=== PATIENT | female | born 1945 | race Caucasian/White ===

== ENCOUNTER 2016-12-10 12:54 | Inpatient (IN) ==
[2016-12-10] MEDS ORDERED: ONDANSETRON 4 MG/2 ML VIAL IV ONE (13:14)
[2016-12-10] MEDS ORDERED: 0.9 % SODIUM CHLORIDE 1,000 ML IV ONE (13:14)
[2016-12-10] MEDS ORDERED: LEVOFLOXACIN 500 MG/100 ML BAG IV ONE (13:14)
--- NOTE | 2016-12-10 13:17 | Emergency Department Note ---
General Adult HPI - General Chief complaint: Weakness Stated complaint: Weakness, High Blood sugar Time Seen by Provider: 12/10/16 13:03 Source: patient, EMS, other Mode of arrival: ambulatory - History of Present Illness HPI Narrative: This patient was diagnosed with UTI recently and prescribed Cipro but has not started it yet. Since Sunday she has been weak and in bed and unable to get out. Feels nauseated. No new cough. No abdominal pain back pain or fever. - Related Data Home Medications Medication Instructions Recorded Confirmed Sertraline [Zoloft] 150 mg PO DAILY 04/29/15 12/10/16 Simvastatin [Zocor] 20 mg PO HS 04/29/15 12/10/16 Valsartan/Hydrochlorothiazide 0.5 tab PO DAILY 04/29/15 12/10/16 [Valsartan-Hctz 80-12.5 mg Tab] buPROPion HCL [Bupropion Xl] 150 mg PO DAILY 04/29/15 12/10/16 metFORMIN [Glucophage] 1,000 mg PO HS 04/29/15 12/10/16 metFORMIN [Glucophage] 1,500 mg PO DAILY 04/29/15 12/10/16 rOPINIRole HCL [Requip] 3 mg PO HS 04/29/15 12/10/16 Oxybutynin Chloride [Oxybutynin 15 mg PO DAILY 01/09/16 12/10/16 Chloride ER] Insulin Aspart [Novolog] See Protocol SQ ACHS 01/13/16 12/10/16 Ciprofloxacin HCl [Cipro] 500 mg PO BID 12/10/16 12/10/16 Fesoterodine Fumarate [Toviaz] 4 mg PO DAILY 12/10/16 12/10/16 Furosemide [Lasix] 40 mg PO DAILY 12/10/16 12/10/16 Previous Rx's Medication Instructions Recorded Accu-Chek 1 each FS ACHS strip 01/17/16 Acetaminophen [Tylenol] 650 mg PO Q4-6HP PRN #0 tablet 01/17/16 Calcium Carbonate [Tums] 1,000 mg CHEWED Q6HP PRN #0 01/17/16 tab.chew Insulin Glargine, Human [Lantus] 45 unit SQ BID #1 vial 01/17/16 Insulin Lispro [Humalog] See Protocol SQ ACHS PRN #0 unit 01/17/16 Simethicone [Mylicon] 160 mg CHEWED BIDP PRN #0 tab.chew 01/17/16 sitaGLIPtin [Januvia] 50 mg PO DAILY #30 tablet 01/17/16 Magnesium Oxide [Magnesium] 400 mg PO BID #10 tablet 01/20/16 Allergies Allergy/AdvReac Type Severity Reaction Status Date / Time clindamycin Allergy Verified 12/10/16 13:01 Sulfa (Sulfonamide AdvReac Mild Diarrhea Verified 12/10/16 13:01 Antibiotics) [SULFA (SULFONAMIDE ANTIBIOTICS)] Review of Systems Constitutional: Denies: fever Eyes: Denies: eye pain ENT ED: Denies: ear pain Cardiovascular: Denies: chest pain Respiratory: Denies: cough Gastrointestinal: Reports: nausea. Denies: abdominal pain, vomiting, diarrhea Genitourinary: Reports: urgency, dysuria, frequency Musculoskeletal: Denies: back pain Integumentary: Denies: rash Neurological: Denies: headache Past Medical History - Past Medical History [facility] Narrative: Medical History (Last Updated 08/10/16 @ 14:33 by [employer]) Left leg cellulitis (Resolved) SIRS (systemic inflammatory response syndrome) (Resolved) Diabetes (Chronic) Acute delirium (Acute) UTI (urinary tract infection) (Acute) Sepsis associated hypotension (Acute) Sepsis (Resolved) Pulmonary edema (Acute) Pneumonia (Resolved) HTN (hypertension) (Chronic) Acute and chronic respiratory failure with hypoxia (Resolved) Renal insufficiency, mild (Acute) Left leg cellulitis (Acute) MRSA carrier (Acute) Stasis dermatitis of left lower extremity due to peripheral venous hypertension (Acute) Cellulitis of leg, left (Acute) Cellulitis (Acute) Venous stasis dermatitis of both lower extremities (Acute) Cellulitis (Acute) Pneumonia (Acute) Medical history: Reports: arthritis, diabetes, hypertension, renal disease, seizures, other (cellulitis and sepsis, pneumonia) Surgical history ED: Reports: cholecystectomy Psychiatric history: Reports: depression, other - Social History smoking status: Never smoker Alcohol use: Reports: None Physical Exam - General Limitations: no limitations General appearance: alert, in no apparent distress - Head Head exam: atraumatic, normocephalic - Eye Eye exam: Present: normal appearance - ENT ENT exam: normal exam - Neck Neck exam: Present: normal inspection - Chest Chest inspection: Present: normal inspection - Respiratory Respiratory exam: Present: normal lung sounds bilaterally - Cardiovascular Cardiovascular exam: Present: regular rate, normal rhythm, normal heart sounds - Abdominal Exam Abdominal exam: Present: soft. Absent: distention, tenderness - Neurological Exam Neurological exam: Present: alert - Psychiatric Psychiatric exam: Present: normal affect, normal mood - Skin Skin exam: Present: warm, dry, intact Course Vital Signs Pulse Rate 100 H 12/10/16 12:55 Respiratory Rate 16 12/10/16 12:55 Blood Pressure 130/64 12/10/16 12:55 Pulse Oximetry (%) 98 12/10/16 12:55 Pulse Rate 113 H 12/10/16 16:02 Respiratory Rate 22 12/10/16 16:02 Blood Pressure 139/76 12/10/16 16:02 Pulse Oximetry (%) 90 12/10/16 16:02 Medical Decision Making - MDM Narrative Medical decision making narrative: This patient has urosepsis but seems to be reasonably stable and will be admitted to the hospital by the hospitalist. - Lab Data Lab results reviewed: Yes I reviewed the patient's lab results. Result diagrams: 12/10/16 13:37 12/10/16 13:37 Lab Results 12/10/16 12/10/16 12/10/16 Range/Units 13:37 13:37 13:37 WBC 14.9 H (4.5-11.0) K/mcL RBC 3.69 L (4.00-5.20) M/mcL Hgb 11.1 L (12.0-15.0) g/dL Hct 32.2 L (36.0-48.0) % MCV 87.1 (80.0-100.0) fL MCH 30.1 (26.0-34.0) pg MCHC 34.5 (31.0-36.0) g/dL RDW 14.6 H (11.5-14.5) % Plt Count 150 (140-440) K/mcL MPV 7.0 L (7.4-10.4) fL Gran % 89.1 H (38.0-78.0) % Lymph % (Auto) 5.9 L (15.5-49.0) % [place] % (Auto) 4.4 (1.0-12.0) % Eos % (Auto) 0.4 (0.0-7.0) % Baso % (Auto) 0.2 (0.0-2.0) % Gran # 13.2 H (1.8-8.0) K/mcL Lymph # (Auto) 0.9 L (1.5-4.8) K/mcL [place] # (Auto) 0.7 (0.1-0.9) K/mcL Eos # (Auto) 0.1 (0.0-0.7) K/mcL Baso # (Auto) 0 (0.0-0.3) K/mcL VBG Lactic Acid 2.4 H (0.5-2.2) mmol/L Sodium 131 L (133-145) mmol/L Potassium 4.8 (3.3-5.1) mmol/L Chloride 95 L (96-108) mmol/L Carbon Dioxide 18 L (22-30) mmol/L Anion Gap 18.0 H (8-16) BUN 37 H (8-23) mg/dl Creatinine 1.6 H (0.6-1.1) mg/dl GFR Calculation 33 Glucose 421 H (70-105) mg/dL Calcium 9.0 (8.6-10.4) mg/dl Total Bilirubin 0.7 (0.0-1.0) mg/dL AST 24 (0-37) U/l ALT 17 (0-40) U/l Alkaline Phosphatase 87 (39-117) U/L Total Protein 6.9 (5.9-8.4) gm/dL Albumin 3.1 L (3.2-5.2) gm/dL Globulin 3.8 H (2.2-3.7) gm/dL Albumin/Globulin Ratio 0.8 L (1.0-2.3) Urine Color Urine Appearance Urine pH (5.0-9.0) Ur Specific [place] (1.000-1.035) Urine Protein (NEG) mg/dL Urine Glucose (UA) (NEG) mg/dL Urine Ketones (NEG) mg/dL Urine Occult Blood (<0.03) mg/dL Urine Nitrate (NEG) Urine Bilirubin (NEG) mg/dL Urine Urobilinogen (NEG) mg/dL Ur Leukocyte Esterase (NEG) /uL Urine RBC (0-1) /hpf Urine WBC (0-4) /hpf Ur Squamous Epith Cells (0-4) /hpf Ur Transition Epith Cell (0-2) /hpf Urine Bacteria (0) /hpf Urine Mucus (0) /hpf Ur Culture Indicated? 12/10/16 Range/Units 14:14 WBC (4.5-11.0) K/mcL RBC (4.00-5.20) M/mcL Hgb (12.0-15.0) g/dL Hct (36.0-48.0) % MCV (80.0-100.0) fL MCH (26.0-34.0) pg MCHC (31.0-36.0) g/dL RDW (11.5-14.5) % Plt Count (140-440) K/mcL MPV (7.4-10.4) fL Gran % (38.0-78.0) % Lymph % (Auto) (15.5-49.0) % [place] % (Auto) (1.0-12.0) % Eos % (Auto) (0.0-7.0) % Baso % (Auto) (0.0-2.0) % Gran # (1.8-8.0) K/mcL Lymph # (Auto) (1.5-4.8) K/mcL [place] # (Auto) (0.1-0.9) K/mcL Eos # (Auto) (0.0-0.7) K/mcL Baso # (Auto) (0.0-0.3) K/mcL VBG Lactic Acid (0.5-2.2) mmol/L Sodium (133-145) mmol/L Potassium (3.3-5.1) mmol/L Chloride (96-108) mmol/L Carbon Dioxide (22-30) mmol/L Anion Gap (8-16) BUN (8-23) mg/dl Creatinine (0.6-1.1) mg/dl GFR Calculation Glucose (70-105) mg/dL Calcium (8.6-10.4) mg/dl Total Bilirubin (0.0-1.0) mg/dL AST (0-37) U/l ALT (0-40) U/l Alkaline Phosphatase (39-117) U/L Total Protein (5.9-8.4) gm/dL Albumin (3.2-5.2) gm/dL Globulin (2.2-3.7) gm/dL Albumin/Globulin Ratio (1.0-2.3) Urine Color Yellow Urine Appearance Hazy Urine pH 6.0 (5.0-9.0) Ur Specific [place] 1.015 (1.000-1.035) Urine Protein 30 A (NEG) mg/dL Urine Glucose (UA) >=500 A (NEG) mg/dL Urine Ketones Neg (NEG) mg/dL Urine Occult Blood 0.03 A (<0.03) mg/dL Urine Nitrate Neg (NEG) Urine Bilirubin Neg (NEG) mg/dL Urine Urobilinogen Neg (NEG) mg/dL Ur Leukocyte Esterase 250 A (NEG) /uL Urine RBC 6 H (0-1) /hpf Urine WBC 136 H (0-4) /hpf Ur Squamous Epith Cells 1 (0-4) /hpf Ur Transition Epith Cell < 1 (0-2) /hpf Urine Bacteria Few A (0) /hpf Urine Mucus Few (0) /hpf Ur Culture Indicated? Yes Disposition Pt seen by [facility]/PA only: No Clinical Impression: UTI (urinary tract infection) Disposition: Xfer As Inpt ([facility]) Condition: Good Referrals: Katie Haji ARNP [Primary Care Provider] - Time of Disposition: 16:42
[2016-12-10] MEDS ORDERED: INSULIN REGULAR, HUMAN 1 UNIT/0.01 ML UNIT IV ONE ×2 (14:24→18:12)
[2016-12-10 14:34] LABS: Basophils # (Auto) 0 K/mcL (0.0-0.3); Basophils % (Auto) 0.2 % (0.0-2.0); Eosinophils # (Auto) 0.1 K/mcL (0.0-0.7); Eosinophils % (Auto) 0.4 % (0.0-7.0); Granulocytes % (Auto) 89.1 % (38.0-78.0); Lymphocytes # (Auto) 0.9 K/mcL (1.5-4.8); Lymphocytes % (Auto) 5.9 % (15.5-49.0); Mean Cell Volume 87.1 fL (80.0-100.0); Mean Corpuscular HGB Conc 34.5 g/dL (31.0-36.0); Mean Corpuscular Hemoglobin 30.1 pg (26.0-34.0); Monocytes # (Auto) 0.7 K/mcL (0.1-0.9); Monocytes % (Auto) 4.4 % (1.0-12.0); Platelet Count 150 K/mcL (140-440); RBC 3.69 M/mcL (4.00-5.20); Red Cell Distribution Width 14.6 % (11.5-14.5)
[2016-12-10 14:51] LABS: ALT/SGPT 17 U/l (0-40); Albumin 3.1 gm/dL (3.2-5.2); Albumin/Globulin Ratio 0.8 (1.0-2.3); Alkaline Phosphatase 87 U/L (39-117); Blood Urea Nitrogen 37 mg/dl (8-23)
[2016-12-10 15:02] LABS: Appearance,Urine HAZY; Bacteria,Urine FEW /hpf (0); Bilirubin,Urine NEG (NEG); Color,Urine YELLOW; Glucose,Urine (UA) >=500 mg/dL (NEG); Leukocyte Esterase,Urine 250 /uL (NEG); Mucus,Urine FEW /hpf (0); Nitrate,Urine NEG (NEG); Protein,Urine 30 mg/dL (NEG); Specific Gravity,Urine 1.015 (1.000-1.035); Urine Blood 0.03 mg/dL (<0.03); Urine RBC 6 /hpf (0-1); Urine Squamous Epithelial Cell 1 /hpf (0-4); Urine Transitional Epi Cells < 1 /hpf (0-2); Urine WBC 136 /hpf (0-4); Urobilinogen,Urine NEG (NEG)
--- NOTE | 2016-12-10 17:14 | Internal Med History&Physical ---
Medical - H&P: HPI Patient information: Note initiated : 12/10/16 at 5:06 pm Patient: Mary Gibbons 71 y/o F admitted on for Weakness, High Blood sugar. History of present illness: Ms. Gibbons is a 71 year old female with a history of type 2 diabetes. She was last admitted here last December with pneumonia, cellulitis, respiratory failure , sepsis. She says about 1 month ago she developed an ulcer on her left lower leg, and that that is being followed by her regular doctor. She was feeling reasonably well, and living at home alone, until Sunday when she suddenly became extremely weak. She normally has caregivers that come in for a few hours a day just on week, so they last saw her on Sunday. She says she was so weak that she has not been able to get out of bed since then. So all day yesterday, she did not take any medications or get up to eat or drink. She was incontinent in the bed, as she was just too weak to get up. She did not think to call for help until today, when she called her caregiver, who called 911. In the emergency room, she had somewhat depressed mental status, tachypnea, tachycardia, leukocytosis, lactic acidosis, pyuria. She is now admitted to the PCU with diagnosis of sepsis thought probably secondary to urinary tract infection. The patient is somewhat lethargic, so getting a history is a little bit difficult. She says she has been having fevers and chills over the weekend. She has also had mild headache and nausea, blurred vision, sore throat and mild cough which has been nonproductive. She denies sinus symptoms or earache. She has had some trouble swallowing the last couple of days, due to a dry throat. She denies chest pain or palpitations or significant shortness of breath. She denies abdominal pain, vomiting or diarrhea. She says she normally has chronic diarrhea, but that has changed to constipation since she was started on iron supplement. She does have chronic bladder incontinence, and was recently started on bladder medicine, but is not sure if she started the new one yet. She last checked her blood sugar on Sunday, but does not recall the number. She says normally she ranges anywhere from 150 up to as high as 600. She does use a sliding scale at home. Medical history: 1.HTN 2.Diabetes mellitus on OHG 3.Morbid obesity 4.Chronic leg swelling 5.Chronic diarrhea 6. Depression/anxiety 7. Pna with resp failure 8. Cellulitis 9. CKD Surgical history: TxA, cholecystectomy,R shoulder surgery,TXL Medications: Patient is not really able to verify all medications, but current list appears to be: Januvia 50 mg daily Requip 3 mg nightly Metformin 1500 mg every morning, 1000 mg nightly Bupropion XL 150 mg daily ValsartanTZ 8012 0.5 half tablet daily Simvastatin 20 mg nightly Simethicone 160 mg twice daily as needed Sertraline 150 mg daily Oxybutynin ER 15 mg daily Magnesium oxide 400 mg twice daily Lantus 45 units subcu twice daily Humalog sliding scale before meals and at bedtime Lasix 40 mg daily Toviaz 4 mg daily Calcium carbonate 1000 mg every 6 hours as needed Tylenol 650 mg every 4-6 hours as needed Allergies: Clindamycin Sulfa Pertinent family history: HTN Diabetes CAD Social history: lives alone has caregiver, uses cane/walker Never smoker,Drug use: none, Alcohol use: none She has a son who lives in [place], who has her POA. She has a grandson who lives in [place]. She apparently did sign a no code order today, and states that that is her wish. Medical - H&P: Meds Home Medications Medication Instructions Recorded Confirmed Type Sertraline [Zoloft] 150 mg PO DAILY 04/29/15 12/10/16 History Simvastatin [Zocor] 20 mg PO HS 04/29/15 12/10/16 History Valsartan/Hydrochlorothiazide 0.5 tab PO DAILY 04/29/15 12/10/16 History [Valsartan-Hctz 80-12.5 mg Tab] buPROPion HCL [Bupropion Xl] 150 mg PO DAILY 04/29/15 12/10/16 History metFORMIN [Glucophage] 1,000 mg PO HS 04/29/15 12/10/16 History metFORMIN [Glucophage] 1,500 mg PO DAILY 04/29/15 12/10/16 History rOPINIRole HCL [Requip] 3 mg PO HS 04/29/15 12/10/16 History Oxybutynin Chloride [Oxybutynin 15 mg PO DAILY 01/09/16 12/10/16 History Chloride ER] Insulin Aspart [Novolog] See Protocol SQ ACHS 01/13/16 12/10/16 History Accu-Chek 1 each FS ACHS strip 01/17/16 12/10/16 Rx Acetaminophen [Tylenol] 650 mg PO Q4-6HP PRN #0 tablet 01/17/16 12/10/16 Rx Calcium Carbonate [Tums] 1,000 mg CHEWED Q6HP PRN #0 01/17/16 12/10/16 Rx tab.chew Insulin Glargine, Human [Lantus] 45 unit SQ BID #1 vial 01/17/16 12/10/16 Rx Insulin Lispro [Humalog] See Protocol SQ ACHS PRN #0 unit 01/17/16 12/10/16 Rx Simethicone [Mylicon] 160 mg CHEWED BIDP PRN #0 tab.chew 01/17/16 12/10/16 Rx sitaGLIPtin [Januvia] 50 mg PO DAILY #30 tablet 01/17/16 12/10/16 Rx Magnesium Oxide [Magnesium] 400 mg PO BID #10 tablet 01/20/16 12/10/16 Rx Ciprofloxacin HCl [Cipro] 500 mg PO BID 12/10/16 12/10/16 History Fesoterodine Fumarate [Toviaz] 4 mg PO DAILY 12/10/16 12/10/16 History Furosemide [Lasix] 40 mg PO DAILY 12/10/16 12/10/16 History Allergies Allergy/AdvReac Type Severity Reaction Status Date / Time clindamycin Allergy Verified 12/10/16 13:01 Sulfa (Sulfonamide AdvReac Mild Diarrhea Verified 12/10/16 13:01 Antibiotics) [SULFA (SULFONAMIDE ANTIBIOTICS)] Medical - H&P: Exam - Constitutional Vitals: Pulse Resp BP Pulse Ox 114 H 32 H 141/64 87 L 12/10/16 16:56 12/10/16 16:56 12/10/16 16:31 12/10/16 16:56 Oxygen 85% on room air. On exam, she is somewhat lethargic elderly female, who does arouse to voice, and seems to answer questions appropriately, although she falls asleep frequently. She denies pain at this time. Head: Normocephalic, atraumatic. Eyes: Pupils are fairly pinpoint, and sluggishly reactive., EOMI, anicteric. Ears: TMs and canals are clear. Pharynx: Pharynx is markedly crowded. Mucosa is markedly dry. She is edentulous. She apparently does have dentures at home. Neck: Appears supple, without obvious lymphadenopathy, JVD, thyromegaly. She does have bilateral carotid bruits which appear to be radiating from a heart murmur. Cardiac exam: Shows regular rate and rhythm with normal S1 and S2. There is a 2 /6 systolic murmur heard throughout the precordium. Lungs: Are clear to auscultation, without obvious rales, rhonchi, wheezes. Abdomen: Is quite obese, with a very large pannus. [place] smell of yeast. She has some mild right lower quadrant tenderness, but no guarding or rebound. Bowel sounds appear active. Extremities: She has generally swollen lower extremities below the knees. She has patchy erythema over both distal legs, which she says is chronic. The upper part of the left leung area also has a 2 cm necrotic appearing ulcer with about 2 cm of surrounding erythema. This is tender. There is no obvious drainage. No cyanosis or clubbing is noted. Neurologic exam: The patient is lethargic, but otherwise answers questions appropriately. She follows commands, and is moving all extremities equally. Medical - H&P: Reslt - Labs CBC & Chem 7: 12/10/16 13:37 12/10/16 13:37 Labs: Short CBC 12/10/16 Range/Units 13:37 WBC 14.9 H (4.5-11.0) K/mcL Hgb 11.1 L (12.0-15.0) g/dL Hct 32.2 L (36.0-48.0) % Plt Count 150 (140-440) K/mcL BMP 12/10/16 13:37 Sodium 131 L Potassium 4.8 Chloride 95 L Carbon Dioxide 18 L BUN 37 H Creatinine 1.6 H Glucose 421 H Calcium 9.0 Liver Function 12/10/16 Range/Units 13:37 Total Bilirubin 0.7 (0.0-1.0) mg/dL AST 24 (0-37) U/l ALT 17 (0-40) U/l Alkaline Phosphatase 87 (39-117) U/L Albumin 3.1 L (3.2-5.2) gm/dL Urine 12/10/16 Range/Units 14:14 Urine Color Yellow Urine Appearance Hazy Urine pH 6.0 (5.0-9.0) Ur Specific Rule 1.015 (1.000-1.035) Urine Protein 30 A (NEG) mg/dL Urine Glucose (UA) >=500 A (NEG) mg/dL December 10: CBC differential: Shows 13,000 neutrophils, 900 lymphocytes. Lactic acid is elevated at 2.4 Urinalysis shows greater than 500 mg glucose, 250 leukocyte esterase, 136 white blood cells, negative nitrites. Chest x-ray: Pending Medical - H&P: A/P (1) YANN (acute kidney injury) Current visit: Yes Status: Acute (2) Diabetes Problem details: NOW ON LANTUS 45 UNITS SQ BID, JANUVIA 50 MG PO DAILY AND METFORMIN. Current visit: No Status: Chronic (3) UTI (urinary tract infection) Problem details: E coli sens to all- change to Ceftriaxone Current visit: Yes Status: Acute (4) Sepsis Problem details: Blood cultures pending Current visit: No Status: Resolved (5) HTN (hypertension) Problem details: CONTROLLED. Current visit: No Status: Chronic - Narrative A/P Narrative: #1. Infectious disease. Patient presents with sepsis presentation, and evidence of UTI. She is tachycardic and tachypneic, with leukocytosis and elevated lactic acid and hyperglycemia.. -Admit to PCU for close monitoring. -Aggressive fluid resuscitation, repeat lactic acid. -Cover with IV Rocephin empirically, pending urine and blood cultures. -Kiser catheter for fluid balance monitoring. 2. CODE STATUS: DNR forms filled out by family today. 3. DVT prophylaxis: Subcu heparin 4. Renal. Acute kidney injury. -Continue aggressive fluid resuscitation. Monitor. -Hold metformin. Multiple electrolyte abnormalities. -Monitor with hydration. 5. Endocrine. Type 2 diabetes. -Patient presents with marked hyperglycemia and acidosis. Aggressive IV fluids, IV insulin, insulin sliding scale coverage.. 7. Hernia. -Hypertension. Monitor. This visit took approximately 70 minutes, to review the patient's records, review her case with the ER MD, interview and examine the patient, review plan of care with staff, and write orders.
[2016-12-10] MEDS ORDERED: DEXTROSE 31 GM ORAL.SUSP PO PRN (18:03)
[2016-12-10] MEDS ORDERED: ACETAMINOPHEN 325 MG TABLET PO PRN (18:03)
[2016-12-10] MEDS ORDERED: MAGNESIUM HYDROXIDE 30 ML ORAL.SUSP PO PRN (18:03)
[2016-12-10] MEDS ORDERED: DEXTROSE 50% 50 ML VIAL IV PRN (18:03)
[2016-12-10] MEDS ORDERED: ALBUTEROL SULFATE 2.5 MG/3 ML NEBULIZER NEB PRN (18:03)
[2016-12-10] MEDS ORDERED: ONDANSETRON 4 MG/2 ML VIAL IV PRN (18:03)
[2016-12-10] MEDS ORDERED: DOCUSATE SODIUM 100 MG CAPSULE PO PRN (18:03)
[2016-12-10] MEDS ORDERED: LORazepam 2 MG/ML VIAL IV PRN (18:03)
[2016-12-10] MEDS ORDERED: ACETAMINOPHEN 650 MG/65 ML BOTTLE IV PRN (18:19)
[2016-12-10] MEDS: INSULIN LISPRO 1 UNIT/0.01 ML UNIT SQ SCH ×2 (19:15→22:18)
[2016-12-10] MEDS ORDERED: INSULIN REGULAR, HUMAN 1 UNIT/0.01 ML UNIT ONE (19:46)
[2016-12-10] MEDS ORDERED: POTASSIUM CHLORIDE 20 MEQ/10 ML VIAL IV ONE ×2 (19:46→22:29)
[2016-12-10] MEDS ORDERED: CALCIUM CARBONATE 500 MG TAB.CHEW CHEWED PRN (19:49)
[2016-12-10] MEDS ORDERED: SIMETHICONE 80 MG TAB.CHEW CHEWED PRN (19:49)
[2016-12-10] MEDS: POTASSIUM CHLORIDE IV SCH (19:50)
[2016-12-10] MEDS: SODIUM CHLORIDE 0.9% IV SCH (19:50)
[2016-12-10 20:51] LABS: Estimated Average Glucose(eAG) 212 mg/dL
[2016-12-10] MEDS: 0.9 % SODIUM CHLORIDE 10 ML SYRINGE IV SCH (21:37)
[2016-12-10] MEDS: MAGNESIUM OXIDE 400 MG TABLET PO SCH (22:18)
[2016-12-10] MEDS: SIMVASTATIN 20 MG TABLET PO SCH (22:18)
[2016-12-10] MEDS: HEPARIN 5,000 UNIT/ML VIAL SQ SCH (22:18)
[2016-12-10] MEDS: INSULIN GLARGINE, HUMAN 1 UNIT/0.01 ML SQ SCH (22:19)
[2016-12-10] MEDS: cefTRIAXone 1 GM in DEXTROSE 5% IN WATER 50 ML IV SCH (22:28)
[2016-12-10] MEDS: rOPINIRole 1 MG TABLET PO SCH (22:28)
[2016-12-10] MEDS ORDERED: cefTRIAXone 1 GM VIAL ONE (22:30)
[2016-12-11] MEDS ORDERED: POTASSIUM CHLORIDE 20 MEQ/10 ML VIAL IV ONE (03:14)
[2016-12-11] MEDS: POTASSIUM CHLORIDE IV SCH ×4 (03:28→20:09)
[2016-12-11] MEDS: SODIUM CHLORIDE 0.9% IV SCH ×4 (03:28→20:09)
[2016-12-11] MEDS: 0.9 % SODIUM CHLORIDE 10 ML SYRINGE IV SCH ×3 (05:51→21:30)
[2016-12-11 06:12] LABS: Basophils # (Auto) 0 K/mcL (0.0-0.3); Basophils % (Auto) 0 % (0.0-2.0); Eosinophils # (Auto) 0.1 K/mcL (0.0-0.7); Eosinophils % (Auto) 0.7 % (0.0-7.0); Granulocytes % (Auto) 90.5 % (38.0-78.0); Lymphocytes # (Auto) 0.4 K/mcL (1.5-4.8); Lymphocytes % (Auto) 3.3 % (15.5-49.0); Mean Corpuscular Hemoglobin 29.9 pg (26.0-34.0); Monocytes # (Auto) 0.6 K/mcL (0.1-0.9); Monocytes % (Auto) 5.5 % (1.0-12.0); Platelet Count 134 K/mcL (140-440); Red Cell Distribution Width 15.2 % (11.5-14.5)
[2016-12-11 06:38] LABS: ALT/SGPT 25 U/l (0-40); Albumin 3.1 gm/dL (3.2-5.2); Alkaline Phosphatase 92 U/L (39-117); Bilirubin,Direct 0.5 mg/dL (0.0-0.3); Blood Urea Nitrogen 30 mg/dl (8-23); Gamma Glutamyl Transpeptidase 125 U/L (5-36); Magnesium 1.6 mg/dL (1.6-2.5); Uric Acid 7.8 mg/dL (2.5-8.0)
[2016-12-11] MEDS: ACETAMINOPHEN 1,000 MG/100 ML BOTTLE IV PRN ×2 (07:49→18:31)
[2016-12-11] MEDS: PIPERACILLIN SODIUM/TAZOBACTAM 3.375 GM in DEXTROSE 5% IN WATER 50 ML IV SCH ×3 (07:50→21:12)
[2016-12-11] MEDS: INSULIN LISPRO 1 UNIT/0.01 ML UNIT SQ SCH ×4 (07:51→21:09)
--- NOTE | 2016-12-11 08:13 | XRay Report ---
CLINICAL INFORMATION: Fever COMPARISON: 07/03/2016 FINDINGS: Cardiomediastinal silhouette is accentuated by portable technique, right rotation and suboptimal inspiration. The heart is only borderline enlarged. Mitral annular calcification noted. Mediastinum and pulmonary vessels are normal for technique. There is minor bibasilar atelectasis - no mali infiltrate and no definite effusion. Heavy calcification seen in the region of the left rotator, compatible with calcific tendinitis IMPRESSION: Minor bibasilar atelectasis. Interpreted and Authenticated by: Spencer Trinh 12/11/16
[2016-12-11] MEDS: INSULIN GLARGINE, HUMAN 1 UNIT/0.01 ML SQ SCH ×2 (09:11→21:09)
[2016-12-11] MEDS: HEPARIN 5,000 UNIT/ML VIAL SQ SCH ×2 (09:11→21:08)
[2016-12-11] MEDS: sitaGLIPtin 50 MG TABLET PO SCH (09:12)
[2016-12-11] MEDS: SERTRALINE 50 MG TABLET PO SCH (09:12)
[2016-12-11] MEDS: MAGNESIUM OXIDE 400 MG TABLET PO SCH ×2 (09:12→21:09)
[2016-12-11] MEDS: OXYBUTYNIN CHLORIDE 5 MG TAB.XL.24H PO SCH (09:13)
[2016-12-11] MEDS: buPROPion 150 MG TAB.XL.24H PO SCH (09:14)
[2016-12-11] MEDS: cefTRIAXone 1 GM in DEXTROSE 5% IN WATER 50 ML IV SCH (09:14)
--- NOTE | 2016-12-11 10:36 | Internal Med Progress Note ---
Medical - PN: Subj Patient information: Note initiated : 12/11/16 at 10:36 am Patient: Mary Gibbons 71 y/o F admitted on 12/10/16 for Weakness, High Blood sugar. Interval history: December 10, 2016: History of present illness: Ms. Gibbons is a 71 year old female with a history of type 2 diabetes. She was last admitted here last December with pneumonia, cellulitis, respiratory failure , sepsis. She says about 1 month ago she developed an ulcer on her left lower leg, and that that is being followed by her regular doctor. She was feeling reasonably well, and living at home alone, until Sunday when she suddenly became extremely weak. She normally has caregivers that come in for a few hours a day just on , so they last saw her on Sunday. She says she was so weak that she has not been able to get out of bed since then. So all day yesterday, she did not take any medications or get up to eat or drink. She was incontinent in the bed, as she was just too weak to get up. She did not think to call for help until today, when she called her caregiver, who called 911. In the emergency room, she had somewhat depressed mental status, tachypnea, tachycardia, leukocytosis, lactic acidosis, pyuria. She is now admitted to the PCU with diagnosis of sepsis thought probably secondary to urinary tract infection. The patient is somewhat lethargic, so getting a history is a little bit difficult. She says she has been having fevers and chills over the weekend. She has also had mild headache and nausea, blurred vision, sore throat and mild cough which has been nonproductive. She denies sinus symptoms or earache. She has had some trouble swallowing the last couple of days, due to a dry throat. She denies chest pain or palpitations or significant shortness of breath. She denies abdominal pain, vomiting or diarrhea. She says she normally has chronic diarrhea, but that has changed to constipation since she was started on iron supplement. She does have chronic bladder incontinence, and was recently started on bladder medicine, but is not sure if she started the new one yet. She last checked her blood sugar on Sunday, but does not recall the number. She says normally she ranges anywhere from 150 up to as high as 600. She does use a sliding scale at home. December 11: Today, the patient continues to be fairly lethargic, although she is able to answer questions when pressed. She remained febrile most of the night, in spite of frequent Tylenol. Today her blood cultures are growing gram-negative rods, so Zosyn was added to her Rocephin, pending sensitivities. White blood cell count and lactic acid are both improved today. The patient says she feels a little better, but continues to feel uncomfortable and her general abdominal area. Otherwise she denies fever chills, chest pain or palpitations, shortness of breath or cough, nausea or vomiting, diarrhea. Kiser catheter remains in place. - Constitutional Vitals: Vital Signs Temp Pulse Resp BP Pulse Ox 99.8 F H 102 H 27 H 134/49 95 12/11/16 09:00 12/11/16 07:37 12/11/16 09:00 12/11/16 09:00 12/11/16 09:00 Period Temp Pulse Resp BP Sys/Vilchis Pulse Ox Last 24 Hr 99.5 F-102.2 F 58-117 20-33 112-157/44-115 85-100 Intake and Output 12/10/16 12/11/16 12/11/16 21:59 05:59 13:59 Intake Total 1055 / 1055 390 / 390 Output Total 275 / 775 540 / 540 420 / 420 Balance -275 / 325 515 / 515 -30 / -30 Intake & Output: Intake & Output 12/10/16 12/11/16 12/11/16 21:59 05:59 13:59 Intake Total 1055 / 1055 390 / 390 Output Total 275 / 775 540 / 540 420 / 420 Balance -275 / 325 515 / 515 -30 / -30 Intake: IV 1055 / 1055 150 / 150 Zosyn 3.375 gm In 50 / 50 Dextrose 5% in Water 50 ml @ 100 mls/hr IV Q8H PANDA Rx#:[id number] Potassium Chloride 10 Meq 1005 / 1005 In Sodium Chloride 0.9% 1,000 ml @ 150 mls/hr IV .Q6H42M PANDA Rx#:[id number] Rocephin 1 gm In Dextrose 50 / 50 5% in Water 50 ml @ 100 mls/hr IV Q24H PANDA Rx#: [id number] Oral 240 / 240 Output: Urine Catheter Amount 275 / 775 540 / 540 340 / 340 Void Amount 80 / 80 On exam, she continues to be fairly lethargic, but does arouse to voice, and is able to follow commands. Current temperature is 99.8. Heart rate 92. Respiratory rate 22. O2 saturation 99% on 1 L. Neck shows no obvious JVD lymphadenopathy. Cardiac exam shows regular rate and rhythm. Lungs are clear to auscultation. Abdomen: There is some vague tenderness, which is not very reproducible. There is no guarding or rebound. Bowel sounds are active. Extremities show chronic edema and stasis dermatitis. The left leung ulcer is dry, with continued surrounding cellulitis. This was seen today with Dr. Fonseca of wound care. Medical - PN: Obj Da - Labs CBC & Chem 7: 12/11/16 04:00 12/11/16 04:00 Labs: Abnormal Lab Results 12/11/16 12/11/16 12/10/16 04:00 04:00 19:00 WBC 11.4 H RBC 3.10 L Hgb 9.3 L Hct 27.3 L RDW 15.2 H Plt Count 134 L MPV 7.0 L Gran % 90.5 H Lymph % (Auto) 3.3 L Gran # 10.4 H Lymph # (Auto) 0.4 L BUN 30 H Creatinine 1.4 H Glucose 342 H Hemoglobin A1c 9.0 H Calcium 8.1 L Phosphorus 2.3 L Direct Bilirubin 0.5 H GGT 125 H AST 47 H Albumin 3.1 L December 11: Chest x-ray: Shows minor bibasilar atelectasis. Renal ultrasound: Shows normal-appearing kidneys. Urine culture: Is growing a gram-negative bacillus. Blood cultures are growing gram-negative bacilli. December 10: CBC white blood cell count is 14,900, hemoglobin 11, hematocrit 32, platelets 150,000. Differential: Shows 13,000 neutrophils, 900 lymphocytes. Lactic acid is elevated at 2.4 Urinalysis shows greater than 500 mg glucose, 250 leukocyte esterase, 136 white blood cells, negative nitrites. Chest x-ray: Pending Meds: Medications Acetaminophen (Tylenol) 650 mg PO Q4-6HP PRN PRN Reason: PAIN/FEVER > 101 Last Admin: 12/10/16 21:36 Dose: 650 mg Albuterol Sulfate (Ventolin) 2.5 mg NEB Q4HRT PRN PRN Reason: Shortness Of Breath Or Wheezing Bupropion HCl (Wellbutrin Xl) 150 mg PO DAILY [facility] Last Admin: 12/11/16 09:14 Dose: 150 mg Calcium Carbonate/Glycine (Tums) 1,000 mg CHEWED Q6HP PRN PRN Reason: Dyspepsia Dextrose (Dextrose 50%) 0 ml IV UD PRN PRN Reason: Hypoglycemia Diagnostic Test (Pha) (Accu-Chek) 1 each FS ACHS [facility] Last Admin: 12/11/16 07:50 Dose: 1 each Docusate Sodium (Colace) 100 mg PO BID PRN PRN Reason: Constipation Glucose (Insta-Glucose) 15 gm PO PRN PRN PRN Reason: Hypoglycemia Heparin Sodium (Porcine) (Heparin) 5,000 unit SQ Q12 [facility] Last Admin: 12/11/16 09:11 Dose: 5,000 unit Ceftriaxone Sodium 1 gm/ (Dextrose) 50 mls @ 100 mls/hr IV Q24H [facility] Last Admin: 12/11/16 09:14 Dose: 100 mls/hr Potassium Chloride 10 meq/ (Sodium Chloride) 1,005 mls @ 150 mls/hr IV .Q6H42M [facility] Last Admin: 12/11/16 07:51 Dose: Not Given Acetaminophen (Ofirmev) 1,000 mg in 100 mls @ 200 mls/hr IV Q6HP PRN PRN Reason: PAIN/FEVER > 101 Last Infusion: 12/11/16 08:30 Dose: Infused Piperacillin Sod/Tazobactam (Sod 3.375 gm/ Dextrose) 50 mls @ 100 mls/hr IV Q8H [facility] Last Infusion: 12/11/16 08:44 Dose: Infused Insulin Glargine (Lantus) 45 unit SQ BID [facility] Last Admin: 12/11/16 09:11 Dose: 45 unit Insulin Human Lispro (Humalog) 0 unit SQ [facility] PRN Reason: Protocol Last Admin: 12/11/16 07:51 Dose: 8 unit Lorazepam (Ativan) 0.5 mg IV Q4HP PRN PRN Reason: ANXIETY/SEDATION Magnesium Hydroxide (Milk Of Magnesia) 30 ml PO DAILYP PRN PRN Reason: Constipation Magnesium Oxide (Magnesium Oxide) 400 mg PO BID [facility] Last Admin: 12/11/16 09:12 Dose: 400 mg Ondansetron HCl (Zofran) 4 mg IV Q4-6HP PRN PRN Reason: Nausea And Vomiting Oxybutynin Chloride (Ditropan Xl) 15 mg PO DAILY [facility] Last Admin: 12/11/16 09:13 Dose: 15 mg Ropinirole HCl (Requip) 3 mg PO HS [facility] Last Admin: 12/10/16 22:28 Dose: 3 mg Sertraline HCl (Zoloft) 150 mg PO DAILY [facility] Last Admin: 12/11/16 09:12 Dose: 150 mg Simethicone (Mylicon) 160 mg CHEWED BIDP PRN PRN Reason: Bloating Simvastatin (Zocor) 20 mg PO HS [facility] Last Admin: 12/10/16 22:18 Dose: 20 mg Sitagliptin Phosphate (Januvia) 50 mg PO DAILY [facility] Last Admin: 12/11/16 09:12 Dose: 50 mg Sodium Chloride (Saline Flush) 10 ml IV Q8 [facility] Last Admin: 12/11/16 05:51 Dose: Not Given Medical - PN: A/P - Time Spent With Patient Total time spent is greater than 50% in coordination of care (as documented) at patient's floor/unit and/or counseling patient: Greater than 35 minutes (1) YANN (acute kidney injury) Status: Acute Current Visit: Yes (2) Diabetes Problem details: NOW ON LANTUS 45 UNITS SQ BID, JANUVIA 50 MG PO DAILY AND METFORMIN. Status: Chronic Current Visit: No (3) UTI (urinary tract infection) Problem details: E coli sens to all- change to Ceftriaxone Status: Acute Current Visit: Yes (4) Sepsis Problem details: Blood cultures pending Status: Resolved Current Visit: No (5) HTN (hypertension) Problem details: CONTROLLED. Status: Chronic Current Visit: No - Narrative A/P Narrative: #1. Infectious disease. Patient presents with sepsis presentation, and evidence of UTI. She is tachycardic and tachypneic, with leukocytosis and elevated lactic acid and hyperglycemia.. -Patient has remained febrile overnight, and is now growing gram-negative rods in both her urine and her blood. Zosyn was added to the Rocephin for more comprehensive coverage, pending ID and sensitivities. -Continue IV fluids, antibiotics, close monitoring. -Lactic acidosis has resolved. 2. CODE STATUS: DNR . 3. DVT prophylaxis: Subcu heparin 4. Renal. Acute kidney injury. -Improving. Continue aggressive fluid resuscitation. Monitor. -Hold metformin. Multiple electrolyte abnormalities. -Monitor with hydration. 5. Endocrine. Type 2 diabetes. -Patient presents with marked hyperglycemia and acidosis. Blood glucose continues to run quite high, so I will bump up her sliding scale. Aggressive IV fluids, subcu Lantus, insulin sliding scale coverage.. #6. Hematologic. The patient is quite a bit more anemic today. Platelets of also dropped, possibly due to sepsis. Continue to monitor. 7. Hernia. -Hypertension. Monitor. Medical - PN: Qual - VTE Deep Vein Thrombosis/Pulmonary Embolism Present on Admission: No
--- NOTE | 2016-12-11 12:20 | Ultrasound Report ---
CLINICAL INFORMATION: [id number] bacteremia COMPARISON: None. FINDINGS: Both kidneys are normal and symmetric in size, position, configuration and echotexture: The right is 11.3 x 5.8 cm and the left 11.8 x 5.8 cm. There is no evidence of abscess, hydronephrosis or stone. Urinary bladder is decompressed from a Kiser catheter. No gross abnormality seen. IMPRESSION: Both kidneys are unremarkable. Interpreted and Authenticated by: Spencer Trinh 12/11/16
--- NOTE | 2016-12-11 15:28 | General Surgery Consult Note ---
History of Present Illness Patient information: Note initiated : 12/11/16 at 3:22 pm Service Date, if different from initiated Date: [] Patient: Mary Gibbons 71 y/o F admitted on 12/10/16 for Weakness, High Blood Sugar/Sepsis, UTI. Chief Complaint: [] Consult date: 12/11/16 (Wound Care Services) Requesting physician: Ana Laura Bustos History of present illness: 71 / F. I saw this patient in ICU along with MANISH Silveira and ICU nurse. Wound care recommendations reviewed with Hospitalist Physician. Patient admitted via ER with uncontrolled diabetes, Urosepsis due to UTI ( GNB ) and Dermatitis of left leg with dry adherent eschar LEFT upper medial leg. 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 Blood c/s are positive for GNB . Identification and sensitivities pending. Currently on IV antibiotics and hydration and urinary drainage. Medications and Allergies Home Medications Medication Instructions Recorded Confirmed Type Sertraline [Zoloft] 150 mg PO DAILY 04/29/15 12/10/16 History Simvastatin [Zocor] 20 mg PO HS 04/29/15 12/10/16 History Valsartan/Hydrochlorothiazide 0.5 tab PO DAILY 04/29/15 12/10/16 History [Valsartan-Hctz 80-12.5 mg Tab] buPROPion HCL [Bupropion Xl] 150 mg PO DAILY 04/29/15 12/10/16 History metFORMIN [Glucophage] 1,000 mg PO HS 04/29/15 12/10/16 History metFORMIN [Glucophage] 1,500 mg PO DAILY 04/29/15 12/10/16 History rOPINIRole HCL [Requip] 3 mg PO HS 04/29/15 12/10/16 History Oxybutynin Chloride [Oxybutynin 15 mg PO DAILY 01/09/16 12/10/16 History Chloride ER] Insulin Aspart [Novolog] See Protocol SQ ACHS 01/13/16 12/10/16 History Accu-Chek 1 each FS ACHS strip 01/17/16 12/10/16 Rx Acetaminophen [Tylenol] 650 mg PO Q4-6HP PRN #0 tablet 01/17/16 12/10/16 Rx Calcium Carbonate [Tums] 1,000 mg CHEWED Q6HP PRN #0 01/17/16 12/10/16 Rx tab.chew Insulin Glargine, Human [Lantus] 45 unit SQ BID #1 vial 01/17/16 12/10/16 Rx Insulin Lispro [Humalog] See Protocol SQ ACHS PRN #0 unit 01/17/16 12/10/16 Rx Simethicone [Mylicon] 160 mg CHEWED BIDP PRN #0 tab.chew 01/17/16 12/10/16 Rx sitaGLIPtin [Januvia] 50 mg PO DAILY #30 tablet 01/17/16 12/10/16 Rx Magnesium Oxide [Magnesium] 400 mg PO BID #10 tablet 01/20/16 12/10/16 Rx Ciprofloxacin HCl [Cipro] 500 mg PO BID 12/10/16 12/10/16 History Fesoterodine Fumarate [Toviaz] 4 mg PO DAILY 12/10/16 12/10/16 History Furosemide [Lasix] 40 mg PO DAILY 12/10/16 12/10/16 History Allergies Allergy/AdvReac Type Severity Reaction Status Date / Time clindamycin Allergy Verified 12/10/16 13:01 Sulfa (Sulfonamide AdvReac Mild Diarrhea Verified 12/10/16 13:01 Antibiotics) [SULFA (SULFONAMIDE ANTIBIOTICS)] Exam Temp Pulse Resp BP Pulse Ox 100.1 F H 88 30 H 134/62 97 12/11/16 15:00 12/11/16 12:02 12/11/16 15:00 12/11/16 15:00 12/11/16 15:00 - General physical appearance well developed, well nourished, no distress, chronically ill - Eyes PERRL, normal ocular movement - ENT normal pinna, normal nares, normal mucosa, no congestion - Head Head exam IM: Present: atraumatic, normal inspection, normocephalic - Neck no masses, no bruits, trachea midline, no venous distension - Cardiovascular Cardiovascular exam IM: Present: normal rate and rhythm - Respiratory normal expansion, normal respiratory effort, clear to auscultation - Abdomen Abdomen: Present: soft, non tender, bowel sounds - Integumentary Present: other (Dry adherent skin necrosis with periwound fungal dermatitis. NO CELLULITIS. Colonized with MRSA and Suspect claudia) - Neurologic Present: normal coordination, normal sensation - Musculoskeletal Present: other (sitting OOB in Chair) - Psychiatric Present: oriented to time, oriented to person, oriented to place, speech is normal Results - Labs 12/11/16 04:00 12/11/16 04:00 Abnormal lab results 12/10/16 12/11/16 12/11/16 Range/Units 19:00 04:00 04:00 WBC 11.4 H (4.5-11.0) K/mcL RBC 3.10 L (4.00-5.20) M/mcL Hgb 9.3 L (12.0-15.0) g/dL Hct 27.3 L (36.0-48.0) % RDW 15.2 H (11.5-14.5) % Plt Count 134 L (140-440) K/mcL MPV 7.0 L (7.4-10.4) fL Gran % 90.5 H (38.0-78.0) % Lymph % (Auto) 3.3 L (15.5-49.0) % Gran # 10.4 H (1.8-8.0) K/mcL Lymph # (Auto) 0.4 L (1.5-4.8) K/mcL BUN 30 H (8-23) mg/dl Creatinine 1.4 H (0.6-1.1) mg/dl Glucose 342 H (70-105) mg/dL Hemoglobin A1c 9.0 H (4.0-6.0) % HGB Calcium 8.1 L (8.6-10.4) mg/dl Phosphorus 2.3 L (2.7-4.5) mg/dL Direct Bilirubin 0.5 H (0.0-0.3) mg/dL GGT 125 H (5-36) U/L AST 47 H (0-37) U/l Albumin 3.1 L (3.2-5.2) gm/dL Diabetes panel 12/10/16 12/11/16 Range/Units 19:00 04:00 Sodium 135 (133-145) mmol/L Potassium 4.5 (3.3-5.1) mmol/L Chloride 100 (96-108) mmol/L Carbon Dioxide 23 (22-30) mmol/L BUN 30 H (8-23) mg/dl Creatinine 1.4 H (0.6-1.1) mg/dl Glucose 342 H (70-105) mg/dL Hemoglobin A1c 9.0 H (4.0-6.0) % HGB Calcium 8.1 L (8.6-10.4) mg/dl AST 47 H (0-37) U/l ALT 25 (0-40) U/l Alkaline Phosphatase 92 (39-117) U/L Total Protein 6.2 (5.9-8.4) gm/dL Albumin 3.1 L (3.2-5.2) gm/dL Triglycerides 122 (<150) mg/dl Calcium panel 12/11/16 Range/Units 04:00 Calcium 8.1 L (8.6-10.4) mg/dl Phosphorus 2.3 L (2.7-4.5) mg/dL Albumin 3.1 L (3.2-5.2) gm/dL Pituitary panel 12/11/16 Range/Units 04:00 Sodium 135 (133-145) mmol/L Potassium 4.5 (3.3-5.1) mmol/L Chloride 100 (96-108) mmol/L Carbon Dioxide 23 (22-30) mmol/L BUN 30 H (8-23) mg/dl Creatinine 1.4 H (0.6-1.1) mg/dl Glucose 342 H (70-105) mg/dL Calcium 8.1 L (8.6-10.4) mg/dl Adrenal panel 12/11/16 Range/Units 04:00 Sodium 135 (133-145) mmol/L Potassium 4.5 (3.3-5.1) mmol/L Chloride 100 (96-108) mmol/L Carbon Dioxide 23 (22-30) mmol/L BUN 30 H (8-23) mg/dl Creatinine 1.4 H (0.6-1.1) mg/dl Glucose 342 H (70-105) mg/dL Calcium 8.1 L (8.6-10.4) mg/dl Total Bilirubin 0.8 (0.0-1.0) mg/dL AST 47 H (0-37) U/l ALT 25 (0-40) U/l Alkaline Phosphatase 92 (39-117) U/L Total Protein 6.2 (5.9-8.4) gm/dL Albumin 3.1 L (3.2-5.2) gm/dL All other labs normal. Assessment and Plan (1) Sepsis Status: Resolved Comment: Blood cultures pending Qualifiers: Sepsis type: sepsis due to unspecified organism Qualified Code(s): A41.9 - Sepsis, unspecified organism (2) Dermatitis Status: Chronic Priority: Medium Comment: For conservative management of LEFT leg skin lesion, DRY black eschar with periwound dermatitis and colonization with MRSA and Claudia. Await resolution of urinary tract sepsis. Will monitor skin lesion at this time. MAY debride later. Will follow this patient, whilst she is in hospital.
[2016-12-11] MEDS: SIMVASTATIN 20 MG TABLET PO SCH (21:09)
[2016-12-11] MEDS: rOPINIRole 1 MG TABLET PO SCH (21:12)
[2016-12-12] MEDS: ACETAMINOPHEN 1,000 MG/100 ML BOTTLE IV PRN (01:12)
[2016-12-12] MEDS: POTASSIUM CHLORIDE IV SCH ×3 (03:25→15:01)
[2016-12-12] MEDS: SODIUM CHLORIDE 0.9% IV SCH ×3 (03:25→15:01)
[2016-12-12] MEDS: 0.9 % SODIUM CHLORIDE 10 ML SYRINGE IV SCH ×3 (04:24→22:16)
[2016-12-12] MEDS: PIPERACILLIN SODIUM/TAZOBACTAM 3.375 GM in DEXTROSE 5% IN WATER 50 ML IV SCH (05:23)
[2016-12-12 06:06] LABS: Basophils # (Auto) 0 K/mcL (0.0-0.3); Basophils % (Auto) 0.3 % (0.0-2.0); Eosinophils # (Auto) 0.1 K/mcL (0.0-0.7); Eosinophils % (Auto) 0.8 % (0.0-7.0); Granulocytes % (Auto) 86.9 % (38.0-78.0); Lymphocytes # (Auto) 0.4 K/mcL (1.5-4.8); Mean Cell Volume 88.5 fL (80.0-100.0); Mean Corpuscular HGB Conc 34.3 g/dL (31.0-36.0); Mean Corpuscular Hemoglobin 30.4 pg (26.0-34.0); Monocytes # (Auto) 0.6 K/mcL (0.1-0.9); Platelet Count 136 K/mcL (140-440); RBC 3.23 M/mcL (4.00-5.20)
[2016-12-12 07:00] LABS: ALT/SGPT 55 U/l (0-40); Albumin 2.6 gm/dL (3.2-5.2); Albumin/Globulin Ratio 0.7 (1.0-2.3); Alkaline Phosphatase 139 U/L (39-117); Bilirubin,Direct 0.6 mg/dL (0.0-0.3); Blood Urea Nitrogen 26 mg/dl (8-23); Gamma Glutamyl Transpeptidase 160 U/L (5-36); Magnesium 1.7 mg/dL (1.6-2.5); Uric Acid 5.6 mg/dL (2.5-8.0)
[2016-12-12] MEDS ORDERED: HYDROcodone/APAP 5/325MG TABLET PO PRN (08:16)
[2016-12-12] MEDS ORDERED: SODIUM CHLORIDE 0.9% IV SCH (08:30)
[2016-12-12] MEDS ORDERED: POTASSIUM CHLORIDE IV SCH (08:30)
[2016-12-12] MEDS: HEPARIN 5,000 UNIT/ML VIAL SQ SCH ×2 (08:40→21:37)
[2016-12-12] MEDS: INSULIN GLARGINE, HUMAN 1 UNIT/0.01 ML SQ SCH ×2 (08:41→21:16)
[2016-12-12] MEDS: INSULIN LISPRO 1 UNIT/0.01 ML UNIT SQ SCH ×4 (08:41→21:15)
[2016-12-12] MEDS: MAGNESIUM OXIDE 400 MG TABLET PO SCH ×2 (08:42→21:17)
[2016-12-12] MEDS: buPROPion 150 MG TAB.XL.24H PO SCH (08:42)
[2016-12-12] MEDS: SERTRALINE 50 MG TABLET PO SCH (08:42)
[2016-12-12] MEDS: sitaGLIPtin 50 MG TABLET PO SCH (08:42)
[2016-12-12] MEDS: OXYBUTYNIN CHLORIDE 5 MG TAB.XL.24H PO SCH (08:44)
[2016-12-12] MEDS ORDERED: MUPIROCIN CRM 2% 15 GM TUBE TOPICAL SCH (09:00)
[2016-12-12] MEDS: cefTRIAXone 1 GM in DEXTROSE 5% IN WATER 50 ML IV SCH (09:18)
[2016-12-12] MEDS ORDERED: FLU VACC QS2017-18 36MOS UP/PF 60 MCG/0.5 ML SYRINGE IM ONE (10:00)
[2016-12-12] MEDS ORDERED: LORazepam 2 MG/ML VIAL IV PRN (11:35)
[2016-12-12] MEDS ORDERED: SIMETHICONE 80 MG TAB.CHEW CHEWED PRN (11:35)
[2016-12-12] MEDS ORDERED: MAGNESIUM HYDROXIDE 30 ML ORAL.SUSP PO PRN (11:35)
[2016-12-12] MEDS ORDERED: DEXTROSE 31 GM ORAL.SUSP PO PRN (11:35)
[2016-12-12] MEDS ORDERED: ACETAMINOPHEN 325 MG TABLET PO PRN (11:35)
[2016-12-12] MEDS ORDERED: DOCUSATE SODIUM 100 MG CAPSULE PO PRN (11:35)
[2016-12-12] MEDS ORDERED: ONDANSETRON 4 MG/2 ML VIAL IV PRN (11:35)
[2016-12-12] MEDS ORDERED: ALBUTEROL SULFATE 2.5 MG/3 ML NEBULIZER NEB PRN (11:35)
[2016-12-12] MEDS ORDERED: ACETAMINOPHEN 1,000 MG/100 ML BOTTLE IV PRN (11:35)
[2016-12-12] MEDS ORDERED: DEXTROSE 50% 50 ML VIAL IV PRN (11:35)
[2016-12-12] MEDS ORDERED: CALCIUM CARBONATE 500 MG TAB.CHEW CHEWED PRN (11:35)
[2016-12-12] MEDS ORDERED: PIPERACILLIN SODIUM/TAZOBACTAM 3.375 GM in DEXTROSE 5% IN WATER 50 ML IV SCH (14:00)
[2016-12-12] MEDS ORDERED: FUROSEMIDE 40 MG/4 ML VIAL IV ONE (17:19)
--- NOTE | 2016-12-12 17:45 | Internal Med Progress Note ---
Medical - PN: Subj Patient information: Note initiated : 12/12/16 at 10:38 am Patient: Mary Gibbons 71 y/o F admitted on 12/10/16 for Weakness, High Blood Sugar/Sepsis, UTI. Interval history: December 10, 2016: History of present illness: Ms. Gibbons is a 71 year old female with a history of type 2 diabetes. She was last admitted here last December with pneumonia, cellulitis, respiratory failure , sepsis. She says about 1 month ago she developed an ulcer on her left lower leg, and that that is being followed by her regular doctor. She was feeling reasonably well, and living at home alone, until Sunday when she suddenly became extremely weak. She normally has caregivers that come in for a few hours a day just on , so they last saw her on Sunday. She says she was so weak that she has not been able to get out of bed since then. So all day yesterday, she did not take any medications or get up to eat or drink. She was incontinent in the bed, as she was just too weak to get up. She did not think to call for help until today, when she called her caregiver, who called 911. In the emergency room, she had somewhat depressed mental status, tachypnea, tachycardia, leukocytosis, lactic acidosis, pyuria. She is now admitted to the PCU with diagnosis of sepsis thought probably secondary to urinary tract infection. The patient is somewhat lethargic, so getting a history is a little bit difficult. She says she has been having fevers and chills over the weekend. She has also had mild headache and nausea, blurred vision, sore throat and mild cough which has been nonproductive. She denies sinus symptoms or earache. She has had some trouble swallowing the last couple of days, due to a dry throat. She denies chest pain or palpitations or significant shortness of breath. She denies abdominal pain, vomiting or diarrhea. She says she normally has chronic diarrhea, but that has changed to constipation since she was started on iron supplement. She does have chronic bladder incontinence, and was recently started on bladder medicine, but is not sure if she started the new one yet. She last checked her blood sugar on Sunday, but does not recall the number. She says normally she ranges anywhere from 150 up to as high as 600. She does use a sliding scale at home. December 11: Today, the patient continues to be fairly lethargic, although she is able to answer questions when pressed. She remained febrile most of the night, in spite of frequent Tylenol. Today her blood cultures are growing gram-negative rods, so Zosyn was added to her Rocephin, pending sensitivities. White blood cell count and lactic acid are both improved today. The patient says she feels a little better, but continues to feel uncomfortable and her general abdominal area. Otherwise she denies fever chills, chest pain or palpitations, shortness of breath or cough, nausea or vomiting, diarrhea. Kiser catheter remains in place. December 12: The patient has been fairly stable overnight. She continues to run low-grade fevers, but this is trending downward. Renal function looks much improved today. LFTs are a bit elevated today, and the patient does report mild orthopnea, so she may be a bit volume overloaded. Today, she does note low back pain, which is chronic. She believes this is related to being in bed for so many days. Otherwise, she denies fever chills, chest pain or palpitations, significant cough, abdominal pain, nausea or vomiting, diarrhea or constipation. - Constitutional Vitals: Vital Signs Temp Pulse Resp BP Pulse Ox 99.2 F H 98 H 33 H 112/79 95 12/12/16 08:00 12/12/16 07:49 12/12/16 08:00 12/12/16 07:00 12/12/16 08:00 Period Temp Pulse Resp BP Sys/Vilchis Pulse Ox Last 24 Hr 98.2 F-101.7 F 86-102 17-36 96-140/54-98 91-100 Intake and Output 12/11/16 12/12/16 12/12/16 21:59 05:59 13:59 Intake Total 1685 / 1685 1155 / 1155 50 / 50 Output Total 485 / 485 495 / 495 305 / 305 Balance 1200 / 1200 660 / 660 -255 / -255 Weight 288 lb 12.8 oz Intake & Output: Intake & Output 12/11/16 12/12/16 12/12/16 21:59 05:59 13:59 Intake Total 1685 / 1685 1155 / 1155 50 / 50 Output Total 485 / 485 495 / 495 305 / 305 Balance 1200 / 1200 660 / 660 -255 / -255 Weight 288 lb 12.8 oz Intake: IV 1205 / 1205 1155 / 1155 50 / 50 Zosyn 3.375 gm In 50 / 50 50 / 50 50 / 50 Dextrose 5% in Water 50 ml @ 100 mls/hr IV Q8H PANDA Rx#:[id number] Potassium Chloride 10 Meq 1005 / 1005 1005 / 1005 In Sodium Chloride 0.9% 1,000 ml @ 150 mls/hr IV .Q6H42M PANDA Rx#:[id number] Rocephin 1 gm In Dextrose 50 / 50 5% in Water 50 ml @ 100 mls/hr IV Q24H PANDA Rx#: [id number] Oral 480 / 480 Output: Urine Catheter Amount 365 / 365 495 / 495 305 / 305 Void Amount 120 / 120 Other: Meal Dinner Percent of Meal Consumed 10 Feeding Ability Assist with Tray Set Up # Bowel Movements 0 The patient is sitting upright in bed, in the recliner position. She is grimacing a bit about her back pain. She is otherwise not in acute distress. T-max is 101.1, currently 98.9, heart rate 90, respiratory rate 21-33. Blood pressure 128/61. O2 saturations 92% on 2-5 L. Neck shows no obvious JVD lymphadenopathy. Cardiac exam shows regular rate and rhythm. Lungs are clear to auscultation. Abdomen: There is some vague tenderness, which is not very reproducible. There is no guarding or rebound. Bowel sounds are active. Extremities show chronic edema and stasis dermatitis. Neurologic: The patient is still a little bit sleepy, but overall mental status is much improved. Neuro exam is grossly nonfocal. Medical - PN: Obj Da - Labs CBC & Chem 7: 12/12/16 04:04 12/12/16 04:04 Labs: Abnormal Lab Results 12/12/16 12/12/16 12/11/16 04:04 04:04 04:00 WBC 11.4 H RBC 3.23 L 3.10 L Hgb 9.8 L 9.3 L Hct 28.6 L 27.3 L RDW 15.0 H 15.2 H Plt Count 136 L 134 L MPV 7.1 L 7.0 L Gran % 86.9 H 90.5 H Lymph % (Auto) 5.0 L 3.3 L Gran # 10.4 H Lymph # (Auto) 0.4 L 0.4 L Sodium 132 L BUN 26 H Creatinine 1.4 H Glucose 181 H Hemoglobin A1c Calcium 7.9 L Phosphorus 2.5 L Total Bilirubin 1.1 H Direct Bilirubin 0.6 H GGT 160 H AST 95 H ALT 55 H Alkaline Phosphatase 139 H Lactate Dehydrogenase 288 H Albumin 2.6 L Globulin 3.8 H Albumin/Globulin Ratio 0.7 L 12/11/16 12/10/16 04:00 19:00 WBC RBC Hgb Hct RDW Plt Count MPV Gran % Lymph % (Auto) Gran # Lymph # (Auto) Sodium BUN 30 H Creatinine 1.4 H Glucose 342 H Hemoglobin A1c 9.0 H Calcium 8.1 L Phosphorus 2.3 L Total Bilirubin Direct Bilirubin 0.5 H GGT 125 H AST 47 H ALT Alkaline Phosphatase Lactate Dehydrogenase Albumin 3.1 L Globulin Albumin/Globulin Ratio December 11: Chest x-ray: Shows minor bibasilar atelectasis. Renal ultrasound: Shows normal-appearing kidneys. Urine culture: Is growing Klebsiella pneumoniae ,resistant to ampicillin, but sensitive to Zosyn and all other antibiotics tested. Blood cultures are growing Klebsiella pneumonia, resistant to ampicillin, but sensitive to Zosyn and all other antibiotics tested. December 10: CBC white blood cell count is 14,900, hemoglobin 11, hematocrit 32, platelets 150,000. Differential: Shows 13,000 neutrophils, 900 lymphocytes. Lactic acid is elevated at 2.4 Urinalysis shows greater than 500 mg glucose, 250 leukocyte esterase, 136 white blood cells, negative nitrites. Meds: Medications Acetaminophen (Tylenol) 650 mg PO Q4-6HP PRN PRN Reason: PAIN/FEVER > 101 Last Admin: 12/10/16 21:36 Dose: 650 mg Hydrocodone Bitart/Acetaminophen ([place] 5/325mg) 1 tab PO Q4HP PRN PRN Reason: Pain Last Admin: 12/12/16 09:17 Dose: 1 tab Albuterol Sulfate (Ventolin) 2.5 mg NEB Q4HRT PRN PRN Reason: Shortness Of Breath Or Wheezing Bupropion HCl (Wellbutrin Xl) 150 mg PO DAILY PANDA Last Admin: 12/12/16 08:42 Dose: 150 mg Calcium Carbonate/Glycine (Tums) 1,000 mg CHEWED Q6HP PRN PRN Reason: Dyspepsia Dextrose (Dextrose 50%) 0 ml IV UD PRN PRN Reason: Hypoglycemia Diagnostic Test (Pha) (Accu-Chek) 1 each FS ACHS [facility] Last Admin: 12/12/16 08:52 Dose: 1 each Docusate Sodium (Colace) 100 mg PO BID PRN PRN Reason: Constipation Glucose (Insta-Glucose) 15 gm PO PRN PRN PRN Reason: Hypoglycemia Heparin Sodium (Porcine) (Heparin) 5,000 unit SQ Q12 [facility] Last Admin: 12/12/16 08:40 Dose: 5,000 unit Ceftriaxone Sodium 1 gm/ (Dextrose) 50 mls @ 100 mls/hr IV Q24H [facility] Last Admin: 12/12/16 09:18 Dose: 100 mls/hr Acetaminophen (Ofirmev) 1,000 mg in 100 mls @ 200 mls/hr IV Q6HP PRN PRN Reason: PAIN/FEVER > 101 Last Infusion: 12/12/16 03:30 Dose: Infused Piperacillin Sod/Tazobactam (Sod 3.375 gm/ Dextrose) 50 mls @ 100 mls/hr IV Q8H [facility] Last Infusion: 12/12/16 06:05 Dose: Infused Potassium Chloride 10 meq/ (Sodium Chloride) 1,005 mls @ 100 mls/hr IV .Q10H3M [facility] Last Admin: 12/12/16 08:54 Dose: Not Given Insulin Glargine (Lantus) 45 unit SQ BID [facility] Last Admin: 12/12/16 08:41 Dose: 45 unit Insulin Human Lispro (Humalog) 0 unit SQ [facility] PRN Reason: Protocol Last Admin: 12/12/16 08:41 Dose: 6 unit Lorazepam (Ativan) 0.5 mg IV Q4HP PRN PRN Reason: ANXIETY/SEDATION Magnesium Hydroxide (Milk Of Magnesia) 30 ml PO DAILYP PRN PRN Reason: Constipation Magnesium Oxide (Magnesium Oxide) 400 mg PO BID [facility] Last Admin: 12/12/16 08:42 Dose: 400 mg Mupirocin (Bactroban Crm 2%) 1 gm TOPICAL DAILY [facility] Ondansetron HCl (Zofran) 4 mg IV Q4-6HP PRN PRN Reason: Nausea And Vomiting Oxybutynin Chloride (Ditropan Xl) 15 mg PO DAILY [facility] Last Admin: 12/12/16 08:44 Dose: 15 mg Ropinirole HCl (Requip) 3 mg PO HS [facility] Last Admin: 12/11/16 21:12 Dose: 3 mg Sertraline HCl (Zoloft) 150 mg PO DAILY [facility] Last Admin: 12/12/16 08:42 Dose: 150 mg Simethicone (Mylicon) 160 mg CHEWED BIDP PRN PRN Reason: Bloating Simvastatin (Zocor) 20 mg PO HS [facility] Last Admin: 12/11/16 21:09 Dose: 20 mg Sitagliptin Phosphate (Januvia) 50 mg PO DAILY [facility] Last Admin: 12/12/16 08:42 Dose: 50 mg Sodium Chloride (Saline Flush) 10 ml IV Q8 [facility] Last Admin: 12/12/16 04:24 Dose: Not Given Medical - PN: A/P - Time Spent With Patient Total time spent is greater than 50% in coordination of care (as documented) at patient's floor/unit and/or counseling patient: 25 - 35 minutes (1) YANN (acute kidney injury) Status: Acute Current Visit: Yes (2) Diabetes Problem details: NOW ON LANTUS 45 UNITS SQ BID, JANUVIA 50 MG PO DAILY AND METFORMIN. Status: Chronic Current Visit: No (3) UTI (urinary tract infection) Problem details: E coli sens to all- change to Ceftriaxone Status: Acute Current Visit: Yes (4) Sepsis Problem details: Blood cultures pending Status: Resolved Current Visit: No (5) HTN (hypertension) Problem details: CONTROLLED. Status: Chronic Current Visit: No - Narrative A/P Narrative: #1. Infectious disease. Patient presents with sepsis presentation, and evidence of UTI. She is tachycardic and tachypneic, with leukocytosis and elevated lactic acid and hyperglycemia.. -Patient has remained febrile overnight, and is now growing Klebsiella pneumoniae in her blood and urine.. Zosyn was added to the Rocephin for more comprehensive coverage, pending ID and sensitivities. Since it appears this organism is sensitive to ceftriaxone, I will discontinue Zosyn. -Continue IV fluids, antibiotics, close monitoring. -Lactic acidosis has resolved. 2. CODE STATUS: DNR . 3. DVT prophylaxis: Subcu heparin 4. Renal. Acute kidney injury. -Improving. Continue aggressive fluid resuscitation. Monitor. -Hold metformin. Multiple electrolyte abnormalities. -Monitor with hydration. 5. Endocrine. Type 2 diabetes. -Patient presents with marked hyperglycemia and acidosis. Glucose levels are starting to improve, currently ranging from 132-361. Aggressive IV fluids, subcu Lantus, insulin sliding scale coverage.. #6. Hematologic. The patient is quite a bit more anemic, and platelets are borderline low, but these are stable today. Continue to monitor. 7. Hernia. -Hypertension. Monitor. Lasix, valsartan, hydrochlorothiazide are all on hold. #8. GI. LFTs were a bit elevated, possibly due to passive liver congestion. I will decrease her IV fluid rate, and continue to monitor. 9. Back pain. This may be partly positional. Add [place] 325/5, as needed. Patient is improved enough, that she can be transferred to telemetry today. Medical - PN: Qual - VTE Deep Vein Thrombosis/Pulmonary Embolism Present on Admission: No
[2016-12-12] MEDS: rOPINIRole 1 MG TABLET PO SCH (21:17)
[2016-12-12] MEDS: HYDROcodone/APAP 5/325MG TABLET PO PRN (21:17)
[2016-12-12] MEDS: SIMVASTATIN 20 MG TABLET PO SCH (21:17)
[2016-12-13] MEDS: POTASSIUM CHLORIDE IV SCH ×4 (00:09→17:19)
[2016-12-13] MEDS: SODIUM CHLORIDE 0.9% IV SCH ×4 (00:09→17:19)
[2016-12-13 06:19] LABS: ALT/SGPT 43 U/l (0-40); Albumin 2.9 gm/dL (3.2-5.2); Albumin/Globulin Ratio 0.8 (1.0-2.3); Alkaline Phosphatase 164 U/L (39-117); Bilirubin,Direct 0.5 mg/dL (0.0-0.3); Blood Urea Nitrogen 24 mg/dl (8-23); Gamma Glutamyl Transpeptidase 164 U/L (5-36); Magnesium 1.7 mg/dL (1.6-2.5); Uric Acid 5.1 mg/dL (2.5-8.0)
--- NOTE | 2016-12-13 06:35 | XRay Report ---
CLINICAL INFORMATION: Dyspnea COMPARISON: 12/11/2016 FINDINGS: The heart is moderately enlarged but unchanged. Mediastinum is unremarkable. Moderate diffuse infiltrate now seen throughout the right lung possible developing infiltrate in the left lung base. Small right pleural effusion noted IMPRESSION: Moderate sized vague diffuse right lung infiltrate - new Probable developing small left basilar infiltrate Moderate stable cardiomegaly - no pulmonary vascular congestion to suggest CHF Interpreted and Authenticated by: Spencer Trinh 12/13/16
[2016-12-13] MEDS: 0.9 % SODIUM CHLORIDE 10 ML SYRINGE IV SCH ×3 (07:37→21:56)
[2016-12-13] MEDS: INSULIN LISPRO 1 UNIT/0.01 ML UNIT SQ SCH ×4 (07:37→21:55)
[2016-12-13] MEDS: PIPERACILLIN SODIUM/TAZOBACTAM 3.375 GM in DEXTROSE 5% IN WATER 50 ML IV SCH ×3 (07:53→17:17)
[2016-12-13 08:19] LABS: Basophils # (Auto) 0 K/mcL (0.0-0.3); Basophils % (Auto) 0.4 % (0.0-2.0); Eosinophils # (Auto) 0.2 K/mcL (0.0-0.7); Lymphocytes # (Auto) 0.7 K/mcL (1.5-4.8); Lymphocytes % (Auto) 10.5 % (15.5-49.0); Mean Cell Volume 87.7 fL (80.0-100.0); Mean Corpuscular HGB Conc 34.4 g/dL (31.0-36.0); Mean Corpuscular Hemoglobin 30.2 pg (26.0-34.0); Monocytes # (Auto) 0.8 K/mcL (0.1-0.9); Monocytes % (Auto) 11.1 % (1.0-12.0); Platelet Count 130 K/mcL (140-440); RBC 3.04 M/mcL (4.00-5.20)
[2016-12-13] MEDS ORDERED: cefTRIAXone 1 GM in DEXTROSE 5% IN WATER 50 ML IV SCH (09:00)
[2016-12-13] MEDS: HEPARIN 5,000 UNIT/ML VIAL SQ SCH ×2 (09:10→21:55)
[2016-12-13] MEDS: MAGNESIUM OXIDE 400 MG TABLET PO SCH ×2 (09:11→21:56)
[2016-12-13] MEDS: SERTRALINE 50 MG TABLET PO SCH (09:11)
[2016-12-13] MEDS: OXYBUTYNIN CHLORIDE 5 MG TAB.XL.24H PO SCH (09:11)
[2016-12-13] MEDS: buPROPion 150 MG TAB.XL.24H PO SCH (09:13)
[2016-12-13] MEDS: sitaGLIPtin 50 MG TABLET PO SCH (09:13)
[2016-12-13] MEDS: INSULIN GLARGINE, HUMAN 1 UNIT/0.01 ML SQ SCH ×2 (09:13→21:55)
[2016-12-13] MEDS: MUPIROCIN CRM 2% 15 GM TUBE TOPICAL SCH (10:15)
--- NOTE | 2016-12-13 10:19 | Internal Med Progress Note ---
Medical - PN: Subj Patient information: Note initiated : 12/13/16 at 10:19 am Patient: Mary Gibbons 71 y/o F admitted on 12/10/16 for Weakness, High Blood Sugar/Sepsis, UTI. Interval history: December 10, 2016: History of present illness: Ms. Gibbons is a 71 year old female with a history of type 2 diabetes. She was last admitted here last December with pneumonia, cellulitis, respiratory failure , sepsis. She says about 1 month ago she developed an ulcer on her left lower leg, and that that is being followed by her regular doctor. She was feeling reasonably well, and living at home alone, until Sunday when she suddenly became extremely weak. She normally has caregivers that come in for a few hours a day just on , so they last saw her on Sunday. She says she was so weak that she has not been able to get out of bed since then. So all day yesterday, she did not take any medications or get up to eat or drink. She was incontinent in the bed, as she was just too weak to get up. She did not think to call for help until today, when she called her caregiver, who called 911. In the emergency room, she had somewhat depressed mental status, tachypnea, tachycardia, leukocytosis, lactic acidosis, pyuria. She is now admitted to the PCU with diagnosis of sepsis thought probably secondary to urinary tract infection. The patient is somewhat lethargic, so getting a history is a little bit difficult. She says she has been having fevers and chills over the weekend. She has also had mild headache and nausea, blurred vision, sore throat and mild cough which has been nonproductive. She denies sinus symptoms or earache. She has had some trouble swallowing the last couple of days, due to a dry throat. She denies chest pain or palpitations or significant shortness of breath. She denies abdominal pain, vomiting or diarrhea. She says she normally has chronic diarrhea, but that has changed to constipation since she was started on iron supplement. She does have chronic bladder incontinence, and was recently started on bladder medicine, but is not sure if she started the new one yet. She last checked her blood sugar on Sunday, but does not recall the number. She says normally she ranges anywhere from 150 up to as high as 600. She does use a sliding scale at home. December 11: Today, the patient continues to be fairly lethargic, although she is able to answer questions when pressed. She remained febrile most of the night, in spite of frequent Tylenol. Today her blood cultures are growing gram-negative rods, so Zosyn was added to her Rocephin, pending sensitivities. White blood cell count and lactic acid are both improved today. The patient says she feels a little better, but continues to feel uncomfortable and her general abdominal area. Otherwise she denies fever chills, chest pain or palpitations, shortness of breath or cough, nausea or vomiting, diarrhea. Kiser catheter remains in place. December 12: The patient has been fairly stable overnight. She continues to run low-grade fevers, but this is trending downward. Renal function looks much improved today. LFTs are a bit elevated today, and the patient does report mild orthopnea, so she may be a bit volume overloaded. Today, she does note low back pain, which is chronic. She believes this is related to being in bed for so many days. Otherwise, she denies fever chills, chest pain or palpitations, significant cough, abdominal pain, nausea or vomiting, diarrhea or constipation. December 13: The patient had difficulties maintaining oxygenation overnight. We initially thought she was volume overloaded, so she was given Lasix, and that seemed to help somewhat. This morning she continues to feel that she has labored breathing. BiPAP was eventually applied last night, and that helped her breathing a great deal, and she says she is quite a bit more comfortable with that. When it is removed to let her eat, etc., she does drop her O2 saturation quite a bit. Follow-up chest x-ray this morning does show bilateral infiltrates. Otherwise temperature is much improved, and she is much more awake and alert this morning. By this afternoon she was tolerating an oxygen mask of 6 L with a 94% saturation. Renal function also continues to improve. LFTs are still a bit elevated, but appear to be stabilizing. Patient denies fever or chills, but continues to feel short of breath. She says she tends to hurt all over. She denies chest pain or palpitations, abdominal pain, nausea or vomiting, diarrhea or constipation. - Constitutional Vitals: Vital Signs Temp Pulse Resp BP Pulse Ox 98.6 F 92 H 25 H 97/79 97 12/13/16 07:41 12/13/16 07:41 12/13/16 07:00 12/13/16 07:41 12/13/16 08:00 Period Temp Pulse Resp BP Sys/Vilchis Pulse Ox Last 24 Hr 98.5 F-101.1 F 84-108 20-34 97-158/51-79 81-100 Intake and Output 12/12/16 12/13/16 12/13/16 21:59 05:59 13:59 Intake Total 1615 / 1615 300 / 300 Output Total 2029 Balance -415 / -415 -204 / -0 300 / 300 Weight 282 lb 12.8 oz Intake & Output: Intake & Output 12/12/16 12/13/16 12/13/16 21:59 05:59 13:59 Intake Total 1615 / 1615 300 / 300 Output Total 2029 Balance -415 / -415 -2040 / -0 300 / 300 Weight 282 lb 12.8 oz Intake: IV 1055 / 1055 Oral 560 / 560 300 / 300 Output: Urine Catheter Amount 2029 Other: Meal Dinner Percent of Meal Consumed 25% Feeding Ability Assist with Tray Set Up On exam, she is sitting up in bed. She is quite talkative, even with the BiPAP mask on. T-max is 99.2. Heart rate 82. Respiratory rate 23. Blood pressure 111/54. O2 saturation 97% on 4 L nasal cannula Intake and output measurements show that she diuresed about 2 L overnight. Neck is supple without obvious JVD. Cardiac exam shows regular rate and rhythm. Lungs have generally decreased breath sounds, with a few crackles at the bases, but otherwise appear clear. Abdomen is soft, but somewhat tender diffusely. Extremities show about 2+ lower extremity edema. Neurologic exam: She is much more awake and alert this morning. Medical - PN: Obj Da - Labs CBC & Chem 7: 12/13/16 06:15 12/13/16 03:58 Labs: Abnormal Lab Results 12/13/16 12/13/16 12/12/16 06:15 03:58 04:04 WBC RBC 3.04 L 3.23 L Hgb 9.2 L 9.8 L Hct 26.6 L 28.6 L RDW 15.0 H 15.0 H Plt Count 130 L 136 L MPV 7.3 L 7.1 L Gran % 86.9 H Lymph % (Auto) 10.5 L 5.0 L Gran # Lymph # (Auto) 0.7 L 0.4 L Sodium BUN 24 H Creatinine 1.3 H Glucose 118 H Hemoglobin A1c Calcium 8.0 L Phosphorus 2.4 L Total Bilirubin Direct Bilirubin 0.5 H GGT 164 H AST 59 H ALT 43 H Alkaline Phosphatase 164 H Lactate Dehydrogenase 275 H Albumin 2.9 L Globulin Albumin/Globulin Ratio 0.8 L 12/12/16 12/11/16 12/11/16 04:04 04:00 04:00 WBC 11.4 H RBC 3.10 L Hgb 9.3 L Hct 27.3 L RDW 15.2 H Plt Count 134 L MPV 7.0 L Gran % 90.5 H Lymph % (Auto) 3.3 L Gran # 10.4 H Lymph # (Auto) 0.4 L Sodium 132 L BUN 26 H 30 H Creatinine 1.4 H 1.4 H Glucose 181 H 342 H Hemoglobin A1c Calcium 7.9 L 8.1 L Phosphorus 2.5 L 2.3 L Total Bilirubin 1.1 H Direct Bilirubin 0.6 H 0.5 H GGT 160 H 125 H AST 95 H 47 H ALT 55 H Alkaline Phosphatase 139 H Lactate Dehydrogenase 288 H Albumin 2.6 L 3.1 L Globulin 3.8 H Albumin/Globulin Ratio 0.7 L 12/10/16 19:00 WBC RBC Hgb Hct RDW Plt Count MPV Gran % Lymph % (Auto) Gran # Lymph # (Auto) Sodium BUN Creatinine Glucose Hemoglobin A1c 9.0 H Calcium Phosphorus Total Bilirubin Direct Bilirubin GGT AST ALT Alkaline Phosphatase Lactate Dehydrogenase Albumin Globulin Albumin/Globulin Ratio December 13: ABG on 4 L nasal cannula: Shows pH of 7.44, CO2 42, PO2 69, bicarb 28, O2 saturation 94% Chest x-ray: Shows moderate sized vague diffuse right lung infiltrate, and developing small left basilar infiltrate. No obvious CHF. December 11: Chest x-ray: Shows minor bibasilar atelectasis. Renal ultrasound: Shows normal-appearing kidneys. Urine culture: Is growing Klebsiella pneumoniae ,resistant to ampicillin, but sensitive to Zosyn and all other antibiotics tested. Blood cultures are growing Klebsiella pneumonia, resistant to ampicillin, but sensitive to Zosyn and all other antibiotics tested. December 10: CBC white blood cell count is 14,900, hemoglobin 11, hematocrit 32, platelets 150,000. Differential: Shows 13,000 neutrophils, 900 lymphocytes. Lactic acid is elevated at 2.4 Urinalysis shows greater than 500 mg glucose, 250 leukocyte esterase, 136 white blood cells, negative nitrites. Meds: Medications Acetaminophen (Tylenol) 650 mg PO Q4-6HP PRN PRN Reason: PAIN/FEVER > 101 Hydrocodone Bitart/Acetaminophen ([place] 5/325mg) 1 tab PO Q4HP PRN PRN Reason: Pain Last Admin: 12/12/16 21:17 Dose: 1 tab Albuterol Sulfate (Ventolin) 2.5 mg NEB Q4HRT PRN PRN Reason: Shortness Of Breath Or Wheezing Last Admin: 12/12/16 17:06 Dose: 2.5 mg Bupropion HCl (Wellbutrin Xl) 150 mg PO DAILY [facility] Last Admin: 12/13/16 09:13 Dose: 150 mg Calcium Carbonate/Glycine (Tums) 1,000 mg CHEWED Q6HP PRN PRN Reason: Dyspepsia Dextrose (Dextrose 50%) 0 ml IV UD PRN PRN Reason: Hypoglycemia Diagnostic Test (Pha) (Accu-Chek) 1 each FS ACHS [facility] Last Admin: 12/13/16 07:15 Dose: 1 each Docusate Sodium (Colace) 100 mg PO BID PRN PRN Reason: Constipation Glucose (Insta-Glucose) 15 gm PO PRN PRN PRN Reason: Hypoglycemia Heparin Sodium (Porcine) (Heparin) 5,000 unit SQ Q12 [facility] Last Admin: 12/13/16 09:10 Dose: 5,000 unit Acetaminophen (Ofirmev) 1,000 mg in 100 mls @ 200 mls/hr IV Q6HP PRN PRN Reason: PAIN/FEVER > 101 Piperacillin Sod/Tazobactam (Sod 3.375 gm/ Dextrose) 50 mls @ 100 mls/hr IV Q6H [facility] Last Admin: 12/13/16 07:53 Dose: 100 mls/hr Insulin Glargine (Lantus) 45 unit SQ BID [facility] Last Admin: 12/13/16 09:13 Dose: 45 unit Insulin Human Lispro (Humalog) 0 unit SQ ACHS [facility] PRN Reason: Protocol Last Admin: 12/13/16 07:37 Dose: Not Given Lorazepam (Ativan) 0.5 mg IV Q4HP PRN PRN Reason: ANXIETY/SEDATION Magnesium Hydroxide (Milk Of Magnesia) 30 ml PO DAILYP PRN PRN Reason: Constipation Magnesium Oxide (Magnesium Oxide) 400 mg PO BID [facility] Last Admin: 12/13/16 09:11 Dose: 400 mg Mupirocin (Bactroban Crm 2%) 1 gm TOPICAL DAILY [facility] Last Admin: 12/13/16 10:15 Dose: 1 gm Ondansetron HCl (Zofran) 4 mg IV Q4-6HP PRN PRN Reason: Nausea And Vomiting Oxybutynin Chloride (Ditropan Xl) 15 mg PO DAILY [facility] Last Admin: 12/13/16 09:11 Dose: 15 mg Ropinirole HCl (Requip) 3 mg PO HS [facility] Last Admin: 12/12/16 21:17 Dose: 3 mg Sertraline HCl (Zoloft) 150 mg PO DAILY [facility] Last Admin: 12/13/16 09:11 Dose: 150 mg Simethicone (Mylicon) 160 mg CHEWED BIDP PRN PRN Reason: Bloating Simvastatin (Zocor) 20 mg PO HS [facility] Last Admin: 12/12/16 21:17 Dose: 20 mg Sitagliptin Phosphate (Januvia) 50 mg PO DAILY [facility] Last Admin: 12/13/16 09:13 Dose: 50 mg Sodium Chloride (Saline Flush) 10 ml IV Q8 [facility] Last Admin: 12/13/16 07:37 Dose: 10 ml Medical - PN: A/P - Time Spent With Patient Total time spent is greater than 50% in coordination of care (as documented) at patient's floor/unit and/or counseling patient: Greater than 35 minutes (1) YANN (acute kidney injury) Status: Acute Current Visit: Yes (2) Diabetes Problem details: NOW ON LANTUS 45 UNITS SQ BID, JANUVIA 50 MG PO DAILY AND METFORMIN. Status: Chronic Current Visit: No (3) UTI (urinary tract infection) Problem details: E coli sens to all- change to Ceftriaxone Status: Acute Current Visit: Yes (4) Sepsis Problem details: Blood cultures pending Status: Resolved Current Visit: No (5) HTN (hypertension) Problem details: CONTROLLED. Status: Chronic Current Visit: No - Narrative A/P Narrative: #1. Infectious disease. Patient presents with sepsis presentation, and evidence of UTI. She is tachycardic and tachypneic, with leukocytosis and elevated lactic acid and hyperglycemia.. -Patient now growing Klebsiella pneumoniae in her blood and urine.. Klebsiella is sensitive to Zosyn, so she was changed back to Zosyn, to also cover possible aspiration pneumonia from last night. -Continue IV fluids, antibiotics, close monitoring. -Lactic acidosis has resolved. White blood cell count has normalized. 2. CODE STATUS: DNR . 3. DVT prophylaxis: Subcu heparin 4. Renal. Acute kidney injury. -Improving. Continue aggressive fluid resuscitation. Monitor. -Hold metformin. Multiple electrolyte abnormalities. -Monitor with hydration. 5. Endocrine. Type 2 diabetes. -Patient presents with marked hyperglycemia and acidosis. Glucose levels are starting to improve, currently ranging from 110-176. Aggressive IV fluids, subcu Lantus, insulin sliding scale coverage.. #6. Hematologic. The patient is quite a bit more anemic, and platelets are borderline low, but these are stable today. Continue to monitor. 7. Hernia. -Hypertension. Monitor. Lasix, valsartan, hydrochlorothiazide are all on hold. #8. GI. LFTs were a bit elevated, possibly due to passive liver congestion. I decreased her IV fluid rate, and continue to monitor. 9. Back pain. This may be partly positional. Add [place] 325/5, as needed. #10. Cardiopulmonary. The patient did have difficulty maintaining oxygen saturation overnight. It appears she was volume overloaded, so she was diuresed. She continued to desaturate, so eventually BiPAP was placed, as she appeared to have rapid shallow breathing, partly due to body habitus. Chest x-ray this morning is more suggestive of infiltrates then CHF. Patient continues on Zosyn. IV fluids rate has been decreased to 50 mL/h, which I do not want to can discontinue completely given that she is taking p.o. very poorly. More than 45 minutes was spent over the course of last evening and today, dealing with the patient's various changes in condition, interviewing and examining her, and reviewing plan of care with staff. Medical - PN: Qual - VTE Deep Vein Thrombosis/Pulmonary Embolism Present on Admission: No
[2016-12-13] MEDS: rOPINIRole 1 MG TABLET PO SCH (21:56)
[2016-12-13] MEDS: SIMVASTATIN 20 MG TABLET PO SCH (21:56)
[2016-12-13] MEDS: HYDROcodone/APAP 5/325MG TABLET PO PRN (22:57)
[2016-12-14] MEDS: PIPERACILLIN SODIUM/TAZOBACTAM 3.375 GM in DEXTROSE 5% IN WATER 50 ML IV SCH ×3 (00:03→12:27)
[2016-12-14] MEDS: 0.9 % SODIUM CHLORIDE 10 ML SYRINGE IV SCH ×3 (05:45→21:00)
[2016-12-14 06:09] LABS: Basophils # (Auto) 0 K/mcL (0.0-0.3); Basophils % (Auto) 0.4 % (0.0-2.0); Eosinophils # (Auto) 0.3 K/mcL (0.0-0.7); Eosinophils % (Auto) 3.6 % (0.0-7.0); Granulocytes % (Auto) 74.2 % (38.0-78.0); Lymphocytes # (Auto) 0.8 K/mcL (1.5-4.8); Lymphocytes % (Auto) 10.8 % (15.5-49.0); Mean Cell Volume 87.7 fL (80.0-100.0); Mean Corpuscular HGB Conc 34.4 g/dL (31.0-36.0); Mean Corpuscular Hemoglobin 30.1 pg (26.0-34.0); Monocytes # (Auto) 0.8 K/mcL (0.1-0.9); Platelet Count 136 K/mcL (140-440); RBC 2.99 M/mcL (4.00-5.20); Red Cell Distribution Width 15.5 % (11.5-14.5)
[2016-12-14 06:42] LABS: ALT/SGPT 32 U/l (0-40); Albumin 2.6 gm/dL (3.2-5.2); Albumin/Globulin Ratio 0.7 (1.0-2.3); Alkaline Phosphatase 197 U/L (39-117); Bilirubin,Direct 0.4 mg/dL (0.0-0.3); Blood Urea Nitrogen 24 mg/dl (8-23); Gamma Glutamyl Transpeptidase 151 U/L (5-36); Magnesium 1.8 mg/dL (1.6-2.5); Uric Acid 4.6 mg/dL (2.5-8.0)
[2016-12-14] MEDS: SERTRALINE 50 MG TABLET PO SCH (08:50)
[2016-12-14] MEDS: MAGNESIUM OXIDE 400 MG TABLET PO SCH ×2 (08:50→20:38)
[2016-12-14] MEDS: HEPARIN 5,000 UNIT/ML VIAL SQ SCH ×2 (08:50→20:38)
[2016-12-14] MEDS: INSULIN LISPRO 1 UNIT/0.01 ML UNIT SQ SCH ×4 (08:51→20:53)
[2016-12-14] MEDS: buPROPion 150 MG TAB.XL.24H PO SCH (08:51)
[2016-12-14] MEDS: OXYBUTYNIN CHLORIDE 5 MG TAB.XL.24H PO SCH (08:51)
[2016-12-14] MEDS: sitaGLIPtin 50 MG TABLET PO SCH (08:51)
[2016-12-14] MEDS: POTASSIUM CHLORIDE IV SCH ×2 (08:52→15:37)
[2016-12-14] MEDS: SODIUM CHLORIDE 0.9% IV SCH ×2 (08:52→15:37)
[2016-12-14] MEDS: INSULIN GLARGINE, HUMAN 1 UNIT/0.01 ML SQ SCH ×2 (08:52→20:53)
[2016-12-14] MEDS: MUPIROCIN CRM 2% 15 GM TUBE TOPICAL SCH (12:21)
--- NOTE | 2016-12-14 13:22 | Internal Med Progress Note ---
Medical - PN: Subj Patient information: Note initiated : 12/14/16 at 1:20 pm Service Date, if different from initiated Date: [] Patient: Mary Gibbons 71 y/o F admitted on 12/10/16 for Weakness, High Blood Sugar/Sepsis, UTI. Chief Complaint: [] Interval history: December 10, 2016: History of present illness: Ms. Gibbons is a 71 year old female with a history of type 2 diabetes. She was last admitted here last December with pneumonia, cellulitis, respiratory failure , sepsis. She says about 1 month ago she developed an ulcer on her left lower leg, and that that is being followed by her regular doctor. She was feeling reasonably well, and living at home alone, until Sunday when she suddenly became extremely weak. She normally has caregivers that come in for a few hours a day just on , so they last saw her on Sunday. She says she was so weak that she has not been able to get out of bed since then. So all day yesterday, she did not take any medications or get up to eat or drink. She was incontinent in the bed, as she was just too weak to get up. She did not think to call for help until today, when she called her caregiver, who called 911. In the emergency room, she had somewhat depressed mental status, tachypnea, tachycardia, leukocytosis, lactic acidosis, pyuria. She is now admitted to the PCU with diagnosis of sepsis thought probably secondary to urinary tract infection. The patient is somewhat lethargic, so getting a history is a little bit difficult. She says she has been having fevers and chills over the weekend. She has also had mild headache and nausea, blurred vision, sore throat and mild cough which has been nonproductive. She denies sinus symptoms or earache. She has had some trouble swallowing the last couple of days, due to a dry throat. She denies chest pain or palpitations or significant shortness of breath. She denies abdominal pain, vomiting or diarrhea. She says she normally has chronic diarrhea, but that has changed to constipation since she was started on iron supplement. She does have chronic bladder incontinence, and was recently started on bladder medicine, but is not sure if she started the new one yet. She last checked her blood sugar on Sunday, but does not recall the number. She says normally she ranges anywhere from 150 up to as high as 600. She does use a sliding scale at home. December 11: Today, the patient continues to be fairly lethargic, although she is able to answer questions when pressed. She remained febrile most of the night, in spite of frequent Tylenol. Today her blood cultures are growing gram-negative rods, so Zosyn was added to her Rocephin, pending sensitivities. White blood cell count and lactic acid are both improved today. The patient says she feels a little better, but continues to feel uncomfortable and her general abdominal area. Otherwise she denies fever chills, chest pain or palpitations, shortness of breath or cough, nausea or vomiting, diarrhea. Kiser catheter remains in place. December 12: The patient has been fairly stable overnight. She continues to run low-grade fevers, but this is trending downward. Renal function looks much improved today. LFTs are a bit elevated today, and the patient does report mild orthopnea, so she may be a bit volume overloaded. Today, she does note low back pain, which is chronic. She believes this is related to being in bed for so many days. Otherwise, she denies fever chills, chest pain or palpitations, significant cough, abdominal pain, nausea or vomiting, diarrhea or constipation. December 13: The patient had difficulties maintaining oxygenation overnight. We initially thought she was volume overloaded, so she was given Lasix, and that seemed to help somewhat. This morning she continues to feel that she has labored breathing. BiPAP was eventually applied last night, and that helped her breathing a great deal, and she says she is quite a bit more comfortable with that. When it is removed to let her eat, etc., she does drop her O2 saturation quite a bit. Follow-up chest x-ray this morning does show bilateral infiltrates. Otherwise temperature is much improved, and she is much more awake and alert this morning. By this afternoon she was tolerating an oxygen mask of 6 L with a 94% saturation. Renal function also continues to improve. LFTs are still a bit elevated, but appear to be stabilizing. Patient denies fever or chills, but continues to feel short of breath. She says she tends to hurt all over. She denies chest pain or palpitations, abdominal pain, nausea or vomiting, diarrhea or constipation. December 14: The patient seen examined, no acute overnight events, labs reviewed, pt lying comfortably in bed denies any acute issues, off bipap since last night, doing well, urine and blood cx is klebsiella mead sensitive, antibiotics changed from zosyn to Rocephin. The patient is eager to get out of bed today, but in discussion with the nursing staff it seems she has refused ambulation/ or working wiht therapy. it seem she will need SNF placement as per PT Pertinent ROS: Denies headache, dizziness Denies chest pain, palpitations Denies cough or shortness of breath Denies abdominal pain, nausea or vomiting. - Constitutional Vitals: Vital Signs Temp Pulse Resp BP Pulse Ox 98.9 F 80 22 130/58 94 12/14/16 12:26 12/14/16 12:26 12/14/16 12:26 12/14/16 12:26 12/14/16 12:26 Period Temp Pulse Resp BP Sys/Vilchis Pulse Ox Last 24 Hr 97.3 F-98.9 F 74-85 18-27 104-130/48-58 91-100 Intake and Output 12/13/16 12/14/16 12/14/16 21:59 05:59 13:59 Intake Total 100 / 100 550 / 550 170 / 170 Output Total 1400 / 1400 1750 / 1750 Balance -1300 / -1300 -1200 / -1200 170 / 170 Weight 281 lb 3.2 oz Intake & Output: Intake & Output 12/13/16 12/14/16 12/14/16 21:59 05:59 13:59 Intake Total 100 / 100 550 / 550 170 / 170 Output Total 1400 / 1400 1750 / 1750 Balance -1300 / -1300 -1200 / -1200 170 / 170 Weight 281 lb 3.2 oz Intake: IV 100 / 100 50 / 50 50 / 50 Zosyn 3.375 gm In 100 / 100 50 / 50 50 / 50 Dextrose 5% in Water 50 ml @ 100 mls/hr IV Q6H [facility] Rx#:[id number] Oral 500 / 500 120 / 120 Output: Urine Catheter Amount 1400 / 1400 1750 / 1750 Other: Meal Breakfast Percent of Meal Consumed 50% Exam: Constitutional; Afebrile, cooperative, alert, not in distress. Eyes- No icterus, , No periorbital swelling Ears- Ext ear normal, hearing normal to conversation. Neck- Midline trachea, supple Respiratory system: Air Entry equal on both sides, No crackles or wheezing, no rhonchi. CVS- Rate rhythm regular, S1,S2 heard, no gallop, no rub. Abdomen- Soft nontender abdomen, no organomegaly, no tenderness, no guarding or rigidity, [employer]IST- AOOx3, moving all extremities, no gross focal deficit noted. Medical - PN: Obj Da - Labs CBC & Chem 7: 12/14/16 04:00 12/14/16 04:00 Labs: Abnormal Lab Results 12/14/16 12/14/16 12/13/16 04:00 04:00 06:15 RBC 2.99 L 3.04 L Hgb 9.0 L 9.2 L Hct 26.2 L 26.6 L RDW 15.5 H 15.0 H Plt Count 136 L 130 L MPV 7.2 L 7.3 L Gran % Lymph % (Auto) 10.8 L 10.5 L Lymph # (Auto) 0.8 L 0.7 L Sodium BUN 24 H Creatinine 1.4 H Glucose 67 L Calcium 8.2 L Phosphorus 2.6 L Total Bilirubin Direct Bilirubin 0.4 H GGT 151 H AST ALT Alkaline Phosphatase 197 H Lactate Dehydrogenase Albumin 2.6 L Globulin Albumin/Globulin Ratio 0.7 L Triglycerides 155 H 12/13/16 12/12/16 12/12/16 03:58 04:04 04:04 RBC 3.23 L Hgb 9.8 L Hct 28.6 L RDW 15.0 H Plt Count 136 L MPV 7.1 L Gran % 86.9 H Lymph % (Auto) 5.0 L Lymph # (Auto) 0.4 L Sodium 132 L BUN 24 H 26 H Creatinine 1.3 H 1.4 H Glucose 118 H 181 H Calcium 8.0 L 7.9 L Phosphorus 2.4 L 2.5 L Total Bilirubin 1.1 H Direct Bilirubin 0.5 H 0.6 H GGT 164 H 160 H AST 59 H 95 H ALT 43 H 55 H Alkaline Phosphatase 164 H 139 H Lactate Dehydrogenase 275 H 288 H Albumin 2.9 L 2.6 L Globulin 3.8 H Albumin/Globulin Ratio 0.8 L 0.7 L Triglycerides Meds: Medications Acetaminophen (Tylenol) 650 mg PO Q4-6HP PRN PRN Reason: PAIN/FEVER > 101 Hydrocodone Bitart/Acetaminophen ([place] 5/325mg) 1 tab PO Q4HP PRN PRN Reason: Pain Last Admin: 12/13/16 22:57 Dose: 1 tab Albuterol Sulfate (Ventolin) 2.5 mg NEB Q4HRT PRN PRN Reason: Shortness Of Breath Or Wheezing Last Admin: 12/12/16 17:06 Dose: 2.5 mg Bupropion HCl (Wellbutrin Xl) 150 mg PO DAILY [facility] Last Admin: 12/14/16 08:51 Dose: 150 mg Calcium Carbonate/Glycine (Tums) 1,000 mg CHEWED Q6HP PRN PRN Reason: Dyspepsia Dextrose (Dextrose 50%) 0 ml IV UD PRN PRN Reason: Hypoglycemia Diagnostic Test (Pha) (Accu-Chek) 1 each FS ACHS [facility] Last Admin: 12/14/16 12:26 Dose: 1 each Docusate Sodium (Colace) 100 mg PO BID PRN PRN Reason: Constipation Glucose (Insta-Glucose) 15 gm PO PRN PRN PRN Reason: Hypoglycemia Heparin Sodium (Porcine) (Heparin) 5,000 unit SQ Q12 [facility] Last Admin: 12/14/16 08:50 Dose: 5,000 unit Acetaminophen (Ofirmev) 1,000 mg in 100 mls @ 200 mls/hr IV Q6HP PRN PRN Reason: PAIN/FEVER > 101 Piperacillin Sod/Tazobactam (Sod 3.375 gm/ Dextrose) 50 mls @ 100 mls/hr IV Q6H [facility] Last Admin: 12/14/16 12:27 Dose: 100 mls/hr Potassium Chloride 10 meq/ (Sodium Chloride) 1,005 mls @ 50 mls/hr IV .Q20H6M [facility] Last Admin: 12/14/16 08:52 Dose: Not Given Insulin Glargine (Lantus) 40 unit SQ BID [facility] Last Admin: 12/14/16 08:52 Dose: 40 unit Insulin Human Lispro (Humalog) 0 unit SQ ACHS PANDA PRN Reason: Protocol Last Admin: 12/14/16 12:26 Dose: 3 unit Lorazepam (Ativan) 0.5 mg IV Q4HP PRN PRN Reason: ANXIETY/SEDATION Magnesium Hydroxide (Milk Of Magnesia) 30 ml PO DAILYP PRN PRN Reason: Constipation Magnesium Oxide (Magnesium Oxide) 400 mg PO BID [facility] Last Admin: 12/14/16 08:50 Dose: 400 mg Mupirocin (Bactroban Crm 2%) 1 gm TOPICAL DAILY [facility] Last Admin: 12/14/16 12:21 Dose: 1 gm Ondansetron HCl (Zofran) 4 mg IV Q4-6HP PRN PRN Reason: Nausea And Vomiting Oxybutynin Chloride (Ditropan Xl) 15 mg PO DAILY [facility] Last Admin: 12/14/16 08:51 Dose: 15 mg Ropinirole HCl (Requip) 3 mg PO HS [facility] Last Admin: 12/13/16 21:56 Dose: 3 mg Sertraline HCl (Zoloft) 150 mg PO DAILY [facility] Last Admin: 12/14/16 08:50 Dose: 150 mg Simethicone (Mylicon) 160 mg CHEWED BIDP PRN PRN Reason: Bloating Simvastatin (Zocor) 20 mg PO HS [facility] Last Admin: 12/13/16 21:56 Dose: 20 mg Sitagliptin Phosphate (Januvia) 50 mg PO DAILY [facility] Last Admin: 12/14/16 08:51 Dose: 50 mg Sodium Chloride (Saline Flush) 10 ml IV Q8 [facility] Last Admin: 12/14/16 05:45 Dose: 10 ml Medical - PN: A/P - Time Spent With Patient Total time spent is greater than 50% in coordination of care (as documented) at patient's floor/unit and/or counseling patient: - Narrative A/P Narrative: #1. Infectious disease. Patient presents with sepsis and evidence of UTI. Klebsiella in blood and urine, initially treated with zosyn switcted to rocephin based on sensitivities and once a day admistration. Can be discharged on oral keflex for total of 14 days. 2. CODE STATUS: DNR . 3. DVT prophylaxis: Subcu heparin 4. Renal. Acute kidney injury. - stable renal function. creat is 1.4 today hyponaremia resolved. 5. Endocrine. Type 2 diabetes. -Patient presents with marked hyperglycemia and acidosis. Glucose levels are starting to improve, currently ranging from 110-176. AM glucose was in the 60's, lantus cut from 45 bid to 40bid subcu Lantus, insulin sliding scale coverage.. #6. Hematologic. anemia thrombocytopenai Stable labs for now monitor. likely related to acute infection. 7. HTN Monitor. Lasix, valsartan, hydrochlorothiazide are all on hold. resume once bp and creat is stable #8. GI. LFTs were a bit elevated but trending down. possibly due to passive liver congestion. continue to monitor. 9. Back pain. This may be partly positional. Add [place] 325/5, as needed. #10. Cardiopulmonary. Acute hypoxic resp failure Pna ? infiltrate noted on x ray on ocephin now, repeat CXR in AM was on bipap overnight but off same now Medical - PN: Qual - VTE Deep Vein Thrombosis/Pulmonary Embolism Present on Admission: No
[2016-12-14] MEDS: cefTRIAXone 1 GM in DEXTROSE 5% IN WATER 50 ML IV SCH (14:07)
[2016-12-14] MEDS: SIMVASTATIN 20 MG TABLET PO SCH (20:38)
[2016-12-14] MEDS: rOPINIRole 1 MG TABLET PO SCH (20:38)
[2016-12-14] MEDS: HYDROcodone/APAP 5/325MG TABLET PO PRN (23:45)
[2016-12-15] MEDS: 0.9 % SODIUM CHLORIDE 10 ML SYRINGE IV SCH (04:48)
--- NOTE | 2016-12-15 07:29 | XRay Report ---
CLINICAL INFORMATION: Pneumonia COMPARISON: 12/12/2016 FINDINGS: Diffuse infiltrates or edema show marked improved aeration from yesterday. The heart is moderately enlarged, but stable. Mediastinum is unremarkable. Pulmonary vessels within normal limits. No definite effusion IMPRESSION: Marked improvement in diffuse bilateral infiltrates or edema. Interpreted and Authenticated by: Spencer Trinh 12/15/16
[2016-12-15] MEDS: INSULIN LISPRO 1 UNIT/0.01 ML UNIT SQ SCH ×2 (07:49→14:43)
[2016-12-15] MEDS: INSULIN GLARGINE, HUMAN 1 UNIT/0.01 ML SQ SCH (10:28)
[2016-12-15] MEDS: HEPARIN 5,000 UNIT/ML VIAL SQ SCH (10:28)
[2016-12-15] MEDS: OXYBUTYNIN CHLORIDE 5 MG TAB.XL.24H PO SCH (10:28)
[2016-12-15] MEDS: sitaGLIPtin 50 MG TABLET PO SCH (10:28)
[2016-12-15] MEDS: MAGNESIUM OXIDE 400 MG TABLET PO SCH (10:29)
[2016-12-15] MEDS: cefTRIAXone 1 GM in DEXTROSE 5% IN WATER 50 ML IV SCH (10:30)
[2016-12-15] MEDS: SERTRALINE 50 MG TABLET PO SCH (10:30)
[2016-12-15] MEDS: MUPIROCIN CRM 2% 15 GM TUBE TOPICAL SCH (10:31)
[2016-12-15] MEDS: buPROPion 150 MG TAB.XL.24H PO SCH (10:42)
[2016-12-15] MEDS: SODIUM CHLORIDE 0.9% IV SCH (11:24)
[2016-12-15] MEDS: POTASSIUM CHLORIDE IV SCH (11:24)
[2016-12-15] MEDS ORDERED: SIMETHICONE 80 MG TAB.CHEW CHEWED PRN (12:20)
[2016-12-15] MEDS ORDERED: HYDROcodone/APAP 5/325MG TABLET PO PRN (12:20)
[2016-12-15] MEDS ORDERED: MAGNESIUM HYDROXIDE 30 ML ORAL.SUSP PO PRN (12:20)
[2016-12-15] MEDS ORDERED: DOCUSATE SODIUM 100 MG CAPSULE PO PRN (12:20)
[2016-12-15] MEDS ORDERED: DEXTROSE 31 GM ORAL.SUSP PO PRN (12:20)
[2016-12-15] MEDS ORDERED: ACETAMINOPHEN 1,000 MG/100 ML BOTTLE IV PRN (12:20)
[2016-12-15] MEDS ORDERED: CALCIUM CARBONATE 500 MG TAB.CHEW CHEWED PRN (12:20)
[2016-12-15] MEDS ORDERED: ALBUTEROL SULFATE 2.5 MG/3 ML NEBULIZER NEB PRN (12:20)
[2016-12-15] MEDS ORDERED: ACETAMINOPHEN 325 MG TABLET PO PRN (12:20)
[2016-12-15] MEDS ORDERED: ONDANSETRON 4 MG/2 ML VIAL IV PRN (12:20)
[2016-12-15] MEDS ORDERED: DEXTROSE 50% 50 ML VIAL IV PRN (12:20)
[2016-12-15] MEDS ORDERED: LORazepam 2 MG/ML VIAL IV PRN (12:20)
--- NOTE | 2016-12-15 13:55 | Discharge Summary ---
Medical - DS: Prov Patient information: Note initiated : 12/15/16 at 1:45 pm Patient: Mary Gibbons 71 y/o F admitted on 12/10/16 for Weakness, High Blood Sugar/Sepsis, UTI. Date of admission: 12/10/16 17:40 Discharge date: 12/15/16 Primary care physician: Katie Haji Admitting clinician: Ana Laura Bustos Consults: 12/10/16 Consult to Physician [CONS] Stat Comment: L lower leg ulcer, DM, sepsis Consulting Provider: Kenn Fonseca Reason For Exam: Physician to Consult Attending physician on discharge: Ana Laura Bustos Medical - DS: Meds - Discharge Medications Prescriptions: metFORMIN [Glucophage] 500 mg PO [facility] #1 Active and Home Medications: Swing discharge medications: Tylenol 650 mg every 4 hours as needed Tylenol 1000 mg IV every 6 hours as needed Albuterol nebulizer 2.5 mg every 4 hours as needed Wellbutrin XL 150 mg daily Tums 1000 mg every 6 hours as needed Rocephin 1 g IV every 24 hours Accu-Cheks before meals and at bedtime Colace 100 mg p.o. twice daily as needed Glucose 15 g p.o. as needed hypoglycemia Heparin 5000 units subcu every 12 hours Brumley 5/325 1 tab every 4 hours as needed Lantus 40 units subcu twice daily Humalog sliding scale before meals and at bedtime Ativan 0.5 mg IV every 4 hours as needed anxiety/agitation Milk of magnesia 30 mL p.o. daily as needed constipation Magnesium oxide 400 mg p.o. twice daily Bactroban cream 2% applied to left leg wound daily Zofran 4 mg IV every 4 hours as needed Ditropan XL 15 mg p.o. daily Requip 3 mg p.o. nightly Zoloft 150 mg p.o. daily Simethicone 160 mg twice daily as needed gas Zocor 20 mg p.o. nightly Januvia 50 mg p.o. daily Metformin was held during her stay, but cannot be resumed at 500 mg every morning, with titration as needed. Continue to follow Accu-Cheks. Valsartan/HCTZ has also also been on hold regarding hypotension. TOVIAZ has been on hold. Previous home Medications: Sertraline [Zoloft] 150 mg PO DAILY 04/29/15 [History Confirmed 12/10/16 Last Taken Unknown] Simvastatin [Zocor] 20 mg PO HS 04/29/15 [History Confirmed 12/10/16 Last Taken Unknown] Valsartan/Hydrochlorothiazide [Valsartan-Hctz 80-12.5 mg Tab] 0.5 tab PO DAILY 04/29/15 [History Confirmed 12/10/16 Last Taken Unknown] buPROPion HCL [Bupropion Xl] 150 mg PO DAILY 04/29/15 [History Confirmed Last Taken Unknown] metFORMIN [Glucophage] 1,000 mg PO HS 04/29/15 [History Confirmed 12/10/16 Last Taken Unknown] metFORMIN [Glucophage] 1,500 mg PO DAILY 04/29/15 [History Confirmed 12/10/16 Last Taken Unknown] rOPINIRole HCL [Requip] 3 mg PO HS 04/29/15 [History Confirmed 12/10/16 Last Taken Unknown] Oxybutynin Chloride [Oxybutynin Chloride ER] 15 mg PO DAILY 01/09/16 [History Confirmed 12/10/16 Last Taken Unknown] Insulin Aspart [Novolog] See Protocol SQ ACHS 01/13/16 [History Confirmed Last Taken Unknown] Accu-Chek 1 each FS ACHS strip 01/17/16 [Rx Confirmed 12/10/16 Last Taken Unknown] Acetaminophen [Tylenol] 650 mg PO Q4-6HP PRN #0 tablet 01/17/16 [Rx Confirmed Last Taken Unknown] Calcium Carbonate [Tums] 1,000 mg CHEWED Q6HP PRN #0 tab.chew 01/17/16 [Rx Confirmed 12/10/16 Last Taken Unknown] Insulin Glargine, Human [Lantus] 45 unit SQ BID #1 vial 01/17/16 [Rx Confirmed 12/10/16 Last Taken Unknown] Insulin Lispro [Humalog] See Protocol SQ ACHS PRN #0 unit 01/17/16 [Rx Confirmed 12/10/16 Last Taken Unknown] Simethicone [Mylicon] 160 mg CHEWED BIDP PRN #0 tab.chew 01/17/16 [Rx Confirmed 12/10/16 Last Taken Unknown] sitaGLIPtin [Januvia] 50 mg PO DAILY #30 tablet 01/17/16 [Rx Confirmed 12/10/16 Last Taken Unknown] Magnesium Oxide [Magnesium] 400 mg PO BID #10 tablet 01/20/16 [Rx Confirmed Last Taken Unknown] Ciprofloxacin HCl [Cipro] 500 mg PO BID 12/10/16 [History Confirmed 12/10/16 Last Taken Unknown] Fesoterodine Fumarate [Toviaz] 4 mg PO DAILY 12/10/16 [History Confirmed Last Taken Unknown] Furosemide [Lasix] 40 mg PO DAILY 12/10/16 [History Confirmed 12/10/16 Last Taken Unknown] Medical - DS: Hosp Hospital course: Mr. Gibbons is a 71 year old F december 10, 2016: History of present illness: Ms. Gibbons is a 71 year old female with a history of type 2 diabetes. She was last admitted here last December with pneumonia, cellulitis, respiratory failure , sepsis. She says about 1 month ago she developed an ulcer on her left lower leg, and that that is being followed by her regular doctor. She was feeling reasonably well, and living at home alone, until Sunday when she suddenly became extremely weak. She normally has caregivers that come in for a few hours a day just on week, so they last saw her on Sunday. She says she was so weak that she has not been able to get out of bed since then. So all day yesterday, she did not take any medications or get up to eat or drink. She was incontinent in the bed, as she was just too weak to get up. She did not think to call for help until today, when she called her caregiver, who called 911. In the emergency room, she had somewhat depressed mental status, tachypnea, tachycardia, leukocytosis, lactic acidosis, pyuria. She is now admitted to the PCU with diagnosis of sepsis thought probably secondary to urinary tract infection. The patient is somewhat lethargic, so getting a history is a little bit difficult. She says she has been having fevers and chills over the weekend. She has also had mild headache and nausea, blurred vision, sore throat and mild cough which has been nonproductive. She denies sinus symptoms or earache. She has had some trouble swallowing the last couple of days, due to a dry throat. She denies chest pain or palpitations or significant shortness of breath. She denies abdominal pain, vomiting or diarrhea. She says she normally has chronic diarrhea, but that has changed to constipation since she was started on iron supplement. She does have chronic bladder incontinence, and was recently started on bladder medicine, but is not sure if she started the new one yet. She last checked her blood sugar on Sunday, but does not recall the number. She says normally she ranges anywhere from 150 up to as high as 600. She does use a sliding scale at home. December 11: Today, the patient continues to be fairly lethargic, although she is able to answer questions when pressed. She remained febrile most of the night, in spite of frequent Tylenol. Today her blood cultures are growing gram-negative rods, so Zosyn was added to her Rocephin, pending sensitivities. White blood cell count and lactic acid are both improved today. The patient says she feels a little better, but continues to feel uncomfortable and her general abdominal area. Otherwise she denies fever chills, chest pain or palpitations, shortness of breath or cough, nausea or vomiting, diarrhea. Kiser catheter remains in place. December 12: The patient has been fairly stable overnight. She continues to run low-grade fevers, but this is trending downward. Renal function looks much improved today. LFTs are a bit elevated today, and the patient does report mild orthopnea, so she may be a bit volume overloaded. Today, she does note low back pain, which is chronic. She believes this is related to being in bed for so many days. Otherwise, she denies fever chills, chest pain or palpitations, significant cough, abdominal pain, nausea or vomiting, diarrhea or constipation. December 13: The patient had difficulties maintaining oxygenation overnight. We initially thought she was volume overloaded, so she was given Lasix, and that seemed to help somewhat. This morning she continues to feel that she has labored breathing. BiPAP was eventually applied last night, and that helped her breathing a great deal, and she says she is quite a bit more comfortable with that. When it is removed to let her eat, etc., she does drop her O2 saturation quite a bit. Follow-up chest x-ray this morning does show bilateral infiltrates. Otherwise temperature is much improved, and she is much more awake and alert this morning. By this afternoon she was tolerating an oxygen mask of 6 L with a 94% saturation. Renal function also continues to improve. LFTs are still a bit elevated, but appear to be stabilizing. Patient denies fever or chills, but continues to feel short of breath. She says she tends to hurt all over. She denies chest pain or palpitations, abdominal pain, nausea or vomiting, diarrhea or constipation. December 14: The patient seen examined, no acute overnight events, labs reviewed, pt lying comfortably in bed denies any acute issues, off bipap since last night, doing well, urine and blood cx is klebsiella mead sensitive, antibiotics changed from zosyn to Rocephin. The patient is eager to get out of bed today, but in discussion with the nursing staff it seems she has refused ambulation/ or working wiht therapy. it seem she will need SNF placement as per PT December 15: Hospital course: This patient was admitted with sepsis and UTI. She had a bit of a tristan course initially, but is now much improved. She was treated with IV Rocephin and Zosyn , and then Rocephin alone, for Klebsiella UTI and bacteremia. Today, she is feeling much improved, but continues to be too weak to go home alone. She has been refusing to go to rehab, but seems willing to stay here for a few more days for physical therapy, prior to returning home. -She also appeared to have developed aspiration pneumonia. She was covered with IV Zosyn for a few days, and then switched back to Rocephin. Respiratory status has improved. She did initially require BiPAP for respiratory support, to maintain O2 saturations, but is now tolerating oxygen by nasal cannula. -Blood sugars were quite elevated on admission, and it took a while to get these under control. Currently she is well controlled with glucoses ranging from 71-105. Today, she says she is feeling much better. She says she has been up walking a little with her walker today. She continues to insist that she does not need rehab, and can just return home to live alone. She is worried about her cats being alone. However, nursing staff and physical therapy note that she really is not safe to be alone yet. She lacks strength and endurance. She tends to be noncompliant. She otherwise denies fever chills, chest pain or palpitations, significant shortness of breath, GI or complaints. On exam, she is awake and alert. Neck is supple without lymphadenopathy or JVD. Cardiac exam shows regular rate and rhythm. Lungs show a few soft crackles at the bases, and are otherwise clear. Lower extremities continue to show about 1+ edema. Assessment and plan: #1. Infectious disease. Patient presents with sepsis and evidence of UTI. Klebsiella in blood and urine, initially treated with zosyn switcted to rocephin based on sensitivities and once a day admistration. -Continue IV antibiotics while she is in a facility, and then probably switch to p.o. antibiotics once she is discharged. She should have a 14 day course of antibiotics in total. 2. CODE STATUS: DNR . 3. DVT prophylaxis: Subcu heparin 4. Renal. Acute kidney injury. - stable renal function. Creatinine is near baseline at 1.4. Hyponatremia. Resolved. 5. Endocrine. Type 2 diabetes. Glucose is much better controlled. Today's glucose is ranging from 71-105. Continue Lantus, plus sliding scale insulin. Decrease the sliding scale. #6. Hematologic. Chronic anemia, possibly due to underlying renal disease. This is been fairly stable during her admission. 7. HTN Monitor. Lasix, valsartan, hydrochlorothiazide are all on hold. resume once bp and creat is stable #8. GI. LFTs were a bit elevated but trending down. possibly due to passive liver congestion. continue to monitor. 9. Back pain. This may be partly positional. Add Brumley 325/5, as needed. #10. Cardiopulmonary. Acute hypoxic resp failure, likely due to aspiration pneumonia. Today's chest x -ray shows marked improvement in diffuse bilateral infiltrates. Continue Rocephin for now. Patient seems to be doing well off BiPAP for now. Disposition: The patient is nearing being stable for discharge, but I am not comfortable with her discharging to home, due to significant weakness and high risk of falling. At this time we will likely discharge her to swing bed status , to give us a few more days of working with her on getting her strong enough to go home, as she continues to refuse transfer to a senior care facility. Discharge diagnosis: Sepsis. UTI with Klebsiella. Pneumonia with respiratory failure. - Time Spent with Patient Total time spent providing and/or coordinating discharge services: Greater than 30 minutes Medical - DS: Exam - Constitutional Vitals: Vital Signs Temp Pulse Pulse Resp BP BP Pulse Ox 12/15/16 12:00 96.5 F L 74 22 134/59 97 12/15/16 09:36 72 16 97 12/15/16 07:40 73 23 H 107/67 93 12/15/16 03:45 97.7 F 71 22 108/51 96 12/15/16 00:01 75 22 120/40 93 12/14/16 23:47 99.7 F H 80 21 125/49 95 12/14/16 20:08 79 26 H 120/76 90 12/14/16 20:01 97.0 F 78 25 H 120/76 95 12/14/16 16:13 81 27 H 93 12/14/16 16:01 96.7 F L 83 20 129/56 94 Intake and Output 12/14/16 12/15/16 12/15/16 21:59 05:59 13:59 Intake Total 290 / 290 240 / 240 989 / 989 Output Total 1475 / 1475 1250 / 1250 Balance -1185 / -1185 -1010 / -1010 989 / 989 Intake: IV 50 / 50 989 / 989 Potassium Chloride 10 Meq 989 / 989 In Sodium Chloride 0.9% 1,000 ml @ 50 mls/hr IV . Q20H6M [facility] Rx#:[id number] Rocephin 1 gm In Dextrose 50 / 50 5% in Water 50 ml @ 100 mls/hr IV Q24H [facility] Rx#: [id number] Oral 240 / 240 240 / 240 Output: Urine Catheter Amount 1475 / 1475 1250 / 1250 Other: Meal Dinner Percent of Meal Consumed 50% Feeding Ability Independent Weight 279 lb 4.8 oz 279 lb 4.8 oz Patient Weight 12/16/16 05:59 Weight 279 lb 4.8 oz Medical - DS: Data Labs on day of discharge: December 15: Chest x-ray shows marked improvement in diffuse bilateral infiltrates. December 14: BC: White blood cell count 7000. Hemoglobin 9, hematocrit 26, RDW 15, platelet count 136,000. Differential shows 800 lymphocytes, normal granulocyte count. Chemistry panel: Is notable for BUN of 24, creatinine 1.4, glucose 67. Calcium is low at 8.2, phosphorus low at 2.6 Alkaline phosphatase is elevated at 197. GGT is elevated at 151. AST and ALT are back down to normal. December 13: ABG on 4 L nasal cannula: Shows pH of 7.44, CO2 42, PO2 69, bicarb 28, O2 saturation 94% Chest x-ray: Shows moderate sized vague diffuse right lung infiltrate, and developing small left basilar infiltrate. No obvious CHF. December 11: Chest x-ray: Shows minor bibasilar atelectasis. Renal ultrasound: Shows normal-appearing kidneys. Urine culture: Is growing Klebsiella pneumoniae ,resistant to ampicillin, but sensitive to Zosyn and all other antibiotics tested. Blood cultures are growing Klebsiella pneumonia, resistant to ampicillin, but sensitive to Zosyn and all other antibiotics tested. December 10: CBC white blood cell count is 14,900, hemoglobin 11, hematocrit 32, platelets 150,000. Differential: Shows 13,000 neutrophils, 900 lymphocytes. Lactic acid is elevated at 2.4 Urinalysis shows greater than 500 mg glucose, 250 leukocyte esterase, 136 white blood cells, negative nitrites. Medical - DS: A/P - Patient/Caregiver Discharge Instructions Activity: as per physical therapy Diet: Consistent Carbohydrate Additional Instructions: Follow up at wound healing clinic 1 week after discharge. Prescriptions: metFORMIN [Glucophage] 500 mg PO [facility] #[facility] Other Amb Orders: Aspiration Precautions Location: Determined By Patient Fall Risk Location: Determined By Patient OT Discharge Order Location: Determined By Patient Physical Therapy at Discharge - General Location: Determined By Patient Wound Care/Dressings Location: Determined By Patient - Problem Maintenance (1) YANN (acute kidney injury) Status: Acute (2) Diabetes Status: Chronic Comment: NOW ON LANTUS 45 UNITS SQ BID, JANUVIA 50 MG PO DAILY AND METFORMIN. Qualifiers: Diabetes mellitus type: type 2 Diabetes mellitus complication status: with unspecified complications (3) UTI (urinary tract infection) Status: Acute Comment: E coli sens to all- change to Ceftriaxone (4) Sepsis Status: Resolved Comment: Blood cultures pending Qualifiers: Sepsis type: sepsis due to unspecified organism Qualified Code(s): A41.9 - Sepsis, unspecified organism (5) HTN (hypertension) Status: Chronic Comment: CONTROLLED. - Follow up Plan Follow up with: Katie Haji ARNP [Primary Care Provider] - Disposition: Xfer Hospital Swing Bed Prognosis: Fair Rehab Potential: Fair Overall status at discharge: patient is progressing back to baseline Medical - DS: Qual - VTE Deep Vein Thrombosis/Pulmonary Embolism Present on Admission: No
[2016-12-15] MEDS ORDERED: 0.9 % SODIUM CHLORIDE 10 ML SYRINGE IV SCH (14:00)
--- NOTE | 2016-12-15 15:37 | General Surgery Progress Note ---
Subjective Patient reports: no new complaints (I saw patient for f/u along with Jordana RN In Patient Wound Care Nurse. ), other (Patient seen for f/u along with Jordana RN In Patient wound care nurse. ) Narrative: Note initiated : 12/15/16 at 3:32 pm Service Date, if different from initiated Date: [] Patient: Mary Gibbons 71 y/o F admitted on 12/10/16 for Weakness, High Blood Sugar/Sepsis, UTI. Chief Complaint: [] Objective Temp Pulse Resp BP Pulse Ox 96.5 F L 75 20 134/59 96 12/15/16 12:00 12/15/16 12:28 12/15/16 12:28 12/15/16 12:28 12/15/16 12:28 AVSS. No changes in clinical examination. Lucid, cooperative without any acute interval changes noted on clinical assessment. L/E Left leg upper , lateral third skin eschar has improved significantly and is gradually demarcating and from underlying wound bed. Periwound inflammatory changes has resolved significantly. - Additional Data Intake & Output - Last 24 hours: Intake & Output 12/13/16 12/14/16 12/15/16 12/16/16 05:59 05:59 05:59 05:59 Intake Total 2075 / 2075 1000 / 1000 1705 / 1705 1089 / 1089 Output Total 4490 / 4490 3150 / 3150 2725 / 2725 Balance -2415 / -2415 -2150 / -2150 -1020 / -1020 1089 / 1089 Weight 282 lb 12.8 oz 281 lb 3.2 oz 279 lb 4.8 oz 279 lb 4.8 oz - Labs 12/14/16 04:00 12/14/16 04:00 Assessment and Plan (1) Sepsis Problem details: Blood cultures pending Status: Resolved Current Visit: No (2) Dermatitis Problem details: For conservative management of LEFT leg skin lesion, DRY black eschar with periwound dermatitis and colonization with MRSA and Nayana. Await resolution of urinary tract sepsis. Will monitor skin lesion at this time. MAY debride later. Will follow this patient, whilst she is in hospital. Status: Chronic Current Visit: Yes - Narrative A/P Narrative: Patient has progressed well and recovered from urosepsis. Will continue current wound care and protective dressings. Will reassess on SUNDAY and make recommendations about debridement vs on going conservative treatment. - Time Spent With Patient Total time spent is greater than 50% in coordination of care (as documented) at patient's floor/unit and/or counseling patient: less than 15 minutes
[2016-12-15] MEDS ORDERED: INSULIN LISPRO 1 UNIT/0.01 ML UNIT SQ SCH (17:00)
[2016-12-15] MEDS ORDERED: INSULIN GLARGINE, HUMAN 1 UNIT/0.01 ML SQ SCH (21:00)
[2016-12-15] MEDS ORDERED: HEPARIN 5,000 UNIT/ML VIAL SQ SCH (21:00)
[2016-12-15] MEDS ORDERED: SIMVASTATIN 20 MG TABLET PO SCH (21:00)
[2016-12-15] MEDS ORDERED: MAGNESIUM OXIDE 400 MG TABLET PO SCH (21:00)
[2016-12-15] MEDS ORDERED: rOPINIRole 1 MG TABLET PO SCH (21:00)
[2016-12-16] MEDS ORDERED: cefTRIAXone 1 GM in DEXTROSE 5% IN WATER 50 ML IV SCH (09:00)
[2016-12-16] MEDS ORDERED: SERTRALINE 50 MG TABLET PO SCH (09:00)
[2016-12-16] MEDS ORDERED: sitaGLIPtin 50 MG TABLET PO SCH (09:00)
[2016-12-16] MEDS ORDERED: MUPIROCIN CRM 2% 15 GM TUBE TOPICAL SCH (09:00)
[2016-12-16] MEDS ORDERED: OXYBUTYNIN CHLORIDE 5 MG TAB.XL.24H PO SCH (09:00)
[2016-12-16] MEDS ORDERED: buPROPion 150 MG TAB.XL.24H PO SCH (09:00)
== END 2016-12-15 15:37 | disposition other institution (70) | DRG 871 ==
LOC: ED 12:54 → ICU 17:40
PROVIDERS: ADMIT Internal Medicine; ATTEND Internal Medicine

== ENCOUNTER 2016-12-15 12:57 | Inpatient (IN) ==
[2016-12-15] MEDS ORDERED: DEXTROSE 50% 50 ML VIAL IV PRN (14:57)
[2016-12-15] MEDS ORDERED: ALBUTEROL SULFATE 2.5 MG/3 ML NEBULIZER NEB PRN (14:57)
[2016-12-15] MEDS ORDERED: MAGNESIUM HYDROXIDE 30 ML ORAL.SUSP PO PRN ×2 (14:57→15:02)
[2016-12-15] MEDS ORDERED: DOCUSATE SODIUM 100 MG CAPSULE PO PRN ×2 (14:57→15:02)
[2016-12-15] MEDS ORDERED: DEXTROSE 31 GM ORAL.SUSP PO PRN ×2 (14:57→15:02)
[2016-12-15] MEDS ORDERED: ACETAMINOPHEN 325 MG TABLET PO PRN (15:02)
[2016-12-15] MEDS ORDERED: LORazepam 2 MG/ML VIAL IV PRN (15:02)
[2016-12-15] MEDS ORDERED: ONDANSETRON 4 MG/2 ML VIAL IV PRN (15:02)
[2016-12-15] MEDS ORDERED: HYDROcodone/APAP 5/325MG TABLET PO PRN (15:02)
[2016-12-15] MEDS ORDERED: SIMETHICONE 80 MG TAB.CHEW CHEWED PRN (15:02)
[2016-12-15] MEDS ORDERED: CALCIUM CARBONATE 500 MG TAB.CHEW CHEWED PRN (15:02)
[2016-12-15] MEDS ORDERED: cefTRIAXone 1 GM VIAL IV SCH (15:15)
[2016-12-15] MEDS ORDERED: INSULIN LISPRO 1 UNIT/0.01 ML UNIT SQ SCH (17:00)
[2016-12-15] MEDS: INSULIN LISPRO 1 UNIT/0.01 ML UNIT SQ SCH ×2 (17:14→22:00)
[2016-12-15] MEDS ORDERED: HEPARIN 5,000 UNIT/ML VIAL SQ SCH (21:00)
[2016-12-15] MEDS: HEPARIN 5,000 UNIT/ML VIAL SQ SCH (21:59)
[2016-12-15] MEDS: INSULIN GLARGINE, HUMAN 1 UNIT/0.01 ML SQ SCH (22:00)
[2016-12-15] MEDS ORDERED: 0.9 % SODIUM CHLORIDE 10 ML SYRINGE IV SCH (22:00)
[2016-12-15] MEDS: 0.9 % SODIUM CHLORIDE 10 ML SYRINGE IV SCH (22:01)
[2016-12-15] MEDS: SIMVASTATIN 20 MG TABLET PO SCH (22:01)
[2016-12-15] MEDS: rOPINIRole 1 MG TABLET PO SCH (22:01)
[2016-12-16] MEDS: 0.9 % SODIUM CHLORIDE 10 ML SYRINGE IV SCH ×3 (06:00→22:03)
[2016-12-16 06:47] LABS: Basophils # (Auto) 0 K/mcL (0.0-0.3); Basophils % (Auto) 0.3 % (0.0-2.0); Eosinophils # (Auto) 0.3 K/mcL (0.0-0.7); Eosinophils % (Auto) 3.3 % (0.0-7.0); Granulocytes % (Auto) 72.5 % (38.0-78.0); Lymphocytes # (Auto) 1.4 K/mcL (1.5-4.8); Lymphocytes % (Auto) 15.4 % (15.5-49.0); Mean Cell Volume 87.7 fL (80.0-100.0); Mean Corpuscular HGB Conc 34.4 g/dL (31.0-36.0); Mean Corpuscular Hemoglobin 30.1 pg (26.0-34.0); Monocytes # (Auto) 0.8 K/mcL (0.1-0.9); Monocytes % (Auto) 8.5 % (1.0-12.0); Platelet Count 224 K/mcL (140-440); RBC 3.13 M/mcL (4.00-5.20); Red Cell Distribution Width 15.2 % (11.5-14.5)
[2016-12-16 07:13] LABS: ALT/SGPT 24 U/l (0-40); Albumin 2.8 gm/dL (3.2-5.2); Albumin/Globulin Ratio 0.7 (1.0-2.3); Alkaline Phosphatase 263 U/L (39-117); Bilirubin,Direct < 0.2 mg/dL (0.0-0.3); Blood Urea Nitrogen 20 mg/dl (8-23); Gamma Glutamyl Transpeptidase 152 U/L (5-36); Magnesium 1.9 mg/dL (1.6-2.5); Uric Acid 4.8 mg/dL (2.5-8.0)
[2016-12-16] MEDS: metFORMIN 500 MG TABLET PO SCH (07:42)
[2016-12-16] MEDS: INSULIN LISPRO 1 UNIT/0.01 ML UNIT SQ SCH ×4 (07:42→22:02)
[2016-12-16] MEDS ORDERED: cefTRIAXone 1 GM in DEXTROSE 5% IN WATER 50 ML IV SCH (09:00)
[2016-12-16] MEDS: OXYBUTYNIN CHLORIDE 5 MG TAB.XL.24H PO SCH (10:24)
[2016-12-16] MEDS: SERTRALINE 50 MG TABLET PO SCH (10:24)
[2016-12-16] MEDS: INSULIN GLARGINE, HUMAN 1 UNIT/0.01 ML SQ SCH ×2 (10:25→21:59)
[2016-12-16] MEDS: HEPARIN 5,000 UNIT/ML VIAL SQ SCH ×2 (10:25→21:58)
[2016-12-16] MEDS: sitaGLIPtin 50 MG TABLET PO SCH (10:25)
[2016-12-16] MEDS: buPROPion 150 MG TAB.XL.24H PO SCH (10:25)
[2016-12-16] MEDS: MUPIROCIN CRM 2% 15 GM TUBE TOPICAL SCH (12:30)
--- NOTE | 2016-12-16 13:25 | Internal Med History&Physical ---
Medical - H&P: HPI Patient information: Note initiated : 12/16/16 at 1:25 pm Service Date, if different from initiated Date: [] Patient: Mary Gibbons a 71 y/o F admitted on 12/15/16 for Weakness, High Blood Sugar/ Sepsis, UTI. Chief Complaint: [] History of present illness: Ms. Gibbons is a 71 year old F This patient was admitted with sepsis and UTI on December 10, 2016.. She had a bit of a tristan course initially, but is now much improved. She was treated with IV Rocephin and Zosyn, and then Rocephin alone, for Klebsiella UTI and bacteremia. Yesterday, she was feeling much improved, but continues to be too weak to go home alone. She has been refusing to go to rehab, but seems willing to stay here for a few more days for physical therapy, prior to returning home. She is now admitted to [facility], for ongoing strengthening. -She also appeared to have developed aspiration pneumonia. She was covered with IV Zosyn for a few days, and then switched back to Rocephin. Respiratory status has improved. She did initially require BiPAP for respiratory support, to maintain O2 saturations, but is now tolerating oxygen by nasal cannula. -Blood sugars were quite elevated on admission, and it took a while to get these under control. Today glucoses are ranging from 152 -283. Today, she says she is feeling much better. She says she has been up walking a little with her walker today. She tells me today that the chair we have for her to sit in is too uncomfortable, and she request a recliner, as this is what she uses at home. -Also today, she continues to complain of a cold sore that started on her lip a few days ago, and then she felt like she had one on her tongue, and now her mouth is sore all over. She feels like she cannot use her dentures at the moment. -She is also complaining that the IV in her left arm is painful, and she would like to have that removed. -She also complains that the mucosa in her nasal passages is very dry and feels like it has scabs in it. Otherwise, she feels that she is getting stronger every day, and will be ready to return home very soon. She denies current fever chills, headaches or dizziness, new eye or ear symptoms. She does complain of a sore mouth and painful swallowing. She denies any swollen glands, chest pain or palpitations, or cough. She does report mild dyspnea with exertion, but this is probably not far off of her baseline. She continues to feel like she has abdominal gas, but otherwise denies nausea, vomiting, diarrhea. She says she has not had a bowel movement in several days. She denies dysuria, but does have chronic incontinence. She is wondering if she can go back on her Vesicare, which she takes at home for bladder control. She continues to insist that she does not need rehab, and can just return home to live alone. She is worried about her cats being alone. However, nursing staff and physical therapy note that she really is not safe to be alone yet. She lacks strength and endurance. She tends to be noncompliant. She otherwise denies fever chills, chest pain or palpitations, significant shortness of breath, GI or complaints. Medical history: 1.HTN 2.Diabetes mellitus on OHG 3.Morbid obesity 4.Chronic leg swelling 5.Chronic diarrhea 6. Depression/anxiety 7. Pna with resp failure 8. Cellulitis 9. CKD Surgical history: TxA, cholecystectomy,R shoulder surgery,TXL Current medications are as noted below. Prior home medications appear to include: Januvia 50 mg daily Requip 3 mg nightly Metformin 1500 mg every morning, 1000 mg nightly Bupropion XL 150 mg daily ValsartanHCTZ 8012 0.5 half tablet daily Simvastatin 20 mg nightly Simethicone 160 mg twice daily as needed Sertraline 150 mg daily Oxybutynin ER 15 mg daily Magnesium oxide 400 mg twice daily Lantus 45 units subcu twice daily Humalog sliding scale before meals and at bedtime Lasix 40 mg daily Toviaz 4 mg daily Calcium carbonate 1000 mg every 6 hours as needed Tylenol 650 mg every 4-6 hours as needed Allergies: Clindamycin Sulfa Pertinent family history: HTN Diabetes CAD Social history: lives alone has caregiver, uses cane/walker Never smoker,Drug use: none, Alcohol use: none She has a son who lives in [place], who has her POA. She has a grandson who lives in [place]. She apparently did sign a no code order today, and states that that is her wish. Medical - H&P: Meds Home Medications Medication Instructions Recorded Confirmed Type Sertraline [Zoloft] 150 mg PO DAILY 04/29/15 12/15/16 History Simvastatin [Zocor] 20 mg PO HS 04/29/15 12/15/16 History rOPINIRole HCL [Requip] 3 mg PO HS 04/29/15 12/15/16 History Oxybutynin Chloride [Oxybutynin 15 mg PO DAILY 01/09/16 12/15/16 History Chloride ER] Accu-Chek 1 each FS ACHS strip 01/17/16 12/15/16 Rx Calcium Carbonate [Tums] 1,000 mg CHEWED Q6HP PRN #0 01/17/16 12/15/16 Rx tab.chew Insulin Glargine, Human [Lantus] 45 unit SQ BID #1 vial 01/17/16 12/15/16 Rx Simethicone [Mylicon] 160 mg CHEWED BIDP PRN #0 tab.chew 01/17/16 12/15/16 Rx sitaGLIPtin [Januvia] 50 mg PO DAILY #30 tablet 01/17/16 12/15/16 Rx Magnesium Oxide [Magnesium] 400 mg PO BID #10 tablet 01/20/16 12/15/16 Rx 0.9 % Sodium Chloride [Saline 10 ml IV Q8 12/15/16 12/15/16 Rx Flush] Accu-Chek 1 each FS ACHS strip 12/15/16 12/15/16 Rx Acetaminophen [Tylenol] 650 mg PO Q4-6HP PRN tablet 12/15/16 12/15/16 Rx Albuterol Sulfate [Ventolin] 2.5 mg NEB Q4HRT PRN 12/15/16 12/15/16 Rx Dextrose [Insta-Glucose] 15 gm PO PRN PRN 12/15/16 12/15/16 Rx Docusate Sodium [Colace] 100 mg PO BID PRN capsule 12/15/16 12/15/16 Rx HYDROcodone/APAP 5/325MG [[place] 1 tab PO Q4HP PRN tablet 12/15/16 12/15/16 Rx 5/325Mg] Heparin 5,000 unit SQ Q12 vial 12/15/16 12/15/16 Rx Insulin Lispro [Humalog] See Protocol SQ ACHS unit 12/15/16 12/15/16 Rx LORazepam [Ativan] 0.5 mg IV Q4HP PRN vial 12/15/16 12/15/16 Rx Magnesium Hydroxide [Milk of 30 ml PO DAILYP PRN 12/15/16 12/15/16 Rx Magnesia] Mupirocin Crm 2% [Bactroban Crm 2%] 1 gm TOPICAL DAILY 12/15/16 12/15/16 Rx Ondansetron [Zofran] 4 mg IV Q4-6HP PRN vial 12/15/16 12/15/16 Rx buPROPion [Wellbutrin Xl] 150 mg PO DAILY 12/15/16 12/15/16 Rx cefTRIAXone [Rocephin] 1 gm IV Q24H vial 12/15/16 12/15/16 Rx metFORMIN [Glucophage] 500 mg PO [facility] #1 12/15/16 12/15/16 Rx Allergies Allergy/AdvReac Type Severity Reaction Status Date / Time clindamycin Allergy Verified 12/10/16 13:01 Sulfa (Sulfonamide AdvReac Mild Diarrhea Verified 12/10/16 13:01 Antibiotics) [SULFA (SULFONAMIDE ANTIBIOTICS)] Medical - H&P: Exam - Constitutional Vitals: Temp Pulse Resp BP Pulse Ox 98.0 F 80 18 110/50 93 12/16/16 07:53 12/15/16 20:00 12/16/16 07:53 12/16/16 07:53 12/16/16 07:53 On exam, she is an overweight elderly female, who is sitting on the side of her bed. She is awake and alert, smiling and talkative today. Head: Normocephalic, atraumatic. Eyes: Pupils are fairly pinpoint, and sluggishly reactive., EOMI, anicteric. Ears: TMs and canals are clear. Pharynx: Pharynx is markedly crowded. Mucosa is markedly dry and rather red.. She is edentulous. She does have an ulcerated lesion noted on her hard palate. There is also something on the left side of her tongue that appears to be a healing ulcer. I do not see any definite white patches or discharge. Neck: Appears supple, without obvious lymphadenopathy, JVD, thyromegaly. She does have bilateral carotid bruits which appear to be radiating from a heart murmur. Cardiac exam: Shows regular rate and rhythm with normal S1 and S2. There is a 2 /6 systolic murmur heard throughout the precordium. Lungs: Are clear to auscultation, without obvious rales, rhonchi, wheezes. Abdomen: Is quite obese, with a very large pannus. She has no significant tenderness and no guarding or rebound. Bowel sounds appear active. Extremities: She has generally swollen lower extremities below the knees. She has patchy erythema over both distal legs, which she says is chronic. The upper part of the left leung area also has a 2 cm necrotic appearing ulcer, but the previous erythema has essentially resolved. There is no obvious drainage. No cyanosis or clubbing is noted. Neurologic exam: The patient is currently alert and oriented. Mood is calm and cooperative. Radial nerves are grossly intact. Motor strength is grossly intact. Exam is grossly nonfocal. Medical - H&P: Reslt - Labs CBC & Chem 7: 12/16/16 04:02 12/16/16 04:02 Labs: Short CBC 12/16/16 Range/Units 04:02 WBC 8.9 (4.5-11.0) K/mcL Hgb 9.4 L (12.0-15.0) g/dL Hct 27.5 L (36.0-48.0) % Plt Count 224 (140-440) K/mcL BMP 12/16/16 04:02 Sodium 140 Potassium 4.1 Chloride 101 Carbon Dioxide 26 BUN 20 Creatinine 1.2 H Glucose 93 Calcium 8.9 Liver Function 12/16/16 Range/Units 04:02 Total Bilirubin 0.5 (0.0-1.0) mg/dL Direct Bilirubin < 0.2 (0.0-0.3) mg/dL GGT 152 H (5-36) U/L AST 24 (0-37) U/l ALT 24 (0-40) U/l Alkaline Phosphatase 263 H (39-117) U/L Albumin 2.8 L (3.2-5.2) gm/dL December 15: Chest x-ray shows marked improvement in diffuse bilateral infiltrates. December 14: BC: White blood cell count 7000. Hemoglobin 9, hematocrit 26, RDW 15, platelet count 136,000. Differential shows 800 lymphocytes, normal granulocyte count. Chemistry panel: Is notable for BUN of 24, creatinine 1.4, glucose 67. Calcium is low at 8.2, phosphorus low at 2.6 Alkaline phosphatase is elevated at 197. GGT is elevated at 151. AST and ALT are back down to normal. December 13: ABG on 4 L nasal cannula: Shows pH of 7.44, CO2 42, PO2 69, bicarb 28, O2 saturation 94% Chest x-ray: Shows moderate sized vague diffuse right lung infiltrate, and developing small left basilar infiltrate. No obvious CHF. December 11: Chest x-ray: Shows minor bibasilar atelectasis. Renal ultrasound: Shows normal-appearing kidneys. Urine culture: Is growing Klebsiella pneumoniae ,resistant to ampicillin, but sensitive to Zosyn and all other antibiotics tested. Blood cultures are growing Klebsiella pneumonia, resistant to ampicillin, but sensitive to Zosyn and all other antibiotics tested. December 10: CBC white blood cell count is 14,900, hemoglobin 11, hematocrit 32, platelets 150,000. Differential: Shows 13,000 neutrophils, 900 lymphocytes. Lactic acid is elevated at 2.4 Urinalysis shows greater than 500 mg glucose, 250 leukocyte esterase, 136 white blood cells, negative nitrites. Medical - H&P: A/P - Narrative A/P Narrative: #1. Infectious disease. Patient presented with sepsis and evidence of UTI. She responded well to treatment with IV Zosyn and Rocephin, and then was changed to just Rocephin alone. She continues to do well today. -She is complaining about her IV today, and I think it would be reasonable to switch her to oral antibiotics for her UTI. Klebsiella was sensitive to ciprofloxacin, so we will give that a try. We will plan on completing a total of a 14 day course of antibiotics, regarding her bacteremia. -For her aphthous ulcers, I discussed a possible mouthwash with pharmacy, but we really do not have that here. I have therefore added acyclovir and nystatin swish and swallow. We will see how she does with these. 2. CODE STATUS: DNR . 3. DVT prophylaxis: Subcu heparin 4. Renal. Acute kidney injury from admission resolved.. - stable renal function. Creatinine is near baseline at 1.2. Hyponatremia. Resolved. -Discontinue IV. Discontinue IV fluids. 5. Endocrine. Type 2 diabetes. Glucose is better controlled. Today's glucose is ranging from 1052 283. Continue Lantus, plus sliding scale insulin. #6. Hematologic. Chronic anemia, possibly due to underlying renal disease. This was fairly stable during her admission. 7. HTN Monitor. Lasix, valsartan, hydrochlorothiazide are all on hold. I will add these back as her blood pressure tolerates. #8. GI. LFTs were a bit elevated but trending down. possibly due to passive liver congestion. continue to monitor. -Laxatives as needed constipation. 9. Back pain. This may be partly positional. Added [place] 325/5, as needed. #10. Cardiopulmonary. Acute hypoxic resp failure, likely due to aspiration pneumonia. Yesterday's chest x-ray shows marked improvement in diffuse bilateral infiltrates. Pulmonary status appears back to normal. We will DC Rocephin today, and switch her to oral ciprofloxacin. #11. . Chronic incontinence. I will check with pharmacy to see if we can change her from oxybutynin over to toviaz. Disposition: I am not comfortable with her discharging to home, due to significant weakness and high risk of falling. At this time we are admitting her to swing bed status, to give us a few more days of working with her on getting her strong enough to go home, as she continues to refuse transfer to a [facility] facility. Today's visit took approximately 50 minutes, to review the patient's records and test results, interview and examine her, review some of her issues with pharmacy, and write orders. Medical - H&P: Qual - VTE Deep Vein Thrombosis/Pulmonary Embolism Present on Admission: No
[2016-12-16] MEDS: ACYCLOVIR 400 MG TABLET PO SCH ×2 (16:33→22:00)
[2016-12-16] MEDS ORDERED: MUPIROCIN 2% NASAL OINT 1 GM OINT.TOP NAS SCH (21:00)
[2016-12-16] MEDS: CIPROFLOXACIN 500 MG TABLET PO SCH (21:59)
[2016-12-16] MEDS: rOPINIRole 1 MG TABLET PO SCH (21:59)
[2016-12-16] MEDS: BACITRACIN ZINC PKT 1 PACKET PACKET TOPICAL SCH (21:59)
[2016-12-16] MEDS: NYSTATIN 500,000 UNITS/5 ML ORAL.SUSP SSW SCH (21:59)
[2016-12-16] MEDS: SIMVASTATIN 20 MG TABLET PO SCH (22:00)
[2016-12-17] MEDS: 0.9 % SODIUM CHLORIDE 10 ML SYRINGE IV SCH ×2 (05:29→13:27)
[2016-12-17] MEDS: INSULIN LISPRO 1 UNIT/0.01 ML UNIT SQ SCH ×4 (07:07→21:38)
[2016-12-17] MEDS: HEPARIN 5,000 UNIT/ML VIAL SQ SCH ×2 (08:27→21:37)
[2016-12-17] MEDS: INSULIN GLARGINE, HUMAN 1 UNIT/0.01 ML SQ SCH ×2 (08:27→21:36)
[2016-12-17] MEDS: BACITRACIN ZINC PKT 1 PACKET PACKET TOPICAL SCH ×2 (08:28→21:37)
[2016-12-17] MEDS: metFORMIN 500 MG TABLET PO SCH (08:28)
[2016-12-17] MEDS: CIPROFLOXACIN 500 MG TABLET PO SCH ×2 (08:28→21:37)
[2016-12-17] MEDS: SERTRALINE 50 MG TABLET PO SCH (08:28)
[2016-12-17] MEDS: OXYBUTYNIN CHLORIDE 5 MG TAB.XL.24H PO SCH (08:28)
[2016-12-17] MEDS: NYSTATIN 500,000 UNITS/5 ML ORAL.SUSP SSW SCH ×3 (08:28→21:38)
[2016-12-17] MEDS: ACYCLOVIR 400 MG TABLET PO SCH ×3 (08:29→21:37)
[2016-12-17] MEDS: MUPIROCIN CRM 2% 15 GM TUBE TOPICAL SCH (08:29)
[2016-12-17] MEDS: buPROPion 150 MG TAB.XL.24H PO SCH (08:29)
[2016-12-17] MEDS: sitaGLIPtin 50 MG TABLET PO SCH (08:29)
[2016-12-17] MEDS ORDERED: VESICARE PO SCH (09:00)
[2016-12-17] MEDS: rOPINIRole 1 MG TABLET PO SCH (21:37)
[2016-12-17] MEDS: SIMVASTATIN 20 MG TABLET PO SCH (21:37)
[2016-12-18] MEDS: INSULIN LISPRO 1 UNIT/0.01 ML UNIT SQ SCH (07:36)
[2016-12-18] MEDS: metFORMIN 500 MG TABLET PO SCH (08:47)
[2016-12-18] MEDS: ACYCLOVIR 400 MG TABLET PO SCH (08:48)
[2016-12-18] MEDS: CIPROFLOXACIN 500 MG TABLET PO SCH (08:48)
[2016-12-18] MEDS: SERTRALINE 50 MG TABLET PO SCH (08:48)
[2016-12-18] MEDS: OXYBUTYNIN CHLORIDE 5 MG TAB.XL.24H PO SCH (08:48)
[2016-12-18] MEDS: sitaGLIPtin 50 MG TABLET PO SCH (08:48)
[2016-12-18] MEDS: BACITRACIN ZINC PKT 1 PACKET PACKET TOPICAL SCH (08:49)
[2016-12-18] MEDS: HEPARIN 5,000 UNIT/ML VIAL SQ SCH (08:49)
[2016-12-18] MEDS: INSULIN GLARGINE, HUMAN 1 UNIT/0.01 ML SQ SCH (08:50)
[2016-12-18] MEDS: MUPIROCIN CRM 2% 15 GM TUBE TOPICAL SCH (08:50)
[2016-12-18] MEDS ORDERED: LOSARTAN 50 MG TABLET PO SCH (09:00)
--- NOTE | 2016-12-18 10:59 | Discharge Summary ---
Medical - DS: Prov Patient information: Note initiated : 12/18/16 at 10:55 am Service Date, if different from initiated Date: [] Patient: Mary Gibbons 71 y/o F admitted on 12/15/16 for Weakness, High Blood Sugar/ Sepsis, UTI. Chief Complaint: [] Date of admission: 12/15/16 13:55 Discharge date: 12/18/16 Primary care physician: Katie Haji Admitting clinician: Ana Laura Bustos Discharging clinician: Aliya Marin Medical - DS: Meds - Discharge Medications Prescriptions: RX: Ciprofloxacin [Cipro] 500 mg PO BID #14 tablet RX: Valsartan 40 mg PO DAILY #30 tablet Active and Home Medications: Home Medications Sertraline [Zoloft] 150 mg PO DAILY 04/29/15 [History Confirmed 12/15/16 Last Taken 12/15/16 10:30] Simvastatin [Zocor] 20 mg PO HS 04/29/15 [History Confirmed 12/15/16 Last Taken 12/14/16 20:35] rOPINIRole HCL [Requip] 3 mg PO HS 04/29/15 [History Confirmed 12/15/16 Last Taken 12/14/16 20:35] Calcium Carbonate [Tums] 1,000 mg CHEWED Q6HP PRN #0 tab.chew 01/17/16 [Rx Confirmed 12/15/16 Last Taken Unknown] Insulin Glargine, Human [Lantus] 45 unit SQ BID #1 vial 01/17/16 [Rx Confirmed 12/15/16 Last Taken 12/15/16 10:30] Simethicone [Mylicon] 160 mg CHEWED BIDP PRN #0 tab.chew 01/17/16 [Rx Confirmed 12/15/16 Last Taken Unknown] sitaGLIPtin [Januvia] 50 mg PO DAILY #30 tablet 01/17/16 [Rx Confirmed 12/15/16 Last Taken 12/15/16 10:30] Magnesium Oxide [Magnesium] 400 mg PO BID #10 tablet 01/20/16 [Rx Confirmed Last Taken 12/15/16 10:30] Accu-Chek 1 each FS ACHS strip 12/15/16 [Rx Confirmed 12/15/16 Last Taken 12/15 11:30] Acetaminophen [Tylenol] 650 mg PO Q4-6HP PRN tablet 12/15/16 [Rx Confirmed Last Taken 12/10/16 21:30] Insulin Lispro [Humalog] See Protocol SQ ACHS unit 12/15/16 [Rx Confirmed 12/15 Last Taken 12/14/16 20:55] buPROPion [Wellbutrin Xl] 150 mg PO DAILY 12/15/16 [Rx Confirmed 12/15/16 Last Taken 12/15/16 10:40] Accu-Chek 1 each FS ACHS strip 12/17/16 [Rx Last Taken Unknown] Ciprofloxacin [Cipro] 500 mg PO BID #14 tablet 12/17/16 [Rx Last Taken Unknown] Solifenacin Succinate [Vesicare] 5 mg PO DAILY 12/17/16 [History Confirmed 12/17 Last Taken Unknown] metFORMIN [Glucophage] 500 mg PO QAMCC tablet 12/17/16 [Rx Last Taken Unknown] Medical - DS: Hosp Hospital course: Ms. Gibbons is a 71 year old F who was admitted with sepsis and UTI on December 10, 2016.. She had a bit of a tristan course initially, but is now much improved. She was treated with IV Rocephin and Zosyn, and then Rocephin alone, for Klebsiella UTI and bacteremia. The patient apparently also developed aspiration pneumonitis, which was treated with zosyn and then Rocephin. The patient did need respiratory support with bipap while being in the hospital however her respiratory status has been good in the Swing bed status. The patient was feeling much improved, but continues to be too weak to go home alone. She has been refusing to go to rehab, but seems willing to stay here for a few more days for physical therapy, prior to returning home. She was therefore admitted to the hospital in swing bed status for therapy on 12/16/16 The patient did well with PT over last few days and now is ambulatory with walker and stable for discharge home. she will be discharged home with home health. The patient will take oral ciprofloxacin to continue her treatment for UTI with sepsis for additional 14 days, She will also take valsartan 40mg po once daily for her bp, she was taking valsartan hctz at home which was discontinued in light of worsening renal function. She will follow up with her PCP and adjust her bp meds as necessary Discharge diagnosis: UTI, Pneumonia - Time Spent with Patient Total time spent providing and/or coordinating discharge services: Greater than 30 minutes Medical - DS: Exam - Constitutional Vitals: Vital Signs Temp Pulse Pulse Resp BP Pulse Ox 12/18/16 10:53 97.6 F 68 20 130/61 95 12/18/16 07:39 68 95 12/18/16 07:05 93.8 F L 22 118/59 96 12/17/16 19:31 97.6 F 77 22 124/54 93 Intake and Output 12/17/16 12/18/16 12/18/16 21:59 05:59 13:59 Intake Total 800 / 800 550 / 550 Output Total 250 / 250 Balance 550 / 550 549 / 549 Intake: Oral 800 / 800 550 / 550 Output: Void Amount 250 / 250 # of times incontinent of urine Other: Meal Dinner Percent of Meal Consumed 75% # Voids 1 1 # Bowel Movements 1 Weight 276 lb 8 oz Additional comments: Constitutional; Afebrile, cooperative, alert, not in distress. Eyes- No icterus, , No periorbital swelling Ears- Ext ear normal, hearing normal to conversation. Neck- Midline trachea, supple Respiratory system: Air Entry equal on both sides, No crackles or wheezing, no rhonchi. CVS- Rate rhythm regular, S1,S2 heard, no gallop, no rub. Abdomen- Soft nontender abdomen, no organomegaly, no tenderness, no guarding or rigidity, [employer]- AOOx3, moving all extremities, no gross focal deficit noted. Medical - DS: A/P - Patient/Caregiver Discharge Instructions Activity: as per physical therapy Diet: Cardiac, Consistent Carbohydrate Additional Instructions: 1. UTI. Please complete your course of ciprofloxacin, for another 5 days. 2.Diabetes. - Continue to monitor your blood sugars, and let your doctor know if you are seeing numbers less than 80 before meals, or greater than 160 after meals. -We cut your metformin down to 500 mg once a day. You may need to titrate this upwards later, if your blood sugars start to rise again. 3. Bladder incontinence. You can resume your Vesicare once you discharges. #4. Hypertension. Because of your kidney dysfunction, I would like to change your valsartan-HCTZ , to plain valsartan. We will give you a prescription for this. Please check your blood pressure once or twice a day at home, if you are able. #5 [facility] referral has been sent to Dr Fonseca. The office will call you with an appointment. They are booked out 1-2 weeks, so it may take several days for them to contact you. If you haven't heard from them in 14 days, please give them a call at [phone]. Please follow up with your PCP in 7 days Go to the ER if worsening condition or any new concerns. Prescriptions: RX: Ciprofloxacin [Cipro] 500 mg PO BID #14 tablet RX: Valsartan 40 mg PO DAILY #30 tablet Other Amb Orders: Wound Care Instructions Location: Determined By Patient - Follow up Plan Follow up with: Katie Haji ARNP [Primary Care Provider] - (Call her office later today for follow up appointment. ) Disposition: Home, Self-Care Prognosis: Good Rehab Potential: Good I certify that the patient requires SNF services: No Overall status at discharge: patient is progressing back to baseline Medical - DS: Qual - VTE Deep Vein Thrombosis/Pulmonary Embolism Present on Admission: No
[2016-12-18] MEDS: NYSTATIN 500,000 UNITS/5 ML ORAL.SUSP SSW SCH (12:02)
[2016-12-18] MEDS: buPROPion 150 MG TAB.XL.24H PO SCH (12:04)
== END 2016-12-18 11:24 | disposition home or self-care (01) | DRG 871 ==
LOC: ICU 13:55 → MEDSUR 16:46
PROVIDERS: ADMIT Internal Medicine; ATTEND Internal Medicine

== ENCOUNTER 2018-07-13 17:39 | Inpatient (IN) ==
[2018-07-13] MEDS ORDERED: LACTATED RINGERS 1,000 ML IV ONE (17:56)
[2018-07-13] MEDS ORDERED: ACETAMINOPHEN 325 MG TABLET PO ONE (17:57)
--- NOTE | 2018-07-13 18:00 | Emergency Department Note ---
Weakness HPI - General Chief complaint: Weakness Stated complaint: SOB, weakness, increased falls Time Seen by Provider: 07/13/18 17:47 Source: patient, EMS Mode of arrival: EMS Limitations: no limitations - History of Present Illness HPI Narrative: Patient basically bedridden since . She lives in assisted living and she normally has caregivers to come in on a daily basis, however they have not been out due to the holidays. She pining posterior lifeline today because she was not getting out of bed. She's had multiple falls without apparent injury but states that she has been too weak to get out of bed. Basically incontinent of urine, she pushed her lifeline and EMS picked her up today with her laying on some bed sheets that were wet and soaked with urine. Odorous smell of the urine, she denies any oral intake for the last couple of days. She is not had any of her medications for the last 2 days as well. History of sepsis, she has a history of morbid obesity, diabetes, denies chest pain, denies abdominal pain no history of nausea or vomiting but she does have a history of recurrent urinary tract infections up. She also has peripheral neuropathy but has noticed some increasing soreness of the left lower leg. MD Complaint: generalized weakness - Related Data Home Medications Medication Instructions Recorded Confirmed Sertraline [Zoloft] 100 mg PO DAILY 04/29/15 07/13/18 Simvastatin [Zocor] 20 mg PO HS 04/29/15 07/13/18 rOPINIRole HCL [Requip] 1.5 mg PO HS 04/29/15 07/13/18 Solifenacin Succinate [Vesicare] 5 mg PO DAILY 12/17/16 01/29/17 Aspirin [Lo-Dose Aspirin EC] 81 mg PO ONCE 07/13/18 07/13/18 Cholestyramine (with Sugar) 4 gm PO ONCE 07/13/18 07/13/18 [Questran Packet] Cyanocobalamin (Vitamin B-12) 2,500 mcg PO BID 07/13/18 07/13/18 [Vitamin B12] Fesoterodine Fumarate [Toviaz] 4 mg PO ONCE 07/13/18 07/13/18 Insulin Glargine, Human [Lantus] 58 unit SQ BID 07/13/18 07/13/18 Magnesium 250 mg PO ONCE 07/13/18 07/13/18 Silver Sulfadiazine [Silvadene] 1 dose TOPICAL DAILY 07/13/18 07/13/18 Torsemide 100 mg PO ONCE 07/13/18 07/13/18 Previous Rx's Medication Instructions Recorded sitaGLIPtin [Januvia] 50 mg PO DAILY #30 tablet 01/17/16 Accu-Chek 1 each FS ACHS strip 12/15/16 Insulin Lispro [Humalog] See Protocol SQ ACHS unit 12/15/16 buPROPion [Wellbutrin Xl] 150 mg PO DAILY 12/15/16 Accu-Chek 1 each FS ACHS strip 12/17/16 Valsartan 40 mg PO DAILY #30 tablet 12/18/16 Allergies Allergy/AdvReac Type Severity Reaction Status Date / Time clindamycin Allergy Verified 07/13/18 17:45 Sulfa (Sulfonamide AdvReac Mild Diarrhea Verified 07/13/18 17:45 Antibiotics) [SULFA (SULFONAMIDE ANTIBIOTICS)] Amoxicillin AdvReac Verified 07/13/18 20:05 gabapentin [From Neurontin] AdvReac Verified 07/13/18 20:05 morphine AdvReac Verified 07/13/18 20:05 Review of Systems Constitutional: Reports: chills, weakness ENT ED: Denies: throat pain Cardiovascular: Reports: palpitations, dyspnea on exertion. Denies: chest pain Respiratory: Reports: shortness of breath, cough Gastrointestinal: Reports: nausea. Denies: abdominal pain Genitourinary: Reports: frequency, incontinence Musculoskeletal: Reports: back pain, joint pain, muscle cramps, myalgia Neurological: Reports: weakness. Denies: headache Endocrine: Reports: fatigue Past Medical History - Past Medical History Source: old records reviewed Medical history: Reports: arthritis, DM, hyperlipidemia, hypertension, obesity, renal disease, seizures, other Psychiatric history: Reports: depression, other Surgical history ED: Reports: cholecystectomy Family history: Reports: non-contributory - Social History smoking status: Former smoker Alcohol use: Reports: None Drug use: Reports: none Physical Exam Limitations: no limitations General appearance: alert, in distress, obese, tearful Head: atraumatic, normocephalic, normal inspection Eye: Present: normal appearance, PERRL, EOMI. Absent: scleral icterus, conjunctival injection ENT: mucous membranes dry, normal external ear exam Neck: Present: normal inspection, full ROM, trachea midline. Absent: meningismus Chest: Present: normal inspection, symmetric chest wall rise Respiratory: Present: normal lung sounds bilaterally. Absent: respiratory distress, rales/crackles Cardiovascular: Present: regular rate, normal heart sounds Abdominal: Present: soft, distention, hypoactive bowel sounds, scar, other (unable to evaluate for masses.). Absent: tenderness, guarding External: Present: normal external exam Extremities: Present: tenderness, pedal edema, other (significant erythema and cellulitis to the left lower extremity from the foot [facility] up the leg. Also small ulceration on the plantar surface of the left toe). Absent: calf tenderness Back: Present: other (4 or 5 different decubital ulcers in the sacral and perineal area.). Absent: CVA tenderness (R), CVA tenderness (L) Neurological: Present: alert, oriented X3, CN II-XII intact, other (generally weak in all fours.). Absent: normal gait, motor sensory deficit Psychiatric: Present: depressed, tearful Skin: Present: warm, dry, pallor, mottled. Absent: cyanosis Course - Reevaluation(s) Reevaluation #1: Patient started on IV fluids. We did draw blood cultures. Urine was sent. Labs ordered. She was given Tylenol for pain. Vital Signs Temperature 98.8 F 07/13/18 17:40 Pulse Rate 86 07/13/18 17:40 Respiratory Rate 16 07/13/18 17:40 Blood Pressure 117/47 07/13/18 17:40 Pulse Oximetry (%) 97 07/13/18 17:40 Temperature 98.6 F 07/13/18 19:59 Pulse Rate 85 07/13/18 19:31 Respiratory Rate 23 H 07/13/18 19:16 Blood Pressure 112/46 07/13/18 19:46 Pulse Oximetry (%) 94 07/13/18 19:31 Weakness - MDM Narrative Medical decision making narrative: Laboratory studies support diagnosis of #1 dehydration #2 urinary tract infection #3 cellulitis left leg clinically. #4 is diabetes #5 elevated CK, impending rhabdo. Discussed hospital admission with Dr. Marin - Lab Data Result diagrams: 07/13/18 18:13 07/13/18 18:13 Lab Results 07/13/18 07/13/18 07/13/18 Range/Units 18:06 18:12 18:12 WBC RBC Hgb Hct MCV MCH MCHC RDW Plt Count MPV Total Counted Band Neutrophils % Platelet Estimate RBC Morphology VBG Lactic Acid (0.5-2.0) mmol/L Sodium (133-145) mmol/L Potassium (3.3-5.1) mmol/L Chloride (96-108) mmol/L Carbon Dioxide (22-30) mmol/L Anion Gap (8-16) BUN (8-23) mg/dl Creatinine (0.6-1.1) mg/dl GFR Calculation Glucose (70-105) mg/dL Calcium (8.6-10.4) mg/dl Total Bilirubin (0.0-1.0) mg/dL AST (0-37) U/l ALT (0-40) U/l Alkaline Phosphatase (39-117) U/L Total Creatine Kinase 620 H (24-170) IU/L Troponin T 0.03 (0-0.03) ng/ml C-Reactive Protein (0.0-0.8) mg/dl Total Protein (5.9-8.4) gm/dL Albumin (3.2-5.2) gm/dL Globulin (2.2-3.7) gm/dL Albumin/Globulin Ratio (1.0-2.3) Urine Color Yellow Urine Appearance Cloudy Urine pH 6.0 (5.0-9.0) Ur Specific [place] 1.015 (1.000-1.035) Urine Protein 30 A (NEG) mg/dL Urine Glucose (UA) Negative (NEG) mg/dL Urine Ketones 5/tr A (NEG) mg/dL Urine Occult Blood 0.03 A (<0.03) mg/dL Urine Nitrate Neg (NEG) Urine Bilirubin Neg (NEG) mg/dL Urine Urobilinogen Neg (NEG) mg/dL Ur Leukocyte Esterase 500 A (NEG) /uL Urine RBC 3 H (0-1) /hpf Urine WBC > 182 H (0-4) /hpf Ur Squamous Epith Cells 1 (0-4) /hpf Ur Transition Epith Cell 1 (0-2) /hpf Amorphous Crystals Mod A (0) /hpf Urine Bacteria 0 (0) /hpf Ur Culture Indicated? Yes 07/13/18 07/13/18 07/13/18 Range/Units 18:13 18:13 18:13 WBC TNP RBC TNP Hgb TNP Hct TNP MCV TNP MCH TNP MCHC TNP RDW TNP Plt Count TNP MPV TNP Total Counted TNP Band Neutrophils % Not Reportable Platelet Estimate TNP RBC Morphology TNP VBG Lactic Acid 1.2 (0.5-2.0) mmol/L Sodium 134 (133-145) mmol/L Potassium 3.6 (3.3-5.1) mmol/L Chloride 92 L (96-108) mmol/L Carbon Dioxide 26 (22-30) mmol/L Anion Gap 16.0 (8-16) BUN 67 H (8-23) mg/dl Creatinine 2.0 H (0.6-1.1) mg/dl GFR Calculation 25 Glucose 171 H (70-105) mg/dL Calcium 8.8 (8.6-10.4) mg/dl Total Bilirubin 0.9 (0.0-1.0) mg/dL AST 62 H (0-37) U/l ALT 37 (0-40) U/l Alkaline Phosphatase 222 H (39-117) U/L Total Creatine Kinase (24-170) IU/L Troponin T (0-0.03) ng/ml C-Reactive Protein 26.7 H (0.0-0.8) mg/dl Total Protein 7.5 (5.9-8.4) gm/dL Albumin 3.1 L (3.2-5.2) gm/dL Globulin 4.4 H (2.2-3.7) gm/dL Albumin/Globulin Ratio 0.7 L (1.0-2.3) Urine Color Urine Appearance Urine pH (5.0-9.0) Ur Specific [place] (1.000-1.035) Urine Protein (NEG) mg/dL Urine Glucose (UA) (NEG) mg/dL Urine Ketones (NEG) mg/dL Urine Occult Blood (<0.03) mg/dL Urine Nitrate (NEG) Urine Bilirubin (NEG) mg/dL Urine Urobilinogen (NEG) mg/dL Ur Leukocyte Esterase (NEG) /uL Urine RBC (0-1) /hpf Urine WBC (0-4) /hpf Ur Squamous Epith Cells (0-4) /hpf Ur Transition Epith Cell (0-2) /hpf Amorphous Crystals (0) /hpf Urine Bacteria (0) /hpf Ur Culture Indicated? 07/13/18 Range/Units 20:21 WBC RBC Hgb Hct MCV MCH MCHC RDW Plt Count MPV Total Counted Band Neutrophils % Not Reportable Platelet Estimate RBC Morphology VBG Lactic Acid (0.5-2.0) mmol/L Sodium (133-145) mmol/L Potassium (3.3-5.1) mmol/L Chloride (96-108) mmol/L Carbon Dioxide (22-30) mmol/L Anion Gap (8-16) BUN (8-23) mg/dl Creatinine (0.6-1.1) mg/dl GFR Calculation Glucose (70-105) mg/dL Calcium (8.6-10.4) mg/dl Total Bilirubin (0.0-1.0) mg/dL AST (0-37) U/l ALT (0-40) U/l Alkaline Phosphatase (39-117) U/L Total Creatine Kinase (24-170) IU/L Troponin T (0-0.03) ng/ml C-Reactive Protein (0.0-0.8) mg/dl Total Protein (5.9-8.4) gm/dL Albumin (3.2-5.2) gm/dL Globulin (2.2-3.7) gm/dL Albumin/Globulin Ratio (1.0-2.3) Urine Color Urine Appearance Urine pH (5.0-9.0) Ur Specific [place] (1.000-1.035) Urine Protein (NEG) mg/dL Urine Glucose (UA) (NEG) mg/dL Urine Ketones (NEG) mg/dL Urine Occult Blood (<0.03) mg/dL Urine Nitrate (NEG) Urine Bilirubin (NEG) mg/dL Urine Urobilinogen (NEG) mg/dL Ur Leukocyte Esterase (NEG) /uL Urine RBC (0-1) /hpf Urine WBC (0-4) /hpf Ur Squamous Epith Cells (0-4) /hpf Ur Transition Epith Cell (0-2) /hpf Amorphous Crystals (0) /hpf Urine Bacteria (0) /hpf Ur Culture Indicated? Disposition Pt seen by [facility]/PA only: No Clinical Impression: Rhabdomyolysis, Dehydration, Diabetes, UTI (urinary tract infection), Left leg cellulitis Disposition: Xfer As Inpt ([facility]) Condition: Fair Referrals: Katie Haji ARNP [Primary Care Provider] -
[2018-07-13] MEDS ORDERED: cefTRIAXone 1 GM VIAL IV ONE ×2 (18:05→21:45)
[2018-07-13 19:15] LABS: Appearance,Urine CLOUDY; Bacteria,Urine 0 /hpf (0); Bilirubin,Urine NEG (NEG); Color,Urine YELLOW; Glucose,Urine (UA) NEGATIVE (NEG); Leukocyte Esterase,Urine 500 /uL (NEG); Protein,Urine 30 mg/dL (NEG); Specific Gravity,Urine 1.015 (1.000-1.035); Urine Amorphous Crystals MOD /hpf (0); Urine Blood 0.03 mg/dL (<0.03); Urine RBC 3 /hpf (0-1); Urine Squamous Epithelial Cell 1 /hpf (0-4); Urine Transitional Epi Cells 1 /hpf (0-2); Urine WBC > 182 /hpf (0-4); Urobilinogen,Urine NEG (NEG)
[2018-07-13 19:37] LABS: ALT/SGPT 37 U/l (0-40); Albumin 3.1 gm/dL (3.2-5.2); Albumin/Globulin Ratio 0.7 (1.0-2.3); Alkaline Phosphatase 222 U/L (39-117); Blood Urea Nitrogen 67 mg/dl (8-23); C-Reactive Protein 26.7 mg/dl (0.0-0.8)
[2018-07-13 19:37] LABS: Creatine Kinase 620 IU/L (24-170)
[2018-07-13] MEDS ORDERED: VANCOMYCIN 1,500 MG in 0.9 % SODIUM CHLORIDE 500 ML IV ONE (19:57)
--- NOTE | 2018-07-13 20:51 | Internal Med History&Physical ---
Medical - H&P: HPI Patient information: Note initiated : 07/13/18 at 8:48 pm Service Date, if different from initiated Date: [] Patient: Mary Gibbons 72 y/o F admitted on for SOB, Weakness, Increased Falls. Chief Complaint: [] History of present illness: Ms. Gibbons is a 72 year old F morbidly obese lady, history of chronic wounds on lower extremities, chronic urinary incontinence living by herself has some home health comes to the emergency room today for evaluation of not feeling well going on for the last 1 week. The patient is extremely poor history provider and did not really elaborate much except for generalized symptoms. The patient notes that her symptoms started approximately 1 week ago she had c ough, some sinus drainage, denied any excessive sputum production, she became weak and progressively more weak as the week progressed. The patient has been lying in bed I believe since . She has been incontinent of urine and has been soaking her own urine. She has not taken any medications she notes from Sunday morning, she has a emergency call help button around her neck but did not call for help until now. She was brought to the emergency room by EMS for further evaluation. The patient admits to having some headaches, no changes in vision, she admits to having some difficulty in swallowing and some pain of the lymph nodes in the neck, she has cough, shortness of breath and weakness, denies any chest pain admits to having fever and chills, she has some nausea but no vomiting no diarrhea. She has lower extremity chronic edema however also has chronic erythema in both her legs. Chronic ulcerations on her legs. She admits to having pain in her body, predominantly on the left side but not able to provide any specific joint or location. On presentation patient was hemodynamically stable, saturating 97% on room air. Labs CBC pending, chemistries show creatinine of 2.0, BUN 67, CK 620, lactic acid 1.2 CRP 26.2, USS of urinary tract infection Chest x-ray appears to have a right basilar infiltrate versus pneumonia Patient is being admitted to the hospital for further management All systems: reviewed and no additional remarkable complaints except as stated (as per HPI) Medical - H&P: PMH Medical history: Medical History Left leg cellulitis (Resolved) SIRS (systemic inflammatory response syndrome) (Resolved) Diabetes (Chronic) Acute delirium (Acute) UTI (urinary tract infection) (Acute) Sepsis associated hypotension (Acute) Sepsis (Resolved) Pulmonary edema (Acute) Pneumonia (Resolved) HTN (hypertension) (Chronic) Acute and chronic respiratory failure with hypoxia (Resolved) Renal insufficiency, mild (Acute) Left leg cellulitis (Acute) MRSA carrier (Acute) Stasis dermatitis of left lower extremity due to peripheral venous hypertension (Acute) Cellulitis of leg, left (Acute) Cellulitis (Acute) Venous stasis dermatitis of both lower extremities (Acute) Cellulitis (Acute) Pneumonia (Acute) Family history: reviewed and not pertinent Medical - H&P: Meds Home Medications Medication Instructions Recorded Confirmed Type Sertraline [Zoloft] 100 mg PO DAILY 04/29/15 07/13/18 History Simvastatin [Zocor] 20 mg PO HS 04/29/15 07/13/18 History rOPINIRole HCL [Requip] 1.5 mg PO HS 04/29/15 07/13/18 History sitaGLIPtin [Januvia] 50 mg PO DAILY #30 tablet 01/17/16 01/29/17 Rx Accu-Chek 1 each FS ACHS strip 12/15/16 07/13/18 Rx Insulin Lispro [Humalog] See Protocol SQ ACHS unit 12/15/16 07/13/18 Rx buPROPion [Wellbutrin Xl] 150 mg PO DAILY 12/15/16 07/13/18 Rx Accu-Chek 1 each FS ACHS strip 12/17/16 07/13/18 Rx Solifenacin Succinate [Vesicare] 5 mg PO DAILY 12/17/16 01/29/17 History Valsartan 40 mg PO DAILY #30 tablet 12/18/16 01/29/17 Rx Aspirin [Lo-Dose Aspirin EC] 81 mg PO ONCE 07/13/18 07/13/18 History Cholestyramine (with Sugar) 4 gm PO ONCE 07/13/18 07/13/18 History [Questran Packet] Cyanocobalamin (Vitamin B-12) 2,500 mcg PO BID 07/13/18 07/13/18 History [Vitamin B12] Fesoterodine Fumarate [Toviaz] 4 mg PO ONCE 07/13/18 07/13/18 History Insulin Glargine, Human [Lantus] 58 unit SQ BID 07/13/18 07/13/18 History Magnesium 250 mg PO ONCE 07/13/18 07/13/18 History Silver Sulfadiazine [Silvadene] 1 dose TOPICAL DAILY 07/13/18 07/13/18 History Torsemide 100 mg PO ONCE 07/13/18 07/13/18 History Allergies Allergy/AdvReac Type Severity Reaction Status Date / Time clindamycin Allergy Verified 07/13/18 17:45 Sulfa (Sulfonamide AdvReac Mild Diarrhea Verified 07/13/18 17:45 Antibiotics) [SULFA (SULFONAMIDE ANTIBIOTICS)] Amoxicillin AdvReac Verified 07/13/18 20:05 gabapentin [From Neurontin] AdvReac Verified 07/13/18 20:05 morphine AdvReac Verified 07/13/18 20:05 Medical - H&P: Exam - Constitutional Vitals: Temp Pulse Resp BP Pulse Ox 98.3 F 82 23 H 117/50 92 07/13/18 20:44 07/13/18 20:44 07/13/18 19:16 07/13/18 20:01 07/13/18 20:44 Exam: GENERAL: The patient is a well-developed, in no apparent distress. Is alert and oriented x3. Morbidly obese VITAL SIGNS: Reviewed and as noted elsewhere. HEENT: Head is normocephalic and atraumatic. Extraocular muscles are intact. Pupils are equal, round, and reactive to light. Nares appeared normal. Mouth appears any without lesions. Mucous membranes are dry. NECK: Normal to inspection, Supple, No lymphadenopathy or thyromegaly. LUNGS: Air entry equal on both sides, no wheezing, crackles or rhonchi noted. No accessory muscles of respiration HEART: Regular rate and rhythm normal, S1 and S2 heard, no Gallop, S3 or Rub Noted, aortic systolic murmur 4/6 ABDOMEN: Soft, nontender, and nondistended. Positive bowel sounds. No hepatosplenomegaly was noted. large pannus EXTREMITIES: No cyanosis, clubbing, rash, lesions ,edema ++, anselmo lower extremity erythema NEUROLOGIC: Cranial nerves II through XII are grossly intact. Motor and Sensory System Grossly Intact PSYCHIATRIC: Normal affect, Normal Mood. Appropriate Behavior. SKIN: No ulceration or wounds noted, No jaundice, No rash noted. (except as noted in extremity section) Medical - H&P: Reslt - Labs CBC & Chem 7: 07/13/18 18:13 07/13/18 18:13 Labs: Short CBC 07/13/18 Range/Units 18:13 WBC TNP Hgb TNP Hct TNP Plt Count TNP BMP 07/13/18 18:13 Sodium 134 Potassium 3.6 Chloride 92 L Carbon Dioxide 26 BUN 67 H Creatinine 2.0 H Glucose 171 H Calcium 8.8 Cardiac Enzymes 07/13/18 07/13/18 Range/Units 18:12 18:12 Total Creatine Kinase 620 H (24-170) IU/L Troponin T 0.03 (0-0.03) ng/ml Liver Function 07/13/18 Range/Units 18:13 Total Bilirubin 0.9 (0.0-1.0) mg/dL AST 62 H (0-37) U/l ALT 37 (0-40) U/l Alkaline Phosphatase 222 H (39-117) U/L Albumin 3.1 L (3.2-5.2) gm/dL Urine 07/13/18 Range/Units 18:06 Urine Color Yellow Urine Appearance Cloudy Urine pH 6.0 (5.0-9.0) Ur Specific [place] 1.015 (1.000-1.035) Urine Protein 30 A (NEG) mg/dL Urine Glucose (UA) Negative (NEG) mg/dL Medical - H&P: A/P - Narrative A/P Narrative: A/P Pneumonia -MRSA screen was positive, IV vanco/Rocephin/Zithromax, unfortunatley abx were given before blood cultures were drawn, send viral resp panel, and sputum cx, Acute Kidney injury -Hold ARB/ diuretics, due to dehydration, -IV fluids -monitor renal function UTI -Chr incontinence, -IV rocephin should cover, await cultures and senstivity, previous cultures reviewed Cellutlitis -Anselmo lower extremity erythemia, not sure if cellulitis, abx for above should cover any potential infection, she does have h/o sepsis and cellulitis in past with strep bactermia Morbid obesity, BMI 46.2 -outpatient management HTN -resume home meds once bp is stable DM -SSI insulin, resume home dose of lantus, Chr wounds -consult wound care Rhabdomyolysis -CK 630, IV fluids, monitor DVT hep s q Diet carb consistent Social History - Tobacco smoking status: Former smoker
[2018-07-13 20:57] LABS: Mean Cell Volume 95.3 fL (80.0-100.0); Platelet Count 203 K/mcL (140-440)
[2018-07-13] MEDS ORDERED: CHOLESTYRAMINE 4 GM PO SCH (21:23)
[2018-07-13] MEDS ORDERED: ONDANSETRON 4 MG/2 ML VIAL IV PRN (21:23)
[2018-07-13] MEDS ORDERED: NALOXONE HCL 0.4 MG/ML VIAL IV PRN (21:23)
[2018-07-13] MEDS ORDERED: FESOTERODINE FUMARATE 4 MG PO SCH (21:23)
[2018-07-13] MEDS ORDERED: ALBUTEROL SULFATE 2.5 MG/3 ML NEBULIZER NEB PRN (21:23)
[2018-07-13] MEDS ORDERED: DEXTROSE 50% 50 ML VIAL IV PRN (21:23)
[2018-07-13] MEDS ORDERED: AZITHROMYCIN 250 MG TABLET PO ONE (21:23)
[2018-07-13] MEDS ORDERED: HYDROmorphone 2 MG/ML VIAL IV PRN (21:23)
[2018-07-13] MEDS ORDERED: [UNRECOGNIZED DRUG - OTHER] PO SCH (21:23)
[2018-07-13] MEDS ORDERED: VANCOMYCIN PER PHARMACY IV ONE (21:23)
[2018-07-13] MEDS ORDERED: DEXTROSE 31 GM ORAL.SUSP PO PRN (21:23)
[2018-07-13 21:34] LABS: Eosinophils % (Manual) 1 % (0-7); Lymphocytes % 7 % (15-49); Monocytes % (Manual) 5 % (1-12); Platelet Estimate NORMAL (NORMAL); RBC Morphology ABNORM (NORMAL); Segmented Neutrophils % 87 % (38-78)
[2018-07-13] MEDS ORDERED: POTASSIUM CHLORIDE 20 MEQ/10 ML VIAL IV ONE (22:43)
[2018-07-13] MEDS: INSULIN LISPRO 1 UNIT/0.01 ML UNIT SQ SCH (22:51)
[2018-07-13] MEDS: INSULIN GLARGINE, HUMAN 1 UNIT/0.01 ML SQ SCH (22:52)
[2018-07-13] MEDS: CYANOCOBALAMIN (VITAMIN B-12) 500 MCG TABLET PO SCH (22:52)
[2018-07-13] MEDS: HEPARIN 5,000 UNIT/ML VIAL SQ SCH (22:53)
[2018-07-13] MEDS: SIMVASTATIN 20 MG TABLET PO SCH (22:53)
[2018-07-13] MEDS: 0.9 % SODIUM CHLORIDE 10 ML SYRINGE IV SCH (23:25)
[2018-07-13] MEDS: POTASSIUM CHLORIDE 40 MEQ in LACTATED RINGERS 1,000 ML IV SCH (23:34)
[2018-07-13] MEDS: oxyCODONE HCL 5 MG TABLET PO PRN (23:46)
[2018-07-14] MEDS: ACETAMINOPHEN 325 MG TABLET PO PRN (03:52)
[2018-07-14] MEDS: oxyCODONE HCL 5 MG TABLET PO PRN ×3 (03:53→20:54)
--- NOTE | 2018-07-14 05:40 | XRay Report ---
CLINICAL INFORMATION: Dyspnea COMPARISON: 12/15/2016 FINDINGS: The heart is mildly enlarged but unchanged. Mediastinum is unremarkable. The upper lobe pulmonary vessels are equivocally distended. No edema. Minor airspace disease in the right infrahilar region is most likely atelectasis. IMPRESSION: Equivocal CHF or volume overload. Please correlate with BNP and other clinical evidence for CHF Minor right basilar airspace disease - likely atelectasis. Suggest two-view upright chest x-ray in one to two days. The patient's size makes evaluation of the mid and lower lungs more difficult on portable films Interpreted and Authenticated by: Spencer Trinh 07/14/18
[2018-07-14 05:41] LABS: Basophils # (Auto) 0 K/mcL (0.0-0.3); Basophils % (Auto) 0.1 % (0.0-2.0); Eosinophils # (Auto) 0.3 K/mcL (0.0-0.7); Eosinophils % (Auto) 2.3 % (0.0-7.0); Granulocytes % (Auto) 84.3 % (38.0-78.0); Lymphocytes # (Auto) 0.8 K/mcL (1.5-4.8); Lymphocytes % (Auto) 6.6 % (15.5-49.0); Mean Corpuscular HGB Conc 33.7 g/dL (31.0-36.0); Monocytes # (Auto) 0.8 K/mcL (0.1-0.9); Monocytes % (Auto) 6.7 % (1.0-12.0); Platelet Count 216 K/mcL (140-440); RBC 2.63 M/mcL (4.00-5.20); Red Cell Distribution Width 16.2 % (11.5-14.5)
[2018-07-14] MEDS: 0.9 % SODIUM CHLORIDE 10 ML SYRINGE IV SCH ×3 (05:47→21:04)
[2018-07-14 06:01] LABS: ALT/SGPT 36 U/l (0-40); Albumin 2.8 gm/dL (3.2-5.2); Albumin/Globulin Ratio 0.7 (1.0-2.3); Alkaline Phosphatase 250 U/L (39-117); Bilirubin,Direct 0.3 mg/dL (0.0-0.3); Blood Urea Nitrogen 60 mg/dl (8-23); Gamma Glutamyl Transpeptidase 189 U/L (5-36)
[2018-07-14] MEDS ORDERED: VANCOMYCIN PER PHARMACY IV SCH (07:30)
[2018-07-14] MEDS: INSULIN LISPRO 1 UNIT/0.01 ML UNIT SQ SCH ×4 (07:41→21:03)
[2018-07-14] MEDS: INSULIN GLARGINE, HUMAN 1 UNIT/0.01 ML SQ SCH ×2 (09:39→21:04)
[2018-07-14] MEDS: HEPARIN 5,000 UNIT/ML VIAL SQ SCH ×2 (09:40→20:53)
[2018-07-14] MEDS: AZITHROMYCIN 250 MG TABLET PO SCH (09:40)
[2018-07-14] MEDS: CYANOCOBALAMIN (VITAMIN B-12) 500 MCG TABLET PO SCH ×2 (09:40→20:54)
[2018-07-14] MEDS: SERTRALINE 100 MG TABLET PO SCH (09:40)
[2018-07-14] MEDS: buPROPion 150 MG TAB.XL.24H PO SCH (09:41)
[2018-07-14] MEDS: ASPIRIN 81 MG TAB.CHEW PO SCH (09:41)
[2018-07-14] MEDS: MAGNESIUM OXIDE 400 MG TABLET PO SCH (09:41)
[2018-07-14] MEDS: cefTRIAXone 2 GM in DEXTROSE 5% IN WATER 50 ML IV SCH (10:12)
[2018-07-14] MEDS: POTASSIUM CHLORIDE 40 MEQ in LACTATED RINGERS 1,000 ML IV SCH ×2 (10:12→20:53)
[2018-07-14] MEDS: VANCOMYCIN 1,500 MG in 0.9 % SODIUM CHLORIDE 500 ML IV SCH (10:12)
--- NOTE | 2018-07-14 14:20 | XRay Report ---
CLINICAL INFORMATION: foot infection, left toe COMPARISON: None. FINDINGS: There is moderate diffuse soft tissue swelling in the ankle and dorsal foot which is, presumably, cellulitis. There is no specific radiographic evidence of osteomyelitis or other focal osseous abnormality. Mild degenerative changes are seen in all interphalangeal and first MTP joints. There is heavy ossification of the plantar tendon insertion on calcaneus. IMPRESSION: Moderate soft tissue swelling diffusely about the ankle and dorsal foot compatible with clinical diagnosis cellulitis. No evidence of osteomyelitis. Interpreted and Authenticated by: Spencer Trinh 07/14/18
--- NOTE | 2018-07-14 15:25 | Internal Med Progress Note ---
Medical - PN: Subj Patient information: Note initiated : 07/14/18 at 3:23 pm Service Date, if different from initiated Date: [] Patient: Mary Gibbons 72 y/o F admitted on 07/13/18 for SOB, Weakness, Increased Falls. Chief Complaint: [] Interval history: Ms. Gibbons is a 72 year old F morbidly obese lady, history of chronic wounds on lower extremities, chronic urinary incontinence living by herself has some home health comes to the emergency room today for evaluation of not feeling well going on for the last 1 week. The patient is extremely poor history provider and did not really elaborate much except for generalized symptoms. The patient notes that her symptoms started approximately 1 week ago she had cou gh, some sinus drainage, denied any excessive sputum production, she became weak and progressively more weak as the week progressed. The patient has been lying in bed I believe since . She has been incontinent of urine and has been soaking her own urine. She has not taken any medications she notes from Sunday morning, she has a emergency call help button around her neck but did not call for help until now. She was brought to the emergency room by EMS for further evaluation. The patient admits to having some headaches, no changes in vision, she admits to having some difficulty in swallowing and some pain of the lymph nodes in the neck, she has cough, shortness of breath and weakness, denies any chest pain admits to having fever and chills, she has some nausea but no vomiting no diarrhea. She has lower extremity chronic edema however also has chronic erythema in both her legs. Chronic ulcerations on her legs. She admits to having pain in her body, predominantly on the left side but not able to provide any specific joint or location. On presentation patient was hemodynamically stable, saturating 97% on room air. Labs CBC pending, chemistries show creatinine of 2.0, BUN 67, CK 620, lactic acid 1.2 CRP 26.2, USS of urinary tract infection Chest x-ray appears to have a right basilar infiltrate versus pneumonia Patient is being admitted to the hospital for further management 07/14 Patient seen examined, no acute issues reported, there is pus still draining from the left foot, sent for cultures labs show some improvement in renal function. Otherwise pt still is weak, Pertinent ROS: Denies headache, dizziness Denies chest pain, palpitations some cough present ,no shortness of breath Denies abdominal pain, nausea or vomiting. - Constitutional Vitals: Vital Signs Temp Pulse Resp BP Pulse Ox 98.6 F 84 16 94/53 97 07/14/18 12:00 07/14/18 12:00 07/14/18 12:00 07/14/18 12:00 07/14/18 12:00 Period Temp Pulse Resp BP Sys/Vilchis Pulse Ox Last 24 Hr 98.2 F-99.5 F 81-92 16-26 90-133/43-76 89-99 Intake and Output 07/14/18 07/14/18 07/14/18 05:59 13:59 21:59 Intake Total 540 360 Output Total 600 Balance -60 360 Intake & Output: Intake & Output 07/14/18 07/14/18 07/14/18 05:59 13:59 21:59 Intake Total 540 360 Output Total 600 Balance -60 360 Intake: Oral 540 360 Output: Urine Catheter Amount 600 Other: Meal yogurt Breakfast Percent of Meal Consumed 100% 75% Feeding Ability Independent Independent Urine Appearance Cloudy Uretheral (Kiser) Sediment Urine Color Dark Yellow Uretheral (Kiser) Light Mesha Exam: Constitutional; Afebrile, cooperative, alert, not in distress. morbidly obese, Respiratory system: Air Entry equal on both sides, No crackles or wheezing, no rhonchi. CVS- Rate rhythm regular, S1,S2 heard, no gallop, no rub. 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 left toe, has wound pust draining on compression. Medical - PN: Obj Da - Labs CBC & Chem 7: 07/14/18 04:15 07/14/18 04:15 Labs: Abnormal Lab Results 07/14/18 07/14/18 07/14/18 04:15 04:15 04:15 WBC 12.0 H RBC 2.63 L Hgb 8.5 L Hct 25.3 L RDW 16.2 H MPV 6.8 L Gran % 84.3 H Lymph % (Auto) 6.6 L Gran # 10.1 H Lymph # (Auto) 0.8 L Seg Neutrophils % Lymphocytes % RBC Morphology Polychromasia Chloride BUN 60 H Creatinine 1.6 H Glucose 153 H Uric Acid 12.0 H Calcium 8.5 L GGT 189 H AST 56 H Alkaline Phosphatase 250 H Total Creatine Kinase 462 H C-Reactive Protein Albumin 2.8 L Globulin 4.2 H Albumin/Globulin Ratio 0.7 L Urine Protein Urine Ketones Urine Occult Blood Ur Leukocyte Esterase Urine RBC Urine WBC Amorphous Crystals 07/13/18 07/13/18 07/13/18 20:21 18:13 18:12 WBC 12.8 H RBC 2.60 L Hgb 8.4 L Hct 24.8 L RDW 16.0 H MPV 6.7 L Gran % Lymph % (Auto) Gran # Lymph # (Auto) Seg Neutrophils % 87 H Lymphocytes % 7 L RBC Morphology Abnorm A Polychromasia 1+ A Chloride 92 L BUN 67 H Creatinine 2.0 H Glucose 171 H Uric Acid Calcium GGT AST 62 H Alkaline Phosphatase 222 H Total Creatine Kinase 620 H C-Reactive Protein 26.7 H Albumin 3.1 L Globulin 4.4 H Albumin/Globulin Ratio 0.7 L Urine Protein Urine Ketones Urine Occult Blood Ur Leukocyte Esterase Urine RBC Urine WBC Amorphous Crystals 07/13/18 18:06 WBC RBC Hgb Hct RDW MPV Gran % Lymph % (Auto) Gran # Lymph # (Auto) Seg Neutrophils % Lymphocytes % RBC Morphology Polychromasia Chloride BUN Creatinine Glucose Uric Acid Calcium GGT AST Alkaline Phosphatase Total Creatine Kinase C-Reactive Protein Albumin Globulin Albumin/Globulin Ratio Urine Protein 30 A Urine Ketones 5/tr A Urine Occult Blood 0.03 A Ur Leukocyte Esterase 500 A Urine RBC 3 H Urine WBC > 182 H Amorphous Crystals Mod A Meds: Medications Acetaminophen (Tylenol) 650 mg PO Q6HP PRN PRN Reason: PAIN/FEVER > 101 Last Admin: 07/14/18 03:52 Dose: 650 mg Documented by: Albuterol Sulfate (Ventolin) 2.5 mg NEB Q2HP PRN PRN Reason: Shortness Of Breath Aspirin (Aspirin) 81 mg PO DAILY [facility] Last Admin: 07/14/18 09:41 Dose: 81 mg Documented by: Azithromycin (Zithromax) 250 mg PO DAILY [facility]; Protocol Stop: 07/17/18 09:01 Last Admin: 07/14/18 09:40 Dose: 250 mg Documented by: Bupropion HCl (Wellbutrin Xl) 150 mg PO DAILY [facility] Last Admin: 07/14/18 09:41 Dose: 150 mg Documented by: Cyanocobalamin (Vitamin B-12) 2,500 mcg PO BID [facility] Last Admin: 07/14/18 09:40 Dose: 2,500 mcg Documented by: Dextrose (Dextrose 50%) 0 ml IV UD PRN PRN Reason: Hypoglycemia Diagnostic Test (Pha) (Accu-Chek) 1 each FS [facility] Last Admin: 07/14/18 11:54 Dose: 1 each Documented by: Glucose (Insta-Glucose) 15 gm PO PRN PRN PRN Reason: Hypoglycemia Heparin Sodium (Porcine) (Heparin) 5,000 unit SQ Q12 [facility] Last Admin: 07/14/18 09:40 Dose: 5,000 unit Documented by: Hydromorphone HCl (Dilaudid) 0.5 mg IV Q2HP PRN PRN Reason: PAIN LEVEL > 6 Ceftriaxone Sodium 2 gm/ (Dextrose) 50 mls @ 100 mls/hr IV DAILY [facility]; Protocol Last Admin: 07/14/18 10:12 Dose: 100 mls/hr Documented by: Potassium Chloride 40 meq/ (Lactated Ringer's) 1,020 mls @ 100 mls/hr IV .[id number] [facility] Last Admin: 07/14/18 10:12 Dose: 100 mls/hr Documented by: Vancomycin HCl 1,500 mg/ (Sodium Chloride) 500 mls @ 333.3 mls/hr IV Q24H [facility] Last Admin: 07/14/18 10:12 Dose: 333.3 mls/hr Documented by: Insulin Glargine (Lantus) 58 unit SQ BID [facility] Last Admin: 07/14/18 09:39 Dose: 58 unit Documented by: Insulin Human Lispro (Humalog) 0 unit SQ [facility]; Protocol Last Admin: 07/14/18 12:00 Dose: 2 unit Documented by: Magnesium Oxide (Magnesium Oxide) 400 mg PO DAILY [facility] Last Admin: 07/14/18 09:41 Dose: 400 mg Documented by: Naloxone HCl (Narcan) 0.1 mg IV Q2MIN PRN PRN Reason: Opiate Reversal Ondansetron HCl (Zofran) 4 mg IV Q6HP PRN PRN Reason: Nausea And Vomiting Oxybutynin Chloride (Ditropan Xl) 5 mg PO HS [facility] Oxycodone HCl (Roxicodone) 5 mg PO Q4HP PRN PRN Reason: PAIN LEVEL 3-6 Last Admin: 07/14/18 09:41 Dose: 5 mg Documented by: Ropinirole HCl (Requip) 1.5 mg PO HS [facility] Sertraline HCl (Zoloft) 100 mg PO DAILY [facility] Last Admin: 07/14/18 09:40 Dose: 100 mg Documented by: Simvastatin (Zocor) 20 mg PO HS [facility] Last Admin: 07/13/18 22:53 Dose: 20 mg Documented by: Sodium Chloride (Saline Flush) 10 ml IV Q8 [facility] Last Admin: 07/14/18 13:56 Dose: Not Given Documented by: Vancomycin HCl (Vancomycin Per Pharmacy) 1 order IV UD [facility]; Protocol Medical - PN: A/P - Time Spent With Patient Total time spent is greater than 50% in coordination of care (as documented) at patient's floor/unit and/or counseling patient: - Narrative A/P Narrative: A/P Pneumonia -MRSA screen was positive, IV vanco/Rocephin/Zithromax, unfortunatley abx were given before blood cultures were drawn, sputum cx pending, resp panel negative. Acute Kidney injury -Hold ARB/ diuretics, due to dehydration, -IV fluids -monitor renal function, creat is improving. UTI -Chr incontinence, -IV rocephin should cover, await cultures and sensitivity, previous cultures reviewed Cellutlitis -Anselmo lower extremity erythema, not sure if cellulitis, abx for above should cover any potential infection, she does have h/o sepsis and cellulitis in past with strep bactermia Morbid obesity, BMI 46.2 -outpatient management Left foot abscess -Wound care consult, x ray neg for osteo -get MRI in AM HTN -resume home meds once bp is stable DM -SSI insulin, resume home dose of lantus, Chr wounds -consult wound care Rhabdomyolysis -CK trending down. DVT hep s q Diet carb consistent Medical - PN: Qual - Stroke Symptom Onset Unknown: No - VTE Deep Vein Thrombosis/Pulmonary Embolism Present on Admission: No
[2018-07-14] MEDS: guaiFENesin/DEXTROMETHORPHAN ORAL SOL PO PRN (20:54)
[2018-07-14] MEDS: rOPINIRole 1 MG TABLET PO SCH (20:54)
[2018-07-14] MEDS: OXYBUTYNIN CHLORIDE 5 MG TAB.XL.24H PO SCH (20:54)
[2018-07-14] MEDS: SIMVASTATIN 20 MG TABLET PO SCH (20:55)
[2018-07-15] MEDS: POTASSIUM CHLORIDE 40 MEQ in LACTATED RINGERS 1,000 ML IV SCH (04:15)
[2018-07-15] MEDS: guaiFENesin/DEXTROMETHORPHAN ORAL SOL PO PRN (04:16)
[2018-07-15] MEDS: oxyCODONE HCL 5 MG TABLET PO PRN ×2 (04:17→09:40)
[2018-07-15] MEDS: 0.9 % SODIUM CHLORIDE 10 ML SYRINGE IV SCH ×3 (04:18→22:03)
[2018-07-15 05:44] LABS: Basophils # (Auto) 0 K/mcL (0.0-0.3); Basophils % (Auto) 0.2 % (0.0-2.0); Eosinophils # (Auto) 0.4 K/mcL (0.0-0.7); Eosinophils % (Auto) 3.7 % (0.0-7.0); Lymphocytes # (Auto) 0.8 K/mcL (1.5-4.8); Lymphocytes % (Auto) 8.1 % (15.5-49.0); Mean Cell Volume 96.9 fL (80.0-100.0); Mean Corpuscular HGB Conc 33.2 g/dL (31.0-36.0); Monocytes # (Auto) 0.9 K/mcL (0.1-0.9); Platelet Count 201 K/mcL (140-440); RBC 2.34 M/mcL (4.00-5.20); Red Cell Distribution Width 16.4 % (11.5-14.5)
[2018-07-15 05:58] LABS: ALT/SGPT 42 U/l (0-40); Albumin 2.5 gm/dL (3.2-5.2); Albumin/Globulin Ratio 0.7 (1.0-2.3); Alkaline Phosphatase 329 U/L (39-117); Bilirubin,Direct 0.3 mg/dL (0.0-0.3); Blood Urea Nitrogen 51 mg/dl (8-23); Gamma Glutamyl Transpeptidase 184 U/L (5-36); Uric Acid 10.2 mg/dL (2.5-8.0)
[2018-07-15] MEDS: INSULIN LISPRO 1 UNIT/0.01 ML UNIT SQ SCH ×4 (07:49→21:56)
[2018-07-15] MEDS: cefTRIAXone 2 GM in DEXTROSE 5% IN WATER 50 ML IV SCH (08:30)
[2018-07-15] MEDS: buPROPion 150 MG TAB.XL.24H PO SCH (09:16)
[2018-07-15] MEDS: CYANOCOBALAMIN (VITAMIN B-12) 500 MCG TABLET PO SCH ×2 (09:16→21:58)
[2018-07-15] MEDS: MAGNESIUM OXIDE 400 MG TABLET PO SCH (09:16)
[2018-07-15] MEDS: SERTRALINE 100 MG TABLET PO SCH (09:16)
[2018-07-15] MEDS: ASPIRIN 81 MG TAB.CHEW PO SCH (09:16)
[2018-07-15] MEDS: AZITHROMYCIN 250 MG TABLET PO SCH (09:16)
[2018-07-15] MEDS: HEPARIN 5,000 UNIT/ML VIAL SQ SCH ×2 (09:17→22:03)
[2018-07-15] MEDS: INSULIN GLARGINE, HUMAN 1 UNIT/0.01 ML SQ SCH ×2 (09:17→21:55)
--- NOTE | 2018-07-15 09:46 | Internal Med Progress Note ---
Medical - PN: Subj Patient information: Note initiated : 07/15/18 at 9:43 am Service Date, if different from initiated Date: [] Patient: Mary Gibbons 72 y/o F admitted on 07/13/18 for SOB, Weakness, Increased Falls. Chief Complaint: [] Interval history: Ms. Gibbons is a 72 year old F morbidly obese lady, history of chronic wounds on lower extremities, chronic urinary incontinence living by herself has some home health comes to the emergency room today for evaluation of not feeling well going on for the last 1 week. The patient is extremely poor history provider and did not really elaborate much except for generalized symptoms. The patient notes that her symptoms started approximately 1 week ago she had cou gh, some sinus drainage, denied any excessive sputum production, she became weak and progressively more weak as the week progressed. The patient has been lying in bed I believe since . She has been incontinent of urine and has been soaking her own urine. She has not taken any medications she notes from Sunday morning, she has a emergency call help button around her neck but did not call for help until now. She was brought to the emergency room by EMS for further evaluation. The patient admits to having some headaches, no changes in vision, she admits to having some difficulty in swallowing and some pain of the lymph nodes in the neck, she has cough, shortness of breath and weakness, denies any chest pain admits to having fever and chills, she has some nausea but no vomiting no diarrhea. She has lower extremity chronic edema however also has chronic erythema in both her legs. Chronic ulcerations on her legs. She admits to having pain in her body, predominantly on the left side but not able to provide any specific joint or location. On presentation patient was hemodynamically stable, saturating 97% on room air. Labs CBC pending, chemistries show creatinine of 2.0, BUN 67, CK 620, lactic acid 1.2 CRP 26.2, USS of urinary tract infection Chest x-ray appears to have a right basilar infiltrate versus pneumonia Patient is being admitted to the hospital for further management 07/14 Patient seen examined, no acute issues reported, there is pus still draining from the left foot, sent for cultures labs show some improvement in renal function. Otherwise pt still is weak, 07/15 Patient seen exained, was a bit short of breath this AM, oxygen saturation around 82 % on room air, Chest exam did not have any wheezing, mild crackles at bases, resume home dose of torsemide Pt scheduled to get MR today. She still has pain in the left foot. wound culture is growing MRSA Pertinent ROS: Denies headache, dizziness Denies chest pain, palpitations Denies cough , pmild shortness of breath present Denies abdominal pain, nausea or vomiting. - Constitutional Vitals: Vital Signs Temp Pulse Resp BP Pulse Ox 98.5 F 85 16 112/55 95 07/15/18 06:34 07/15/18 06:34 07/15/18 06:34 07/15/18 06:34 07/15/18 06:34 Period Temp Pulse Resp BP Sys/Vilchis Pulse Ox Last 24 Hr 97.8 F-98.7 F 83-89 16-24 94-126/53-70 91-97 Intake and Output 07/14/18 07/15/18 07/15/18 21:59 05:59 13:59 Intake Total 1510 1097 425 Output Total 700 850 Balance 810 247 425 Weight 285 lb Intake & Output: Intake & Output 07/14/18 07/15/18 07/15/18 21:59 05:59 13:59 Intake Total 1510 1097 425 Output Total 700 850 Balance 810 247 425 Weight 285 lb Intake: IV 1020 737 425 Potassium Chloride 40 Meq In 1020 737 425 Lactated Ringers 1,000 ml @ 100 mls/hr IV .[id number] [facility] Rx#: [id number] Oral 490 360 Output: Urine Catheter Amount 700 850 Other: Percent of Meal Consumed 75% Urine Appearance Sediment Uretheral (Kiser) Sediment Sediment Urine Color Dark Mesha Uretheral (Kiser) Light Mesha Dark Mesha Urine Odor Strong Exam: Constitutional; Afebrile, cooperative, alert, not in distress. Morbidly obese Respiratory system: Air Entry equal on both sides, mild basilar crackles, no wheeze. CVS- Rate rhythm regular, S1,S2 heard, no gallop, no rub. systolic aortic murmur present. 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 Medical - PN: Obj Da - Labs CBC & Chem 7: 07/15/18 04:00 07/15/18 04:00 Labs: Abnormal Lab Results 07/15/18 07/15/18 07/14/18 04:00 04:00 04:15 WBC RBC 2.34 L Hgb 7.5 L Hct 22.7 L RDW 16.4 H MPV 7.1 L Gran % 79.0 H Lymph % (Auto) 8.1 L Gran # 8.1 H Lymph # (Auto) 0.8 L Seg Neutrophils % Lymphocytes % RBC Morphology Polychromasia Chloride BUN 51 H Creatinine 1.6 H Glucose 223 H Uric Acid 10.2 H Calcium 8.3 L Phosphorus 2.5 L GGT 184 H AST 68 H ALT 42 H Alkaline Phosphatase 329 H Total Creatine Kinase 462 H C-Reactive Protein Albumin 2.5 L Globulin 3.8 H Albumin/Globulin Ratio 0.7 L Urine Protein Urine Ketones Urine Occult Blood Ur Leukocyte Esterase Urine RBC Urine WBC Amorphous Crystals 07/14/18 07/14/18 07/13/18 04:15 04:15 20:21 WBC 12.0 H 12.8 H RBC 2.63 L 2.60 L Hgb 8.5 L 8.4 L Hct 25.3 L 24.8 L RDW 16.2 H 16.0 H MPV 6.8 L 6.7 L Gran % 84.3 H Lymph % (Auto) 6.6 L Gran # 10.1 H Lymph # (Auto) 0.8 L Seg Neutrophils % 87 H Lymphocytes % 7 L RBC Morphology Abnorm A Polychromasia 1+ A Chloride BUN 60 H Creatinine 1.6 H Glucose 153 H Uric Acid 12.0 H Calcium 8.5 L Phosphorus GGT 189 H AST 56 H ALT Alkaline Phosphatase 250 H Total Creatine Kinase C-Reactive Protein Albumin 2.8 L Globulin 4.2 H Albumin/Globulin Ratio 0.7 L Urine Protein Urine Ketones Urine Occult Blood Ur Leukocyte Esterase Urine RBC Urine WBC Amorphous Crystals 07/13/18 07/13/18 07/13/18 18:13 18:12 18:06 WBC RBC Hgb Hct RDW MPV Gran % Lymph % (Auto) Gran # Lymph # (Auto) Seg Neutrophils % Lymphocytes % RBC Morphology Polychromasia Chloride 92 L BUN 67 H Creatinine 2.0 H Glucose 171 H Uric Acid Calcium Phosphorus GGT AST 62 H ALT Alkaline Phosphatase 222 H Total Creatine Kinase 620 H C-Reactive Protein 26.7 H Albumin 3.1 L Globulin 4.4 H Albumin/Globulin Ratio 0.7 L Urine Protein 30 A Urine Ketones 5/tr A Urine Occult Blood 0.03 A Ur Leukocyte Esterase 500 A Urine RBC 3 H Urine WBC > 182 H Amorphous Crystals Mod A Meds: Medications Acetaminophen (Tylenol) 650 mg PO Q6HP PRN PRN Reason: PAIN/FEVER > 101 Last Admin: 07/14/18 03:52 Dose: 650 mg Documented by: Albuterol Sulfate (Ventolin) 2.5 mg NEB Q2HP PRN PRN Reason: Shortness Of Breath Aspirin (Aspirin) 81 mg PO DAILY [facility] Last Admin: 07/15/18 09:16 Dose: 81 mg Documented by: Azithromycin (Zithromax) 250 mg PO DAILY [facility]; Protocol Stop: 07/17/18 09:01 Last Admin: 07/15/18 09:16 Dose: 250 mg Documented by: Bupropion HCl (Wellbutrin Xl) 150 mg PO DAILY [facility] Last Admin: 07/15/18 09:16 Dose: 150 mg Documented by: Cyanocobalamin (Vitamin B-12) 2,500 mcg PO BID [facility] Last Admin: 07/15/18 09:16 Dose: 2,500 mcg Documented by: Dextrose (Dextrose 50%) 0 ml IV UD PRN PRN Reason: Hypoglycemia Diagnostic Test (Pha) (Accu-Chek) 1 each FS ACHS [facility] Last Admin: 07/15/18 07:11 Dose: 1 each Documented by: Glucose (Insta-Glucose) 15 gm PO PRN PRN PRN Reason: Hypoglycemia Guaifenesin (Robitussin Dm) 10 ml PO Q4HP PRN PRN Reason: Cough Last Admin: 07/15/18 04:16 Dose: 10 ml Documented by: Heparin Sodium (Porcine) (Heparin) 5,000 unit SQ Q12 [facility] Last Admin: 07/15/18 09:17 Dose: 5,000 unit Documented by: Hydromorphone HCl (Dilaudid) 0.5 mg IV Q2HP PRN PRN Reason: PAIN LEVEL > 6 Ceftriaxone Sodium 2 gm/ (Dextrose) 50 mls @ 100 mls/hr IV DAILY [facility]; Protocol Last Admin: 07/15/18 08:30 Dose: 100 mls/hr Documented by: Vancomycin HCl 1,250 mg/ (Sodium Chloride) 500 mls @ 333.3 mls/hr IV Q24H [facility] Insulin Glargine (Lantus) 58 unit SQ BID [facility] Last Admin: 07/15/18 09:17 Dose: 58 unit Documented by: Insulin Human Lispro (Humalog) 0 unit SQ ACHS [facility]; Protocol Magnesium Oxide (Magnesium Oxide) 400 mg PO DAILY [facility] Last Admin: 07/15/18 09:16 Dose: 400 mg Documented by: Naloxone HCl (Narcan) 0.1 mg IV Q2MIN PRN PRN Reason: Opiate Reversal Ondansetron HCl (Zofran) 4 mg IV Q6HP PRN PRN Reason: Nausea And Vomiting Oxybutynin Chloride (Ditropan Xl) 5 mg PO [facility] Last Admin: 07/14/18 20:54 Dose: 5 mg Documented by: Oxycodone HCl (Roxicodone) 5 mg PO Q4HP PRN PRN Reason: PAIN LEVEL 3-6 Last Admin: 07/15/18 09:40 Dose: 5 mg Documented by: Ropinirole HCl (Requip) 1.5 mg PO [facility] Last Admin: 07/14/18 20:54 Dose: 1.5 mg Documented by: Sertraline HCl (Zoloft) 100 mg PO DAILY [facility] Last Admin: 07/15/18 09:16 Dose: 100 mg Documented by: Simvastatin (Zocor) 20 mg PO [facility] Last Admin: 07/14/18 20:55 Dose: 20 mg Documented by: Sodium Chloride (Saline Flush) 10 ml IV Q8 [facility] Last Admin: 07/15/18 04:18 Dose: 10 ml Documented by: Torsemide (Demadex) 100 mg PO DAILY [facility] Vancomycin HCl (Vancomycin Per Pharmacy) 1 order IV UD [facility]; Protocol Medical - PN: A/P - Time Spent With Patient Total time spent is greater than 50% in coordination of care (as documented) at patient's floor/unit and/or counseling patient: - Narrative A/P Narrative: A/P Pneumonia -MRSA screen was positive, IV vanco/Rocephin/Zithromax, unfortunately abx were given before blood cultures were drawn, sputum cx pending, resp panel nega tive. Repeat X ray chest, with 2 views ordered. Acute Kidney injury -Hold ARB -renal function is stable, creat is 1.6, Pt is Positive 4 L, resume diuretics torsemide at home dose. -IV fluids stopped -monitor renal function. UTI -Chr incontinence, -IV rocephin should cover, await cultures and sensitivity, previous cultures reviewed, presently is gram neg bacillus. Cellutlitis -Anselmo lower extremity erythema, not sure if cellulitis, abx for above should cover any potential infection, she does have h/o sepsis and cellulitis in past with strep bacteremia left toe abscess -MRI to be done today, on vanco and rocephin, MRSA isolated from the pus. Wound care consulted, Morbid obesity, BMI 46.2 -outpatient management HTN -resume home meds once bp is stable DM -SSI insulin, resume home dose of lantus, moderate ssi Chr wounds -consult wound care Rhabdomyolysis -CK trending down. DVT hep s q Diet carb consistent Medical - PN: Qual - Stroke Symptom Onset Unknown: No - VTE Deep Vein Thrombosis/Pulmonary Embolism Present on Admission: No
[2018-07-15] MEDS: VANCOMYCIN 1,500 MG in 0.9 % SODIUM CHLORIDE 500 ML IV SCH (09:55)
[2018-07-15] MEDS ORDERED: MAGNESIUM HYDROXIDE 30 ML ORAL.SUSP PO ONE (10:12)
--- NOTE | 2018-07-15 10:27 | XRay Report ---
HISTORY: Follow-up pneumonia with shortness of breath FINDINGS: There are widespread ill-defined alveolar infiltrates throughout both lungs. Lung volumes are normal and there is no lobar consolidation. No mass is identified and there is no apparent adenopathy. The heart size is mildly enlarged. Pulmonary vessels are obscured by the infiltrates. Comparison with the prior exam from 07/13/18 shows increasing opacification of the lung parenchyma bilaterally. IMPRESSION: Worsening bilateral pulmonary infiltrates Interpreted and Authenticated by: Yakov Patel 07/15/18
[2018-07-15] MEDS: TORSEMIDE 10 MG TABLET PO SCH (11:10)
[2018-07-15] MEDS: VANCOMYCIN 1,250 MG in 0.9 % SODIUM CHLORIDE 500 ML IV SCH (11:10)
[2018-07-15] MEDS ORDERED: FUROSEMIDE 100 MG/10 ML VIAL IV ONE (11:21)
--- NOTE | 2018-07-15 11:26 | Cat Scan Report ---
History: Infection first toe TECHNIQUE: The left foot was imaged without contrast. Sagittal and coronal reformats were created. The radiation exposure was limited using dose reduction technology. FINDINGS: There is severe soft tissue swelling throughout the foot extending up to the ankle. This resolves in the lower calf. There are multiple small bubbles of air in the soft tissues between the skin and the flexor tendons beneath the head of the first metatarsal and the first metatarsal phalangeal joint. There is no apparent ulceration or defect in the overlying skin. No abscess is identified but there is generalized soft tissue swelling in this region. One of the bubbles of air is located anterior to the sesamoid and immediately inferior to the first metatarsal phalangeal joint. I do not see fluid within the joint. The adjacent bones are normally mineralized without evidence of erosion or periosteal elevation. The first metatarsal phalangeal joint is normal in width and alignment. No abscess is seen within the foot or ankle. Patient has underlying osteoarthritis. There is moderate degeneration between the calcaneus and cuboid with mild arthritis between the talus and navicular and between the cuneiforms and the adjacent metatarsals. Giant spur is present on the plantar surface of the calcaneus and there is a medium-size spur along the posterior border. There is no associated erosion of the calcaneus. There is asymmetric focal soft tissue swelling inferior to the calcaneus, just beneath the skin. This does not appear to involve the plantar aponeurosis. There is atherosclerotic plaque in the arteries of both medial and lateral sides of the ankle. There are also multiple small calcified phleboliths in the subcutaneous veins near the level of the ankle and in the lower calf. IMPRESSION: Collection of gas in the soft tissues beneath the head of the first metatarsal. This could be an infection with gas-forming organism. Although I do not see a defect in the skin, if there had been a recent debridement in this region, this would explain the presence of gas. No evidence of osteomyelitis or septic joint. Diffuse edema/cellulitis throughout the foot and ankle Osteoarthritis in the mid and hindfoot Interpreted and Authenticated by: Yakov Patel 07/15/18
[2018-07-15] MEDS: PIPERACILLIN SODIUM/TAZOBACTAM 3.375 GM in DEXTROSE 5% IN WATER 50 ML IV SCH ×2 (13:52→22:21)
--- NOTE | 2018-07-15 20:13 | General Surgery Consult Note ---
History of Present Illness Patient information: Note initiated : 07/15/18 at 8:10 pm Service Date, if different from initiated Date: [] Patient: Mary Gibbons 72 y/o F admitted on 07/13/18 for SOB, Weakness, Increased Falls. 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 Admitted via ER for pneumonia and UTI. Medications and Allergies Home Medications Medication Instructions Recorded Confirmed Type Sertraline [Zoloft] 100 mg PO HS 04/29/15 07/14/18 History Simvastatin [Zocor] 20 mg PO HS 04/29/15 07/14/18 History rOPINIRole HCL [Requip] 3 mg PO HS 04/29/15 07/14/18 History buPROPion [Wellbutrin Xl] 150 mg PO DAILY 12/15/16 07/13/18 Rx Accu-Chek 1 each FS ACHS strip 12/17/16 07/13/18 Rx Aspirin [Lo-Dose Aspirin EC] 81 mg PO ONCE 07/13/18 07/13/18 History Cyanocobalamin (Vitamin B-12) 2,500 mcg PO BID 07/13/18 07/13/18 History [Vitamin B12] Fesoterodine Fumarate [Toviaz] 4 mg PO DAILY 07/13/18 07/14/18 History Insulin Glargine, Human [Lantus] 70 unit SQ BID 07/13/18 07/13/18 History Magnesium 250 mg PO ONCE 07/13/18 07/13/18 History Silver Sulfadiazine [Silvadene] 1 dose TOPICAL DAILY 07/13/18 07/13/18 History Torsemide 100 mg PO DAILY 07/13/18 07/14/18 History Gabapentin [Neurontin] 100 mg PO HS 07/14/18 07/14/18 History Insulin Aspart [Novolog Flexpen] 50 unit SQ BID 07/14/18 07/14/18 History Losartan [Cozaar] 50 mg PO DAILY 07/14/18 07/14/18 History glipiZIDE [Glipizide ER] 5 mg PO DAILY 07/14/18 07/14/18 History metFORMIN HCL [Metformin HCl ER] 750 mg PO DAILY 07/14/18 07/14/18 History Allergies Allergy/AdvReac Type Severity Reaction Status Date / Time clindamycin Allergy Verified 07/13/18 17:45 Sulfa (Sulfonamide Allergy Rash Verified 07/15/18 10:10 Antibiotics) Amoxicillin AdvReac Mild Diarrhea Verified 07/14/18 07:27 morphine AdvReac Mild Other Verified 07/14/18 07:27 Exam Temp Pulse Resp BP Pulse Ox 98.6 F 81 20 113/52 98 07/15/18 17:29 07/15/18 17:29 07/15/18 17:29 07/15/18 17:29 07/15/18 17:29 Results - Labs 07/15/18 04:00 07/15/18 04:00 Abnormal lab results 07/15/18 07/15/18 Range/Units 04:00 04:00 RBC 2.34 L (4.00-5.20) M/mcL Hgb 7.5 L (12.0-15.0) g/dL Hct 22.7 L (36.0-48.0) % RDW 16.4 H (11.5-14.5) % MPV 7.1 L (7.4-10.4) fL Gran % 79.0 H (38.0-78.0) % Lymph % (Auto) 8.1 L (15.5-49.0) % Gran # 8.1 H (1.8-8.0) K/mcL Lymph # (Auto) 0.8 L (1.5-4.8) K/mcL BUN 51 H (8-23) mg/dl Creatinine 1.6 H (0.6-1.1) mg/dl Glucose 223 H (70-105) mg/dL Uric Acid 10.2 H (2.5-8.0) mg/dL Calcium 8.3 L (8.6-10.4) mg/dl Phosphorus 2.5 L (2.7-4.5) mg/dL GGT 184 H (5-36) U/L AST 68 H (0-37) U/l ALT 42 H (0-40) U/l Alkaline Phosphatase 329 H (39-117) U/L Albumin 2.5 L (3.2-5.2) gm/dL Globulin 3.8 H (2.2-3.7) gm/dL Albumin/Globulin Ratio 0.7 L (1.0-2.3) Diabetes panel 07/15/18 Range/Units 04:00 Sodium 137 (133-145) mmol/L Potassium 4.9 (3.3-5.1) mmol/L Chloride 100 (96-108) mmol/L Carbon Dioxide 26 (22-30) mmol/L BUN 51 H (8-23) mg/dl Creatinine 1.6 H (0.6-1.1) mg/dl Glucose 223 H (70-105) mg/dL Calcium 8.3 L (8.6-10.4) mg/dl AST 68 H (0-37) U/l ALT 42 H (0-40) U/l Alkaline Phosphatase 329 H (39-117) U/L Total Protein 6.3 (5.9-8.4) gm/dL Albumin 2.5 L (3.2-5.2) gm/dL Triglycerides 138 (<150) mg/dl Calcium panel 07/15/18 Range/Units 04:00 Calcium 8.3 L (8.6-10.4) mg/dl Phosphorus 2.5 L (2.7-4.5) mg/dL Albumin 2.5 L (3.2-5.2) gm/dL Pituitary panel 07/15/18 Range/Units 04:00 Sodium 137 (133-145) mmol/L Potassium 4.9 (3.3-5.1) mmol/L Chloride 100 (96-108) mmol/L Carbon Dioxide 26 (22-30) mmol/L BUN 51 H (8-23) mg/dl Creatinine 1.6 H (0.6-1.1) mg/dl Glucose 223 H (70-105) mg/dL Calcium 8.3 L (8.6-10.4) mg/dl Adrenal panel 07/15/18 Range/Units 04:00 Sodium 137 (133-145) mmol/L Potassium 4.9 (3.3-5.1) mmol/L Chloride 100 (96-108) mmol/L Carbon Dioxide 26 (22-30) mmol/L BUN 51 H (8-23) mg/dl Creatinine 1.6 H (0.6-1.1) mg/dl Glucose 223 H (70-105) mg/dL Calcium 8.3 L (8.6-10.4) mg/dl Total Bilirubin 0.5 (0.0-1.0) mg/dL AST 68 H (0-37) U/l ALT 42 H (0-40) U/l Alkaline Phosphatase 329 H (39-117) U/L Total Protein 6.3 (5.9-8.4) gm/dL Albumin 2.5 L (3.2-5.2) gm/dL All other labs normal.
[2018-07-15] MEDS: rOPINIRole 1 MG TABLET PO SCH (21:57)
[2018-07-15] MEDS: OXYBUTYNIN CHLORIDE 5 MG TAB.XL.24H PO SCH (21:57)
[2018-07-15] MEDS: SIMVASTATIN 20 MG TABLET PO SCH (21:59)
[2018-07-15] MEDS: MUPIROCIN OINT 2% 22GM NARES SCH (22:03)
[2018-07-16 06:01] LABS: Basophils # (Auto) 0.1 K/mcL (0.0-0.3); Basophils % (Auto) 0.5 % (0.0-2.0); Eosinophils # (Auto) 0.3 K/mcL (0.0-0.7); Eosinophils % (Auto) 2.8 % (0.0-7.0); Granulocytes % (Auto) 80.6 % (38.0-78.0); Lymphocytes % (Auto) 8.5 % (15.5-49.0); Mean Cell Volume 96.2 fL (80.0-100.0); Monocytes # (Auto) 0.9 K/mcL (0.1-0.9); Monocytes % (Auto) 7.6 % (1.0-12.0); Platelet Count 250 K/mcL (140-440); RBC 2.61 M/mcL (4.00-5.20); Red Cell Distribution Width 16.6 % (11.5-14.5)
[2018-07-16] MEDS: PIPERACILLIN SODIUM/TAZOBACTAM 3.375 GM in DEXTROSE 5% IN WATER 50 ML IV SCH ×3 (06:09→21:29)
[2018-07-16] MEDS: 0.9 % SODIUM CHLORIDE 10 ML SYRINGE IV SCH ×3 (06:10→20:57)
[2018-07-16 06:31] LABS: ALT/SGPT 48 U/l (0-40); Albumin 2.7 gm/dL (3.2-5.2); Albumin/Globulin Ratio 0.6 (1.0-2.3); Alkaline Phosphatase 360 U/L (39-117); Bilirubin,Direct 0.3 mg/dL (0.0-0.3); Blood Urea Nitrogen 46 mg/dl (8-23); Gamma Glutamyl Transpeptidase 189 U/L (5-36)
[2018-07-16] MEDS: INSULIN LISPRO 1 UNIT/0.01 ML UNIT SQ SCH ×4 (07:41→21:27)
[2018-07-16] MEDS: MUPIROCIN OINT 2% 22GM NARES SCH ×2 (09:17→20:56)
[2018-07-16] MEDS: MAGNESIUM HYDROXIDE 30 ML ORAL.SUSP PO SCH (09:17)
[2018-07-16] MEDS: VANCOMYCIN 1,250 MG in 0.9 % SODIUM CHLORIDE 500 ML IV SCH (09:17)
[2018-07-16] MEDS: INSULIN GLARGINE, HUMAN 1 UNIT/0.01 ML SQ SCH ×2 (09:17→21:28)
[2018-07-16] MEDS: ASPIRIN 81 MG TAB.CHEW PO SCH (09:18)
[2018-07-16] MEDS: HEPARIN 5,000 UNIT/ML VIAL SQ SCH ×2 (09:18→20:56)
[2018-07-16] MEDS: AZITHROMYCIN 250 MG TABLET PO SCH (09:18)
[2018-07-16] MEDS: TORSEMIDE 10 MG TABLET PO SCH (09:18)
[2018-07-16] MEDS: MAGNESIUM OXIDE 400 MG TABLET PO SCH (09:18)
[2018-07-16] MEDS: buPROPion 150 MG TAB.XL.24H PO SCH (09:19)
[2018-07-16] MEDS: SERTRALINE 100 MG TABLET PO SCH (09:19)
[2018-07-16] MEDS: CYANOCOBALAMIN (VITAMIN B-12) 500 MCG TABLET PO SCH ×2 (09:19→20:55)
--- NOTE | 2018-07-16 09:42 | Internal Med Progress Note ---
Medical - PN: Subj Patient information: Note initiated : 07/16/18 at 9:39 am Service Date, if different from initiated Date: [] Patient: Mary Gibbons 72 y/o F admitted on 07/13/18 for SOB, Weakness, Increased Falls. Chief Complaint: [] Interval history: Ms. Gibbons is a 72 year old F morbidly obese lady, history of chronic wounds on lower extremities, chronic urinary incontinence living by herself has some home health comes to the emergency room today for evaluation of not feeling well going on for the last 1 week. The patient is extremely poor history provider and did not really elaborate much except for generalized symptoms. The patient notes that her symptoms started approximately 1 week ago she had co ugh, some sinus drainage, denied any excessive sputum production, she became weak and progressively more weak as the week progressed. The patient has been lying in bed I believe since . She has been incontinent of urine and has been soaking her own urine. She has not taken any medications she notes from Sunday morning, she has a emergency call help button around her neck but did not call for help until now. She was brought to the emergency room by EMS for further evaluation. The patient admits to having some headaches, no changes in vision, she admits to having some difficulty in swallowing and some pain of the lymph nodes in the neck, she has cough, shortness of breath and weakness, denies any chest pain admits to having fever and chills, she has some nausea but no vomiting no diarrhea. She has lower extremity chronic edema however also has chronic erythema in both her legs. Chronic ulcerations on her legs. She admits to having pain in her body, predominantly on the left side but not able to provide any specific joint or location. On presentation patient was hemodynamically stable, saturating 97% on room air. Labs CBC pending, chemistries show creatinine of 2.0, BUN 67, CK 620, lactic acid 1.2 CRP 26.2, USS of urinary tract infection Chest x-ray appears to have a right basilar infiltrate versus pneumonia Patient is being admitted to the hospital for further management 07/14 Patient seen examined, no acute issues reported, there is pus still draining from the left foot, sent for cultures labs show some improvement in renal function. Otherwise pt still is weak, 07/15 Patient seen exained, was a bit short of breath this AM, oxygen saturation around 82 % on room air, Chest exam did not have any wheezing, mild crackles at bases, resume home dose of torsemide Pt scheduled to get MR today. She still has pain in the left foot. wound culture is growing MRSA 07/16-patient seen in room. No overnight events. ST and comfortably. Complains of minimal pain and foot. No significant shortness of breath. On 2 L nasal cannula. Intermittently incontinent of urine. Wound care evaluated foot wound last night. Currently mechanically 3 soft texture with thin liquids as per ST recommendations. Ongoing PT OT. Worsening infiltrates on chest imaging. - Constitutional Vitals: Vital Signs Temp Pulse Resp BP Pulse Ox 97.7 F 73 16 110/60 99 07/16/18 06:54 07/16/18 06:54 07/16/18 06:54 07/16/18 06:54 07/16/18 06:54 Period Temp Pulse Resp BP Sys/Vilchis Pulse Ox Last 24 Hr 97.7 F-99.4 F 73-88 16-22 108-128/52-62 82-99 Intake and Output 07/15/18 07/16/18 07/16/18 21:59 05:59 13:59 Intake Total 230 298 200 Output Total 3 4 Balance 227 294 200 Weight 284 lb Intake & Output: Intake & Output 07/15/18 07/16/18 07/16/18 21:59 05:59 13:59 Intake Total 230 298 200 Output Total 3 4 Balance 227 294 200 Weight 284 lb Intake: IV 50 98 Zosyn 3.375 gm In Dextrose 5% 50 98 in Water 50 ml @ 100 mls/hr IV Q8H [facility] Rx#:[id number] Oral 180 200 GI Tube Flush 200 Output: # of times incontinent of urine 3 4 Other: Meal Dinner Percent of Meal Consumed 75% Urine Appearance Clear Clear Urine Color Pale Pale Urine Odor Normal Normal General appearance: no acute distress Exam: Alert nonlabored breathing Nondistended abdomen Left first toe infection covered in dressing Medical - PN: Obj Da - Labs CBC & Chem 7: 07/16/18 03:55 07/16/18 03:54 Labs: Abnormal Lab Results 07/16/18 07/16/18 07/15/18 03:55 03:54 04:00 WBC 11.7 H RBC 2.61 L Hgb 8.3 L Hct 25.2 L RDW 16.6 H MPV 7.2 L Gran % 80.6 H Lymph % (Auto) 8.5 L Gran # 9.4 H Lymph # (Auto) 1.0 L Seg Neutrophils % Lymphocytes % RBC Morphology Polychromasia Chloride BUN 46 H 51 H Creatinine 1.6 H 1.6 H Glucose 223 H Uric Acid 9.0 H 10.2 H Calcium 8.3 L Phosphorus 2.6 L 2.5 L GGT 189 H 184 H AST 67 H 68 H ALT 48 H 42 H Alkaline Phosphatase 360 H 329 H Lactate Dehydrogenase 269 H Total Creatine Kinase C-Reactive Protein Albumin 2.7 L 2.5 L Globulin 4.3 H 3.8 H Albumin/Globulin Ratio 0.6 L 0.7 L Urine Protein Urine Ketones Urine Occult Blood Ur Leukocyte Esterase Urine RBC Urine WBC Amorphous Crystals 07/15/18 07/14/18 07/14/18 04:00 04:15 04:15 WBC RBC 2.34 L Hgb 7.5 L Hct 22.7 L RDW 16.4 H MPV 7.1 L Gran % 79.0 H Lymph % (Auto) 8.1 L Gran # 8.1 H Lymph # (Auto) 0.8 L Seg Neutrophils % Lymphocytes % RBC Morphology Polychromasia Chloride BUN 60 H Creatinine 1.6 H Glucose 153 H Uric Acid 12.0 H Calcium 8.5 L Phosphorus GGT 189 H AST 56 H ALT Alkaline Phosphatase 250 H Lactate Dehydrogenase Total Creatine Kinase 462 H C-Reactive Protein Albumin 2.8 L Globulin 4.2 H Albumin/Globulin Ratio 0.7 L Urine Protein Urine Ketones Urine Occult Blood Ur Leukocyte Esterase Urine RBC Urine WBC Amorphous Crystals 07/14/18 07/13/18 07/13/18 04:15 20:21 18:13 WBC 12.0 H 12.8 H RBC 2.63 L 2.60 L Hgb 8.5 L 8.4 L Hct 25.3 L 24.8 L RDW 16.2 H 16.0 H MPV 6.8 L 6.7 L Gran % 84.3 H Lymph % (Auto) 6.6 L Gran # 10.1 H Lymph # (Auto) 0.8 L Seg Neutrophils % 87 H Lymphocytes % 7 L RBC Morphology Abnorm A Polychromasia 1+ A Chloride 92 L BUN 67 H Creatinine 2.0 H Glucose 171 H Uric Acid Calcium Phosphorus GGT AST 62 H ALT Alkaline Phosphatase 222 H Lactate Dehydrogenase Total Creatine Kinase C-Reactive Protein 26.7 H Albumin 3.1 L Globulin 4.4 H Albumin/Globulin Ratio 0.7 L Urine Protein Urine Ketones Urine Occult Blood Ur Leukocyte Esterase Urine RBC Urine WBC Amorphous Crystals 07/13/18 07/13/18 18:12 18:06 WBC RBC Hgb Hct RDW MPV Gran % Lymph % (Auto) Gran # Lymph # (Auto) Seg Neutrophils % Lymphocytes % RBC Morphology Polychromasia Chloride BUN Creatinine Glucose Uric Acid Calcium Phosphorus GGT AST ALT Alkaline Phosphatase Lactate Dehydrogenase Total Creatine Kinase 620 H C-Reactive Protein Albumin Globulin Albumin/Globulin Ratio Urine Protein 30 A Urine Ketones 5/tr A Urine Occult Blood 0.03 A Ur Leukocyte Esterase 500 A Urine RBC 3 H Urine WBC > 182 H Amorphous Crystals Mod A Meds: Medications Acetaminophen (Tylenol) 650 mg PO Q6HP PRN PRN Reason: PAIN/FEVER > 101 Last Admin: 07/14/18 03:52 Dose: 650 mg Documented by: Albuterol Sulfate (Ventolin) 2.5 mg NEB Q2HP PRN PRN Reason: Shortness Of Breath Aspirin (Aspirin) 81 mg PO DAILY [facility] Last Admin: 07/16/18 09:18 Dose: 81 mg Documented by: Azithromycin (Zithromax) 250 mg PO DAILY [facility]; Protocol Stop: 07/17/18 09:01 Last Admin: 07/16/18 09:18 Dose: 250 mg Documented by: Bupropion HCl (Wellbutrin Xl) 150 mg PO DAILY [facility] Last Admin: 07/16/18 09:19 Dose: 150 mg Documented by: Cyanocobalamin (Vitamin B-12) 2,500 mcg PO BID [facility] Last Admin: 07/16/18 09:19 Dose: 2,500 mcg Documented by: Dextrose (Dextrose 50%) 0 ml IV UD PRN PRN Reason: Hypoglycemia Diagnostic Test (Pha) (Accu-Chek) 1 each FS ACHS [facility] Last Admin: 07/16/18 07:39 Dose: 1 each Documented by: Gabapentin (Neurontin) 100 mg PO HS [facility] Glucose (Insta-Glucose) 15 gm PO PRN PRN PRN Reason: Hypoglycemia Guaifenesin (Robitussin Dm) 10 ml PO Q4HP PRN PRN Reason: Cough Last Admin: 07/15/18 04:16 Dose: 10 ml Documented by: Heparin Sodium (Porcine) (Heparin) 5,000 unit SQ Q12 [facility] Last Admin: 07/16/18 09:18 Dose: 5,000 unit Documented by: Hydromorphone HCl (Dilaudid) 0.5 mg IV Q2HP PRN PRN Reason: PAIN LEVEL > 6 Vancomycin HCl 1,250 mg/ (Sodium Chloride) 500 mls @ 333.3 mls/hr IV Q24H [facility] Last Admin: 07/16/18 09:17 Dose: 333.3 mls/hr Documented by: Piperacillin Sod/Tazobactam (Sod 3.375 gm/ Dextrose) 50 mls @ 100 mls/hr IV Q8H [facility]; Protocol Last Admin: 07/16/18 06:09 Dose: 100 mls/hr Documented by: Insulin Glargine (Lantus) 58 unit SQ BID [facility] Last Admin: 07/16/18 09:17 Dose: 58 unit Documented by: Insulin Human Lispro (Humalog) 0 unit SQ ACHS [facility]; Protocol Last Admin: 07/16/18 07:41 Dose: Not Given Documented by: Losartan Potassium (Cozaar) 50 mg PO DAILY [facility] Magnesium Hydroxide (Milk Of Magnesia) 30 ml PO DAILY [facility] Last Admin: 07/16/18 09:17 Dose: 30 ml Documented by: Magnesium Oxide (Magnesium Oxide) 400 mg PO DAILY [facility] Last Admin: 07/16/18 09:18 Dose: 400 mg Documented by: Mupirocin (Bactroban Oint 2%) 1 dose NARES BID [facility] Stop: 07/20/18 21:00 Last Admin: 07/16/18 09:17 Dose: 1 dose Documented by: Naloxone HCl (Narcan) 0.1 mg IV Q2MIN PRN PRN Reason: Opiate Reversal Non-Formulary Medication (Metformin Hcl [Metformin Hcl Er]) 750 mg PO DAILY [facility] Non-Formulary Medication (Torsemide) 100 mg PO DAILY [facility] Ondansetron HCl (Zofran) 4 mg IV Q6HP PRN PRN Reason: Nausea And Vomiting Oxybutynin Chloride (Ditropan Xl) 5 mg PO HS [facility] Last Admin: 07/15/18 21:57 Dose: 5 mg Documented by: Oxycodone HCl (Roxicodone) 5 mg PO Q4HP PRN PRN Reason: PAIN LEVEL 3-6 Last Admin: 07/15/18 09:40 Dose: 5 mg Documented by: Ropinirole HCl (Requip) 1.5 mg PO HS [facility] Last Admin: 07/15/18 21:57 Dose: 1.5 mg Documented by: Sertraline HCl (Zoloft) 100 mg PO DAILY [facility] Last Admin: 07/16/18 09:19 Dose: 100 mg Documented by: Simvastatin (Zocor) 20 mg PO HS [facility] Last Admin: 07/15/18 21:59 Dose: 20 mg Documented by: Sodium Chloride (Saline Flush) 10 ml IV Q8 [facility] Last Admin: 07/16/18 06:10 Dose: 10 ml Documented by: Torsemide (Demadex) 100 mg PO DAILY [facility] Last Admin: 07/16/18 09:18 Dose: 100 mg Documented by: Vancomycin HCl (Vancomycin Per Pharmacy) 1 order IV UD [facility]; Protocol Medical - PN: A/P - Time Spent With Patient Total time spent is greater than 50% in coordination of care (as documented) at patient's floor/unit and/or counseling patient: 25 - 35 minutes (1) Sepsis due to methicillin resistant Staphylococcus aureus (MRSA) Status: Acute Assessment and plan: * Sepsis secondary to MRSA left first toe cellulitis/multifocal pneumonia-on broad antibiotic coverage including Zosyn/vancomycin and azithromycin. Clinical improvement downtrending white count. Continue broad spectrum antibiotic coverage/sepsis management per guidelines * Multifocal bilateral pneumonia on antibiotic coverage. On mechanical level III diet as per ST recommendations. Continue aspiration precautions. Continue supplemental oxygen * Hypoxic respiratory insufficiency Is supplemental oxygen * Left first toe cellulitis/abscess-antibiotic coverage. Wound care consulted. * Chronic cystitis-antibiotic coverage * YANN-clinically improving with creatinine down from 2-1.6. * Hypertension restart home meds * DM type II continue basal prandial insulin/metformin * History of chronic wounds managed by wound care * DVT prophylaxis on subcutaneous heparin * Limited code Plan * Broad antibiotic coverage * Wound care * Nutrition support/PT OT * Aspiration precaution * Pre-existing medical condition management as above * Discharge planning per case management Current Visit: Yes Medical - PN: Qual - Stroke Symptom Onset Unknown: No - VTE Deep Vein Thrombosis/Pulmonary Embolism Present on Admission: No
--- NOTE | 2018-07-16 16:57 | General Surgery Consult Note ---
History of Present Illness Patient information: Note initiated : 07/16/18 at 4:22 pm Service Date, if different from initiated Date: [] Patient: Mary Gibbons 72 y/o F admitted on 07/13/18 for SOB, Weakness, Increased Falls. Chief Complaint: [] Consult date: 07/15/18 Requesting physician: Aliya Marin (Wound Consult:) History of present illness: I examined this patient last evening and again saw her this morning along with Frida HAMMOND, In Patient Wound care nurse. Super morbid obese female, sedentary, stress incontinent of urine admitted via ER with recurring UTI and pneumonia. 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 MRI reveals gas in sub cutaneous tissue at this site of neuropathic / pressure ulcer. Wound care consult was called for EVALUATION AND MANAGEMENT. Medications and Allergies Home Medications Medication Instructions Recorded Confirmed Type Sertraline [Zoloft] 100 mg PO HS 04/29/15 07/14/18 History Simvastatin [Zocor] 20 mg PO HS 04/29/15 07/14/18 History rOPINIRole HCL [Requip] 3 mg PO HS 04/29/15 07/14/18 History buPROPion [Wellbutrin Xl] 150 mg PO DAILY 12/15/16 07/13/18 Rx Accu-Chek 1 each FS ACHS strip 12/17/16 07/13/18 Rx Aspirin [Lo-Dose Aspirin EC] 81 mg PO ONCE 07/13/18 07/13/18 History Cyanocobalamin (Vitamin B-12) 2,500 mcg PO BID 07/13/18 07/13/18 History [Vitamin B12] Fesoterodine Fumarate [Toviaz] 4 mg PO DAILY 07/13/18 07/14/18 History Insulin Glargine, Human [Lantus] 70 unit SQ BID 07/13/18 07/13/18 History Magnesium 250 mg PO ONCE 07/13/18 07/13/18 History Silver Sulfadiazine [Silvadene] 1 dose TOPICAL DAILY 07/13/18 07/13/18 History Torsemide 100 mg PO DAILY 07/13/18 07/14/18 History Gabapentin [Neurontin] 100 mg PO HS 07/14/18 07/14/18 History Insulin Aspart [Novolog Flexpen] 50 unit SQ BID 07/14/18 07/14/18 History Losartan [Cozaar] 50 mg PO DAILY 07/14/18 07/14/18 History glipiZIDE [Glipizide ER] 5 mg PO DAILY 07/14/18 07/14/18 History metFORMIN HCL [Metformin HCl ER] 750 mg PO DAILY 07/14/18 07/14/18 History Allergies Allergy/AdvReac Type Severity Reaction Status Date / Time Sulfa (Sulfonamide Allergy Mild Rash Verified 07/16/18 06:52 Antibiotics) clindamycin Allergy Verified 07/13/18 17:45 Amoxicillin AdvReac Mild Diarrhea Verified 07/14/18 07:27 morphine AdvReac Mild Other Verified 07/14/18 07:27 Exam Temp Pulse Resp BP Pulse Ox 96.8 F L 69 18 120/60 99 07/16/18 12:00 07/16/18 12:00 07/16/18 12:00 07/16/18 12:00 07/16/18 12:00 - General physical appearance well developed, well nourished, no distress, no pain, chronically ill, obese - Eyes PERRL, normal ocular movement - ENT normal pinna, normal nares, normal mucosa, no congestion - Head Head exam IM: Present: atraumatic, normal inspection, normocephalic - Neck no masses, no bruits, trachea midline, no venous distension - Cardiovascular Cardiovascular exam IM: Present: normal rate and rhythm - Respiratory normal respiratory effort, other (Diminished air entry at bases. ) - Abdomen Abdomen: Present: soft, non tender, bowel sounds - Genitourinary Present: other (Rdendant panniculus and incontinent of urine. ) - Integumentary Present: other (Chronic dermat[facility] and [facility]. Ulcer under Left first toe and blister in inter digital space. ) - Neurologic Present: other (No focal deficits. ?? Peripheral neuropathy ) - Psychiatric Present: oriented to time, oriented to person, oriented to place, speech is normal Results - Labs 07/16/18 03:55 07/16/18 03:54 Abnormal lab results 07/16/18 07/16/18 Range/Units 03:54 03:55 WBC 11.7 H (4.5-11.0) K/mcL RBC 2.61 L (4.00-5.20) M/mcL Hgb 8.3 L (12.0-15.0) g/dL Hct 25.2 L (36.0-48.0) % RDW 16.6 H (11.5-14.5) % MPV 7.2 L (7.4-10.4) fL Gran % 80.6 H (38.0-78.0) % Lymph % (Auto) 8.5 L (15.5-49.0) % Gran # 9.4 H (1.8-8.0) K/mcL Lymph # (Auto) 1.0 L (1.5-4.8) K/mcL BUN 46 H (8-23) mg/dl Creatinine 1.6 H (0.6-1.1) mg/dl Uric Acid 9.0 H (2.5-8.0) mg/dL Phosphorus 2.6 L (2.7-4.5) mg/dL GGT 189 H (5-36) U/L AST 67 H (0-37) U/l ALT 48 H (0-40) U/l Alkaline Phosphatase 360 H (39-117) U/L Lactate Dehydrogenase 269 H (94-250) U/L Albumin 2.7 L (3.2-5.2) gm/dL Globulin 4.3 H (2.2-3.7) gm/dL Albumin/Globulin Ratio 0.6 L (1.0-2.3) Diabetes panel 07/16/18 Range/Units 03:54 Sodium 137 (133-145) mmol/L Potassium 4.8 (3.3-5.1) mmol/L Chloride 99 (96-108) mmol/L Carbon Dioxide 26 (22-30) mmol/L BUN 46 H (8-23) mg/dl Creatinine 1.6 H (0.6-1.1) mg/dl Glucose 91 (70-105) mg/dL Calcium 8.8 (8.6-10.4) mg/dl AST 67 H (0-37) U/l ALT 48 H (0-40) U/l Alkaline Phosphatase 360 H (39-117) U/L Total Protein 7.0 (5.9-8.4) gm/dL Albumin 2.7 L (3.2-5.2) gm/dL Triglycerides 115 (<150) mg/dl Calcium panel 07/16/18 Range/Units 03:54 Calcium 8.8 (8.6-10.4) mg/dl Phosphorus 2.6 L (2.7-4.5) mg/dL Albumin 2.7 L (3.2-5.2) gm/dL Pituitary panel 07/16/18 Range/Units 03:54 Sodium 137 (133-145) mmol/L Potassium 4.8 (3.3-5.1) mmol/L Chloride 99 (96-108) mmol/L Carbon Dioxide 26 (22-30) mmol/L BUN 46 H (8-23) mg/dl Creatinine 1.6 H (0.6-1.1) mg/dl Glucose 91 (70-105) mg/dL Calcium 8.8 (8.6-10.4) mg/dl Adrenal panel 07/16/18 Range/Units 03:54 Sodium 137 (133-145) mmol/L Potassium 4.8 (3.3-5.1) mmol/L Chloride 99 (96-108) mmol/L Carbon Dioxide 26 (22-30) mmol/L BUN 46 H (8-23) mg/dl Creatinine 1.6 H (0.6-1.1) mg/dl Glucose 91 (70-105) mg/dL Calcium 8.8 (8.6-10.4) mg/dl Total Bilirubin 0.5 (0.0-1.0) mg/dL AST 67 H (0-37) U/l ALT 48 H (0-40) U/l Alkaline Phosphatase 360 H (39-117) U/L Total Protein 7.0 (5.9-8.4) gm/dL Albumin 2.7 L (3.2-5.2) gm/dL All other labs normal. 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 (3) SIRS (systemic inflammatory response syndrome) Status: Resolved Priority: Medium Comment: hypotension has resolved (4) Diabetes Assessment: DFU White 3 Left foot plantar 1 st toe. Plan: Selective debridement, tissue cultures Local wound care. Status: Chronic Priority: Low Comment: NOW ON LANTUS 45 UNITS SQ BID, JANUVIA 50 MG PO DAILY AND METFORMIN. Qualifiers: Diabetes mellitus type: type 2 Diabetes mellitus lobsterman insulin use: with lobsterman use Diabetes mellitus complication status: with skin complications Diabetes mellitus complication detail: with foot ulcer Qualified Code(s): E11.621 - Type 2 diabetes mellitus with foot ulcer; L97.509 - Non-pressure chronic ulcer of other part of unspecified foot with unspecified severity; Z79.4 - terminologist (current) use of insulin (5) UTI (urinary tract infection) Status: Acute Comment: E coli sens to all- change to Ceftriaxone
--- NOTE | 2018-07-16 17:14 | General Surgery Procedure Note ---
Date of procedure: Note initiated : 07/16/18 at 5:11 pm Service Date, if different from initiated Date: [] Pre-op diagnosis: Neuropathic ulcer under Left foot 1 St toe. White 3 Post-op diagnosis: same Procedure: Selective debridement with pickling operator and scissors and # 11 blade. Anesthesia: none Surgeon: Kenn Fonseca Estimated blood loss: 1 Pathology: other Description of procedure: Excisional debridement of ulcer and unroofing of blister. Condition: stable Disposition: no change (Patient in room 108 Med surg floor.)
[2018-07-16] MEDS: SIMVASTATIN 20 MG TABLET PO SCH (20:55)
[2018-07-16] MEDS: OXYBUTYNIN CHLORIDE 5 MG TAB.XL.24H PO SCH (20:55)
[2018-07-16] MEDS: rOPINIRole 1 MG TABLET PO SCH (20:55)
[2018-07-16] MEDS ORDERED: GABAPENTIN 100 MG CAPSULE PO SCH (21:00)
[2018-07-17 05:41] LABS: Basophils # (Auto) 0.1 K/mcL (0.0-0.3); Basophils % (Auto) 0.5 % (0.0-2.0); Eosinophils # (Auto) 0.5 K/mcL (0.0-0.7); Eosinophils % (Auto) 3.9 % (0.0-7.0); Granulocytes % (Auto) 78.9 % (38.0-78.0); Lymphocytes # (Auto) 1.1 K/mcL (1.5-4.8); Lymphocytes % (Auto) 9.4 % (15.5-49.0); Mean Cell Volume 95.8 fL (80.0-100.0); Mean Corpuscular HGB Conc 33.4 g/dL (31.0-36.0); Monocytes # (Auto) 0.9 K/mcL (0.1-0.9); Monocytes % (Auto) 7.3 % (1.0-12.0); Platelet Count 292 K/mcL (140-440); RBC 2.58 M/mcL (4.00-5.20); Red Cell Distribution Width 16.1 % (11.5-14.5)
[2018-07-17] MEDS: 0.9 % SODIUM CHLORIDE 10 ML SYRINGE IV SCH (05:53)
[2018-07-17] MEDS: PIPERACILLIN SODIUM/TAZOBACTAM 3.375 GM in DEXTROSE 5% IN WATER 50 ML IV SCH (05:53)
[2018-07-17 06:07] LABS: ALT/SGPT 44 U/l (0-40); Albumin 2.3 gm/dL (3.2-5.2); Albumin/Globulin Ratio 0.5 (1.0-2.3); Alkaline Phosphatase 367 U/L (39-117); Bilirubin,Direct < 0.2 mg/dL (0.0-0.3); Blood Urea Nitrogen 46 mg/dl (8-23); Gamma Glutamyl Transpeptidase 175 U/L (5-36); Uric Acid 8.5 mg/dL (2.5-8.0)
[2018-07-17] MEDS: INSULIN LISPRO 1 UNIT/0.01 ML UNIT SQ SCH ×2 (07:34→11:53)
[2018-07-17] MEDS ORDERED: metFORMIN 500 MG TAB.XL.24H PO SCH (08:00)
[2018-07-17] MEDS: TORSEMIDE 10 MG TABLET PO SCH (08:17)
[2018-07-17] MEDS: SERTRALINE 100 MG TABLET PO SCH (08:17)
[2018-07-17] MEDS: HEPARIN 5,000 UNIT/ML VIAL SQ SCH (08:17)
[2018-07-17] MEDS: AZITHROMYCIN 250 MG TABLET PO SCH (08:20)
[2018-07-17] MEDS: MAGNESIUM OXIDE 400 MG TABLET PO SCH (08:20)
[2018-07-17] MEDS: ASPIRIN 81 MG TAB.CHEW PO SCH (08:20)
[2018-07-17] MEDS: buPROPion 150 MG TAB.XL.24H PO SCH (08:20)
[2018-07-17] MEDS: INSULIN GLARGINE, HUMAN 1 UNIT/0.01 ML SQ SCH (08:21)
[2018-07-17] MEDS: MAGNESIUM HYDROXIDE 30 ML ORAL.SUSP PO SCH (08:33)
[2018-07-17] MEDS: CYANOCOBALAMIN (VITAMIN B-12) 500 MCG TABLET PO SCH (08:34)
[2018-07-17] MEDS: ACETAMINOPHEN 325 MG TABLET PO PRN (08:34)
[2018-07-17] MEDS: oxyCODONE HCL 5 MG TABLET PO PRN (08:34)
[2018-07-17] MEDS ORDERED: TORSEMIDE 100 MG PO SCH (09:00)
[2018-07-17] MEDS ORDERED: LOSARTAN 50 MG TABLET PO SCH (09:00)
--- NOTE | 2018-07-17 11:37 | Discharge Summary ---
Medical - DS: Prov Patient information: Note initiated : 07/17/18 at 11:33 am Service Date, if different from initiated Date: [] Patient: Mary Gibbons 72 y/o F admitted on 07/13/18 for SOB, Weakness, Increased Falls. Chief Complaint: [] Date of admission: 07/13/18 21:19 Discharge date: 07/17/18 Primary care physician: Katie Haji Consults: 07/14/18 10:27 Consult to Physician [CONS] Routine Comment: left foot infection, chr wounds Consulting Provider: Kenn Fonseca Reason For Exam: Physician to Consult Medical - DS: Meds - Discharge Medications Prescriptions: Clindamycin HCl [Cleocin] 450 mg PO Q8 #15 cap Levofloxacin [Levaquin] 750 mg PO Q48 #2 tab Active and Home Medications: Home Medications Sertraline [Zoloft] 100 mg PO HS 04/29/15 [History Confirmed 07/14/18 Last Taken 12/15/16 10:30] Simvastatin [Zocor] 20 mg PO HS 04/29/15 [History Confirmed 07/14/18 Last Taken 12/14/16 20:35] rOPINIRole HCL [Requip] 3 mg PO HS 04/29/15 [History Confirmed 07/14/18 Last Taken 12/14/16 20:35] buPROPion [Wellbutrin Xl] 150 mg PO DAILY 12/15/16 [Rx Confirmed 07/13/18 Last Taken 12/15/16 10:40] Accu-Chek 1 each FS ACHS strip 12/17/16 [Rx Confirmed 07/13/18 Last Taken Unknown] Aspirin [Lo-Dose Aspirin EC] 81 mg PO ONCE 07/13/18 [History Confirmed 07/13/18 Last Taken Unknown] Cyanocobalamin (Vitamin B-12) [Vitamin B12] 2,500 mcg PO BID 07/13/18 [History Confirmed 07/13/18 Last Taken Unknown] Fesoterodine Fumarate [Toviaz] 4 mg PO DAILY 07/13/18 [History Confirmed 07/14/18 Last Taken Unknown] Insulin Glargine, Human [Lantus] 70 unit SQ BID 07/13/18 [History Confirmed 07/13/18 Last Taken 07/11/18 21:00] Magnesium 250 mg PO ONCE 07/13/18 [History Confirmed 07/13/18 Last Taken Unknown] Silver Sulfadiazine [Silvadene] 1 dose TOPICAL DAILY 07/13/18 [History Confirmed 07/13/18 Last Taken Unknown] Torsemide 100 mg PO DAILY 07/13/18 [History Confirmed 07/14/18 Last Taken Unknown] Gabapentin [Neurontin] 100 mg PO HS 07/14/18 [History Confirmed 07/14/18 Last Taken Unknown] Insulin Aspart [Novolog Flexpen] 50 unit SQ BID 07/14/18 [History Confirmed 07/14/18 Last Taken Unknown] Losartan [Cozaar] 50 mg PO DAILY 07/14/18 [History Confirmed 07/14/18 Last Taken Unknown] glipiZIDE [Glipizide ER] 5 mg PO DAILY 07/14/18 [History Confirmed 07/14/18 Last Taken Unknown] metFORMIN HCL [Metformin HCl ER] 750 mg PO DAILY 07/14/18 [History Confirmed 07/14/18 Last Taken Unknown] Clindamycin HCl [Cleocin] 450 mg PO Q8 #15 cap 07/17/18 [Rx Last Taken Unknown] Medical - DS: Hosp Hospital course: Discharge diagnosis * Sepsis secondary to MRSA left first toe cellulitis/multifocal pneumonia- managed on broad antibiotic coverage including Zosyn/vancomycin. Clinically resolved. Status post debridement and wound care. Continue clindamycin 450 mg every 8 as per wound care surgery recommendation for additional 5 days * Multifocal bilateral pneumonia on antibiotic coverage. Clinically improvement. Continue ST eval/dietary modifications to prevent aspiration. Continue oral Levaquin for additional 3 days * Hypoxic respiratory insufficiency -resolved now on room air * Left first toe cellulitis/abscess-antibiotic coverage. Status post debridement/drainage by wound care * Chronic cystitis-resolved on antibiotics * YANN on chronic kidney disease-clinically improving with creatinine down from 2-1.7 Baseline * Hypertension continue home meds * DM type II continue basal prandial insulin/metformin Brief hospital course Ms. Gibbons is a 72 year old F morbidly obese lady, history of chronic wounds on lower extremities, chronic urinary incontinence living by herself has some home health comes to the emergency room today for evaluation of not feeling well going on for the last 1 week. The patient is extremely poor history provider and did not really elaborate much except for generalized symptoms. The patient notes that her symptoms started approximately 1 week ago she had cough, some sinus drainage, denied any excessive sputum production, she became weak and progressively more weak as the week progressed. The patient has been lying in bed I believe since . She has been incontinent of urine and has been soaking her own urine. She has not taken any medications she notes from Sunday morning, she has a emergency call help button around her neck but did not call for help until now. She was brought to the emergency room by EMS for further evaluation. The patient admits to having some headaches, no changes in vision, she admits to having some difficulty in swallowing and some pain of the lymph nodes in the neck, she has cough, shortness of breath and weakness, denies any chest pain admits to having fever and chills, she has some nausea but no vomiting no diarrhea. She has lower extremity chronic edema however also has chronic erythema in both her legs. Chronic ulcerations on her legs. She admits to having pain in her body, predominantly on the left side but not able to provide any specific joint or location. On presentation patient was hemodynamically stable, saturating 97% on room air. Labs CBC pending, chemistries show creatinine of 2.0, BUN 67, CK 620, lactic acid 1.2 CRP 26.2, USS of urinary tract infection Chest x-ray appears to have a right basilar infiltrate versus pneumonia Patient is being admitted to the hospital for further management 07/14 Patient seen examined, no acute issues reported, there is pus still draining from the left foot, sent for cultures labs show some improvement in renal function. Otherwise pt still is weak, 07/15 Patient seen exained, was a bit short of breath this AM, oxygen saturation around 82 % on room air, Chest exam did not have any wheezing, mild crackles at bases, resume home dose of torsemide Pt scheduled to get MR today. She still has pain in the left foot. wound culture is growing MRSA 07/16-patient seen in room. No overnight events. ST and comfortably. Complains of minimal pain and foot. No significant shortness of breath. On 2 L nasal cannula. Intermittently incontinent of urine. Wound care evaluated foot wound last night. Currently mechanically 3 soft texture with thin liquids as per ST recommendations. Ongoing PT OT. Worsening infiltrates on chest imaging. -patient doing remarkably better. White count normalized. Now on room air. No shortness of breath or overnight fever chills or concerns per staff. Ongoing wound care. Dr. Fonseca recommends additional 5 days of oral clindamycin for MRSA left first toe infection. Patient will additionally continue Levaquin for 3 days for bilateral pneumonia. Discharge in stable state to SNF for continued post hospitalization rehabilitation/aspiration precaution and diet per ST recomm endations Discharge diagnosis: . - Time Spent with Patient Total time spent providing and/or coordinating discharge services: Greater than 30 minutes Medical - DS: Exam - Constitutional Vitals: Vital Signs Temp Pulse Resp BP BP BP Pulse Ox 07/17/18 09:03 94 07/17/18 08:07 97.2 F 79 18 112/61 97 07/17/18 06:53 97.0 F 67 18 128/64 98 07/17/18 03:58 97.7 F 72 18 106/55 97 07/16/18 23:29 98 F 74 16 108/51 97 07/16/18 19:38 18 96 07/16/18 19:15 98.4 F 71 18 139/78 07/16/18 16:00 96.7 F L 65 16 104/58 100 07/16/18 12:00 96.8 F L 69 18 120/60 99 Intake and Output 07/16/18 07/17/18 07/17/18 21:59 05:59 13:59 Intake Total 940 400 50 Output Total 4 3 Balance 936 397 50 Intake: IV 100 50 Zosyn 3.375 gm In Dextrose 5% 100 50 in Water 50 ml @ 100 mls/hr IV Q8H [facility] Rx#:[id number] Oral 840 400 Output: # of times incontinent of urine 4 3 Other: Meal Lunch Percent of Meal Consumed 100% Feeding Ability Independent Urine Color Pale Urine Odor Normal Normal # Voids 1 Weight 283 lb 6.4 oz Medical - DS: Data Labs on day of discharge: Labs from last 24 hours 07/17/18 07/17/18 07/17/18 08:07 04:30 04:30 WBC 12.0 H RBC 2.58 L Hgb 8.3 L Hct 24.7 L MCV 95.8 MCH 32.0 MCHC 33.4 RDW 16.1 H Plt Count 292 MPV 7.1 L Gran % 78.9 H Lymph % (Auto) 9.4 L [place] % (Auto) 7.3 Eos % (Auto) 3.9 Baso % (Auto) 0.5 Gran # 9.5 H Lymph # (Auto) 1.1 L [place] # (Auto) 0.9 Eos # (Auto) 0.5 Baso # (Auto) 0.1 Sodium 137 Potassium 4.7 Chloride 99 Carbon Dioxide 25 Anion Gap 13.0 BUN 46 H Creatinine 1.7 H GFR Calculation 30 Glucose 87 Uric Acid 8.5 H Calcium 8.9 Phosphorus 3.5 Magnesium 2.2 Total Bilirubin 0.5 Direct Bilirubin < 0.2 GGT 175 H AST 55 H ALT 44 H Alkaline Phosphatase 367 H Lactate Dehydrogenase 300 H Total Protein 7.0 Albumin 2.3 L Globulin 4.7 H Albumin/Globulin Ratio 0.5 L Triglycerides 138 Vancomycin Trough 23.6 H* Preliminary micro results at discharge 07/13/18 20:21 Blood Culture - Preliminary Blood 07/13/18 20:12 Blood Culture - Preliminary Blood 07/14/18 11:02 Wound Culture - Preliminary Foot - Left Methicillin resistant s.aureus Medical - DS: A/P - Patient/Caregiver Discharge Instructions Activity: as per physical therapy, increase activity as tolerated, resume usual activities as tolerated Diet: Renal/Consistent Carbs Additional Instructions: Follow-up PCP in 5 days I recommend SNF physician to check CBC BMP UA as a posthospital follow-up and Chest x-ray in 1 week. Clindamycin for 5 days, Levaquin for 3 days Wound care follow-up and outpatient Continue aggressive bowel regimen to prevent constipation Diet per ST recommendations Continue fall precautions Continue aggressive PT OT evaluation and treatment at [facility]. ST eval and treatment if indicated All meals on chair sitting upright at 90 degrees to prevent aspiration Return to ER if worsening fever chills shortness of breath, diarrhea, bleeding Review risk and side effect profile of medications including antibiotics. Side effect may include mild to severe reaction including rash, diarrhea, cdiff and even which can be prevented by close follow-up with PCP and monitoring for side effects Continue diet and activity as advised Discussed importance of medication adherence Please review medication list with patient prior to discharge Please schedule follow-up with PCP/Providers prior to discharge and provide printouts Prescriptions: Clindamycin HCl [Cleocin] 450 mg PO Q8 #15 cap Levofloxacin [Levaquin] 750 mg PO Q48 #2 tab - Problem Maintenance (1) Sepsis due to methicillin resistant Staphylococcus aureus (MRSA) Status: Acute - Follow up Plan Follow up with: Katie Haji ARNP [Primary Care Provider] - Disposition: Xfer SNF Prognosis: Fair Rehab Potential: Fair I certify that the patient requires SNF services: Yes Overall status at discharge: patient is progressing back to baseline Medical - DS: Qual - VTE Deep Vein Thrombosis/Pulmonary Embolism Present on Admission: No
[2018-07-17] MEDS: MUPIROCIN OINT 2% 22GM NARES SCH (11:52)
--- NOTE | 2018-07-17 11:59 | General Surgery Progress Note ---
Subjective Patient reports: no new complaints, other (UTI. PNA improving. Local wound care of foot on going. MRSA. Awaits discharge.) Narrative: Note initiated : 07/17/18 at 11:57 am Service Date, if different from initiated Date: [] Patient: Mary Gibbons 72 y/o F admitted on 07/13/18 for SOB, Weakness, Increased Falls. Chief Complaint: [] Objective Temp Pulse Resp BP Pulse Ox 97.2 F 79 18 112/61 94 07/17/18 08:07 07/17/18 08:07 07/17/18 08:07 07/17/18 08:07 07/17/18 09:03 AVSS. Progress reviewed with nursing staff. No acute concerns voiced. Local wound care ongoing. - Additional Data Intake & Output - Last 24 hours: Intake & Output 07/15/18 07/16/18 07/17/18 07/18/18 05:59 05:59 05:59 05:59 Intake Total 3967 1903 2079 50 Output Total 1550 583 532 Balance 2417 1320 1547 50 Weight 285 lb 284 lb 283 lb 6.4 oz - Labs 07/17/18 04:30 07/17/18 04:30 Diabetes panel 07/17/18 Range/Units 04:30 Sodium 137 (133-145) mmol/L Potassium 4.7 (3.3-5.1) mmol/L Chloride 99 (96-108) mmol/L Carbon Dioxide 25 (22-30) mmol/L BUN 46 H (8-23) mg/dl Creatinine 1.7 H (0.6-1.1) mg/dl Glucose 87 (70-105) mg/dL Calcium 8.9 (8.6-10.4) mg/dl AST 55 H (0-37) U/l ALT 44 H (0-40) U/l Alkaline Phosphatase 367 H (39-117) U/L Total Protein 7.0 (5.9-8.4) gm/dL Albumin 2.3 L (3.2-5.2) gm/dL Triglycerides 138 (<150) mg/dl Calcium panel 07/17/18 Range/Units 04:30 Calcium 8.9 (8.6-10.4) mg/dl Phosphorus 3.5 (2.7-4.5) mg/dL Albumin 2.3 L (3.2-5.2) gm/dL Pituitary panel 07/17/18 Range/Units 04:30 Sodium 137 (133-145) mmol/L Potassium 4.7 (3.3-5.1) mmol/L Chloride 99 (96-108) mmol/L Carbon Dioxide 25 (22-30) mmol/L BUN 46 H (8-23) mg/dl Creatinine 1.7 H (0.6-1.1) mg/dl Glucose 87 (70-105) mg/dL Calcium 8.9 (8.6-10.4) mg/dl Adrenal panel 07/17/18 Range/Units 04:30 Sodium 137 (133-145) mmol/L Potassium 4.7 (3.3-5.1) mmol/L Chloride 99 (96-108) mmol/L Carbon Dioxide 25 (22-30) mmol/L BUN 46 H (8-23) mg/dl Creatinine 1.7 H (0.6-1.1) mg/dl Glucose 87 (70-105) mg/dL Calcium 8.9 (8.6-10.4) mg/dl Total Bilirubin 0.5 (0.0-1.0) mg/dL AST 55 H (0-37) U/l ALT 44 H (0-40) U/l Alkaline Phosphatase 367 H (39-117) U/L Total Protein 7.0 (5.9-8.4) gm/dL Albumin 2.3 L (3.2-5.2) gm/dL Assessment and Plan (1) 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 Status: Suspected Current Visit: No (3) Diabetes Problem details: NOW ON LANTUS 45 UNITS SQ BID, JANUVIA 50 MG PO DAILY AND METFORMIN. Status: Chronic Assessment and plan: Assessment: Progressing well from wound care point of view. MRSA, CSSSI Left greqt toe plantar ulcer. PNA and UTI improving. Awaits D/C. Plan: Continue ongoing wound care and PO ABX per hospitalist . F/U at wound care after discharge. Current Visit: Yes (4) UTI (urinary tract infection) Problem details: E coli sens to all- change to Ceftriaxone Status: Acute Current Visit: Yes - Time Spent With Patient Total time spent is greater than 50% in coordination of care (as documented) at patient's floor/unit and/or counseling patient:
[2018-07-17] MEDS ORDERED: PIPERACILLIN SODIUM/TAZOBACTAM 3.375 GM in DEXTROSE 5% IN WATER 50 ML IV SCH (12:00)
== END 2018-07-17 13:15 | DRG 871 ==
LOC: ED 17:39 → MEDSUR 21:19
PROVIDERS: ADMIT Internal Medicine; ATTEND Internal Medicine

== ENCOUNTER 2018-07-20 14:36 | Inpatient (IN) ==
--- NOTE | 2018-07-20 15:05 | Emergency Department Note ---
Skin/Abscess/FB HPI - General Chief complaint: Skin/Abscess/Foreign Body Stated complaint: toe redness and swelliing Time Seen by Provider: 07/20/18 14:43 Source: patient Mode of arrival: wheelchair Limitations: no limitations - History of Present Illness HPI Narrative: Patient is a 73-year-old female who presents to the emergency department today with concern of increased redness and swelling to her left leg. She was admitted to the hospital last week for cellulitis of the left foot. She had a CT scan and x-ray of her left foot that did not show osteomyelitis. She did have a surgical debridement with Dr. Nazario and was discharged to [facility]. She has been taking doxycycline 100 mg twice a day. The cultures from the cellulitis grew MRSA. She has been taking Levaquin for bilateral pneumonia. On July 17, 2018 her white count was 12.0 which was the day of discharge. She denies any fevers or chills today. She reports that the left foot does have some increased redness and swelling. She denies a cough. She denies shortness breath, difficulty breathing or chest pain. - Related Data Home Medications Medication Instructions Recorded Confirmed Sertraline [Zoloft] 100 mg PO HS 04/29/15 07/20/18 Simvastatin [Zocor] 20 mg PO HS 04/29/15 07/20/18 Aspirin [Lo-Dose Aspirin EC] 81 mg PO ONCE 07/13/18 07/20/18 Cyanocobalamin (Vitamin B-12) 2,500 mcg PO BID 07/13/18 07/20/18 [Vitamin B12] Fesoterodine Fumarate [Toviaz] 4 mg PO DAILY 07/13/18 07/20/18 Insulin Glargine, Human [Lantus] 70 unit SQ BID 07/13/18 07/20/18 Silver Sulfadiazine [Silvadene] 1 dose TOPICAL DAILY 07/13/18 07/20/18 Torsemide 100 mg PO DAILY 07/13/18 07/20/18 Gabapentin [Neurontin] 100 mg PO HS 07/14/18 07/20/18 Losartan [Cozaar] 50 mg PO DAILY 07/14/18 07/20/18 glipiZIDE [Glipizide ER] 5 mg PO DAILY 07/14/18 07/20/18 Acetaminophen 650 mg PO Q6HP PRN 07/20/18 07/20/18 Bisacodyl [Dulcolax] 10 mg MT DAILYP PRN 07/20/18 07/20/18 Glucagon,Human Recombinant 1 mg IJ PRN PRN 07/20/18 07/20/18 [Glucagon Emergency Kit] Loperamide [Imodium] 2 mg PO PRN PRN 07/20/18 07/20/18 Previous Rx's Medication Instructions Recorded buPROPion [Wellbutrin Xl] 150 mg PO DAILY 12/15/16 Accu-Chek 1 each FS ACHS strip 12/17/16 Doxycycline Hyclate [Vibramycin] 100 mg PO BID 5 Days #10 cap 07/17/18 Insulin Aspart [Novolog] See Protocol SQ ACHS #1 ml 07/17/18 rOPINIRole HCL [Requip] 3 mg PO HS #5 tab 07/17/18 Allergies Allergy/AdvReac Type Severity Reaction Status Date / Time Sulfa (Sulfonamide Allergy Mild Rash Verified 07/16/18 06:52 Antibiotics) clindamycin Allergy Verified 07/13/18 17:45 Amoxicillin AdvReac Mild Diarrhea Verified 07/14/18 07:27 morphine AdvReac Mild Other Verified 07/14/18 07:27 Review of Systems All systems ED: reviewed and negative except as stated. Past Medical History - Past Medical History Medical history: Reports: arthritis, DM, hyperlipidemia, hypertension, obesity, renal disease, seizures, other Psychiatric history: Reports: depression, other Surgical history ED: Reports: cholecystectomy - Social History smoking status: Former smoker Alcohol use: Reports: None Drug use: Reports: none Physical Exam Limitations: no limitations General appearance: alert, in no apparent distress Eye: Present: normal appearance, PERRL ENT: normal oropharynx, mucous membranes moist Neck: Present: normal inspection. Absent: lymphadenopathy Chest: Present: symmetric chest wall rise Respiratory: Present: normal lung sounds bilaterally. Absent: respiratory distress, wheezes, stridor, accessory muscle use, prolonged expiratory phase Cardiovascular: Present: regular rate, normal rhythm. Absent: systolic murmur, diastolic murmur Extremities: Present: full ROM, other (3+ edema bilateral lower extremities. The left foot is erythematous and there is a piece of packing gauze in the distal end of the left first toe at the surgical debridement site on the medial side of the toe. No drainage is seen. Pedal pulses 1+. Capillary refill less than 2 seconds. There is slight tenderness with palpation in the area is warm to the touch. There is a marked area on the left lower leg and a small amount of erythema just outside of the marked area approximately 5 cm.) Neurological: Present: alert, oriented X3 Psychiatric: Present: normal affect, normal mood Course - Reevaluation(s) Reevaluation #1: Received a phone call from Dr. Patel who reports possible osteomyelitis of the distal phalanx of the first toe and questionable osteomyelitis of the fourth and fifth metatarsal. Called and spoke with Dr. Nazario who will plan on seeing the patient, and recommended inpatient treatment. Time: 17:01 (spoke with Dr. Oates who will admit the patient to med/surg for osteomyelitis. Dr. young recommended Zosyn and vancomycin to be started.) Vital Signs Temperature 97.3 F 07/20/18 14:36 Pulse Rate 81 07/20/18 14:36 Respiratory Rate 16 07/20/18 14:36 Blood Pressure 115/37 07/20/18 14:36 Pulse Oximetry (%) 94 07/20/18 14:36 Temperature 97.3 F 07/20/18 14:36 Pulse Rate 74 07/20/18 17:02 Respiratory Rate 16 07/20/18 14:36 Blood Pressure 94/46 07/20/18 17:02 Pulse Oximetry (%) 99 07/20/18 17:02 Skin/Abscess/Foreign Body - [facility] Narrative Medical decision making narrative: White count today is 12.1 which was 12.0, 3 days ago. Patient has been taking oral doxycycline without improvement and there appears to be more erythema just past the marked area on the left leg. Cultures did grow MRSA. X-ray today was suspicious of possible osteomyelitis. MRI was ordered, but the patient apparently is too large to fit in the MRI for this to be done, so this was changed to a CT scan. Dr. Patel read the imaging and is questionable of distal phalanx osteomyelitis on the first toe. He was also wondering about possible osteomyelitis of the fourth and fifth metatarsal, but this could be related to possible osteoarthritis. The patient does have significant cellulitis and appears to not be responding very well with the doxycycline. She has a blood pressure 115/37, pulse 81, respirations 16, temperature is 97.3, and oxygen saturation 94%. Patient will be requiring IV antibiotics and spoke with Dr. Oates and a Dr. Nazario today. Dr. Oates will admit patient to [facility], and Dr. Nazario will see the patient. Dr. Oates recommended st arting IV vancomycin and Zosyn. The first dose of vancomycin was given in the emergency department today. - Lab Data Lab results reviewed: Yes I reviewed the patient's lab results. Result diagrams: 07/20/18 15:20 07/20/18 15:20 Lab Results 07/20/18 07/20/18 Range/Units 15:20 15:20 WBC 12.1 H (4.5-11.0) K/mcL RBC 2.62 L (4.00-5.20) M/mcL Hgb 8.3 L (12.0-15.0) g/dL Hct 24.6 L (36.0-48.0) % MCV 94.1 (80.0-100.0) fL MCH 31.6 (26.0-34.0) pg MCHC 33.5 (31.0-36.0) g/dL RDW 15.8 H (11.5-14.5) % Plt Count 349 (140-440) K/mcL MPV 6.9 L (7.4-10.4) fL Gran % 78.1 H (38.0-78.0) % Lymph % (Auto) 11.9 L (15.5-49.0) % [place] % (Auto) 6.9 (1.0-12.0) % Eos % (Auto) 2.6 (0.0-7.0) % Baso % (Auto) 0.5 (0.0-2.0) % Gran # 9.5 H (1.8-8.0) K/mcL Lymph # (Auto) 1.4 L (1.5-4.8) K/mcL [place] # (Auto) 0.8 (0.1-0.9) K/mcL Eos # (Auto) 0.3 (0.0-0.7) K/mcL Baso # (Auto) 0.1 (0.0-0.3) K/mcL ESR > 120 H (0-20) mm/hr Sodium 135 (133-145) mmol/L Potassium 3.8 (3.3-5.1) mmol/L Chloride 93 L (96-108) mmol/L Carbon Dioxide 28 (22-30) mmol/L Anion Gap 14.0 (8-16) BUN 57 H (8-23) mg/dl Creatinine 2.2 H (0.6-1.1) mg/dl GFR Calculation 22 Glucose 192 H (70-105) mg/dL Calcium 8.8 (8.6-10.4) mg/dl Total Bilirubin 0.4 (0.0-1.0) mg/dL AST 26 (0-37) U/l ALT 28 (0-40) U/l Alkaline Phosphatase 279 H (39-117) U/L Total Protein 7.2 (5.9-8.4) gm/dL Albumin 2.9 L (3.2-5.2) gm/dL Globulin 4.3 H (2.2-3.7) gm/dL Albumin/Globulin Ratio 0.7 L (1.0-2.3) Disposition Pt seen by [employer]/PA only: Yes Clinical Impression: Cellulitis of leg, left, Osteomyelitis of great toe of left foot Disposition: Xfer As Inpt ([facility]) Condition: Fair Referrals: Katie Haji ARNP [Primary Care Provider] -
--- NOTE | 2018-07-20 15:27 | XRay Report ---
HISTORY: Cellulitis with erythema and swelling in the great toe FINDINGS: Patient appears to have had a debridement performed with insertion of packing material at the base of the first metatarsal phalangeal joint. There is also some radiopaque material or gauze lateral to the proximal and distal phalanx of the first toe. Bubbles of air were seen in the soft tissues beneath the head of the first metatarsal and the recent CT scan done on 07/15/18. They are no longer identified. The sesamoids and first metatarsal appear normal on this exam. However, patient appears to be developing demineralization of bone at the base of the distal phalanx in the first toe. There may be another small cortical erosion at the base of the proximal phalanx of the first toe. There is no fracture or destructive bone lesion. The patient has an underlying mild arthritis with mild narrowing of the interphalangeal joint spaces. There is also spur formation in the midfoot between the tarsal bones. Large calcaneal spurs present on the plantar surface. Moderate soft tissue swelling is seen dorsal to the metatarsals. IMPRESSION: Possible osteomyelitis in the distal and proximal phalanges of the great toe. This could be better evaluated by an MRI. Interpreted and Authenticated by: Yakov Patel 07/20/18
[2018-07-20 15:52] LABS: Basophils # (Auto) 0.1 K/mcL (0.0-0.3); Basophils % (Auto) 0.5 % (0.0-2.0); Eosinophils # (Auto) 0.3 K/mcL (0.0-0.7); Eosinophils % (Auto) 2.6 % (0.0-7.0); Granulocytes % (Auto) 78.1 % (38.0-78.0); Lymphocytes # (Auto) 1.4 K/mcL (1.5-4.8); Lymphocytes % (Auto) 11.9 % (15.5-49.0); Mean Cell Volume 94.1 fL (80.0-100.0); Mean Corpuscular HGB Conc 33.5 g/dL (31.0-36.0); Monocytes # (Auto) 0.8 K/mcL (0.1-0.9); Monocytes % (Auto) 6.9 % (1.0-12.0); Platelet Count 349 K/mcL (140-440); RBC 2.62 M/mcL (4.00-5.20); Red Cell Distribution Width 15.8 % (11.5-14.5)
[2018-07-20 16:18] LABS: ALT/SGPT 28 U/l (0-40); Albumin 2.9 gm/dL (3.2-5.2); Albumin/Globulin Ratio 0.7 (1.0-2.3); Alkaline Phosphatase 279 U/L (39-117); Blood Urea Nitrogen 57 mg/dl (8-23)
[2018-07-20] MEDS ORDERED: VANCOMYCIN 1,000 MG in 0.9 % SODIUM CHLORIDE 250 ML IV ONE (16:22)
[2018-07-20 16:42] LABS: Erythrocyte Sedimentation Rate > 120 mm/hr (0-20)
[2018-07-20] MEDS ORDERED: DEXTROSE 50% 50 ML VIAL IV PRN ×2 (17:08→20:04)
[2018-07-20] MEDS ORDERED: DEXTROSE 31 GM ORAL.SUSP PO PRN ×2 (17:08→20:04)
[2018-07-20] MEDS ORDERED: VANCOMYCIN PER PHARMACY IV ONE (17:14)
[2018-07-20] MEDS ORDERED: PIPERACILLIN SODIUM/TAZOBACTAM 3.375 GM in DEXTROSE 5% IN WATER 50 ML IV SCH (17:30)
--- NOTE | 2018-07-20 19:31 | Internal Med History&Physical ---
Medical - H&P: [facility] Patient information: Note initiated : 07/20/18 at 7:27 pm Service Date, if different from initiated Date: [] Patient: Mary Gibbons a 73 y/o F admitted on 07/20/18 for toe redness and swelliing. Chief Complaint: [] History of present illness: Ms. Gibbons is a 73 year old F Who was recently admitted for pneumonia and left toe cellulitis. She did have surgical debridement by Dr. sneed during her last visit per ED note. Patient was discharged on the [facility] to continue with doxycycline for the wound and Levaquin for the pulmonary. Over the last 24 hours she noticed that she has had increased swelling and redness and warmth to that toe and foot extending up into her leg. She had headache. She denies fevers or chills. In the ED she was evaluated with x-ray and then subsequently CT which was concerning for osteomyelitis. She had an ESR of greater than 120. Her renal function was worse than baseline. She had blood pressures in the 90s systolic with one measurement in the 80s, I am not sure if that was an accurate reading. Certainly is low. She is on losartan and torsemide. Review of Systems: Pertinent positives as above. Denies fever/chills/nausea/vomiting/chest or abdominal pain/cough/dyspnea/diarrhea. Remaining 10 point review of systems rev iewed negative Medical - H&P: PM[facility] Medical history: Medical History Left leg cellulitis (Suspected) SIRS (systemic inflammatory response syndrome) (Resolved) Diabetes (Chronic) Acute delirium (Acute) UTI (urinary tract infection) (Acute) Sepsis associated hypotension (Acute) Pulmonary edema (Acute) Pneumonia (Resolved) HTN (hypertension) (Chronic) Acute and chronic respiratory failure with hypoxia (Resolved) Renal insufficiency, mild (Acute) Left leg cellulitis (Acute) MRSA carrier (Acute) Stasis dermatitis of left lower extremity due to peripheral venous hypertension (Acute) Cellulitis of leg, left (Acute) Cellulitis (Acute) Venous stasis dermatitis of both lower extremities (Acute) Cellulitis (Acute) Pneumonia (Acute) Surgical history: Cholecystectomy Tonsillectomy Bilateral tubal ligation Right shoulder surgery Family history: Mother at rachid had a cancer father had brain aneurysm Social history: Patient quit smoking 4 years ago drinks alcohol rarely ablates outside with a cane lives by herself Medical - H&P: Meds Home Medications Medication Instructions Recorded Confirmed Type Sertraline [Zoloft] 100 mg PO HS 04/29/15 07/20/18 History Simvastatin [Zocor] 20 mg PO HS 04/29/15 07/20/18 History buPROPion [Wellbutrin Xl] 150 mg PO DAILY 12/15/16 07/20/18 Rx Accu-Chek 1 each FS ACHS strip 12/17/16 07/20/18 Rx Aspirin [Lo-Dose Aspirin EC] 81 mg PO ONCE 07/13/18 07/20/18 History Cyanocobalamin (Vitamin B-12) 2,500 mcg PO BID 07/13/18 07/20/18 History [Vitamin B12] Fesoterodine Fumarate [Toviaz] 4 mg PO DAILY 07/13/18 07/20/18 History Insulin Glargine, Human [Lantus] 70 unit SQ BID 07/13/18 07/20/18 History Silver Sulfadiazine [Silvadene] 1 dose TOPICAL DAILY 07/13/18 07/20/18 History Torsemide 100 mg PO DAILY 07/13/18 07/20/18 History Gabapentin [Neurontin] 100 mg PO HS 07/14/18 07/20/18 History Losartan [Cozaar] 50 mg PO DAILY 07/14/18 07/20/18 History glipiZIDE [Glipizide ER] 5 mg PO DAILY 07/14/18 07/20/18 History Doxycycline Hyclate [Vibramycin] 100 mg PO BID 5 Days #10 cap 07/17/18 07/20/18 Rx Insulin Aspart [Novolog] See Protocol SQ ACHS #1 ml 07/17/18 07/20/18 Rx rOPINIRole HCL [Requip] 3 mg PO HS #5 tab 07/17/18 07/20/18 Rx Acetaminophen 650 mg PO Q6HP PRN 07/20/18 07/20/18 History Bisacodyl [Dulcolax] 10 mg MT DAILYP PRN 07/20/18 07/20/18 History Glucagon,Human Recombinant 1 mg IJ PRN PRN 07/20/18 07/20/18 History [Glucagon Emergency Kit] Loperamide [Imodium] 2 mg PO PRN PRN 04/27/19 04/27/19 History Allergies Allergy/AdvReac Type Severity Reaction Status Date / Time Sulfa (Sulfonamide Allergy Mild Rash Verified 07/16/18 06:52 Antibiotics) clindamycin Allergy Verified 07/13/18 17:45 Amoxicillin AdvReac Mild Diarrhea Verified 07/14/18 07:27 morphine AdvReac Mild Other Verified 07/14/18 07:27 Medical - H&P: Exam - Constitutional Vitals: Temp Pulse Resp BP Pulse Ox 97.4 F 75 16 111/56 96 07/20/18 18:08 07/20/18 18:08 07/20/18 18:08 07/20/18 18:08 07/20/18 18:08 Exam: General: Alert, Awake, No acute Distress, morbidly obese Eyes/N/T: EOMI, PEERL, DMM Head/Neck: neck supple, normocephalic atraumatic CV: RRR, 3/6 SM Pulm: Clear b/l, no wheezing/rhonchi/rales Abd: soft, nontender, +BS x4 Ext: no clubbing/cyanosis. Left lower extremity wrapped but is tender to touch and erythema and warmth extend up into the leung. Neuro: Alert, no focal deficits, moves all extremities, CN 2-12 grossly intact, symmetrical strength b/l upper/lower, sensations intact b/l upper/lower but decreased lower extremities from neuropathy Skin: warm/dry Medical - H&P: Reslt - Labs CBC & Chem 7: 07/20/18 15:20 07/20/18 15:20 Labs: Short CBC 07/20/18 Range/Units 15:20 WBC 12.1 H (4.5-11.0) K/mcL Hgb 8.3 L (12.0-15.0) g/dL Hct 24.6 L (36.0-48.0) % Plt Count 349 (140-440) K/mcL BMP 07/20/18 15:20 Sodium 135 Potassium 3.8 Chloride 93 L Carbon Dioxide 28 BUN 57 H Creatinine 2.2 H Glucose 192 H Calcium 8.8 Liver Function 07/20/18 Range/Units 15:20 Total Bilirubin 0.4 (0.0-1.0) mg/dL AST 26 (0-37) U/l ALT 28 (0-40) U/l Alkaline Phosphatase 279 H (39-117) U/L Albumin 2.9 L (3.2-5.2) gm/dL - Impressions Per report CT of the foot concerning for ostium mellitus of the great toe and possibly several of the other toes on the left Medical - H&P: A/P - Narrative A/P Narrative: A: *Left great toe osteomyelitis with cellulitis of the left foot: *YANN on CKD IIIb: on ARB and Torsemide *DM W/neuropathy: *Anemia, chronic: *Chronic wounds: Follows with Dr. Fonseca *HTN: low with one reading in ED hypotensive *Depression: *Oral pharyngeal dysphasia: Was on level 3 per speech therapy last admit *Morbid obesity: * P: -Vanco/zosyn -Pending MRI for confirmation -Dr. Fonseca following, will involve Dr. Pardo if needed -IVF's tonight and hold ARB/Torsemide -urine studies, monitor UOP -SSI -pt/ot -ppx: heparin
[2018-07-20] MEDS ORDERED: LOPERAMIDE 2 MG CAPSULE PO PRN (20:04)
[2018-07-20] MEDS ORDERED: PROCHLORPERAZINE 10 MG/2 ML VIAL IV PRN (20:04)
[2018-07-20] MEDS ORDERED: BISACODYL 10 MG SUPP.RECT PR PRN (20:04)
[2018-07-20] MEDS ORDERED: ONDANSETRON 4 MG/2 ML VIAL IV PRN (20:04)
[2018-07-20] MEDS ORDERED: HYDROcodone/APAP 5/325MG TABLET PO PRN (20:04)
[2018-07-20] MEDS ORDERED: ALBUTEROL SULFATE 2.5 MG/3 ML NEBULIZER NEB PRN (20:04)
[2018-07-20] MEDS: PIPERACILLIN SODIUM/TAZOBACTAM 3.375 GM in DEXTROSE 5% IN WATER 50 ML IV SCH (20:13)
--- NOTE | 2018-07-20 20:30 | Emergency Department Note ---
ED Note Addendum Note Addendum: I reviewed this case of kenton PEREZ. Agree with his evaluation management and documentation. I reviewed the imaging studies as well as discussed management the case with Kenton. Agree with decision to admit
[2018-07-20] MEDS: 0.9 % SODIUM CHLORIDE 1,500 ML IV SCH (20:50)
[2018-07-20] MEDS ORDERED: INSULIN LISPRO 1 UNIT/0.01 ML UNIT SQ SCH (21:00)
[2018-07-20 21:05] LABS: Appearance,Urine CLEAR; Bilirubin,Urine NEG (NEG); Color,Urine STRAW; Glucose,Urine (UA) NEGATIVE (NEG); Leukocyte Esterase,Urine NEG /uL (NEG); Protein,Urine NEG (NEG); Specific Gravity,Urine 1.009 (1.000-1.035); Urine Blood NEG mg/dL (<0.03); Urobilinogen,Urine NEG (NEG)
[2018-07-20 21:38] LABS: C-Reactive Protein 7.3 mg/dl (0.0-0.8)
[2018-07-20] MEDS ORDERED: 0.9 % SODIUM CHLORIDE 10 ML SYRINGE IV SCH (22:00)
[2018-07-20] MEDS: HEPARIN 5,000 UNIT/ML VIAL SQ SCH (22:08)
[2018-07-20] MEDS: INSULIN LISPRO 1 UNIT/0.01 ML UNIT SQ SCH (22:08)
[2018-07-20] MEDS: INSULIN GLARGINE, HUMAN 1 UNIT/0.01 ML SQ SCH (22:08)
[2018-07-20] MEDS: CYANOCOBALAMIN (VITAMIN B-12) 500 MCG TABLET PO SCH (22:09)
[2018-07-20] MEDS: rOPINIRole 1 MG TABLET PO SCH (22:09)
[2018-07-20] MEDS: SERTRALINE 100 MG TABLET PO SCH (22:09)
[2018-07-20] MEDS: SIMVASTATIN 20 MG TABLET PO SCH (22:09)
[2018-07-20] MEDS: GABAPENTIN 100 MG CAPSULE PO SCH (22:09)
[2018-07-20] MEDS: DOCUSATE SODIUM 100 MG CAPSULE PO SCH (22:10)
[2018-07-20] MEDS: 0.9 % SODIUM CHLORIDE 10 ML SYRINGE IV SCH ×2 (22:11)
[2018-07-21] MEDS: PIPERACILLIN SODIUM/TAZOBACTAM 3.375 GM in DEXTROSE 5% IN WATER 50 ML IV SCH ×4 (00:26→16:54)
[2018-07-21] MEDS: 0.9 % SODIUM CHLORIDE 1,500 ML IV SCH (04:26)
[2018-07-21 05:29] LABS: Mean Cell Volume 94.3 fL (80.0-100.0); Mean Corpuscular HGB Conc 33.7 g/dL (31.0-36.0); Platelet Count 338 K/mcL (140-440); RBC 2.47 M/mcL (4.00-5.20); Red Cell Distribution Width 15.9 % (11.5-14.5)
[2018-07-21 05:57] LABS: ALT/SGPT 25 U/l (0-40); Albumin 2.8 gm/dL (3.2-5.2); Albumin/Globulin Ratio 0.7 (1.0-2.3); Alkaline Phosphatase 256 U/L (39-117); Bilirubin,Direct < 0.2 mg/dL (0.0-0.3); Blood Urea Nitrogen 53 mg/dl (8-23); Gamma Glutamyl Transpeptidase 121 U/L (5-36); Uric Acid 10.7 mg/dL (2.5-8.0)
[2018-07-21 06:16] LABS: Band Neutrophils % 4 % (0-10); Eosinophils % (Manual) 1 % (0-7); Lymphocytes % 19 % (15-49); Metamyelocytes % 3 % (0-0); Monocytes % (Manual) 5 % (1-12); Platelet Estimate NORMAL (NORMAL); RBC Morphology NORMAL (NORMAL); Segmented Neutrophils % 68 % (38-78)
[2018-07-21] MEDS: 0.9 % SODIUM CHLORIDE 10 ML SYRINGE IV SCH ×4 (06:52→22:10)
[2018-07-21] MEDS: INSULIN LISPRO 1 UNIT/0.01 ML UNIT SQ SCH ×4 (06:55→21:00)
--- NOTE | 2018-07-21 06:59 | Internal Med Progress Note ---
Medical - PN: Subj Patient information: Note initiated : 07/21/18 at 6:55 am Service Date, if different from initiated Date: [] Patient: Mary Gibbons 73 y/o F admitted on 07/20/18 for toe redness and swelliing. Chief Complaint: [] Interval history: Ms. Gibbons is a 73 year old F Who was recently admitted for pneumonia and left toe cellulitis. She did have surgical debridement by Dr. sneed during her last visit per ED note. Patient was discharged on the [facility] to continue with do xycycline for the wound and Levaquin for the pulmonary. Over the last 24 hours she noticed that she has had increased swelling and redness and warmth to that toe and foot extending up into her leg. She had headache. She denies fevers or chills. In the ED she was evaluated with x-ray and then subsequently CT which was concerning for osteomyelitis. She had an ESR of greater than 120. Her renal function was worse than baseline. She had blood pressures in the 90s systolic with one measurement in the 80s, I am not sure if that was an accurate reading. Certainly is low. She is on losartan and torsemide. 07/21 Slept okay. Feels her pain swelling and redness in her leg is improving. No ne w complaints. Vital signs stable. Review of Systems: denies headache/fever/chills/nausea/vomiting/chest or abdominal pain/cough/dyspnea/diarrhea. Otherwise see above. - Constitutional Vitals: Vital Signs Temp Pulse Resp BP Pulse Ox 97.5 F 65 17 104/50 99 07/21/18 06:44 07/21/18 06:44 07/21/18 06:44 07/21/18 06:44 07/21/18 06:44 Period Temp Pulse Resp BP Sys/Vilchis Pulse Ox Last 24 Hr 97.1 F-97.5 F 55-81 16-20 83-115/37-84 70-99 Intake and Output 07/20/18 07/21/18 07/21/18 21:59 05:59 13:59 Intake Total 300 1300 Output Total 501 200 Balance 300 799 -200 Weight 125.191 kg 123.377 kg Intake & Output: Intake & Output 07/20/18 07/21/18 07/21/18 21:59 05:59 13:59 Intake Total 300 1300 Output Total 501 200 Balance 300 799 -200 Weight 125.191 kg 123.377 kg Intake: IV 300 1000 Sodium Chloride 0.9% 1,500 ml @ 950 125 mls/hr IV .Q12H [facility] Rx#: [id number] Zosyn 3.375 gm In Dextrose 5% 50 50 in Water 50 ml @ 100 mls/hr IV Q6H [facility] Rx#:[id number] Vancomycin 1,000 mg In Sodium 250 Chloride 0.9% 250 ml @ 250 mls/ hr IV ONCE ONE Rx#:[id number] Oral 300 Output: Void Amount 500 200 # of times incontinent of urine 1 Other: Meal Dinner Percent of Meal Consumed 100% Feeding Ability Independent Urine Appearance Clear Urine Color Straw Bright Yellow Urine Odor Normal Normal # Voids 1 Exam: General: Alert, Awake, No acute Distress, morbidly obese Eyes/N/T: EOMI, Head/Neck: neck supple, tic CV: RRR, 3/6 SM Pulm: Clear b/l, no wheezing/rhonchi/rales Abd: soft, nontender, +BS x4 Ext: no clubbing/cyanosis. Left lower extremity wrapped, erythema and swelling extending up in the leung is improved and tenderness improved Neuro: Alert, no focal deficits, moves all extremities, Skin: warm/dryinly is low. She is on losartan and torsemide. Medical - PN: Obj Da - Labs CBC & Chem 7: 07/21/18 04:43 07/21/18 04:43 Labs: Abnormal Lab Results 07/21/18 07/21/18 07/20/18 04:43 04:43 20:46 WBC RBC 2.47 L Hgb 7.9 L Hct 23.3 L RDW 15.9 H MPV 6.6 L Gran % Lymph % (Auto) Gran # Lymph # (Auto) Metamyelocytes % 3 H ESR Chloride BUN 53 H Creatinine 2.2 H Glucose Uric Acid 10.7 H Calcium 8.3 L Phosphorus 5.0 H GGT 121 H Alkaline Phosphatase 256 H C-Reactive Protein 7.3 H Albumin 2.8 L Globulin 4.1 H Albumin/Globulin Ratio 0.7 L 07/20/18 07/20/18 15:20 15:20 WBC 12.1 H RBC 2.62 L Hgb 8.3 L Hct 24.6 L RDW 15.8 H MPV 6.9 L Gran % 78.1 H Lymph % (Auto) 11.9 L Gran # 9.5 H Lymph # (Auto) 1.4 L Metamyelocytes % ESR > 120 H Chloride 93 L BUN 57 H Creatinine 2.2 H Glucose 192 H Uric Acid Calcium Phosphorus GGT Alkaline Phosphatase 279 H C-Reactive Protein Albumin 2.9 L Globulin 4.3 H Albumin/Globulin Ratio 0.7 L Meds: Medications Acetaminophen (Tylenol) 650 mg PO Q6HP PRN PRN Reason: PAIN/FEVER > 101 Hydrocodone Bitart/Acetaminophen (Clarence 5/325mg) 1 tab PO Q4HP PRN PRN Reason: PAIN LEVEL 3-6 Last Admin: 07/20/18 21:58 Dose: 1 tab Documented by: Albuterol Sulfate (Ventolin) 2.5 mg NEB Q2HP PRN PRN Reason: Shortness Of Breath Aspirin (Aspirin) 81 mg PO DAILY [facility] Bisacodyl (Dulcolax) 10 mg MT DAILYP PRN PRN Reason: Constipation Bupropion HCl (Wellbutrin Xl) 150 mg PO DAILY [facility] Cyanocobalamin (Vitamin B-12) 2,500 mcg PO BID [facility] Last Admin: 07/20/18 22:09 Dose: 2,500 mcg Documented by: Dextrose (Dextrose 50%) 0 ml IV UD PRN PRN Reason: Hypoglycemia Diagnostic Test (Pha) (Accu-Chek) 1 each FS ACHS [facility] Last Admin: 07/20/18 22:06 Dose: 1 each Documented by: Docusate Sodium (Colace) 100 mg PO BID [facility] Last Admin: 07/20/18 22:10 Dose: Not Given Documented by: Gabapentin (Neurontin) 100 mg PO HS [facility] Last Admin: 07/20/18 22:09 Dose: 100 mg Documented by: Glucose (Insta-Glucose) 15 gm PO PRN PRN PRN Reason: Hypoglycemia Heparin Sodium (Porcine) (Heparin) 5,000 unit SQ Q12 [facility] Last Admin: 07/20/18 22:08 Dose: 5,000 unit Documented by: Sodium Chloride (Sodium Chloride 0.9%) 1,500 mls @ 125 mls/hr IV .Q12H [facility] Stop: 07/21/18 08:03 Last Admin: 07/21/18 04:26 Dose: 125 mls/hr Documented by: Piperacillin Sod/Tazobactam (Sod 3.375 gm/ Dextrose) 50 mls @ 100 mls/hr IV Q6H [facility]; Protocol Last Admin: 07/21/18 05:23 Dose: 100 mls/hr Documented by: Insulin Glargine (Lantus) 70 unit SQ BID [facility] Last Admin: 07/20/18 22:08 Dose: 70 unit Documented by: Insulin Human Lispro (Humalog) 0 unit SQ ACHS [facility]; Protocol Last Admin: 07/20/18 22:08 Dose: 6 unit Documented by: Loperamide HCl (Imodium) 2 mg PO PRN PRN PRN Reason: Diarrhea Ondansetron HCl (Zofran) 4 mg IV Q6HP PRN PRN Reason: Nausea And Vomiting Fesoterodine Fumarate [Toviaz] 4 Mg Tab 1 dose PO DAILY [facility] Prochlorperazine (Compazine) 5 mg IV Q4HP PRN PRN Reason: Nausea And Vomiting Ropinirole HCl (Requip) 3 mg PO [facility] Last Admin: 07/20/18 22:09 Dose: 3 mg Documented by: Sertraline HCl (Zoloft) 100 mg PO [facility] Last Admin: 07/20/18 22:09 Dose: 100 mg Documented by: Simvastatin (Zocor) 20 mg PO [facility] Last Admin: 07/20/18 22:09 Dose: 20 mg Documented by: Sodium Chloride (Saline Flush) 10 ml IV Q8 [facility] Last Admin: 07/21/18 06:52 Dose: Not Given Documented by: Medical - PN: A/P - Time Spent With Patient Total time spent is greater than 50% in coordination of care (as documented) at patient's floor/unit and/or counseling patient: - Narrative A/P Narrative: A: *Left great toe osteomyelitis with cellulitis of the left foot: failed outpt treatment for cellulitis likely b/c bone involvement -MRSA wound on recent admit, d/c'd on doxy -leukocytosis improved *YANN on CKD IIIb: on ARB and Torsemide *DM W/neuropathy: *Anemia, chronic: *Chronic wounds: Follows with Dr. Fonseca *HTN: low with one reading in ED hypotensive *Depression: *Oral pharyngeal dysphasia: Was on level III per speech therapy last admit *Morbid obesity: * P: -Vanco/zosyn -Pending MRI for confirmation -Dr. Fonseca following, will involve Dr. Pardo if needed -IVF's today, hold ARB/Torsemide -SSI -pt/ot -ppx: heparin
[2018-07-21] MEDS: 0.9 % SODIUM CHLORIDE 1,000 ML IV SCH ×2 (07:11→16:54)
[2018-07-21] MEDS ORDERED: VANCOMYCIN PER PHARMACY IV SCH (07:30)
[2018-07-21] MEDS: ASPIRIN 81 MG TAB.CHEW PO SCH (08:46)
[2018-07-21] MEDS: DOCUSATE SODIUM 100 MG CAPSULE PO SCH ×2 (08:46→20:59)
[2018-07-21] MEDS: CYANOCOBALAMIN (VITAMIN B-12) 500 MCG TABLET PO SCH ×2 (08:46→20:53)
[2018-07-21] MEDS: buPROPion 150 MG TAB.XL.24H PO SCH (08:46)
[2018-07-21] MEDS: HEPARIN 5,000 UNIT/ML VIAL SQ SCH ×2 (08:46→20:56)
[2018-07-21] MEDS: INSULIN GLARGINE, HUMAN 1 UNIT/0.01 ML SQ SCH ×2 (08:46→20:57)
[2018-07-21] MEDS: FESOTERODINE FUMARATE 4 MG PO SCH (08:47)
--- NOTE | 2018-07-21 09:03 | Cat Scan Report ---
History: Infection left foot, status post recent debridement of an ulcer in the right toe and findings suggesting osteomyelitis on the preceding x-ray TECHNIQUE: The left foot was imaged in axial plane without contrast. Sagittal and coronal reformats were created. The radiation exposure was limited using dose reduction technology. FINDINGS: There is severe edema and cellulitis throughout the foot extending into the lower calf. Patient has had recent debridement of skin wounds medial to the first metatarsal phalangeal joint and along the inferior lateral border of the first toe. No abscess is identified. The bone marrow in the distal phalanx in the first toe has a mottled pattern. There is no apparent disruption of the overlying cortex and there is no fracture. This corresponds with the demineralization of bone seen on the preceding x-ray. This is suspicious for osteomyelitis. There are several tiny subcortical cysts in both the distal and proximal to clearance of the proximal phalanx of the first toe. These are less suspicious than the demineralization seen in the distal phalanx. There are small marginal erosions involving the heads of the fourth and fifth metatarsals. 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 There are also calcaneal spurs. No fracture or dislocation are present. A moderate amount calcified plaque is present in the vessels throughout the foot and around the ankle. IMPRESSION: Demineralization of bone in the distal phalanx of the great toe. This is highly suspicious for osteomyelitis Nonspecific small subchondral cysts in both proximal and distal ends of the proximal phalanx of the great toe. These could be due to arthritis or very early stage of osteomyelitis Marginal erosions in the heads of the fourth and fifth metatarsals. This is more likely due to arthritis than osteomyelitis. Severe cellulitis and edema throughout the foot and ankle Ayden Suleiman was called with the results Interpreted and Authenticated by: aYkov Patel 07/21/18
[2018-07-21] MEDS: VANCOMYCIN 1,250 MG in 0.9 % SODIUM CHLORIDE 500 ML IV SCH (09:39)
--- NOTE | 2018-07-21 14:23 | General Surgery Consult Note ---
History of Present Illness Patient information: Note initiated : 07/21/18 at 2:18 pm Service Date, if different from initiated Date: [] Patient: Mary Gibbons 73 y/o F admitted on 07/20/18 for toe redness and swelliing. Chief Complaint: [] Consult date: 07/20/18 Requesting physician: Jesus Oates (Wound Care . OSTEO Lt 1st toe) History of present illness: Patient was admitted via ER with recurrent LEFT 1 st toe inflammation around debrided area and cellulitis. Failed out patient treatment. Imaging studies reveal osteomyelitis LEFT 1 st toe proximal phalanx with cellulitis. H/O MRSA. Other skin lesions hip and torso are stable. She is morbidly obese, has chronic UTI ( stress incontinence of urine ) Medications and Allergies Home Medications Medication Instructions Recorded Confirmed Type Sertraline [Zoloft] 100 mg PO HS 04/29/15 07/20/18 History Simvastatin [Zocor] 20 mg PO HS 04/29/15 07/20/18 History buPROPion [Wellbutrin Xl] 150 mg PO DAILY 12/15/16 07/20/18 Rx Accu-Chek 1 each FS ACHS strip 12/17/16 07/20/18 Rx Aspirin [Lo-Dose Aspirin EC] 81 mg PO ONCE 07/13/18 07/20/18 History Cyanocobalamin (Vitamin B-12) 2,500 mcg PO BID 07/13/18 07/20/18 History [Vitamin B12] Fesoterodine Fumarate [Toviaz] 4 mg PO DAILY 07/13/18 07/20/18 History Insulin Glargine, Human [Lantus] 70 unit SQ BID 07/13/18 07/20/18 History Silver Sulfadiazine [Silvadene] 1 dose TOPICAL DAILY 07/13/18 07/20/18 History Torsemide 100 mg PO DAILY 07/13/18 07/20/18 History Gabapentin [Neurontin] 100 mg PO HS 07/14/18 07/20/18 History Losartan [Cozaar] 50 mg PO DAILY 07/14/18 07/20/18 History glipiZIDE [Glipizide ER] 5 mg PO DAILY 07/14/18 07/20/18 History Doxycycline Hyclate [Vibramycin] 100 mg PO BID 5 Days #10 cap 07/17/18 07/20/18 Rx Insulin Aspart [Novolog] See Protocol SQ ACHS #1 ml 07/17/18 07/20/18 Rx rOPINIRole HCL [Requip] 3 mg PO HS #5 tab 07/17/18 07/20/18 Rx Acetaminophen 650 mg PO Q6HP PRN 07/20/18 07/20/18 History Bisacodyl [Dulcolax] 10 mg MT DAILYP PRN 07/20/18 07/20/18 History Glucagon,Human Recombinant 1 mg IJ PRN PRN 07/20/18 07/20/18 History [Glucagon Emergency Kit] Loperamide [Imodium] 2 mg PO PRN PRN 07/20/18 07/20/18 History Allergies Allergy/AdvReac Type Severity Reaction Status Date / Time Sulfa (Sulfonamide Allergy Mild Rash Verified 07/16/18 06:52 Antibiotics) clindamycin Allergy Verified 07/13/18 17:45 Amoxicillin AdvReac Mild Diarrhea Verified 07/14/18 07:27 morphine AdvReac Mild Other Verified 07/14/18 07:27 Exam Temp Pulse Resp BP Pulse Ox 97.5 F 68 18 116/54 98 07/21/18 11:53 07/21/18 11:53 07/21/18 11:53 07/21/18 11:53 07/21/18 11:53 - General physical appearance well developed, well nourished, obese (MORBID obesity) - Eyes PERRL, normal ocular movement - ENT normal mucosa, no congestion - Head Head exam IM: Present: normocephalic - Neck no masses, no venous distension - Cardiovascular Cardiovascular exam IM: Present: normal rate and rhythm, systolic murmur - Respiratory clear to auscultation - Abdomen Abdomen: Present: soft, non tender, bowel sounds - Integumentary Present: other (superficial dermatitis / epidermal skin ulceration hip torso < 2 CM . Stable.( Protective dressings ) ) - Neurologic Present: other (Peripheral neuropathy. Ambulateing with FWW and physicail therapy. Heel weight bering. ) - Musculoskeletal Present: other (Osteomyelitis LEFT 1 st toe proximal phalanx, ) - Psychiatric Present: oriented to time, oriented to person, oriented to place, speech is normal Results - Labs 07/21/18 04:43 07/21/18 04:43 Abnormal lab results 07/20/18 07/20/18 07/20/18 Range/Units 15:20 15:20 20:46 WBC 12.1 H (4.5-11.0) K/mcL RBC 2.62 L (4.00-5.20) M/mcL Hgb 8.3 L (12.0-15.0) g/dL Hct 24.6 L (36.0-48.0) % RDW 15.8 H (11.5-14.5) % MPV 6.9 L (7.4-10.4) fL Gran % 78.1 H (38.0-78.0) % Lymph % (Auto) 11.9 L (15.5-49.0) % Gran # 9.5 H (1.8-8.0) K/mcL Lymph # (Auto) 1.4 L (1.5-4.8) K/mcL Metamyelocytes % (0-0) % ESR > 120 H (0-20) mm/hr Chloride 93 L (96-108) mmol/L BUN 57 H (8-23) mg/dl Creatinine 2.2 H (0.6-1.1) mg/dl Glucose 192 H (70-105) mg/dL Uric Acid (2.5-8.0) mg/dL Calcium (8.6-10.4) mg/dl Phosphorus (2.7-4.5) mg/dL GGT (5-36) U/L Alkaline Phosphatase 279 H (39-117) U/L C-Reactive Protein 7.3 H (0.0-0.8) mg/dl Albumin 2.9 L (3.2-5.2) gm/dL Globulin 4.3 H (2.2-3.7) gm/dL Albumin/Globulin Ratio 0.7 L (1.0-2.3) 07/21/18 07/21/18 Range/Units 04:43 04:43 WBC (4.5-11.0) K/mcL RBC 2.47 L (4.00-5.20) M/mcL Hgb 7.9 L (12.0-15.0) g/dL Hct 23.3 L (36.0-48.0) % RDW 15.9 H (11.5-14.5) % MPV 6.6 L (7.4-10.4) fL Gran % (38.0-78.0) % Lymph % (Auto) (15.5-49.0) % Gran # (1.8-8.0) K/mcL Lymph # (Auto) (1.5-4.8) K/mcL Metamyelocytes % 3 H (0-0) % ESR (0-20) mm/hr Chloride (96-108) mmol/L BUN 53 H (8-23) mg/dl Creatinine 2.2 H (0.6-1.1) mg/dl Glucose (70-105) mg/dL Uric Acid 10.7 H (2.5-8.0) mg/dL Calcium 8.3 L (8.6-10.4) mg/dl Phosphorus 5.0 H (2.7-4.5) mg/dL GGT 121 H (5-36) U/L Alkaline Phosphatase 256 H (39-117) U/L C-Reactive Protein (0.0-0.8) mg/dl Albumin 2.8 L (3.2-5.2) gm/dL Globulin 4.1 H (2.2-3.7) gm/dL Albumin/Globulin Ratio 0.7 L (1.0-2.3) Diabetes panel 07/20/18 07/21/18 Range/Units 15:20 04:43 Sodium 135 141 (133-145) mmol/L Potassium 3.8 3.4 (3.3-5.1) mmol/L Chloride 93 L 99 (96-108) mmol/L Carbon Dioxide 28 28 (22-30) mmol/L BUN 57 H 53 H (8-23) mg/dl Creatinine 2.2 H 2.2 H (0.6-1.1) mg/dl Glucose 192 H 73 (70-105) mg/dL Calcium 8.8 8.3 L (8.6-10.4) mg/dl AST 26 24 (0-37) U/l ALT 28 25 (0-40) U/l Alkaline Phosphatase 279 H 256 H (39-117) U/L Total Protein 7.2 6.9 (5.9-8.4) gm/dL Albumin 2.9 L 2.8 L (3.2-5.2) gm/dL Triglycerides 108 (<150) mg/dl Calcium panel 07/20/18 07/21/18 Range/Units 15:20 04:43 Calcium 8.8 8.3 L (8.6-10.4) mg/dl Phosphorus 5.0 H (2.7-4.5) mg/dL Albumin 2.9 L 2.8 L (3.2-5.2) gm/dL Pituitary panel 07/20/18 07/21/18 Range/Units 15:20 04:43 Sodium 135 141 (133-145) mmol/L Potassium 3.8 3.4 (3.3-5.1) mmol/L Chloride 93 L 99 (96-108) mmol/L Carbon Dioxide 28 28 (22-30) mmol/L BUN 57 H 53 H (8-23) mg/dl Creatinine 2.2 H 2.2 H (0.6-1.1) mg/dl Glucose 192 H 73 (70-105) mg/dL Calcium 8.8 8.3 L (8.6-10.4) mg/dl Adrenal panel 07/20/18 07/21/18 Range/Units 15:20 04:43 Sodium 135 141 (133-145) mmol/L Potassium 3.8 3.4 (3.3-5.1) mmol/L Chloride 93 L 99 (96-108) mmol/L Carbon Dioxide 28 28 (22-30) mmol/L BUN 57 H 53 H (8-23) mg/dl Creatinine 2.2 H 2.2 H (0.6-1.1) mg/dl Glucose 192 H 73 (70-105) mg/dL Calcium 8.8 8.3 L (8.6-10.4) mg/dl Total Bilirubin 0.4 0.4 (0.0-1.0) mg/dL AST 26 24 (0-37) U/l ALT 28 25 (0-40) U/l Alkaline Phosphatase 279 H 256 H (39-117) U/L Total Protein 7.2 6.9 (5.9-8.4) gm/dL Albumin 2.9 L 2.8 L (3.2-5.2) gm/dL All other labs normal. Assessment and Plan (1) Left leg cellulitis Assessment: Failed out patient treatment ( On PO antibiotics after debridement ) Osteomyelitis LEFT great toe proximal phalanx. Plan: IV antibiotics. Local wound care. SPOKE with patient about treatment ( possible toe amputation ) Reassess in AM. Status: Suspected Priority: Medium Comment: COMPLETE 5 ADDITIONAL DAYS OF CL INDAMYCIN 450 MG PO QID.
[2018-07-21] MEDS: SIMVASTATIN 20 MG TABLET PO SCH (20:54)
[2018-07-21] MEDS: rOPINIRole 1 MG TABLET PO SCH (20:54)
[2018-07-21] MEDS: SERTRALINE 100 MG TABLET PO SCH (20:54)
[2018-07-21] MEDS: GABAPENTIN 100 MG CAPSULE PO SCH (20:54)
[2018-07-22] MEDS: PIPERACILLIN SODIUM/TAZOBACTAM 3.375 GM in DEXTROSE 5% IN WATER 50 ML IV SCH ×2 (00:19→05:58)
[2018-07-22] MEDS: ACETAMINOPHEN 325 MG TABLET PO PRN ×2 (00:39→15:42)
[2018-07-22 05:26] LABS: Basophils # (Auto) 0.1 K/mcL (0.0-0.3); Basophils % (Auto) 0.9 % (0.0-2.0); Eosinophils # (Auto) 0.3 K/mcL (0.0-0.7); Eosinophils % (Auto) 3.5 % (0.0-7.0); Granulocytes % (Auto) 72.3 % (38.0-78.0); Lymphocytes # (Auto) 1.5 K/mcL (1.5-4.8); Lymphocytes % (Auto) 16.5 % (15.5-49.0); Mean Cell Volume 93.9 fL (80.0-100.0); Mean Corpuscular HGB Conc 33.8 g/dL (31.0-36.0); Monocytes # (Auto) 0.6 K/mcL (0.1-0.9); Monocytes % (Auto) 6.8 % (1.0-12.0); Platelet Count 354 K/mcL (140-440); RBC 2.58 M/mcL (4.00-5.20)
[2018-07-22 05:48] LABS: ALT/SGPT 24 U/l (0-40); Albumin 2.7 gm/dL (3.2-5.2); Albumin/Globulin Ratio 0.7 (1.0-2.3); Alkaline Phosphatase 226 U/L (39-117); Bilirubin,Direct < 0.2 mg/dL (0.0-0.3); Blood Urea Nitrogen 40 mg/dl (8-23); Gamma Glutamyl Transpeptidase 119 U/L (5-36); Uric Acid 7.9 mg/dL (2.5-8.0)
[2018-07-22] MEDS: INSULIN LISPRO 1 UNIT/0.01 ML UNIT SQ SCH ×4 (07:13→21:45)
[2018-07-22] MEDS: 0.9 % SODIUM CHLORIDE 10 ML SYRINGE IV SCH ×3 (07:13→21:47)
--- NOTE | 2018-07-22 08:31 | Internal Med Progress Note ---
Medical - PN: Subj Patient information: Note initiated : 07/22/18 at 8:27 am Service Date, if different from initiated Date: [] Patient: Mary Gibbons 73 y/o F admitted on 07/20/18 for toe redness and swelliing. Chief Complaint: [] Interval history: Ms. Gibbons is a 73 year old F Who was recently admitted for pneumonia and left toe cellulitis. She did have surgical debridement by Dr. sneed during her last visit per ED note. Patient was discharged on the [facility] to continue with doxycycline for the wound and Levaquin for the pulmonary. Over the last 24 hours she noticed that she has had increased swelling and redness and warmth to that toe and foot extending up into her leg. She had headache. She denies fevers or chills. In the ED she was evaluated with x-ray and then subsequently CT which was concerning for osteomyelitis. She had an ESR of greater than 120. Her renal function was worse than baseline. She had blood pressures in the 90s systolic with one measurement in the 80s, I am not sure if that was an accurate reading. Certainly is low. She is on losartan and torsemide. 07/21 Slept okay. Feels her pain swelling and redness in her leg is improving. No new complaints. Vital signs stable. 07/22 Patient seen examined, no acute overnight issues, patient has trouble with reflux and gastric burn, wanting some antacid. She was going to get an MRI done. Pertinent ROS: Denies headache, dizziness Denies chest pain, palpitations Denies cough or shortness of breath Denies abdominal pain, nausea or vomiting. - Constitutional Vitals: Vital Signs Temp Pulse Resp BP Pulse Ox 98.1 F 61 16 105/50 98 07/22/18 07:09 07/22/18 07:09 07/22/18 07:09 07/22/18 07:09 07/22/18 07:09 Period Temp Pulse Resp BP Sys/Vilchis Pulse Ox Last 24 Hr 96.0 F-98.1 F 61-72 16-20 105-155/49-56 98-100 Intake and Output 07/21/18 07/22/18 07/22/18 21:59 05:59 13:59 Intake Total 960 250 Output Total 500 300 375 Balance 460 -50 -375 Weight 278 lb Intake & Output: Intake & Output 07/21/18 07/22/18 07/22/18 21:59 05:59 13:59 Intake Total 960 250 Output Total 500 300 375 Balance 460 -50 -375 Weight 278 lb Intake: IV 50 50 Zosyn 3.375 gm In Dextrose 5% 50 50 in Water 50 ml @ 100 mls/hr IV Q6H [facility] Rx#:[id number] Oral 910 200 Output: Void Amount 500 300 375 Other: Meal Dinner Percent of Meal Consumed 75% Feeding Ability Independent # Voids 1 Exam: Constitutional; Afebrile, cooperative, alert, not in distress. Respiratory system: Air Entry equal on both sides, No crackles or wheezing, no rhonchi. CVS- Rate rhythm regular, S1,S2 heard, no gallop, no rub. 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 Foot covered with dressing. Medical - PN: Obj Da - Labs CBC & Chem 7: 07/22/18 03:54 07/22/18 03:54 Labs: Abnormal Lab Results 07/22/18 07/22/18 07/21/18 03:54 03:54 04:43 WBC RBC 2.58 L Hgb 8.2 L Hct 24.2 L RDW 16.0 H MPV 6.6 L Gran % Lymph % (Auto) Gran # Lymph # (Auto) Metamyelocytes % ESR Chloride BUN 40 H 53 H Creatinine 1.8 H 2.2 H Glucose 45 L Uric Acid 10.7 H Calcium 8.2 L 8.3 L Phosphorus 5.0 H GGT 119 H 121 H Alkaline Phosphatase 226 H 256 H C-Reactive Protein Albumin 2.7 L 2.8 L Globulin 4.1 H 4.1 H Albumin/Globulin Ratio 0.7 L 0.7 L 07/21/18 07/20/18 07/20/18 04:43 20:46 15:20 WBC RBC 2.47 L Hgb 7.9 L Hct 23.3 L RDW 15.9 H MPV 6.6 L Gran % Lymph % (Auto) Gran # Lymph # (Auto) Metamyelocytes % 3 H ESR Chloride 93 L BUN 57 H Creatinine 2.2 H Glucose 192 H Uric Acid Calcium Phosphorus GGT Alkaline Phosphatase 279 H C-Reactive Protein 7.3 H Albumin 2.9 L Globulin 4.3 H Albumin/Globulin Ratio 0.7 L 07/20/18 15:20 WBC 12.1 H RBC 2.62 L Hgb 8.3 L Hct 24.6 L RDW 15.8 H MPV 6.9 L Gran % 78.1 H Lymph % (Auto) 11.9 L Gran # 9.5 H Lymph # (Auto) 1.4 L Metamyelocytes % ESR > 120 H Chloride BUN Creatinine Glucose Uric Acid Calcium Phosphorus GGT Alkaline Phosphatase C-Reactive Protein Albumin Globulin Albumin/Globulin Ratio Meds: Medications Acetaminophen (Tylenol) 650 mg PO Q6HP PRN PRN Reason: PAIN/FEVER > 101 Last Admin: 07/22/18 00:39 Dose: 650 mg Documented by: Hydrocodone Bitart/Acetaminophen (Langlois 5/325mg) 1 tab PO Q4HP PRN PRN Reason: PAIN LEVEL 3-6 Last Admin: 07/20/18 21:58 Dose: 1 tab Documented by: Albuterol Sulfate (Ventolin) 2.5 mg NEB Q2HP PRN PRN Reason: Shortness Of Breath Aspirin (Aspirin) 81 mg PO DAILY [facility] Last Admin: 07/21/18 08:46 Dose: 81 mg Documented by: Bisacodyl (Dulcolax) 10 mg [place] DAILYP PRN PRN Reason: Constipation Bupropion HCl (Wellbutrin Xl) 150 mg PO DAILY [facility] Last Admin: 07/21/18 08:46 Dose: 150 mg Documented by: Calcium Carbonate/Glycine (Tums) 1,000 mg CHEWED Q4HP PRN PRN Reason: Dyspepsia Cyanocobalamin (Vitamin B-12) 2,500 mcg PO BID [facility] Last Admin: 07/21/18 20:53 Dose: 2,500 mcg Documented by: Dextrose (Dextrose 50%) 0 ml IV UD PRN PRN Reason: Hypoglycemia Diagnostic Test (Pha) (Accu-Chek) 1 each FS ACHS [facility] Last Admin: 07/22/18 07:11 Dose: 1 each Documented by: Docusate Sodium (Colace) 100 mg PO BID [facility] Last Admin: 07/21/18 20:59 Dose: Not Given Documented by: Gabapentin (Neurontin) 100 mg PO HS [facility] Last Admin: 07/21/18 20:54 Dose: 100 mg Documented by: Glucose (Insta-Glucose) 15 gm PO PRN PRN PRN Reason: Hypoglycemia Heparin Sodium (Porcine) (Heparin) 5,000 unit SQ Q12 [facility] Last Admin: 07/21/18 20:56 Dose: 5,000 unit Documented by: Vancomycin HCl 1,250 mg/ (Sodium Chloride) 500 mls @ 333.3 mls/hr IV Q24H [facility] Last Infusion: 07/21/18 11:49 Dose: Infused Documented by: Insulin Glargine (Lantus) 70 unit SQ BID [facility] Last Admin: 07/21/18 20:57 Dose: 70 unit Documented by: Insulin Human Lispro (Humalog) 0 unit SQ ACHS [facility]; Protocol Last Admin: 07/22/18 07:13 Dose: Not Given Documented by: Loperamide HCl (Imodium) 2 mg PO PRN PRN PRN Reason: Diarrhea Ondansetron HCl (Zofran) 4 mg IV Q6HP PRN PRN Reason: Nausea And Vomiting Pantoprazole Sodium (Protonix) 40 mg PO [facility] Fesoterodine Fumarate [Toviaz] 4 Mg Tab 1 dose PO DAILY [facility] Last Admin: 07/21/18 08:47 Dose: Not Given Documented by: Prochlorperazine (Compazine) 5 mg IV Q4HP PRN PRN Reason: Nausea And Vomiting Ropinirole HCl (Requip) 3 mg PO [facility] Last Admin: 07/21/18 20:54 Dose: 3 mg Documented by: Sertraline HCl (Zoloft) 100 mg PO [facility] Last Admin: 07/21/18 20:54 Dose: 100 mg Documented by: Simvastatin (Zocor) 20 mg PO [facility] Last Admin: 07/21/18 20:54 Dose: 20 mg Documented by: Sodium Chloride (Saline Flush) 10 ml IV Q8 [facility] Last Admin: 07/22/18 07:13 Dose: 10 ml Documented by: Vancomycin HCl (Vancomycin Per Pharmacy) 1 order IV [facility] [place] Medical - PN: A/P - Time Spent With Patient Total time spent is greater than 50% in coordination of care (as documented) at patient's floor/unit and/or counseling patient: - Narrative A/P Narrative: A/P Left first Toe osteomyelitis with Cellulitis -MRSA from cultures, CT neg for osteo during last admit, but is positive this admit, MRI pending -d/c zosyn, continue vancomycin -Wound care to follow, need for amputation? YANN on CKD on ARB and Torsemide, renal function improving DM with neuropathy - lantus and ssi insulin Hypoglycemia -noted this AM, cut back on dose of lantus from 70 units to 60 units HTN/ HLD -BP stable, monitor, hold off on home meds for now. On Statin for HLD Morbid Obesity -BMI 44.9 Dysphagia, oropharyngeal - on Level 3 diet, advance as per [facility] Wounds -follow with Dr Hinkle Urinary incontinence - DVT hep DNR code status
[2018-07-22] MEDS: INSULIN GLARGINE, HUMAN 1 UNIT/0.01 ML SQ SCH ×2 (09:56→21:42)
[2018-07-22] MEDS: HEPARIN 5,000 UNIT/ML VIAL SQ SCH ×2 (09:57→21:38)
[2018-07-22] MEDS: ASPIRIN 81 MG TAB.CHEW PO SCH (09:57)
[2018-07-22] MEDS: CYANOCOBALAMIN (VITAMIN B-12) 500 MCG TABLET PO SCH ×2 (09:58→21:36)
[2018-07-22] MEDS: buPROPion 150 MG TAB.XL.24H PO SCH (09:58)
[2018-07-22] MEDS: VANCOMYCIN 1,250 MG in 0.9 % SODIUM CHLORIDE 500 ML IV SCH (09:59)
--- NOTE | 2018-07-22 09:59 | Magnetic Resonance Report ---
CLINICAL INFORMATION: History of diabetes. Open wound in the left great toe TECHNIQUE: Sagittal, axial, coronal images of the left foot COMPARISON: Plain film examination dated 07/20/2018. CT scan dated 07/20/2018 FINDINGS: There is subtle bone marrow edema within the left first proximal phalanx and left first distal phalanx. No definite cortical destruction. Findings are consistent with subtle osteomyelitis. Follow-up examination may be of benefit. No other focal bony abnormalities. Other bones are negative without bone marrow edema or cortical destruction. No soft tissue mass or focal fluid collection. No detectable soft tissue gas. No other abnormality IMPRESSION: 1. Subtle bone marrow edema within the left first proximal and distal phalanges 2. Findings are consistent with mild osteomyelitis Interpreted and Authenticated by: Spencer Higuera 07/22/18
[2018-07-22] MEDS: PANTOPRAZOLE 40 MG TABLET PO SCH (10:19)
[2018-07-22] MEDS: CALCIUM CARBONATE 500 MG TAB.CHEW CHEWED PRN ×3 (11:07→21:37)
[2018-07-22] MEDS: FESOTERODINE FUMARATE 4 MG PO SCH (11:07)
[2018-07-22] MEDS: DOCUSATE SODIUM 100 MG CAPSULE PO SCH ×2 (11:08→21:44)
--- NOTE | 2018-07-22 15:58 | General Surgery Progress Note ---
Subjective Narrative: Note initiated : 07/22/18 at 3:56 pm Service Date, if different from initiated Date: [] Patient: Mary Gibbons 73 y/o F admitted on 07/20/18 for toe redness and swelliing. Chief Complaint: [] No interval changes since last seen. Objective Temp Pulse Resp BP Pulse Ox 98.2 F 61 18 112/61 97 07/22/18 11:39 07/22/18 07:09 07/22/18 11:39 07/22/18 11:39 07/22/18 11:39 AVSS. No changes MICHAEL. Ambulating FWW Heel weight bearing Dressing changed. LEFT foot resolving inflammatory changes. Minimal drainage on wound dressings. Left breast and Right skin ulcers are healing well.. X-Ray / CT Left foot: Osteo GREAT toe. - Additional Data Intake & Output - Last 24 hours: Intake & Output 07/20/18 07/21/18 07/22/18 07/23/18 05:59 05:59 05:59 05:59 Intake Total 1600 2010 870 Output Total 501 2450 900 Balance 1099 -440 -30 Weight 272 lb 278 lb 278 lb - Labs 07/22/18 03:54 07/22/18 03:54 Diabetes panel 07/22/18 Range/Units 03:54 Sodium 142 (133-145) mmol/L Potassium 3.9 (3.3-5.1) mmol/L Chloride 106 (96-108) mmol/L Carbon Dioxide 26 (22-30) mmol/L BUN 40 H (8-23) mg/dl Creatinine 1.8 H (0.6-1.1) mg/dl Glucose 45 L (70-105) mg/dL Calcium 8.2 L (8.6-10.4) mg/dl AST 24 (0-37) U/l ALT 24 (0-40) U/l Alkaline Phosphatase 226 H (39-117) U/L Total Protein 6.8 (5.9-8.4) gm/dL Albumin 2.7 L (3.2-5.2) gm/dL Triglycerides 104 (<150) mg/dl Calcium panel 07/22/18 Range/Units 03:54 Calcium 8.2 L (8.6-10.4) mg/dl Phosphorus 4.0 (2.7-4.5) mg/dL Albumin 2.7 L (3.2-5.2) gm/dL Pituitary panel 07/22/18 Range/Units 03:54 Sodium 142 (133-145) mmol/L Potassium 3.9 (3.3-5.1) mmol/L Chloride 106 (96-108) mmol/L Carbon Dioxide 26 (22-30) mmol/L BUN 40 H (8-23) mg/dl Creatinine 1.8 H (0.6-1.1) mg/dl Glucose 45 L (70-105) mg/dL Calcium 8.2 L (8.6-10.4) mg/dl Adrenal panel 07/22/18 Range/Units 03:54 Sodium 142 (133-145) mmol/L Potassium 3.9 (3.3-5.1) mmol/L Chloride 106 (96-108) mmol/L Carbon Dioxide 26 (22-30) mmol/L BUN 40 H (8-23) mg/dl Creatinine 1.8 H (0.6-1.1) mg/dl Glucose 45 L (70-105) mg/dL Calcium 8.2 L (8.6-10.4) mg/dl Total Bilirubin 0.4 (0.0-1.0) mg/dL AST 24 (0-37) U/l ALT 24 (0-40) U/l Alkaline Phosphatase 226 H (39-117) U/L Total Protein 6.8 (5.9-8.4) gm/dL Albumin 2.7 L (3.2-5.2) gm/dL Assessment and Plan (1) Left leg cellulitis Problem details: COMPLETE 5 ADDITIONAL DAYS OF CLINDAMYCIN 450 MG PO QID. Status: Suspected Current Visit: No - Narrative A/P Narrative: Assessment: Satisfactory progress from wound care point of view. Question of Osteo for LEFT great toe raised. Plan: Continue present treatment. PODIATRY consult Dr. Yves Pardo Reg. DFU Left foot. - Time Spent With Patient Total time spent is greater than 50% in coordination of care (as documented) at patient's floor/unit and/or counseling patient: 25 - 35 minutes
[2018-07-22] MEDS: GABAPENTIN 100 MG CAPSULE PO SCH (21:36)
[2018-07-22] MEDS: rOPINIRole 1 MG TABLET PO SCH (21:36)
[2018-07-22] MEDS: SIMVASTATIN 20 MG TABLET PO SCH (21:37)
[2018-07-22] MEDS: MUPIROCIN OINT 2% 22GM NARES SCH (21:42)
[2018-07-22] MEDS: SERTRALINE 100 MG TABLET PO SCH (21:43)
[2018-07-23 06:22] LABS: Basophils # (Auto) 0 K/mcL (0.0-0.3); Basophils % (Auto) 0.5 % (0.0-2.0); Eosinophils # (Auto) 0.2 K/mcL (0.0-0.7); Eosinophils % (Auto) 3.2 % (0.0-7.0); Lymphocytes # (Auto) 1.4 K/mcL (1.5-4.8); Lymphocytes % (Auto) 18.4 % (15.5-49.0); Mean Cell Volume 94.2 fL (80.0-100.0); Mean Corpuscular HGB Conc 33.3 g/dL (31.0-36.0); Monocytes # (Auto) 0.7 K/mcL (0.1-0.9); Monocytes % (Auto) 8.9 % (1.0-12.0); Platelet Count 309 K/mcL (140-440); RBC 2.45 M/mcL (4.00-5.20); Red Cell Distribution Width 15.2 % (11.5-14.5)
[2018-07-23 06:31] LABS: ALT/SGPT 26 U/l (0-40); Albumin 2.7 gm/dL (3.2-5.2); Albumin/Globulin Ratio 0.7 (1.0-2.3); Alkaline Phosphatase 218 U/L (39-117); Bilirubin,Direct < 0.2 mg/dL (0.0-0.3); Blood Urea Nitrogen 31 mg/dl (8-23); Gamma Glutamyl Transpeptidase 123 U/L (5-36); Uric Acid 7.4 mg/dL (2.5-8.0)
[2018-07-23] MEDS: INSULIN LISPRO 1 UNIT/0.01 ML UNIT SQ SCH ×3 (07:32→14:42)
[2018-07-23] MEDS: 0.9 % SODIUM CHLORIDE 10 ML SYRINGE IV SCH ×2 (08:50→14:43)
[2018-07-23] MEDS: HEPARIN 5,000 UNIT/ML VIAL SQ SCH (08:51)
[2018-07-23] MEDS: CYANOCOBALAMIN (VITAMIN B-12) 500 MCG TABLET PO SCH (08:52)
[2018-07-23] MEDS: PANTOPRAZOLE 40 MG TABLET PO SCH (08:52)
[2018-07-23] MEDS: ASPIRIN 81 MG TAB.CHEW PO SCH (08:52)
[2018-07-23] MEDS: DOCUSATE SODIUM 100 MG CAPSULE PO SCH (08:52)
[2018-07-23] MEDS: MUPIROCIN OINT 2% 22GM NARES SCH (08:53)
[2018-07-23] MEDS: FESOTERODINE FUMARATE 4 MG PO SCH (08:55)
--- NOTE | 2018-07-23 08:56 | General Surgery Progress Note ---
Subjective Patient reports: no new complaints, other (Ambulating better FWW, with heel weight bearing.) Narrative: Note initiated : 07/23/18 at 8:50 am Service Date, if different from initiated Date: [] Patient: Mary Gibbons 73 y/o F admitted on 07/20/18 for toe redness and swelliing. Chief Complaint: [] Objective Temp Pulse Resp BP Pulse Ox 97.8 F 77 18 118/71 94 07/23/18 06:43 07/23/18 06:43 07/23/18 06:43 07/23/18 06:43 07/23/18 06:43 AVSS. No changes MICHAEL. Local wound care of DFU Left 1 st toe Cellulitis / Dermatitis improved. - Additional Data Intake & Output - Last 24 hours: Intake & Output 07/21/18 07/22/18 07/23/18 07/24/18 05:59 05:59 05:59 05:59 Intake Total 1600 2010 1170 Output Total 501 2450 2750 Balance 1099 -440 -1580 Weight 272 lb 278 lb 279 lb 8 oz - Labs 07/23/18 04:10 07/23/18 04:10 Diabetes panel 07/23/18 Range/Units 04:10 Sodium 141 (133-145) mmol/L Potassium 4.0 (3.3-5.1) mmol/L Chloride 105 (96-108) mmol/L Carbon Dioxide 26 (22-30) mmol/L BUN 31 H (8-23) mg/dl Creatinine 1.5 H (0.6-1.1) mg/dl Glucose 48 L (70-105) mg/dL Calcium 8.5 L (8.6-10.4) mg/dl AST 31 (0-37) U/l ALT 26 (0-40) U/l Alkaline Phosphatase 218 H (39-117) U/L Total Protein 6.6 (5.9-8.4) gm/dL Albumin 2.7 L (3.2-5.2) gm/dL Triglycerides 113 (<150) mg/dl Calcium panel 07/23/18 Range/Units 04:10 Calcium 8.5 L (8.6-10.4) mg/dl Phosphorus 3.1 (2.7-4.5) mg/dL Albumin 2.7 L (3.2-5.2) gm/dL Pituitary panel 07/23/18 Range/Units 04:10 Sodium 141 (133-145) mmol/L Potassium 4.0 (3.3-5.1) mmol/L Chloride 105 (96-108) mmol/L Carbon Dioxide 26 (22-30) mmol/L BUN 31 H (8-23) mg/dl Creatinine 1.5 H (0.6-1.1) mg/dl Glucose 48 L (70-105) mg/dL Calcium 8.5 L (8.6-10.4) mg/dl Adrenal panel 07/23/18 Range/Units 04:10 Sodium 141 (133-145) mmol/L Potassium 4.0 (3.3-5.1) mmol/L Chloride 105 (96-108) mmol/L Carbon Dioxide 26 (22-30) mmol/L BUN 31 H (8-23) mg/dl Creatinine 1.5 H (0.6-1.1) mg/dl Glucose 48 L (70-105) mg/dL Calcium 8.5 L (8.6-10.4) mg/dl Total Bilirubin 0.3 (0.0-1.0) mg/dL AST 31 (0-37) U/l ALT 26 (0-40) U/l Alkaline Phosphatase 218 H (39-117) U/L Total Protein 6.6 (5.9-8.4) gm/dL Albumin 2.7 L (3.2-5.2) gm/dL Assessment and Plan (1) Left leg cellulitis Problem details: COMPLETE 5 ADDITIONAL DAYS OF CLINDAMYCIN 450 MG PO QID. Status: Suspected Current Visit: No - Narrative A/P Narrative: Assessment: DFU White 3 LEFT great toe. ( MRSA ) Skin abrasions Left breast / Rt hip dry Progress reviewed with Hospitalist Dr. Marin. ID consult pending. Plan: D/C planning awaited. If D/C continue ongoing wound care F/U at wound care center in ONE week. - Time Spent With Patient Total time spent is greater than 50% in coordination of care (as documented) at patient's floor/unit and/or counseling patient:
[2018-07-23] MEDS ORDERED: INSULIN GLARGINE, HUMAN 1 UNIT/0.01 ML SQ SCH (09:00)
[2018-07-23 09:05] LABS: Iron 45 mcg/dl (37-145); Transferrin % Saturation 19 % (15-50); Unsaturated Iron Binding 182 mcg/dL (112-346)
[2018-07-23 09:15] LABS: Ferritin 216.3 ng/ml (30-400)
[2018-07-23 09:32] LABS: Vitamin B12 > 2000 pg/ml (232-1245)
--- NOTE | 2018-07-23 09:43 | Internal Med Progress Note ---
Medical - PN: Subj Patient information: Note initiated : 07/23/18 at 9:40 am Service Date, if different from initiated Date: [] Patient: Mary Gibbons 73 y/o F admitted on 07/20/18 for toe redness and swelliing. Chief Complaint: [] Interval history: Ms. Gibbons is a 73 year old F Who was recently admitted for pneumonia and left toe cellulitis. She did have surgical debridement by Dr. sneed during her last visit per ED note. Patient was discharged on the [facility] to continue with doxycycline for the wound and Levaquin for the pulmonary. Over the last 24 hours she noticed that she has had increased swelling and redness and warmth to that toe and foot extending up into her leg. She had headache. She denies fevers or chills. In the ED she was evaluated with x-ray and then subsequently CT which was concerning for osteomyelitis. She had an ESR of greater than 120. Her renal function was worse than baseline. She had blood pressures in the 90s systolic with one measurement in the 80s, I am not sure if that was an accurate reading. Certainly is low. She is on losartan and torsemide. 07/21 Slept okay. Feels her pain swelling and redness in her leg is improving. No new complaints. Vital signs stable. 07/22 Patient seen examined, no acute overnight issues, patient has trouble with reflux and gastric burn, wanting some antacid. She was going to get an MRI done. 07/23 Patient seen examined, no acuet issues MRI shows osteomyelitis, Pt on IV vancomycin labs stable, slight drop in h/h will get Infectious disease consult for intermediate antibiotic management. pt wishes to be discharged home. Pertinent ROS: Denies headache, dizziness Denies chest pain, palpitations Denies cough or shortness of breath Denies abdominal pain, nausea or vomiting. Some epigastric distress, but improving. No brooke, no blood in stools reported - Constitutional Vitals: Vital Signs Temp Pulse Resp BP Pulse Ox 97.8 F 77 18 118/71 94 07/23/18 06:43 07/23/18 06:43 07/23/18 06:43 07/23/18 06:43 07/23/18 06:43 Period Temp Pulse Resp BP Sys/Vilchis Pulse Ox Last 24 Hr 97.5 F-98.2 F 58-80 16-22 112-130/56-71 94-97 Intake and Output 07/22/18 07/23/18 07/23/18 21:59 05:59 13:59 Intake Total 100 200 Output Total 650 1400 Balance -550 -1200 Weight 279 lb 8 oz Intake & Output: Intake & Output 07/22/18 07/23/18 07/23/18 21:59 05:59 13:59 Intake Total 100 200 Output Total 650 1400 Balance -550 -1200 Weight 279 lb 8 oz Intake: Oral 100 200 Output: Void Amount 650 1400 Other: Urine Color Dark Yellow Exam: Constitutional; Afebrile, cooperative, alert, not in distress. Respiratory system: Air Entry equal on both sides, No crackles or wheezing, no rhonchi. CVS- Rate rhythm regular, S1,S2 heard, no gallop, no rub. 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 Medical - PN: Obj Da - Labs CBC & Chem 7: 07/23/18 04:10 07/23/18 04:10 Labs: Abnormal Lab Results 07/23/18 07/23/18 07/23/18 08:09 08:09 04:10 WBC RBC Hgb Hct RDW MPV Gran % Lymph % (Auto) Gran # Lymph # (Auto) Metamyelocytes % ESR Chloride BUN 31 H Creatinine 1.5 H Glucose 48 L Uric Acid Calcium 8.5 L Phosphorus TIBC 227 L GGT 123 H Alkaline Phosphatase 218 H C-Reactive Protein Albumin 2.7 L Globulin 3.9 H Albumin/Globulin Ratio 0.7 L Vitamin B12 > 2000 H Vancomycin Trough 21.8 H* 07/23/18 07/22/18 07/22/18 04:10 03:54 03:54 WBC RBC 2.45 L 2.58 L Hgb 7.7 L 8.2 L Hct 23.1 L 24.2 L RDW 15.2 H 16.0 H MPV 6.5 L 6.6 L Gran % Lymph % (Auto) Gran # Lymph # (Auto) 1.4 L Metamyelocytes % ESR Chloride BUN 40 H Creatinine 1.8 H Glucose 45 L Uric Acid Calcium 8.2 L Phosphorus TIBC GGT 119 H Alkaline Phosphatase 226 H C-Reactive Protein Albumin 2.7 L Globulin 4.1 H Albumin/Globulin Ratio 0.7 L Vitamin B12 Vancomycin Trough 07/21/18 07/21/18 07/20/18 04:43 04:43 20:46 WBC RBC 2.47 L Hgb 7.9 L Hct 23.3 L RDW 15.9 H MPV 6.6 L Gran % Lymph % (Auto) Gran # Lymph # (Auto) Metamyelocytes % 3 H ESR Chloride BUN 53 H Creatinine 2.2 H Glucose Uric Acid 10.7 H Calcium 8.3 L Phosphorus 5.0 H TIBC GGT 121 H Alkaline Phosphatase 256 H C-Reactive Protein 7.3 H Albumin 2.8 L Globulin 4.1 H Albumin/Globulin Ratio 0.7 L Vitamin B12 Vancomycin Trough 07/20/18 07/20/18 15:20 15:20 WBC 12.1 H RBC 2.62 L Hgb 8.3 L Hct 24.6 L RDW 15.8 H MPV 6.9 L Gran % 78.1 H Lymph % (Auto) 11.9 L Gran # 9.5 H Lymph # (Auto) 1.4 L Metamyelocytes % ESR > 120 H Chloride 93 L BUN 57 H Creatinine 2.2 H Glucose 192 H Uric Acid Calcium Phosphorus TIBC GGT Alkaline Phosphatase 279 H C-Reactive Protein Albumin 2.9 L Globulin 4.3 H Albumin/Globulin Ratio 0.7 L Vitamin B12 Vancomycin Trough Meds: Medications Acetaminophen (Tylenol) 650 mg PO Q6HP PRN PRN Reason: PAIN/FEVER > 101 Last Admin: 07/22/18 15:42 Dose: 650 mg Documented by: Hydrocodone Bitart/Acetaminophen (Gibson 5/325mg) 1 tab PO Q4HP PRN PRN Reason: PAIN LEVEL 3-6 Last Admin: 07/20/18 21:58 Dose: 1 tab Documented by: Albuterol Sulfate (Ventolin) 2.5 mg NEB Q2HP PRN PRN Reason: Shortness Of Breath Aspirin (Aspirin) 81 mg PO DAILY [facility] Last Admin: 07/23/18 08:52 Dose: 81 mg Documented by: Bisacodyl (Dulcolax) 10 mg TN DAILYP PRN PRN Reason: Constipation Bupropion HCl (Wellbutrin Xl) 150 mg PO DAILY [facility] Last Admin: 07/22/18 09:58 Dose: 150 mg Documented by: Calcium Carbonate/Glycine (Tums) 1,000 mg CHEWED Q4HP PRN PRN Reason: Dyspepsia Last Admin: 07/22/18 21:37 Dose: 1,000 mg Documented by: Cyanocobalamin (Vitamin B-12) 2,500 mcg PO BID [facility] Last Admin: 07/23/18 08:52 Dose: 2,500 mcg Documented by: Dextrose (Dextrose 50%) 0 ml IV UD PRN PRN Reason: Hypoglycemia Diagnostic Test (Pha) (Accu-Chek) 1 each FS [facility] Last Admin: 07/23/18 07:31 Dose: 1 each Documented by: Docusate Sodium (Colace) 100 mg PO BID [facility] Last Admin: 07/23/18 08:52 Dose: 100 mg Documented by: Gabapentin (Neurontin) 100 mg PO HS [facility] Last Admin: 07/22/18 21:36 Dose: 100 mg Documented by: Glucose (Insta-Glucose) 15 gm PO PRN PRN PRN Reason: Hypoglycemia Heparin Sodium (Porcine) (Heparin) 5,000 unit SQ Q12 [facility] Last Admin: 07/23/18 08:51 Dose: 5,000 unit Documented by: Insulin Glargine (Lantus) 50 unit SQ BID [facility] Last Admin: 07/23/18 08:53 Dose: Not Given Documented by: Insulin Human Lispro (Humalog) 0 unit SQ [facility]; Protocol Last Admin: 07/23/18 07:32 Dose: Not Given Documented by: Loperamide HCl (Imodium) 2 mg PO PRN PRN PRN Reason: Diarrhea Mupirocin (Bactroban Oint 2%) 1 dose NARES BID [facility] Last Admin: 07/23/18 08:53 Dose: 1 dose Documented by: Ondansetron HCl (Zofran) 4 mg IV Q6HP PRN PRN Reason: Nausea And Vomiting Pantoprazole Sodium (Protonix) 40 mg PO QAMAC [facility] Last Admin: 07/23/18 08:52 Dose: 40 mg Documented by: Fesoterodine Fumarate [Toviaz] 4 Mg Tab 1 dose PO DAILY [facility] Last Admin: 07/23/18 08:55 Dose: Not Given Documented by: Prochlorperazine (Compazine) 5 mg IV Q4HP PRN PRN Reason: Nausea And Vomiting Ropinirole HCl (Requip) 3 mg PO [facility] Last Admin: 07/22/18 21:36 Dose: 3 mg Documented by: Sertraline HCl (Zoloft) 100 mg PO [facility] Last Admin: 07/22/18 21:43 Dose: 100 mg Documented by: Simvastatin (Zocor) 20 mg PO [facility] Last Admin: 07/22/18 21:37 Dose: 20 mg Documented by: Sodium Chloride (Saline Flush) 10 ml IV Q8 [facility] Last Admin: 07/23/18 08:50 Dose: 10 ml Documented by: Vancomycin HCl (Vancomycin Per Pharmacy) 1 order IV UD [facility] Medical - PN: A/P - Time Spent With Patient Total time spent is greater than 50% in coordination of care (as documented) at patient's floor/unit and/or counseling patient: - Narrative A/P Narrative: A/P Left first Toe osteomyelitis with Cellulitis -MRSA from cultures, CT neg for osteo during last admit, but is positive this admit, MRI confirms osteomyelitis. no indication for amputation per wound care. -d/c zosyn, continue vancomycin -Wound care to follow, -Infectious disease to consult YANN on CKD on ARB and Torsemide, renal function improving, c reat is 1.5, pt not too keen on resuming her diuretic regime DM with neuropathy - lantus and ssi insulin, glucose levels are low, but will contiune and titrate insulin. Seems pt not eating as much as before Hypoglycemia -noted this AM, cut back on dose of lantus from 60 to 50 units HTN/ HLD -BP stable, monitor, hold off on home meds for now. 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 -no indication for transfusion, hb is 7.7, monitor DVT hep DNR code status
--- NOTE | 2018-07-23 10:40 | Discharge Summary ---
Medical - DS: Prov Patient information: Note initiated : 07/23/18 at 10:37 am Service Date, if different from initiated Date: [] Patient: Mayr Gibbons 73 y/o F admitted on 07/20/18 for toe redness and swelliing. Chief Complaint: [] Date of admission: 07/20/18 18:08 Discharge date: 07/23/18 Primary care physician: Katie Haji Consults: 07/20/18 Consult to Physician [CONS] Stat Comment: Consulting Provider: Jesus Oates Reason For Exam: Physician to Consult 07/20/18 16:42 Consult to Physician [CONS] Stat Comment: Consulting Provider: Kenn Fonseca Reason For Exam: Physician to Consult 07/22/18 15:50 Consult to Physician [CONS] Routine Comment: DFU White 3 Left great toe / MRSA Skin sepsis Consulting Provider: Yves Pardo Reason For Exam: Physician to Consult 07/23/18 08:59 Consult to Infectious Disease [CONS] Routine Comment: Consulting Provider: Sam Elizabeth Reason For Exam: Physician to Consult Discharging clinician: Aliya Marin [facility] - DS: Meds - Discharge Medications Active and Home Medications: Home Medications Sertraline [Zoloft] 100 mg PO HS 04/29/15 [History Confirmed 07/20/18 Last Taken 12/15/16 10:30] Simvastatin [Zocor] 20 mg PO HS 04/29/15 [History Confirmed 07/20/18 Last Taken 12/14/16 20:35] buPROPion [Wellbutrin Xl] 150 mg PO DAILY 12/15/16 [Rx Confirmed 07/20/18 Last Taken 12/15/16 10:40] Accu-Chek 1 each FS ACHS strip 12/17/16 [Rx Confirmed 07/20/18 Last Taken Unknown] Aspirin [Lo-Dose Aspirin EC] 81 mg PO ONCE 07/13/18 [History Confirmed 07/20/18 Last Taken Unknown] Cyanocobalamin (Vitamin B-12) [Vitamin B12] 2,500 mcg PO BID 07/13/18 [History Confirmed 07/20/18 Last Taken Unknown] Fesoterodine Fumarate [Toviaz] 4 mg PO DAILY 07/13/18 [History Confirmed 07/20/18 Last Taken Unknown] Insulin Glargine, Human [Lantus] 70 unit SQ BID 07/13/18 [History Confirmed 07/20/18 Last Taken 07/11/18 21:00] Silver Sulfadiazine [Silvadene] 1 dose TOPICAL DAILY 07/13/18 [History Confirmed 07/20/18 Last Taken Unknown] Torsemide 100 mg PO DAILY 07/13/18 [History Confirmed 07/20/18 Last Taken Unknown] Gabapentin [Neurontin] 100 mg PO HS 07/14/18 [History Confirmed 07/20/18 Last Taken Unknown] Losartan [Cozaar] 50 mg PO DAILY 07/14/18 [History Confirmed 07/20/18 Last Taken Unknown] glipiZIDE [Glipizide ER] 5 mg PO DAILY 07/14/18 [History Confirmed 07/20/18 Last Taken Unknown] Insulin Aspart [Novolog] See Protocol SQ ACHS #1 ml 07/17/18 [Rx Confirmed 07/20/18 Last Taken Unknown] rOPINIRole HCL [Requip] 3 mg PO HS #5 tab 07/17/18 [Rx Confirmed 07/20/18 Last Taken 07/19/18 20:57] Acetaminophen 650 mg PO Q6HP PRN 07/20/18 [History Confirmed 07/20/18 Last Taken Unknown] Bisacodyl [Dulcolax] 10 mg [place] DAILYP PRN 07/20/18 [History Confirmed 07/20/18 Last Taken Unknown] Glucagon,Human Recombinant [Glucagon Emergency Kit] 1 mg IJ PRN PRN 07/20/18 [History Confirmed 07/20/18 Last Taken Unknown] Loperamide [Imodium] 2 mg PO PRN PRN 07/20/18 [History Confirmed 07/20/18 Last Taken Unknown] Medical - DS: Hosp Hospital course: Ms. Gibbons is a 73 year old F Who was recently admitted for pneumonia and left toe cellulitis. She did have surgical debridement by Dr. sneed during her last visit per ED note. Patient was discharged on the [facility] nursing facility to continue with doxycycline for the wound and Levaquin for the pulmonary. Over the last 24 hours she noticed that she has had increased swelling and redness and warmth to that toe and foot extending up into her leg. She had headache. She denies fevers or chills. In the ED she was evaluated with x-ray and then subsequently CT which was concerning for osteomyelitis. She had an ESR of greater than 120. Her renal function was worse than baseline. She had blood pressures in the 90s systolic with one measurement in the 80s, I am not sure if that was an accurate reading. Certainly is low. She is on losartan and torsemide. 07/21 Slept okay. Feels her pain swelling and redness in her leg is improving. No new complaints. Vital signs stable. 07/22 Patient seen examined, no acute overnight issues, patient has trouble with reflux and gastric burn, wanting some antacid. She was going to get an MRI done. 07/23 Patient seen examined, no acuet issues MRI shows osteomyelitis, Pt on IV vancomycin labs stable, Anemia of chronic disease Patient case reviewed with infectious disease, IV abx, long acting glycopeptide to be given by ID tomorrow as outpatient. pt wishes to be discharged home and has been cleared for discahrge by ID and wound care No changes made to chr home medication except cutting back on dose of lantus to 50 units bid. Discharge diagnosis: left great toe osteomyelitis - Time Spent with Patient Total time spent providing and/or coordinating discharge services: Greater than 30 minutes Medical - DS: Exam - Constitutional Vitals: Vital Signs Temp Pulse Pulse Resp BP BP Pulse Ox 07/23/18 06:43 97.8 F 77 18 118/71 94 07/23/18 04:22 97.6 F 76 20 130/60 07/22/18 22:57 97.5 F 76 18 128/56 07/22/18 20:00 97.8 F 80 16 120/58 07/22/18 16:27 98 F 58 L 22 126/64 95 07/22/18 11:39 98.2 F 18 112/61 97 Intake and Output 07/22/18 07/23/18 07/23/18 21:59 05:59 13:59 Intake Total 100 200 Output Total 650 1400 Balance -550 -1200 Intake: Oral 100 200 Output: Void Amount 650 1400 Other: Urine Color Dark Yellow Weight 279 lb 8 oz Additional comments: Constitutional; Afebrile, cooperative, alert, not in distress. Respiratory system: Air Entry equal on both sides, No crackles or wheezing, no rhonchi. CVS- Rate rhythm regular, S1,S2 heard, no gallop, no rub. Abdomen- Soft nontender abdomen, no organomegaly, no tenderness, no guarding or rigidity, [employer]- AOOx3, moving all extremities, no gross focal deficit noted. Medical - DS: Data Labs on day of discharge: Labs from last 24 hours 07/23/18 07/23/18 07/23/18 08:09 08:09 08:09 WBC RBC Hgb Hct MCV MCH MCHC RDW Plt Count MPV Gran % Lymph % (Auto) [place] % (Auto) Eos % (Auto) Baso % (Auto) Gran # Lymph # (Auto) [place] # (Auto) Eos # (Auto) Baso # (Auto) Sodium Potassium Chloride Carbon Dioxide Anion Gap BUN Creatinine GFR Calculation Glucose Uric Acid Calcium Phosphorus Magnesium Iron 45 TIBC 227 L Unsat Iron Binding 182 Transferrin % Sat 19 Ferritin 216.3 Total Bilirubin Direct Bilirubin GGT AST ALT Alkaline Phosphatase Lactate Dehydrogenase Total Protein Albumin Globulin Albumin/Globulin Ratio Triglycerides Vitamin B12 > 2000 H Folate 18.8 Vancomycin Trough 21.8 H* 07/23/18 07/23/18 04:10 04:10 WBC 7.4 RBC 2.45 L Hgb 7.7 L Hct 23.1 L MCV 94.2 MCH 31.4 MCHC 33.3 RDW 15.2 H Plt Count 309 MPV 6.5 L Gran % 69.0 Lymph % (Auto) 18.4 [place] % (Auto) 8.9 Eos % (Auto) 3.2 Baso % (Auto) 0.5 Gran # 5.1 Lymph # (Auto) 1.4 L [place] # (Auto) 0.7 Eos # (Auto) 0.2 Baso # (Auto) 0 Sodium 141 Potassium 4.0 Chloride 105 Carbon Dioxide 26 Anion Gap 10.0 BUN 31 H Creatinine 1.5 H GFR Calculation 35 Glucose 48 L Uric Acid 7.4 Calcium 8.5 L Phosphorus 3.1 Magnesium 2.0 Iron TIBC Unsat Iron Binding Transferrin % Sat Ferritin Total Bilirubin 0.3 Direct Bilirubin < 0.2 GGT 123 H AST 31 ALT 26 Alkaline Phosphatase 218 H Lactate Dehydrogenase 216 Total Protein 6.6 Albumin 2.7 L Globulin 3.9 H Albumin/Globulin Ratio 0.7 L Triglycerides 113 Vitamin B12 Folate Vancomycin Trough Preliminary micro results at discharge 07/20/18 21:25 Blood Culture - Preliminary Blood 07/20/18 20:46 Blood Culture - Preliminary Blood Medical - DS: A/P - Patient/Caregiver Discharge Instructions Activity: increase activity as tolerated Diet: Consistent Carbohydrate Additional Instructions: Come back to the hospital tomorrow for your antibiotics dose. Follow up with wound care in 1 week, wound care instructions as per wound care physician. Follow up with Infectious disease clinic in 10 days Go to the ER if worsening symptoms chest pain, shortness of breath or any other acute concern. Please cut back on dose of lantus to 50 units twice daily, monitor your glucose levels closely Follow up with PCP in 1 week - Follow up Plan Follow up with: Katie Haji ARNP [Primary Care Provider] - Disposition: Home Health Service Prognosis: Fair Rehab Potential: Fair I certify that the patient requires SNF services: No Overall status at discharge: patient is progressing back to baseline
--- NOTE | 2018-07-23 10:48 | Infectious Disease Consult ---
History of Present Illness Patient information: Note initiated : 07/23/18 at 10:28 am Service Date, if different from initiated Date: [] Patient: Mary Gibbons 73 y/o F admitted on 07/20/18 for toe redness and swelliing. Chief Complaint: [] Consult date: 07/23/18 Requesting Physician: Yves Pardo Reason for Consult: MRSA ostemyelitis Chief complaint: I have chronic cellulitis History of present illness: 73 year old lady with PMHx of: - DM2 with neuropathy, last A1C 7.4 (per pt) - episodes of recurrent cellulitis with recent admission at [facility] few days ago with concerns for pneumonia and left toe cellulitis [imaging negative for osteomyelitis], s/p debridement [tissue cultures growing MRSA] and discharged on Doxycycline on 07/17/18 Pt was readmitted on 07/20 with c/o increased redness and swelling of her left leg, worse than what was during previous admission. Patient denied any fever or chills, shortness of breath. Patient was seen in the ED and underwent x-ray and CT which was concerning for osteomyelitis. Patient's vital signs were remarkable for low blood pressure of 94/46- 115/37. WBC was 12 K with neutrophilic predominance, ESR of greater than 120, creatinine of 2.2 [higher than baseline]. Patient was started on IV vancomycin and IV Zosyn and admitted to the hospital. 2 sets of blood cultures were sent. Patient underwent MRI testing on zero 07/23 which showed osteomyelitis of proximal and distal phalanges of left great toe. At time of visit, patient was doing well. She felt that her left great toe wounds are better although she still has redness in both lower legs below mid leung, left worse than right. Denied any nausea, vomiting, diarrhea, fever, chills. She mentions that she has a cat but denied any contact with the wound. She had it that she would like to go home and has a caregiver who could help with dressing changes for wound care. When asked about penicillin allergy, she mentioned that she had diarrhea after starting amoxicillin and belly pain after starting clindamycin. She denied any rash or any other allergic symptoms with these 2 antibiotics. She is currently doing MRSA decolonization protocol, day 2. Review of Systems All systems PM: reviewed and no additional remarkable complaints except as stated Past History Past family history: Not pertinent to current presentation Past social history: Lives at home with a caregiver Medications and Allergies Home Medications Medication Instructions Recorded Confirmed Type Sertraline [Zoloft] 100 mg PO HS 04/29/15 07/20/18 History Simvastatin [Zocor] 20 mg PO HS 04/29/15 07/20/18 History buPROPion [Wellbutrin Xl] 150 mg PO DAILY 12/15/16 07/20/18 Rx Accu-Chek 1 each FS ACHS strip 12/17/16 07/20/18 Rx Aspirin [Lo-Dose Aspirin EC] 81 mg PO ONCE 07/13/18 07/20/18 History Cyanocobalamin (Vitamin B-12) 2,500 mcg PO BID 07/13/18 07/20/18 History [Vitamin B12] Fesoterodine Fumarate [Toviaz] 4 mg PO DAILY 07/13/18 07/20/18 History Silver Sulfadiazine [Silvadene] 1 dose TOPICAL DAILY 07/13/18 07/20/18 History Torsemide 100 mg PO DAILY 07/13/18 07/20/18 History Gabapentin [Neurontin] 100 mg PO HS 07/14/18 07/20/18 History Losartan [Cozaar] 50 mg PO DAILY 07/14/18 07/20/18 History glipiZIDE [Glipizide ER] 5 mg PO DAILY 07/14/18 07/20/18 History Insulin Aspart [Novolog] See Protocol SQ ACHS #1 ml 07/17/18 07/20/18 Rx rOPINIRole HCL [Requip] 3 mg PO HS #5 tab 07/17/18 07/20/18 Rx Acetaminophen 650 mg PO Q6HP PRN 07/20/18 07/20/18 History Bisacodyl [Dulcolax] [address] DAILYP PRN 07/20/18 07/20/18 History Glucagon,Human Recombinant 1 mg IJ PRN PRN 07/20/18 07/20/18 History [Glucagon Emergency Kit] Loperamide [Imodium] 2 mg PO PRN PRN 07/20/18 07/20/18 History Insulin Glargine, Human [Lantus] 50 unit SQ BID unit 07/23/18 Rx Oritavancin Diphosphate [Orbactiv] 1,200 mg IV ONCE #1 vial 07/23/18 Rx Allergies Allergy/AdvReac Type Severity Reaction Status Date / Time Sulfa (Sulfonamide Allergy Mild Rash Verified 07/16/18 06:52 Antibiotics) Amoxicillin AdvReac Mild Diarrhea Verified 07/14/18 07:27 clindamycin AdvReac Mild Abdominal Verified 07/23/18 10:02 Pain morphine AdvReac Mild Other Verified 07/14/18 07:27 Physical Examination Vital signs: Temp Pulse Resp BP Pulse Ox 36.6 C 77 18 118/71 94 07/23/18 06:43 07/23/18 06:43 07/23/18 06:43 07/23/18 06:43 07/23/18 06:43 General appearance: no acute distress Eyes pulmonary: nonicteric ENT: other (No thrush) Auscultation: bilateral: diminished breath sounds (At bases, rest clear) Cardiovascular: other (S1 normal, S2 normal, 2 out of 6 ejection systolic murmur best heard at right second intercostal space with radiation to right carotid) Gastrointestinal: normoactive bowel sounds Extremities: other (Has bilateral lower extremity edema with left more than right. There is discrete redness in the anterior aspect of leung bilaterally with some extension to the sides. There are 2 small but deep ulcers on the left great toe and near first metatarsal with some purulent exudate, nontender, redness in the surrounding area. Peripheral pulses are difficult to palpate due to edema. No discoloration. Some superficial scaling due to dry skin) Results - Laboratory Findings CBC and BMP: 07/23/18 04:10 07/23/18 04:10 Abnormal lab findings: Abnormal Labs 07/20/18 07/20/18 07/20/18 15:20 15:20 20:46 WBC 12.1 H RBC 2.62 L Hgb 8.3 L Hct 24.6 L RDW 15.8 H MPV 6.9 L Gran % 78.1 H Lymph % (Auto) 11.9 L Gran # 9.5 H Lymph # (Auto) 1.4 L Metamyelocytes % ESR > 120 H Chloride 93 L BUN 57 H Creatinine 2.2 H Glucose 192 H Uric Acid Calcium Phosphorus TIBC GGT Alkaline Phosphatase 279 H C-Reactive Protein 7.3 H Albumin 2.9 L Globulin 4.3 H Albumin/Globulin Ratio 0.7 L Vitamin B12 Vancomycin Trough 07/21/18 07/21/18 07/22/18 04:43 04:43 03:54 WBC RBC 2.47 L 2.58 L Hgb 7.9 L 8.2 L Hct 23.3 L 24.2 L RDW 15.9 H 16.0 H MPV 6.6 L 6.6 L Gran % Lymph % (Auto) Gran # Lymph # (Auto) Metamyelocytes % 3 H ESR Chloride BUN 53 H Creatinine 2.2 H Glucose Uric Acid 10.7 H Calcium 8.3 L Phosphorus 5.0 H TIBC GGT 121 H Alkaline Phosphatase 256 H C-Reactive Protein Albumin 2.8 L Globulin 4.1 H Albumin/Globulin Ratio 0.7 L Vitamin B12 Vancomycin Trough 07/22/18 07/23/18 07/23/18 03:54 04:10 04:10 WBC RBC 2.45 L Hgb 7.7 L Hct 23.1 L RDW 15.2 H MPV 6.5 L Gran % Lymph % (Auto) Gran # Lymph # (Auto) 1.4 L Metamyelocytes % ESR Chloride BUN 40 H 31 H Creatinine 1.8 H 1.5 H Glucose 45 L 48 L Uric Acid Calcium 8.2 L 8.5 L Phosphorus TIBC GGT 119 H 123 H Alkaline Phosphatase 226 H 218 H C-Reactive Protein Albumin 2.7 L 2.7 L Globulin 4.1 H 3.9 H Albumin/Globulin Ratio 0.7 L 0.7 L Vitamin B12 Vancomycin Trough 07/23/18 07/23/18 08:09 08:09 WBC RBC Hgb Hct RDW MPV Gran % Lymph % (Auto) Gran # Lymph # (Auto) Metamyelocytes % ESR Chloride BUN Creatinine Glucose Uric Acid Calcium Phosphorus TIBC 227 L GGT Alkaline Phosphatase C-Reactive Protein Albumin Globulin Albumin/Globulin Ratio Vitamin B12 > 2000 H Vancomycin Trough 21.8 H* Microbiology: Microbiology 07/20/18 21:25 Blood Blood Culture - Preliminary 07/20/18 20:46 Blood Blood Culture - Preliminary Assessment and Plan - Narrative A/P Narrative: A: 1. 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 There is some data to use [place] avancin for osteomyelitis, and given this patient;s comorbidities and risk for PICC line complications, nephrotoxicity; Oritavancin for initial few weeks seems reasonable 2. DM2: last A1C 7.4 - on insulin 3. Hx of recurrent lower extremity cellulitis Recommendations: -Continue IV Vancomycin per pharmacy assisted dosing until discharge. Would order 1200 mg IV single dose of Oritavancin to be given a day after discharge in short stay as a 3 hr infusion - will schedule an appointment in ID clinic on 07/31/18 at 1:15 pm for subsequent evaluation for treatment response and deciding course of antibiotic therapy. - continue to finish the MRSA decolonization protocol for total of 5 days with intranasal Mupirocin 2% bid and once daily below neck whole body chlorhexidine bathing Plan d/w primary team, patient and case management Sam Elizabeth M.D. Infectious diseases
[2018-07-23] MEDS: buPROPion 150 MG TAB.XL.24H PO SCH (10:52)
== END 2018-07-23 15:15 | disposition home health service (06) | DRG 540 ==
LOC: ED 14:36 → SUATTDRO 18:08 → MEDSUR 18:08
PROVIDERS: ADMIT Internal Medicine; ATTEND Internal Medicine

== ENCOUNTER 2019-10-02 20:18 | Inpatient (IN) ==
[2019-10-02] MEDS ORDERED: LACTATED RINGERS 1,000 ML IV ONE ×2 (20:41→21:44)
[2019-10-02] MEDS ORDERED: PIPERACILLIN SODIUM/TAZOBACTAM 3.375 GM in DEXTROSE 5% IN WATER 50 ML IV ONE (20:41)
[2019-10-02] MEDS ORDERED: LEVOFLOXACIN 750 MG/150 ML BAG IV ONE (20:41)
[2019-10-02] MEDS ORDERED: VANCOMYCIN 1,000 MG in 0.9 % SODIUM CHLORIDE 250 ML IV ONE (20:41)
[2019-10-02] MEDS ORDERED: ONDANSETRON 4 MG/2 ML VIAL IV ONE (20:41)
--- NOTE | 2019-10-02 20:52 | Emergency Department Note ---
HPI General Chief complaint: Urogenital-Female Time Seen by Provider: 10/02/19 20:36 Source: patient and EMS Mode of arrival: EMS Limitations: no limitations History of Present Illness HPI Narrative: Narrative: This patient has not felt well for a while and has had UTI symptoms for a number of days and is been on 2 different antibiotics but she cannot tell me what they are. She does feel very weak and has had a slight cough and slight nausea. She has some ulcers on her left foot and some erythema on the right and her primary wants her to see Dr. olivier brantley. Patient has had sepsis several times before and does feel like she might have sepsis again. Her blood pressure is little low in the 80s but she says she always runs low. Onset (ago): day(s) Associated symptoms: Reports cough and weakness Related Data Home Medications Medication Instructions Recorded Confirmed sertraline 100 mg PO HS 04/29/15 10/23/18 simvastatin 20 mg PO HS 04/29/15 10/23/18 aspirin 81 mg PO ONCE 07/13/18 10/23/18 cyanocobalamin (vitamin B-12) 2,500 mcg PO BID 07/13/18 10/23/18 silver sulfadiazine 1 dose TOPICAL DAILY 07/13/18 10/23/18 torsemide 100 mg PO DAILY 07/13/18 10/23/18 losartan 50 mg PO DAILY 07/14/18 10/23/18 acetaminophen 650 mg PO Q6HP PRN 07/20/18 10/23/18 bisacodyl 10 mg ME DAILYP PRN 07/20/18 10/23/18 glucagon (human recombinant) 1 mg IJ PRN PRN 07/20/18 10/23/18 loperamide 2 mg PO PRN PRN 07/20/18 10/23/18 fesoterodine 4 mg tablet,extended 4 mg PO QDAY 07/24/18 10/23/18 release 24 hr ascorbic acid (vitamin C) 1,000 mg 1 g PO QDAY tab 07/31/18 10/23/18 tablet cholecalciferol (vitamin D3) 50 2,000 unit PO QDAY 07/31/18 10/23/18 mcg (2,000 unit) capsule ferrous sulfate 325 mg (65 mg 325 mg PO QDAY tab 07/31/18 10/23/18 iron) tablet,delayed release gabapentin 100 mg capsule 1 - 3 cap PO HS 07/31/18 10/23/18 magnesium 200 mg tablet 400 mg PO QDAY tab 07/31/18 10/23/18 omeprazole 20 mg PO DAILY 08/22/18 10/23/18 spironolactone 25 mg tablet PO tab 09/23/18 10/23/18 Previous Rx's Medication Instructions Recorded bupropion HCl 150 mg PO DAILY 12/15/16 Accu-Chek 1 each FS ACHS strip 12/17/16 insulin aspart U-100 See Protocol SQ ACHS #1 ml 07/17/18 ropinirole 3 mg PO HS #5 tab 07/17/18 insulin glargine 50 unit SQ BID unit 07/23/18 Allergies Allergy/AdvReac Type Severity Reaction Status Date / Time Sulfa (Sulfonamide Allergy Mild Rash Verified 10/02/19 20:32 Antibiotics) glipizide Allergy Unknown kidney Verified 10/02/19 20:32 function metformin AdvReac Severe diarhea Verified 10/02/19 20:32 Amoxicillin AdvReac Mild Diarrhea Verified 10/02/19 20:32 clindamycin AdvReac Mild Abdominal Verified 10/02/19 20:32 Pain morphine AdvReac Mild Other Verified 10/02/19 20:32 Review of Systems ROS ROS Narrative: Narrative: All systems ED: reviewed and negative except as stated. 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) Acne rosacea (Chronic) Personal history of Methicillin resistant Staphylococcus aureus infection (Chronic) Trigger finger, left index finger (Chronic) Pressure ulcer of left heel, stage 1 (Chronic) Right knee pain (Chronic) Hypomagnesemia (Chronic) Stage I pressure ulcer (Chronic) Iron deficiency anemia (Chronic) Blister (nonthermal), left lower leg, sequela (Chronic) Abnormal renal function test (Chronic) Dysphagia, pharyngoesophageal phase (Chronic) Pressure ulcer of unspecified buttock, stage 1 (Chronic) Perineal ulcer (Chronic) Type 2 diabetes mellitus with diabetic polyneuropathy (Chronic) Type 2 diabetes mellitus with other diabetic neurological complication (Chronic) Numbness and tingling (Chronic) Abnormal gait (Chronic) Dyspnea on exertion (Chronic) Shortness of breath (Chronic) Cough (Chronic) Loss of taste (Chronic) Chills (Chronic) Loss of appetite (Chronic) Anxiety (Chronic) Pain with urination (Chronic) Frequent urination (Chronic) Nausea and vomiting (Chronic) Syncope (Chronic) Sensitivity to the cold (Chronic) Sensitivity to heat (Chronic) Night sweats (Chronic) Fever (Chronic) Gallbladder problem (Chronic) Stomach ulcer (Chronic) Seizures (Chronic) Restless leg syndrome (Chronic) Rotator cuff syndrome of right shoulder (Chronic) Stress incontinence (Chronic) Urge incontinence (Chronic) Paresthesia of hand (Chronic) Sleep apnea (Chronic) Hyperlipidemia (Chronic) Neuropathy (Chronic) 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) Peripheral vertigo (Chronic) Ulcer of lower extremity (Chronic) Blister of left foot (Chronic) Burning with urination (Chronic) Urinary urgency (Chronic) Low grade fever (Chronic) Aching (Chronic) Fatigue (Chronic) Overweight (Chronic) Lymphedema of both lower extremities (Chronic) Erythema (Chronic) Edema (Chronic) Diabetes (Chronic) Acute delirium (Acute) UTI (urinary tract infection) (Acute) Sepsis associated hypotension (Acute) Pulmonary edema (Acute) HTN (hypertension) (Chronic) Renal insufficiency, mild (Acute) Left leg cellulitis (Acute) MRSA carrier (Acute) Stasis dermatitis of left lower extremity due to peripheral venous hypertension (Acute) Venous stasis dermatitis of both lower extremities (Acute) Pneumonia (Acute) YANN (acute kidney injury) (Acute) Dermatitis (Chronic) Rhabdomyolysis (Acute) Dehydration (Acute) Sepsis due to methicillin resistant Staphylococcus aureus (MRSA) (Acute) Ulcer of forefoot due to type 2 diabetes mellitus (Chronic) Osteomyelitis of great toe of left foot (Acute) Medical History (Updated 10/02/19 @ 23:57 by Antonio Lucas MD) Abnormal gait (Chronic) Abnormal renal function test (Chronic) Aching (Chronic) Acne rosacea (Chronic) Acute and chronic respiratory failure with hypoxia (Resolved) Acute delirium (Acute) Anxiety (Chronic) Arthritis (Chronic) Back pain (Chronic) Blister (nonthermal), left lower leg, sequela (Chronic) Blister of left foot (Chronic) Burning with urination (Chronic) Chills (Chronic) Cough (Chronic) Depression (Acute) Diabetes (Chronic) NOW ON LANTUS 45 UNITS SQ BID, JANUVIA 50 MG PO DAILY AND METFORMIN. Dysphagia, pharyngoesophageal phase (Chronic) Dyspnea on exertion (Chronic) Edema (Chronic) Erythema (Chronic) Fatigue (Chronic) Fever (Chronic) Focal neurological deficit (Chronic) Frequent urination (Chronic) Gallbladder problem (Chronic) HTN (hypertension) (Chronic) CONTROLLED. Hyperlipidemia (Chronic) Hypomagnesemia (Chronic) Iron deficiency anemia (Chronic) Joint pain (Chronic) Joint swelling (Chronic) Left leg cellulitis (Suspected) COMPLETE 5 ADDITIONAL DAYS OF CLINDAMYCIN 450 MG PO QID. Left leg cellulitis (Acute) halfway (current) use of aspirin (Chronic) Loss of appetite (Chronic) Loss of taste (Chronic) Low grade fever (Chronic) Lymphedema of both lower extremities (Chronic) Monilial vaginitis (Chronic) MRSA carrier (Acute) Muscle cramps (Chronic) Muscle stiffness (Chronic) Muscle weakness (Chronic) Nausea and vomiting (Chronic) Neuropathy (Chronic) Night sweats (Chronic) Numbness and tingling (Chronic) Overweight (Chronic) Pain with urination (Chronic) Paresthesia of hand (Chronic) Perineal itching, female (Chronic) Perineal ulcer (Chronic) Peripheral vertigo (Chronic) Personal history of Methicillin resistant Staphylococcus aureus infection (Chronic) Pneumonia (Resolved) bilateral- on Zithromax/Ceftriaxone.Obtain sputum cx.Clinically improving Pneumonia (Acute) Pressure ulcer of left heel, stage 1 (Chronic) Pressure ulcer of unspecified buttock, stage 1 (Chronic) Pulmonary edema (Acute) due to fluid overload, schedule echo - diurese Renal insufficiency, mild (Acute) PATIENT WAS OVERDIURESED AND LASIX HELD ON 01/16. CHECK A RENAL PANEL ON 01/19 AND RESULTS TO BE SENT TO PRIMARY IN ORDER TO DETERMINE IF SAFE TO RESUME LASIX. Restless leg syndrome (Chronic) Right knee pain (Chronic) Rotator cuff syndrome of right shoulder (Chronic) Seizures (Chronic) (As a Kid) Sensitivity to heat (Chronic) Sensitivity to the cold (Chronic) Sepsis associated hypotension (Acute) trensferred to ICU given boluses , if needed will start pressors Shortness of breath (Chronic) SIRS (systemic inflammatory response syndrome) (Resolved) hypotension has resolved Sleep apnea (Chronic) Stage I pressure ulcer (Chronic) Stasis dermatitis of left lower extremity due to peripheral venous hypertension (Acute) Stomach ulcer (Chronic) Stress incontinence (Chronic) Syncope (Chronic) Trigger finger, left index finger (Chronic) Type 2 diabetes mellitus with diabetic polyneuropathy (Chronic) Type 2 diabetes mellitus with other diabetic neurological complication (Chronic) Ulcer of lower extremity (Chronic) Urge incontinence (Chronic) Urinary urgency (Chronic) UTI (urinary tract infection) (Acute) E coli sens to all- change to Ceftriaxone 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) Venous stasis dermatitis of both lower extremities (Acute) Vulvovaginal pain (Chronic) Surgical History S/P cataract surgery (Chronic) S/P cholecystectomy (Chronic) S/P rotator cuff surgery (Chronic) X 2 S/P tonsillectomy (Chronic) S/P tubal ligation (Chronic) Family History Mother Esophageal cancer Pancreatic cancer Sister Breast cancer Cervical cancer Diabetes mellitus, type II Kidney disease Hepatitis C Liver cancer Family/Other Asthma Child Father CVA (cerebral vascular accident) Social History Smoking Status: Never smoker Alcohol Intake Frequency: holiday/special occasion only Substance Use: does not use Exam Narrative Narrative: Narrative: She does have some erythema both lower extremities. General Limitations: no limitations Head Head: atraumatic, normocephalic and normal inspection Eye Eye: Present normal appearance and EOMI; Absent scleral icterus and conjunctival injection ENT ENT: Present normal exam Chest Chest: Present normal inspection and symmetric chest wall rise Respiratory Respiratory: Present normal lung sounds bilaterally; Absent respiratory distress, rales/crackles and wheezes Cardiovascular Cardiovascular: Present regular rate, normal rhythm and normal heart sounds Adbominal Abdominal: Present soft; Absent distention and tenderness Course Vital Signs Vital signs: Vital Signs Temperature 98.8 F 10/02/19 20:20 Pulse Rate 89 10/02/19 20:20 Respiratory Rate 20 10/02/19 20:20 Blood Pressure 88/56 10/02/19 20:20 Pulse Oximetry (%) 96 10/02/19 20:20 Temperature 98.8 F 10/02/19 20:20 Pulse Rate 84 10/02/19 23:30 Respiratory Rate 22 10/02/19 23:30 Blood Pressure 108/57 10/02/19 23:30 Pulse Oximetry (%) 100 10/02/19 23:30 MDM MDM Narrative Medical decision making narrative: Narrative: Patient is felt to have mild urosepsis. She has been cultured and treated with 3 antibiotics. She is admitted to the hospital for Dr. Snell. Lab Data Lab results reviewed: Yes I reviewed the patient's lab results. Result diagrams: 10/02/19 21:00 10/02/19 21:00 Labs: Lab Results 10/02/19 10/02/19 10/02/19 Range/Units 21:00 21:00 21:00 WBC 16.3 H (4.50-11.00) K/mcL RBC 3.61 (3.59-5.38) M/mcL Hgb 10.8 L (11.2-15.7) g/dL Hct 33.4 L (34.1-44.9) % MCV 92.5 (80.0-100.0) fL MCH 29.9 (26.0-34.0) pg MCHC 32.3 (31.0-36.0) g/dL RDW 15.6 H (11.5-14.5) % Plt Count 143 (140-440) K/mcL MPV 8.8 (7.4-10.4) fL Gran % 95.3 H (38.0-78.0) % Lymph % (Auto) 2.2 L (15.5-49.0) % [place] % (Auto) 2.3 (1.0-12.0) % Eos % (Auto) 0.1 (0.0-7.0) % Baso % (Auto) 0.1 (0.0-2.0) % Gran # 15.50 H (1.80-8.00) K/mcL Lymph # (Auto) 0.35 L (1.50-4.80) K/mcL [place] # (Auto) 0.37 (0.10-0.90) K/mcL Eos # (Auto) 0.01 (0.00-0.70) K/mcL Baso # (Auto) 0.02 (0.00-0.30) K/mcL VBG Lactic Acid 2.8 H (0.5-2.0) mmol/L Sodium 139 (133-145) mmol/L Potassium 3.4 (3.3-5.1) mmol/L Chloride 97 (96-108) mmol/L Carbon Dioxide 26 (22-30) mmol/L Anion Gap 16.0 (8-16) BUN 63 H (8-23) mg/dl Creatinine 2.7 H (0.6-1.1) mg/dl GFR Calculation 17 Glucose 184 H (70-105) mg/dL Calcium 8.5 L (8.6-10.4) mg/dl Total Bilirubin 0.7 (0.0-1.0) mg/dL AST 56 H (0-37) U/l ALT 37 (0-40) U/l Alkaline Phosphatase 127 H (39-117) U/L NT-Pro-B Natriuret Pep 1356.0 H (0-125) pg/ml Total Protein 6.5 (5.9-8.4) gm/dL Albumin 3.0 L (3.2-5.2) gm/dL Globulin 3.5 (2.2-3.7) gm/dL Albumin/Globulin Ratio 0.9 L (1.0-2.3) Urine Color Urine Appearance Urine pH (5.0-9.0) Ur Specific [place] (1.000-1.035) Urine Protein (NEG) mg/dL Urine Glucose (UA) (NEG) mg/dL Urine Ketones (NEG) mg/dL Urine Occult Blood (<5) lamar/mcL Urine Nitrate (NEG) Urine Bilirubin (NEG) mg/dL Urine Urobilinogen (NEG) mg/dL Ur Leukocyte Esterase (NEG) /uL Urine RBC (0-1) /hpf Urine WBC (0-4) /hpf Ur Squamous Epith Cells (0-4) /hpf Urine Bacteria (0) /hpf Other Casts (0) /lpf Ur Culture Indicated? 10/02/19 Range/Units 22:55 WBC (4.50-11.00) K/mcL RBC (3.59-5.38) M/mcL Hgb (11.2-15.7) g/dL Hct (34.1-44.9) % MCV (80.0-100.0) fL MCH (26.0-34.0) pg MCHC (31.0-36.0) g/dL RDW (11.5-14.5) % Plt Count (140-440) K/mcL MPV (7.4-10.4) fL Gran % (38.0-78.0) % Lymph % (Auto) (15.5-49.0) % [place] % (Auto) (1.0-12.0) % Eos % (Auto) (0.0-7.0) % Baso % (Auto) (0.0-2.0) % Gran # (1.80-8.00) K/mcL Lymph # (Auto) (1.50-4.80) K/mcL [place] # (Auto) (0.10-0.90) K/mcL Eos # (Auto) (0.00-0.70) K/mcL Baso # (Auto) (0.00-0.30) K/mcL VBG Lactic Acid (0.5-2.0) mmol/L Sodium (133-145) mmol/L Potassium (3.3-5.1) mmol/L Chloride (96-108) mmol/L Carbon Dioxide (22-30) mmol/L Anion Gap (8-16) BUN (8-23) mg/dl Creatinine (0.6-1.1) mg/dl GFR Calculation Glucose (70-105) mg/dL Calcium (8.6-10.4) mg/dl Total Bilirubin (0.0-1.0) mg/dL AST (0-37) U/l ALT (0-40) U/l Alkaline Phosphatase (39-117) U/L NT-Pro-B Natriuret Pep (0-125) pg/ml Total Protein (5.9-8.4) gm/dL Albumin (3.2-5.2) gm/dL Globulin (2.2-3.7) gm/dL Albumin/Globulin Ratio (1.0-2.3) Urine Color Yellow Urine Appearance Turbid Urine pH 5.5 (5.0-9.0) Ur Specific [place] 1.015 (1.000-1.035) Urine Protein 100 A (NEG) mg/dL Urine Glucose (UA) Negative (NEG) mg/dL Urine Ketones Neg (NEG) mg/dL Urine Occult Blood 3+ (large) A (<5) lamar/mcL Urine Nitrate Pos A (NEG) Urine Bilirubin Neg (NEG) mg/dL Urine Urobilinogen Norm (NEG) mg/dL Ur Leukocyte Esterase 3+ (large) (NEG) /uL Urine RBC 14 H (0-1) /hpf Urine WBC 71 H (0-4) /hpf Ur Squamous Epith Cells 31 H (0-4) /hpf Urine Bacteria 0 (0) /hpf Other Casts Few A (0) /lpf Ur Culture Indicated? No Radiology Data Radiology results reviewed: Yes I reviewed the patient's radiology results. Discharge Plan Patient/Caregiver Discharge Instructions Pt seen by ELECTRO OPTICS ENGINEER/PA only: No Clinical Impression: Acute UTI, Sepsis Patient Disposition: Xfer As Inpt ([facility]) Follow up with: Katie Haji ARNP [Primary Care Provider] - Prescriptions: No Action fesoterodine 4 mg tablet extended release 24 hr 4 mg PO QDAY RF: 0 ferrous sulfate 325 mg (65 mg iron) tablet,delayed release 325 mg (65 mg iron) tablet,delayed release (DR/EC) 325 mg PO QDAY RF: 0 magnesium 200 mg tablet 400 mg PO QDAY RF: 0 ascorbic acid (vitamin C) 1,000 mg tablet 1 g PO QDAY RF: 0 cholecalciferol (vitamin D3) 2,000 unit capsule 2,000 unit PO QDAY RF: 0 spironolactone 25 mg tablet PO RF: 0 sertraline 100 MG tablet 100 mg PO HS RF: 0 simvastatin 20 MG tablet 20 mg PO HS RF: 0 bupropion HCl 150 MG tablet extended release 24 hr 150 mg PO DAILY RF: 0 Accu-Chek 1 EACH strip 1 each FS ACHS RF: 0 cyanocobalamin (vitamin B-12) 2,500 MCG tablet 2,500 mcg PO BID RF: 0 silver sulfadiazine 1 DOSE cream 1 dose topical DAILY RF: 0 aspirin 81 MG tablet,delayed release (DR/EC) 81 mg PO ONCE RF: 0 torsemide 100 MG tablet 100 mg PO DAILY RF: 0 losartan 50 MG tablet 50 mg PO DAILY RF: 0 insulin aspart U-100 100 UNIT/ML solution See Protocol unit SQ ACHS Qty: 1 RF: 0 ropinirole 3 MG tablet 3 mg PO HS Qty: 5 RF: 0 gabapentin 100 mg capsule 1 - 3 cap PO HS RF: 0 loperamide 2 MG capsule 2 mg PO PRN PRN (Reason: Diarrhea) RF: 0 bisacodyl 10 MG suppository 10 mg ME DAILYP PRN (Reason: Constipation) RF: 0 glucagon (human recombinant) 1 MG recon soln 1 mg IJ PRN PRN (Reason: Blood Sugar - Low) RF: 0 acetaminophen 325 MG capsule 650 mg PO Q6HP PRN (Reason: Pain) RF: 0 insulin glargine 1 UNIT/0.01 ML unit 50 unit SQ BID RF: 0 omeprazole 20 MG capsule 20 mg PO DAILY RF: 0
[2019-10-02 21:36] LABS: Basophils # (Auto) 0.02 K/mcL (0.00-0.30); Basophils % (Auto) 0.1 % (0.0-2.0); Eosinophils # (Auto) 0.01 K/mcL (0.00-0.70); Eosinophils % (Auto) 0.1 % (0.0-7.0); Granulocytes % (Auto) 95.3 % (38.0-78.0); Hematocrit 33.4 % (34.1-44.9); Hemoglobin 10.8 g/dL (11.2-15.7); Lymphocytes # (Auto) 0.35 K/mcL (1.50-4.80); Lymphocytes % (Auto) 2.2 % (15.5-49.0); Mean Cell Volume 92.5 fL (80.0-100.0); Mean Corpuscular HGB Conc 32.3 g/dL (31.0-36.0); Mean Platelet Volume 8.8 fL (7.4-10.4); Monocytes # (Auto) 0.37 K/mcL (0.10-0.90); Monocytes % (Auto) 2.3 % (1.0-12.0); Platelet Count 143 K/mcL (140-440); RBC 3.61 M/mcL (3.59-5.38); Red Cell Distribution Width 15.6 % (11.5-14.5); WBC 16.3 K/mcL (4.50-11.00)
[2019-10-02 22:01] LABS: ALT/SGPT 37 U/l (0-40); AST/SGOT 56 U/l (0-37); Albumin/Globulin Ratio 0.9 (1.0-2.3); Alkaline Phosphatase 127 U/L (39-117); Bilirubin,Total 0.7 mg/dL (0.0-1.0); Blood Urea Nitrogen 63 mg/dl (8-23); Calcium 8.5 mg/dl (8.6-10.4); Carbon Dioxide 26 mmol/L (22-30); Chloride 97 mmol/L (96-108); Globulin 3.5 gm/dL (2.2-3.7); Glomerular Filtration Rate 17; Glucose 184 mg/dL (70-105)
[2019-10-02 23:39] LABS: Appearance,Urine TURBID; Bacteria,Urine 0 /hpf (0); Bilirubin,Urine NEG (NEG); Color,Urine YELLOW; Culture Indicated,Urine NO; Glucose,Urine (UA) NEGATIVE (NEG); Ketones,Urine NEG (NEG); Leukocyte Esterase,Urine 3+ (LARGE) /uL (NEG); Nitrate,Urine POS (NEG); Other Casts,Urine FEW /lpf (0); PH,Urine 5.5 (5.0-9.0); Protein,Urine 100 mg/dL (NEG); Specific Gravity,Urine 1.015 (1.000-1.035); Urine Blood 3+ (LARGE) ery/mcL (<5); Urine RBC 14 /hpf (0-1); Urine Squamous Epithelial Cell 31 /hpf (0-4); Urine WBC 71 /hpf (0-4); Urobilinogen,Urine NORM (NEG)
[2019-10-03] MEDS: 0.45 % SODIUM CHLORIDE 1,000 ML IV SCH ×2 (03:21→09:56)
[2019-10-03] MEDS ORDERED: ACETAMINOPHEN 325 MG TABLET PO PRN ×2 (03:25→07:47)
[2019-10-03] MEDS ORDERED: ACETAMINOPHEN 325 MG TABLET PO ONE (03:35)
--- NOTE | 2019-10-03 06:38 | XRay Report ---
INDICATION: cough. Urinary tract infection TECHNIQUE: AP portable semiupright chest x-ray COMPARISON: Previous examinations dated 08/22/2018, 07/15/2018, 07/13/2018 FINDINGS: Lungs:Lungs are negative. No focal pulmonary parenchymal infiltrate or mass Heart, vascular:No significant cardiomegaly. Pulmonary vascularity is normal. No pulmonary edema or pulmonary congestion Mediastinum, chasity:No mediastinal widening. No hilar mass Pleura:No pleural fluid. No pleural-based mass or calcification Skeletal:Negative. IMPRESSION: 1. No acute abnormality 2. No significant interval change since 08/22/2018 Interpreted and Authenticated by: Spencer Higuera 10/03/19
[2019-10-03] MEDS ORDERED: POTASSIUM CHLORIDE 20 MEQ PACKET PO PRN ×2 (07:47→11:20)
[2019-10-03] MEDS ORDERED: BISACODYL 10 MG SUPP.RECT PR PRN ×2 (07:47→11:20)
[2019-10-03] MEDS ORDERED: ACETAMINOPHEN 650 MG/65 ML BOTTLE IV PRN ×2 (07:47→11:20)
[2019-10-03] MEDS ORDERED: ONDANSETRON 4 MG ODT TABLET SL PRN ×2 (07:47→11:20)
[2019-10-03] MEDS ORDERED: MAGNESIUM SULFATE 2 GM/50 ML BAG IV PRN ×2 (07:47→11:20)
[2019-10-03] MEDS ORDERED: ONDANSETRON 4 MG/2 ML VIAL IV PRN ×2 (07:47→11:20)
[2019-10-03] MEDS ORDERED: POLYETHYLENE GLYCOL 3350 17 GM PACKET PO PRN ×2 (07:47→11:20)
[2019-10-03] MEDS ORDERED: DEXTROSE 31 GM ORAL.SUSP PO PRN ×2 (07:47→11:20)
[2019-10-03] MEDS ORDERED: DEXTROSE 50% 50 ML VIAL IV PRN ×2 (07:47→11:20)
--- NOTE | 2019-10-03 07:57 | Internal Med History&Physical ---
HPI History of Present Illness Patient information: Note initiated : 10/03/19 at 7:51 am Service Date, if different from initiated Date: [] Patient: Mary Gibbons 74 y/o F admitted on 10/03/19 for UTI. Chief Complaint: [] History of present illness: Ms. Gibbons is a 74 year old morbidly obese female with a history of chronic lower extremity wounds/urine incontinence/DM type II/HTN and CKD managed by Dr. Fox who presents to the ER following a couple of days of progressive weakness, fatigue and inability to function. She was recently diagnosed with UTI which has failed to respond to antibiotic treatment as outpatient. She was evaluated in the ER initial work-up was consistent with severe sepsis with leukocytosis at 16.3/elevated lactic acid 2.8 and evidence of endorgan dysfunction including elevated creatinine. Following cultures and crystalloid antibiotics were administered. Hospitalist service was consulted in light of above. At the time of evaluation patient is alert and oriented. Her systolics are low 90s. She endorses to fever but denies lightheadedness dizziness or chest pain. She denies diarrhea, rash or joint pain. She has bilateral lower extremity involving the right heel and left medial foot. Review of systems 10 point review system was performed and is negative except for ones discussed above [facility] Medical History (Updated 10/02/19 @ 23:57 by Antonio Lucas MD) Abnormal gait (Chronic) Abnormal renal function test (Chronic) Aching (Chronic) Acne rosacea (Chronic) Acute and chronic respiratory failure with hypoxia (Resolved) Acute delirium (Acute) Anxiety (Chronic) Arthritis (Chronic) Back pain (Chronic) Blister (nonthermal), left lower leg, sequela (Chronic) Blister of left foot (Chronic) Burning with urination (Chronic) Chills (Chronic) Cough (Chronic) Depression (Acute) Diabetes (Chronic) NOW ON LANTUS 45 UNITS SQ BID, JANUVIA 50 MG PO DAILY AND METFORMIN. Dysphagia, pharyngoesophageal phase (Chronic) Dyspnea on exertion (Chronic) Edema (Chronic) Erythema (Chronic) Fatigue (Chronic) Fever (Chronic) Focal neurological deficit (Chronic) Frequent urination (Chronic) Gallbladder problem (Chronic) HTN (hypertension) (Chronic) CONTROLLED. Hyperlipidemia (Chronic) Hypomagnesemia (Chronic) Iron deficiency anemia (Chronic) Joint pain (Chronic) Joint swelling (Chronic) Left leg cellulitis (Suspected) COMPLETE 5 ADDITIONAL DAYS OF CLINDAMYCIN 450 MG PO QID. 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) Loss of appetite (Chronic) Loss of taste (Chronic) Low grade fever (Chronic) Lymphedema of both lower extremities (Chronic) Monilial vaginitis (Chronic) MRSA carrier (Acute) Muscle cramps (Chronic) Muscle stiffness (Chronic) Muscle weakness (Chronic) Nausea and vomiting (Chronic) Neuropathy (Chronic) Night sweats (Chronic) Numbness and tingling (Chronic) Overweight (Chronic) Pain with urination (Chronic) Paresthesia of hand (Chronic) Perineal itching, female (Chronic) Perineal ulcer (Chronic) Peripheral vertigo (Chronic) Personal history of Methicillin resistant Staphylococcus aureus infection (Chronic) Pneumonia (Resolved) bilateral- on Zithromax/Ceftriaxone.Obtain sputum cx.Clinically improving Pneumonia (Acute) Pressure ulcer of left heel, stage 1 (Chronic) Pressure ulcer of unspecified buttock, stage 1 (Chronic) Pulmonary edema (Acute) due to fluid overload, schedule echo - diurese Renal insufficiency, mild (Acute) PATIENT WAS OVERDIURESED AND LASIX HELD ON 01/16. CHECK A RENAL PANEL ON 01/19 AND RESULTS TO BE SENT TO PRIMARY IN ORDER TO DETERMINE IF SAFE TO RESUME LASIX. Restless leg syndrome (Chronic) Right knee pain (Chronic) Rotator cuff syndrome of right shoulder (Chronic) Seizures (Chronic) (As a Kid) Sensitivity to heat (Chronic) Sensitivity to the cold (Chronic) Sepsis associated hypotension (Acute) trensferred to ICU given boluses , if needed will start pressors Shortness of breath (Chronic) SIRS (systemic inflammatory response syndrome) (Resolved) hypotension has resolved Sleep apnea (Chronic) Stage I pressure ulcer (Chronic) Stasis dermatitis of left lower extremity due to peripheral venous hypertension (Acute) Stomach ulcer (Chronic) Stress incontinence (Chronic) Syncope (Chronic) Trigger finger, left index finger (Chronic) Type 2 diabetes mellitus with diabetic polyneuropathy (Chronic) Type 2 diabetes mellitus with other diabetic neurological complication (Chronic) Ulcer of lower extremity (Chronic) Urge incontinence (Chronic) Urinary urgency (Chronic) UTI (urinary tract infection) (Acute) E coli sens to all- change to Ceftriaxone 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) Venous stasis dermatitis of both lower extremities (Acute) Vulvovaginal pain (Chronic) Surgical History S/P cataract surgery (Chronic) S/P cholecystectomy (Chronic) S/P rotator cuff surgery (Chronic) X 2 S/P tonsillectomy (Chronic) S/P tubal ligation (Chronic) Family History Mother Esophageal cancer Pancreatic cancer Sister Breast cancer Cervical cancer Diabetes mellitus, type II Kidney disease Hepatitis C Liver cancer Family/Other Asthma Child Father CVA (cerebral vascular accident) Social History (Updated 10/24/18 @ 20:00 by Sam Elizabeth MD) marital status: single occupational status: retired physical activity: none smoking status: Former smoker alcohol intake frequency: holiday/special occasion only substance use type: does not use MEDS/ALLERGIES Home Medications and Allergies Home Medications Medication Instructions Recorded Confirmed Type sertraline 100 mg PO HS 04/29/15 10/23/18 History simvastatin 20 mg PO HS 04/29/15 10/23/18 History bupropion HCl 150 mg PO DAILY 12/15/16 10/23/18 Rx Accu-Chek 1 each FS ACHS strip 12/17/16 10/23/18 Rx aspirin 81 mg PO ONCE 07/13/18 10/23/18 History cyanocobalamin (vitamin B-12) 2,500 mcg PO BID 07/13/18 10/23/18 History silver sulfadiazine 1 dose TOPICAL DAILY 07/13/18 10/23/18 History torsemide 100 mg PO DAILY 07/13/18 10/23/18 History losartan 50 mg PO DAILY 07/14/18 10/23/18 History insulin aspart U-100 See Protocol SQ ACHS #1 ml 07/17/18 10/23/18 Rx ropinirole 3 mg PO HS #5 tab 07/17/18 10/23/18 Rx acetaminophen 650 mg PO Q6HP PRN 07/20/18 10/23/18 History bisacodyl 10 mg VA DAILYP PRN 07/20/18 10/23/18 History glucagon (human recombinant) 1 mg IJ PRN PRN 07/20/18 10/23/18 History loperamide 2 mg PO PRN PRN 07/20/18 10/23/18 History insulin glargine 50 unit SQ BID unit 07/23/18 10/23/18 Rx fesoterodine 4 mg tablet,extended 4 mg PO QDAY 07/24/18 10/23/18 History release 24 hr ascorbic acid (vitamin C) 1,000 mg 1 g PO QDAY tab 07/31/18 10/23/18 History tablet cholecalciferol (vitamin D3) 50 2,000 unit PO QDAY 07/31/18 10/23/18 History mcg (2,000 unit) capsule ferrous sulfate 325 mg (65 mg 325 mg PO QDAY tab 07/31/18 10/23/18 History iron) tablet,delayed release gabapentin 100 mg capsule 1 - 3 cap PO HS 07/31/18 10/23/18 History magnesium 200 mg tablet 400 mg PO QDAY tab 07/31/18 10/23/18 History omeprazole 20 mg PO DAILY 08/22/18 10/23/18 History spironolactone 25 mg tablet PO tab 09/23/18 10/23/18 History Allergies Allergy/AdvReac Type Severity Reaction Status Date / Time Sulfa (Sulfonamide Allergy Mild Rash Verified 10/03/19 00:50 Antibiotics) glipizide Allergy Unknown kidney Verified 10/03/19 00:50 function metformin AdvReac Severe diarhea Verified 10/03/19 00:50 Amoxicillin AdvReac Mild Diarrhea Verified 10/03/19 00:50 clindamycin AdvReac Mild Abdominal Verified 10/03/19 00:50 Pain morphine AdvReac Mild Other Verified 10/03/19 00:50 EXAM Constitutional Vitals: Temp Pulse Resp BP Pulse Ox 98.5 F 75 18 95/48 95 10/03/19 03:35 10/03/19 03:35 10/03/19 03:35 10/03/19 04:15 10/03/19 03:35 Morbidly obese Head normocephalic Oral cavity moist No ear nose discharge Eye movement symmetrical Neck supple no lymphadenopathy S1-S2 occasionally irregular Nonlabored breathing Nondistended nontender abdomen Lower extremity minimal lymphedema, big toe amputation left, right heel ulcer, left medial foot dime sized ulcer. Skin otherwise no other suspicious lesion Psych anxious but alert cooperative Neuro normal higher function DATA Data Completed and Pending Labs on day of discharge: Labs from last 24 hours 10/02/19 10/02/19 10/02/19 22:55 21:00 21:00 WBC RBC Hgb Hct MCV MCH MCHC RDW Plt Count MPV Gran % Lymph % (Auto) [place] % (Auto) Eos % (Auto) Baso % (Auto) Gran # Lymph # (Auto) [place] # (Auto) Eos # (Auto) Baso # (Auto) Differential Comment VBG Lactic Acid 2.8 H Sodium 139 Potassium 3.4 Chloride 97 Carbon Dioxide 26 Anion Gap 16.0 BUN 63 H Creatinine 2.7 H GFR Calculation 17 Glucose 184 H Calcium 8.5 L Total Bilirubin 0.7 AST 56 H ALT 37 Alkaline Phosphatase 127 H NT-Pro-B Natriuret Pep 1356.0 H Total Protein 6.5 Albumin 3.0 L Globulin 3.5 Albumin/Globulin Ratio 0.9 L Urine Color Yellow Urine Appearance Turbid Urine pH 5.5 Ur Specific [place] 1.015 Urine Protein 100 A Urine Glucose (UA) Negative Urine Ketones Neg Urine Occult Blood 3+ (large) A Urine Nitrate Pos A Urine Bilirubin Neg Urine Urobilinogen Norm Ur Leukocyte Esterase 3+ (large) Urine RBC 14 H Urine WBC 71 H Ur Squamous Epith Cells 31 H Urine Bacteria 0 Other Casts Few A Ur Culture Indicated? No 10/02/19 21:00 WBC 16.3 H RBC 3.61 Hgb 10.8 L Hct 33.4 L MCV 92.5 MCH 29.9 MCHC 32.3 RDW 15.6 H Plt Count 143 MPV 8.8 Gran % 95.3 H Lymph % (Auto) 2.2 L [place] % (Auto) 2.3 Eos % (Auto) 0.1 Baso % (Auto) 0.1 Gran # 15.50 H Lymph # (Auto) 0.35 L [place] # (Auto) 0.37 Eos # (Auto) 0.01 Baso # (Auto) 0.02 Differential Comment VBG Lactic Acid Sodium Potassium Chloride Carbon Dioxide Anion Gap BUN Creatinine GFR Calculation Glucose Calcium Total Bilirubin AST ALT Alkaline Phosphatase NT-Pro-B Natriuret Pep Total Protein Albumin Globulin Albumin/Globulin Ratio Urine Color Urine Appearance Urine pH Ur Specific [place] Urine Protein Urine Glucose (UA) Urine Ketones Urine Occult Blood Urine Nitrate Urine Bilirubin Urine Urobilinogen Ur Leukocyte Esterase Urine RBC Urine WBC Ur Squamous Epith Cells Urine Bacteria Other Casts Ur Culture Indicated? A/P Narrative A/P Narrative: * Severe sepsis with endorgan dysfunction. Continue management per guidelines. Pancultures/lactic acid trending/crystalloids/antibiotics. * Complicated UTI continue antibiotic coverage de-escalate based on culture sensitivities * Acute on chronic kidney injury creatinine 2.7 with a baseline around 2. Likely secondary sepsis endorgan dysfunction however rule out obstructive uropathy with renal ultrasound. * History DM type II continue basal panel insulin * Anxiety disorder continue bupropion/sertraline * Diabetic foot ulcer wound care consult * Diabetic neuropathy continue gabapentin * Hypertension hold antihypertensives until sepsis resolves. * Restless leg syndrome continue ropinirole * GERD continue PPI * Hyperlipidemia continue statin * Prophylaxis heparin Plan * Inpatient admission * Antibiotic coverage * Renal ultrasound * Wound care consult * Pre-existing medical condition management as above except for antihypertensives to be held in light of severe sepsis * Monitor renal function * Avoid nephrotoxins * PT OT/nutrition support Time Spent With Patient Time: Total time spent is greater than 50% in coordination of care (as documented) at patient's floor/unit and/or counseling patient: 65 minutes histo ry and physical QUALITY VTE Deep Vein Thrombosis/Pulmonary Embolism Present on Admission: No
[2019-10-03] MEDS ORDERED: 0.9 % SODIUM CHLORIDE 1,000 ML IV SCH (08:00)
[2019-10-03] MEDS ORDERED: NOREPINEPHRINE BITARTRATE 16 MG in 0.9 % SODIUM CHLORIDE 234 ML IV PRN (08:00)
[2019-10-03] MEDS ORDERED: VANCOMYCIN PER PHARMACY IV SCH ×2 (08:00→11:20)
[2019-10-03] MEDS ORDERED: MULTIVIT,THER IRON,CA,FA & MIN 1 TABLET PO SCH (09:00)
[2019-10-03] MEDS ORDERED: DOCUSATE SODIUM 100 MG CAPSULE PO SCH (09:00)
[2019-10-03] MEDS ORDERED: VANCOMYCIN 1,500 MG in 0.9 % SODIUM CHLORIDE 500 ML IV ONE ×2 (09:00→11:20)
[2019-10-03] MEDS ORDERED: HEPARIN 5,000 UNIT/ML VIAL SQ SCH (09:00)
[2019-10-03] MEDS ORDERED: PIPERACILLIN SODIUM/TAZOBACTAM 3.375 GM in DEXTROSE 5% IN WATER 50 ML IV SCH (09:00)
[2019-10-03] MEDS ORDERED: MUPIROCIN OINT 2% 22GM NARES SCH (09:00)
[2019-10-03] MEDS ORDERED: CYANOCOBALAMIN (VITAMIN B-12) 500 MCG TABLET PO SCH (09:00)
[2019-10-03] MEDS ORDERED: 0.9 % SODIUM CHLORIDE 250 ML IV SCH (10:00)
[2019-10-03] MEDS ORDERED: NOREPINEPHRINE BITARTRATE 16 MG in 0.9 % SODIUM CHLORIDE 234 ML IV SCH (10:00)
--- NOTE | 2019-10-03 10:32 | Internal Med Progress Note ---
SUBJECTIVE Subjective Patient information: Note initiated : 10/03/19 at 10:28 am Service Date, if different from initiated Date: [] Patient: Mary Gibbnos 74 y/o F admitted on 10/03/19 for UTI. Chief Complaint: [] Interval history: History of present illness: Ms. Gibbons is a 74 year old morbidly obese female with a history of chronic lower extremity wounds/urine incontinence/DM type II/HTN and CKD managed by Dr. Fox who presents to the ER following a couple of days of progressive weakness, fatigue and inability to function. She was recently diagnosed with UTI which has failed to respond to antibiotic treatment as outpatient. She was evaluated in the ER initial work-up was consistent with severe sepsis with leukocytosis at 16.3/elevated lactic acid 2.8 and evidence of endorgan dysfunction including elevated creatinine. Following cultures and crystalloid antibiotics were administered. Hospitalist service was consulted in light of above. At the time of evaluation patient is alert and oriented. Her systolics are low 90s. She endorses to fever but denies lightheadedness dizziness or chest pain. She denies diarrhea, rash or joint pain. She has bilateral lower extremity involving the right heel and left medial foot. 10/02-patient now critically ill with blood pressure in 70s. Started on Levophed. Continue antibiotic coverage/crystalloids/transfer to ICU. Renal ultrasound pending. White count at 16.3 lactic acid elevated 2.8, creatinine 2.7. Continue close hemodynamic monitoring. Repeat BMP at noon. Ulcers noted bilateral lower extremity. Wound care consulted. Constitutional Vitals: Vital Signs Temp Pulse Resp BP Pulse Ox 98.5 F 75 18 95/48 95 10/03/19 03:35 10/03/19 03:35 10/03/19 03:35 10/03/19 04:15 10/03/19 03:35 Period Temp Pulse Resp BP Sys/Vilchis Pulse Ox Last 24 Hr 98.5 F-99.2 F 75-89 13-27 81-108/38-57 91-100 Intake and Output 10/02/19 10/03/19 10/03/19 21:59 05:59 13:59 Intake Total 1000 897 661 Balance 1000 897 661 Weight 127.006 kg 130.816 kg fatigue lethargic Nonlabored breathing Anxious Intake & Output: Intake & Output 10/02/19 10/03/19 10/03/19 21:59 05:59 13:59 Intake Total 1000 897 661 Balance 1000 897 661 Weight 127.006 kg 130.816 kg Intake: IV 1000 897 661 Sodium Chloride 0.45% 1,000 ml 608 @ 100 mls/hr IV .Q10H [facility] Rx#: [id number] Lactated Ringers 1,000 ml @ 1000 447 Wide Open IV [facility] Rx#: [id number] Levophed 16 mg In Sodium 3 Chloride 0.9% 234 ml @ 10 MCG/ MIN 9.375 mls/hr IV Q24H [facility] Rx #:[id number] Zosyn 3.375 gm In Dextrose 5% 50 50 in Water 50 ml @ 100 mls/hr IV Q6H [facility] Rx#:[id number] Vancomycin 1,000 mg In Sodium 250 Chloride 0.9% 250 ml @ 250 mls/ hr IV ONCE ONE Rx#:[id number] Other: Urine Odor Foul OBJ DATA Labs CBC & Chem 7: 10/02/19 21:00 10/02/19 21:00 Labs: Abnormal Lab Results 10/02/19 10/02/19 10/02/19 22:55 21:00 21:00 WBC Hgb Hct RDW Gran % Lymph % (Auto) Gran # Lymph # (Auto) VBG Lactic Acid 2.8 H BUN 63 H Creatinine 2.7 H Glucose 184 H Calcium 8.5 L AST 56 H Alkaline Phosphatase 127 H NT-Pro-B Natriuret Pep 1356.0 H Albumin 3.0 L Albumin/Globulin Ratio 0.9 L Urine Protein 100 A Urine Occult Blood 3+ (large) A Urine Nitrate Pos A Urine RBC 14 H Urine WBC 71 H Ur Squamous Epith Cells 31 H Other Casts Few A 10/02/19 21:00 WBC 16.3 H Hgb 10.8 L Hct 33.4 L RDW 15.6 H Gran % 95.3 H Lymph % (Auto) 2.2 L Gran # 15.50 H Lymph # (Auto) 0.35 L VBG Lactic Acid BUN Creatinine Glucose Calcium AST Alkaline Phosphatase NT-Pro-B Natriuret Pep Albumin Albumin/Globulin Ratio Urine Protein Urine Occult Blood Urine Nitrate Urine RBC Urine WBC Ur Squamous Epith Cells Other Casts Meds: Medications Acetaminophen (Tylenol) 650 mg PO Q4-6HP PRN; Protocol PRN Reason: Per Pain Protocol/Fever > 101 Last Admin: 10/03/19 09:57 Dose: 650 mg Documented by: Bisacodyl (Dulcolax) 10 mg WA Q2-3DAYS PRN PRN Reason: Constipation Cyanocobalamin (Vitamin B-12) 1,000 mcg PO BID [facility] Stop: 10/07/19 21:01 Last Admin: 10/03/19 09:34 Dose: 1,000 mcg Documented by: Dextrose (Dextrose 50%) 0 ml IV UD PRN PRN Reason: Hypoglycemia Diagnostic Test (Pha) (Accu-Chek) 1 each FS ACHS [facility] Last Admin: 10/03/19 07:59 Dose: 1 each Documented by: Docusate Sodium (Colace) 100 mg PO BID [facility] Last Admin: 10/03/19 09:33 Dose: 100 mg Documented by: Glucose (Insta-Glucose) 15 gm PO PRN PRN PRN Reason: Hypoglycemia Heparin Sodium (Porcine) (Heparin) 5,000 unit SQ Q12 [facility] Last Admin: 10/03/19 09:36 Dose: 5,000 unit Documented by: Sodium Chloride (Sodium Chloride 0.9%) 1,000 mls @ 100 mls/hr IV .Q10H [facility] Stop: 10/04/19 13:59 Last Admin: 10/03/19 09:26 Dose: 100 mls/hr Documented by: Acetaminophen (Ofirmev) 650 mg in 65 mls @ 130 mls/hr IV Q6HP PRN; Protocol PRN Reason: Per Pain Protocol/Fever > 101 Magnesium Sulfate (Magnesium Sulfate) 2 gm in 50 mls @ 50 mls/hr IV UD PRN PRN Reason: MG = or < 1.7 Piperacillin Sod/Tazobactam (Sod 3.375 gm/ Dextrose) 50 mls @ 100 mls/hr IV Q6H [facility]; Protocol Last Infusion: 10/03/19 09:55 Dose: Infused Documented by: Norepinephrine Bitartrate 16 (mg/ Sodium Chloride) 250 mls @ 9.375 mls/hr IV Q24H [facility]; Protocol Last Titration: 10/03/19 10:20 Dose: 6 mcg/min, 5.625 mls/hr Documented by: Sodium Chloride (Sodium Chloride 0.9%) 250 mls @ 20 mls/hr IV .[id number] [facility] Insulin Human Lispro (Humalog) 0 unit SQ ACHS [facility]; Protocol Last Admin: 10/03/19 09:35 Dose: 3 units Documented by: Iron Carb/Multivit/[place]/Folic Acid (Multivitamin W/Minerals) 1 tab PO DAILY [facility] Last Admin: 10/03/19 09:34 Dose: 1 tab Documented by: Melatonin (Melatonin 3mg Tablet) 3 mg PO HSP PRN PRN Reason: Insomnia Mupirocin (Bactroban Oint 2%) 1 dose NARES BID [facility] Stop: 10/07/19 21:01 Ondansetron HCl (Zofran Odt) 4 mg SL Q4-6HP PRN; Protocol PRN Reason: Nausea And Vomiting Last Admin: 10/03/19 09:59 Dose: 4 mg Documented by: Ondansetron HCl (Zofran) 4 mg IV Q4-6HP PRN; Protocol PRN Reason: Nausea And Vomiting Polyethylene Glycol (Miralax) 17 gm PO DAILYP PRN PRN Reason: Constipation Potassium Chloride (Klor-Con) 40 meq PO DAILYP PRN PRN Reason: K+ < 3.5 Senna/Docusate Sodium (Senna Plus Tablet) 1 tab PO HS [facility] Sodium Chloride (Saline Flush) 10 ml IV Q8 [facility] Vancomycin HCl (Vancomycin Per Pharmacy) 1 order IV UD [facility]; Protocol A/P Narrative A/P Narrative: * Septic shock with endorgan dysfunction. Continue vasopressors/antibiotics. Pancultures/lactic acid trending/crystalloids * Complicated UTI continue broad antibiotic coverage * Acute on chronic kidney injury creatinine 2.7 with a baseline around 2. Secondary septic shock * History DM type II continue basal prandial insulin * Anxiety disorder continue bupropion/sertraline * Diabetic foot ulcers wound care consult * Diabetic neuropathy continue gabapentin * Hypertension hold antihypertensives until sepsis resolves. * Restless leg syndrome continue ropinirole * GERD continue PPI * Hyperlipidemia continue statin * Prophylaxis heparin Plan * transfer to ICU * Vasopressors/crystalloids/antibiotics * Await renal ultrasound * Repeat BMP * Wound care per Dr. soares * Pre-existing medical condition management as above except for antihypertensives to be held in light of severe sepsis * Avoid nephrotoxins * PT OT/nutrition support Time Spent With Patient Time: Critical care time spent 35 minutes QUALITY VTE Deep Vein Thrombosis/Pulmonary Embolism Present on Admission: No
[2019-10-03] MEDS ORDERED: INSULIN LISPRO 1 UNIT/0.01 ML UNIT SQ SCH (11:30)
[2019-10-03] MEDS: INSULIN LISPRO 1 UNIT/0.01 ML UNIT SQ SCH ×3 (12:12→22:07)
[2019-10-03] MEDS: PIPERACILLIN SODIUM/TAZOBACTAM 3.375 GM in DEXTROSE 5% IN WATER 50 ML IV SCH ×2 (12:24→19:41)
[2019-10-03] MEDS: 0.9 % SODIUM CHLORIDE 10 ML SYRINGE IV SCH ×2 (13:45→22:11)
[2019-10-03] MEDS ORDERED: 0.9 % SODIUM CHLORIDE 10 ML SYRINGE IV SCH (14:00)
[2019-10-03] MEDS: ACETAMINOPHEN 325 MG TABLET PO PRN (14:55)
[2019-10-03] MEDS: VANCOMYCIN 1,000 MG in 0.9 % SODIUM CHLORIDE 250 ML IV SCH (17:04)
[2019-10-03] MEDS ORDERED: SIMETHICONE 80 MG TAB.CHEW CHEWED PRN (20:36)
[2019-10-03] MEDS ORDERED: MELATONIN 3 MG TABLET PO PRN ×2 (21:00)
[2019-10-03] MEDS ORDERED: SENNOSIDES/DOCUSATE SODIUM 1 TAB TABLET PO SCH ×2 (21:00)
[2019-10-03] MEDS: CYANOCOBALAMIN (VITAMIN B-12) 500 MCG TABLET PO SCH (22:05)
[2019-10-03] MEDS: HEPARIN 5,000 UNIT/ML VIAL SQ SCH (22:08)
[2019-10-03] MEDS: MUPIROCIN OINT 2% 22GM NARES SCH (22:10)
[2019-10-03] MEDS: DOCUSATE SODIUM 100 MG CAPSULE PO SCH (22:10)
[2019-10-03] MEDS: 0.9 % SODIUM CHLORIDE 1,000 ML IV SCH ×2 (22:54→22:55)
[2019-10-03] MEDS: 0.9 % SODIUM CHLORIDE 250 ML IV SCH ×2 (23:27)
[2019-10-04] MEDS: PIPERACILLIN SODIUM/TAZOBACTAM 3.375 GM in DEXTROSE 5% IN WATER 50 ML IV SCH ×3 (02:04→13:10)
[2019-10-04] MEDS: 0.9 % SODIUM CHLORIDE 10 ML SYRINGE IV SCH ×2 (05:46→12:42)
[2019-10-04 06:48] LABS: Hematocrit 34.8 % (34.1-44.9); Hemoglobin 10.4 g/dL (11.2-15.7); Mean Cell Volume 98.9 fL (80.0-100.0); Mean Corpuscular HGB Conc 29.9 g/dL (31.0-36.0); Mean Platelet Volume 9.2 fL (7.4-10.4); Platelet Count 151 K/mcL (140-440); RBC 3.52 M/mcL (3.59-5.38); Red Cell Distribution Width 15.5 % (11.5-14.5); WBC 9.1 K/mcL (4.50-11.00)
[2019-10-04 07:14] LABS: ALT/SGPT 32 U/l (0-40); AST/SGOT 41 U/l (0-37); Albumin 2.9 gm/dL (3.2-5.2); Albumin/Globulin Ratio 0.8 (1.0-2.3); Alkaline Phosphatase 111 U/L (39-117); Bilirubin,Direct 0.5 mg/dL (0.0-0.3); Bilirubin,Total 0.8 mg/dL (0.0-1.0); Blood Urea Nitrogen 53 mg/dl (8-23); Calcium 8.3 mg/dl (8.6-10.4); Carbon Dioxide 24 mmol/L (22-30); Chloride 100 mmol/L (96-108); Globulin 3.8 gm/dL (2.2-3.7); Glomerular Filtration Rate 20; Glucose 271 mg/dL (70-105); Lactate Dehydrogenase 267 U/L (94-250); Phosphorous 3.1 mg/dL (2.7-4.5); Triglycerides 141 mg/dl (<150); Uric Acid 8.6 mg/dL (2.5-8.0)
[2019-10-04] MEDS: INSULIN LISPRO 1 UNIT/0.01 ML UNIT SQ SCH ×2 (07:58→12:40)
[2019-10-04 08:50] LABS: Anisocytosis 1+ (NONE SEEN); Band Neutrophils % 5 % (0-10); Eosinophils % (Manual) 2 % (0-7); Lymphocytes % 9 % (15-49); Monocytes % (Manual) 2 % (1-12); Platelet Estimate NORMAL (NORMAL); RBC Morphology ABNORM (NORMAL); Segmented Neutrophils % 82 % (38-78)
[2019-10-04] MEDS ORDERED: MULTIVIT,THER IRON,CA,FA & MIN 1 TABLET PO SCH (09:00)
[2019-10-04] MEDS ORDERED: NON FORMULARY MEDICATION 1 DOSE MISCELL (Acetaminophen 650 MG) PO PRN (09:25)
[2019-10-04] MEDS ORDERED: BISACODYL 10 MG SUPP.RECT PR PRN (09:25)
[2019-10-04] MEDS ORDERED: GLUCAGON 1 MG IJ PRN (09:25)
[2019-10-04] MEDS ORDERED: LOPERAMIDE 2 MG CAPSULE PO PRN (09:25)
[2019-10-04] MEDS: CYANOCOBALAMIN (VITAMIN B-12) 500 MCG TABLET PO SCH (09:44)
[2019-10-04] MEDS: DOCUSATE SODIUM 100 MG CAPSULE PO SCH (09:45)
[2019-10-04] MEDS: MUPIROCIN OINT 2% 22GM NARES SCH (09:45)
[2019-10-04] MEDS: HEPARIN 5,000 UNIT/ML VIAL SQ SCH (09:45)
[2019-10-04] MEDS ORDERED: NOREPINEPHRINE BITARTRATE 16 MG in 0.9 % SODIUM CHLORIDE 234 ML IV SCH (10:00)
--- NOTE | 2019-10-04 10:31 | Internal Med Progress Note ---
SUBJECTIVE Subjective Patient information: Note initiated : 10/04/19 at 10:25 am Service Date, if different from initiated Date: [] Patient: Mary Gibbons 74 y/o F admitted on 10/03/19 for UTI. History of present illness: Ms. Gibbons is a 74 year old morbidly obese female with a history of chronic lower extremity wounds/urine incontinence/DM type II/HTN and CKD managed by Dr. Fox who presents to the ER following a couple of days of progressive weakness, fatigue and inability to function. She was recently diagnosed with UTI which has failed to respond to antibiotic treatment as outpatient. She was evaluated in the ER initial work-up was consistent with severe sepsis with leukocytosis at 16.3/elevated lactic acid 2.8 and evidence of endorgan dysfunction including elevated creatinine. Following cultures and crystalloid antibiotics were administered. Hospitalist service was consulted in light of above. At the time of evaluation patient is alert and oriented. Her systolics are low 90s. She endorses to fever but denies lightheadedness dizziness or chest pain. She denies diarrhea, rash or joint pain. She has bilateral lower extremity involving the right heel and left medial foot. 10/02-patient now critically ill with blood pressure in 70s. Started on Levophed. Continue antibiotic coverage/crystalloids/transfer to ICU. Renal ultrasound pending. White count at 16.3 lactic acid elevated 2.8, creatinine 2.7. Continue close hemodynamic monitoring. Repeat BMP at noon. Ulcers noted bilateral lower extremity. Wound care consulted. 10/03-patient currently on pressors. Map at goal. White count downtrending. Wound care ongoing. Cultures pending so far. Constitutional Vitals: Vital Signs Temp Pulse Resp BP Pulse Ox 99.6 F H 79 22 114/51 96 10/04/19 08:01 10/04/19 09:00 10/04/19 09:00 10/04/19 09:00 10/04/19 09:00 Period Temp Pulse Resp BP Sys/Vilchis Pulse Ox Last 24 Hr 97.1 F-99.6 F 73-99 13-31 72-139/45-96 84-100 Intake and Output 10/03/19 10/04/19 10/04/19 21:59 05:59 13:59 Intake Total 546 1745 127 Output Total 726 101 376 Balance -180 1644 -249 Weight 131.814 kg Alert oriented Nonlabored breathing Incontinent On pressors Morbidly obese Lower extremity wounds and dressing Intake & Output: Intake & Output 10/03/19 10/04/19 10/04/19 21:59 05:59 13:59 Intake Total 546 1745 127 Output Total 726 101 376 Balance -180 1644 -249 Weight 131.814 kg Intake: IV 326 1245 127 Sodium Chloride 0.9% 1,000 ml @ 1000 100 mls/hr IV .Q10H PANDA Rx#: [id number] Sodium Chloride 0.9% 250 ml @ 195 20 mls/hr IV .[id number] PANDA Rx#: [id number] Levophed 16 mg In Sodium 26 77 Chloride 0.9% 234 ml @ 10 MCG/ MIN 9.375 mls/hr IV Q24H PANDA Rx #:[id number] Zosyn 3.375 gm In Dextrose 5% 50 50 50 in Water 50 ml @ 100 mls/hr IV Q6H PANDA Rx#:[id number] Vancomycin 1,000 mg In Sodium 250 Chloride 0.9% 250 ml @ 250 mls/ hr IV DAILY PANDA Rx#:[id number] Oral 220 500 Output: Void Amount 725 100 375 # of times incontinent of urine 1 1 1 Other: Meal Dinner Percent of Meal Consumed 100% Urine Appearance Clear Clear Clear Urine Color Straw Pale Bright Yellow Urine Odor Normal Strong OBJ DATA Labs CBC & Chem 7: 10/04/19 05:08 10/04/19 05:08 Labs: Abnormal Lab Results 10/04/19 10/04/19 10/02/19 05:08 05:08 22:55 WBC RBC 3.52 L Hgb 10.4 L Hct MCHC 29.9 L RDW 15.5 H Gran % Lymph % (Auto) Gran # Lymph # (Auto) Seg Neutrophils % 82 H Lymphocytes % 9 L RBC Morphology Abnorm A Anisocytosis 1+ A VBG Lactic Acid BUN 53 H Creatinine 2.4 H Glucose 271 H Uric Acid 8.6 H Calcium 8.3 L Direct Bilirubin 0.5 H GGT 177 H AST 41 H Alkaline Phosphatase Lactate Dehydrogenase 267 H NT-Pro-B Natriuret Pep Albumin 2.9 L Globulin 3.8 H Albumin/Globulin Ratio 0.8 L Urine Protein 100 A Urine Occult Blood 3+ (large) A Urine Nitrate Pos A Urine RBC 14 H Urine WBC 71 H Ur Squamous Epith Cells 31 H Other Casts Few A 10/02/19 10/02/19 10/02/19 21:00 21:00 21:00 WBC 16.3 H RBC Hgb 10.8 L Hct 33.4 L MCHC RDW 15.6 H Gran % 95.3 H Lymph % (Auto) 2.2 L Gran # 15.50 H Lymph # (Auto) 0.35 L Seg Neutrophils % Lymphocytes % RBC Morphology Anisocytosis VBG Lactic Acid 2.8 H BUN 63 H Creatinine 2.7 H Glucose 184 H Uric Acid Calcium 8.5 L Direct Bilirubin GGT AST 56 H Alkaline Phosphatase 127 H Lactate Dehydrogenase NT-Pro-B Natriuret Pep 1356.0 H Albumin 3.0 L Globulin Albumin/Globulin Ratio 0.9 L Urine Protein Urine Occult Blood Urine Nitrate Urine RBC Urine WBC Ur Squamous Epith Cells Other Casts Meds: Medications Acetaminophen (Tylenol) 650 mg PO Q4-6HP PRN; Protocol PRN Reason: Per Pain Protocol/Fever > 101 Last Admin: 10/03/19 14:55 Dose: 650 mg Documented by: Ascorbic Acid (Vitamin C) 1,000 mg PO DAILY [facility] Aspirin (Aspirin) 81 mg PO DAILY [facility] Bisacodyl (Dulcolax) 10 mg [place] Q2-3DAYS PRN PRN Reason: Constipation Bisacodyl (Dulcolax) 10 mg [place] DAILYP PRN PRN Reason: Constipation Bupropion HCl (Wellbutrin Xl) 150 mg PO DAILY [facility] Cyanocobalamin (Vitamin B-12) 1,000 mcg PO BID [facility] Stop: 10/07/19 21:01 Last Admin: 10/04/19 09:44 Dose: 1,000 mcg Documented by: Cyanocobalamin (Vitamin B-12) 2,500 mcg PO BID [facility] Dextrose (Dextrose 50%) 0 ml IV UD PRN PRN Reason: Hypoglycemia Diagnostic Test (Pha) (Accu-Chek) 1 each FS ACHS [facility] Last Admin: 10/04/19 07:37 Dose: 1 each Documented by: Docusate Sodium (Colace) 100 mg PO BID [facility] Last Admin: 10/04/19 09:45 Dose: 100 mg Documented by: Ferrous Sulfate (Ferrous Sulfate) 325 mg PO QAC [facility] Gabapentin (Neurontin) 100 - 300 mg PO HS [facility] Glucose (Insta-Glucose) 15 gm PO PRN PRN PRN Reason: Hypoglycemia Heparin Sodium (Porcine) (Heparin) 5,000 unit SQ Q12 [facility] Last Admin: 10/04/19 09:45 Dose: 5,000 unit Documented by: Magnesium Sulfate (Magnesium Sulfate) 2 gm in 50 mls @ 50 mls/hr IV UD PRN PRN Reason: MG = or < 1.7 Sodium Chloride (Sodium Chloride 0.9%) 1,000 mls @ 100 mls/hr IV .Q10H [facility] Stop: 10/04/19 13:59 Last Admin: 10/03/19 22:55 Dose: Not Given Documented by: Sodium Chloride (Sodium Chloride 0.9%) 250 mls @ 20 mls/hr IV .[id number] [facility] Last Admin: 10/03/19 23:27 Dose: 15 mls/hr Documented by: Acetaminophen (Ofirmev) 650 mg in 65 mls @ 130 mls/hr IV Q6HP PRN; Protocol PRN Reason: Per Pain Protocol/Fever > 101 Norepinephrine Bitartrate 16 (mg/ Sodium Chloride) 250 mls @ 9.375 mls/hr IV Q24H [facility]; Protocol Piperacillin Sod/Tazobactam (Sod 3.375 gm/ Dextrose) 50 mls @ 100 mls/hr IV Q6H [facility]; Protocol Last Infusion: 10/04/19 07:24 Dose: Infused Documented by: Vancomycin HCl 1,000 mg/ (Sodium Chloride) 250 mls @ 250 mls/hr IV DAILY [facility] Last Infusion: 10/03/19 18:20 Dose: Infused Documented by: Insulin Glargine (Lantus) 72 unit SQ BID [facility] Insulin Human Lispro (Humalog) 0 unit SQ ACHS [facility]; Protocol Last Admin: 10/04/19 07:58 Dose: 4 unit Documented by: Iron Carb/Multivit/[place]/Folic Acid (Multivitamin W/Minerals) 1 tab PO DAILY [facility] Last Admin: 10/04/19 09:44 Dose: 1 tab Documented by: Loperamide HCl (Imodium) 2 mg PO PRN PRN PRN Reason: Diarrhea Magnesium Oxide (Magnesium Oxide) 400 mg PO DAILY [facility] Melatonin (Melatonin 3mg Tablet) 3 mg PO HSP PRN PRN Reason: Insomnia Mupirocin (Bactroban Oint 2%) 1 dose NARES BID [facility] Stop: 10/07/19 09:01 Last Admin: 10/04/19 09:45 Dose: 1 dose Documented by: Omeprazole (Prilosec) 20 mg PO DAILY [facility] Ondansetron HCl (Zofran Odt) 4 mg SL Q4-6HP PRN; Protocol PRN Reason: Nausea And Vomiting Ondansetron HCl (Zofran) 4 mg IV Q4-6HP PRN; Protocol PRN Reason: Nausea And Vomiting Polyethylene Glycol (Miralax) 17 gm PO DAILYP PRN PRN Reason: Constipation Potassium Chloride (Klor-Con) 40 meq PO DAILYP PRN PRN Reason: K+ < 3.5 Last Admin: 10/03/19 11:34 Dose: 40 meq Documented by: Ropinirole HCl (Requip) 3 mg PO HS [facility] Senna/Docusate Sodium (Senna Plus Tablet) 1 tab PO HS [facility] Last Admin: 10/03/19 22:08 Dose: 1 tab Documented by: Sertraline HCl (Zoloft) 100 mg PO HS [facility] Simethicone (Mylicon) 80 mg CHEWED QIDP PRN PRN Reason: Dyspepsia Last Admin: 10/03/19 22:08 Dose: 80 mg Documented by: Simvastatin (Zocor) 20 mg PO HS [facility] Sodium Chloride (Saline Flush) 10 ml IV Q8 [facility] Last Admin: 10/04/19 05:46 Dose: Not Given Documented by: Torsemide (Demadex) 100 mg PO DAILY [facility] Vancomycin HCl (Vancomycin Per Pharmacy) 1 order IV UD [facility]; Protocol Vitamin D (Vitamin D3) 2,000 unit PO DAILY [facility] A/P Narrative A/P Narrative: * Septic shock with endorgan dysfunction. Wean pressors as indicated. Clinically improving on antibiotic coverage * Complicated UTI -de-escalate antibiotics based on cultures. Clinically improving. * Acute on chronic kidney injury creatinine 2.7. Clinically improving now creatinine at 2.4 * History poorly controlled DM type II continue basal prandial insulin. Continue basal prandial insulin/CC diet * Anxiety disorder continue bupropion/sertraline * Diabetic foot ulcers wound care consult * Diabetic neuropathy continue gabapentin * Hypertension hold antihypertensives until sepsis resolves. * Restless leg syndrome continue ropinirole * GERD continue PPI * Hyperlipidemia continue statin * Prophylaxis heparin Plan * Wean pressors as indicated * Basal prandial insulin * Await renal ultrasound * Wound care per Dr. garcia * Pre-existing medical condition management home meds * PT OT/nutrition support * Discharge planning per case management Time Spent With Patient Time: Total time spent is greater than 50% in coordination of care (as documented) at patient's floor/unit and/or counseling patient: 25 minutes critical care time QUALITY VTE Deep Vein Thrombosis/Pulmonary Embolism Present on Admission: No
[2019-10-04] MEDS: VANCOMYCIN 1,000 MG in 0.9 % SODIUM CHLORIDE 250 ML IV SCH (10:40)
--- NOTE | 2019-10-04 10:40 | XRay Report ---
INDICATION: hypoxia TECHNIQUE: AP portable semiupright chest x-ray COMPARISON: Previous chest x-rays dated 10/02/2019, 08/22/2018, 07/15/2018 FINDINGS: Lungs:Significant interval change. There are diffuse left lung infiltrates consistent with pneumonia. There is no dense consolidation. Etiology is not certain. Viral pneumonia is not excluded. Heart, vascular:No significant cardiomegaly. Pulmonary vascularity is normal. No pulmonary edema or pulmonary congestion Mediastinum, chasity:No mediastinal widening. No hilar mass Pleura:Blunting of the right costophrenic angle consistent with small effusion. This is new Skeletal:Negative. IMPRESSION: 1. Diffuse left lung infiltrates, new since 10/02/2019 2. Appearance is consistent with pneumonia. Viral pneumonia is not excluded 3. Blunting of the right costophrenic angle. Findings are consistent with small right pleural effusion Interpreted and Authenticated by: Spencer Higuera 10/04/19
[2019-10-04] MEDS: 0.9 % SODIUM CHLORIDE 1,000 ML IV SCH (10:52)
[2019-10-04] MEDS ORDERED: TORSEMIDE 10 MG TABLET PO ONE (10:54)
[2019-10-04] MEDS: ACETAMINOPHEN 325 MG TABLET PO PRN (11:11)
--- NOTE | 2019-10-04 11:36 | Ultrasound Report ---
INDICATION: YANN TECHNIQUE: Grayscale and color flow Doppler spectral imaging. COMPARISON: None. FINDINGS: Suboptimal evaluation due to body habitus. Patient was not mobile Right kidney: Right kidney .1 x 6.6 x 4.6 cm. There is no hydronephrosis. No solid right renal mass. Renal cortex is normal. No detectable calculi. Left kidney: Left kidney [id number] x 5.6 x 4.6 cm. There is no hydronephrosis. No solid left renal mass. Renal cortex is normal. No detectable calculi. Bladder: Prevoid bladder mL. Post void bladder volumenot assessed. No bladder calculi. No detectable mass. Bilateral ureteral jets are not visualized. IMPRESSION: 1. Limited evaluation 2. No hydronephrosis. No solid or cystic mass Interpreted and Authenticated by: Spencer Higuera 10/04/19
[2019-10-04] MEDS ORDERED: DEXAMETHASONE 10 MG/ML VIAL IV ONE (11:48)
--- NOTE | 2019-10-04 11:57 | XRay Report ---
INDICATION: decrease respiration, oxygen TECHNIQUE: AP portable semiupright chest x-ray COMPARISON: Chest x-rays dated 10/04/2019, 10/02/2019, 08/22/2018 FINDINGS: Lungs:There are diffuse left lung infiltrates. Had increased since previous examination dated 10/04/2019, especially at the left lung base. Appearance remains consistent with pneumonia. No focal right lung infiltrate. Heart, vascular:No significant cardiomegaly. Pulmonary vascularity is normal. No pulmonary edema or pulmonary congestion Mediastinum, chasity:No mediastinal widening. No hilar mass Pleura:No pleural fluid. No pleural-based mass or calcification Skeletal:Negative. IMPRESSION: 1. Increasing left lung infiltrates. 2. Findings remain consistent with pneumonia Interpreted and Authenticated by: Spencer Higuera 10/04/19
--- NOTE | 2019-10-04 12:16 | Transfer Summary ---
Discharge Provider Provider Patient information: Note initiated : 10/04/19 at 12:08 pm Service Date, if different from initiated Date: [] Patient: Mary Gibbons 74 y/o F admitted on 10/03/19 for UTI. Chief Complaint: History of present illness: Ms. Gibbons is a 74 year old morbidly obese female with a history of chronic lower extremity wounds/urine incontinence/DM type II/HTN and CKD managed by Dr. Fox who presents to the ER following a couple of days of progressive weakness, fatigue and inability to function. She was recently diagnosed with UTI which has failed to respond to antibiotic treatment as outpatient. She was evaluated in the ER initial work-up was consistent with severe sepsis with leukocytosis at 16.3/elevated lactic acid 2.8 and evidence of endorgan dysfunction including elevated creatinine. Following cultures and crystalloid antibiotics were administered. Hospitalist service was consulted in light of above. At the time of evaluation patient is alert and oriented. Her systolics are low 90s. She endorses to fever but denies lightheadedness dizziness or chest pain. She denies diarrhea, rash or joint pain. She has bilateral lower extremity involving the right heel and left medial foot. 10/02-patient now critically ill with blood pressure in 70s. Started on Levophed. Continue antibiotic coverage/crystalloids/transfer to ICU. Renal ultrasound pending. White count at 16.3 lactic acid elevated 2.8, creatinine 2.7. Continue close hemodynamic monitoring. Repeat BMP at noon. Ulcers noted bilateral lower extremity. Wound care consulted. 10/03-patient currently on pressors. Map at goal. White count downtrending. Wound care ongoing. Cultures pending so far. 10/03-this point nurse called patient profoundly hypoxic with sats down in mid 50s. Stat ABG on 15 L non-breather PaO2 106. Chest x-ray shows worsening infiltrate suspicious for viral pneumonia. COVID spot testing ordered. 6 mg dexamethasone administered. In light of high risk patient with a BMI of 50 and rapidly deteriorating respiratory status patient may require intubation/prone ventilation if consistent with COVID and the need for tertiary center transfer. Case was discussed with [facility] [place] [employer] specialist Dr. Lofton who graciously accepted the patient for further management. Patient remains critically ill on Levophed at 4 mics. Diuretics have been administered improved lung compliance. On Zosyn/vancomycin. Patient ready for transfer to tertiary center. Date of admission: 10/03/19 00:34 Discharge date: 10/04/19 Primary care physician: Katie Haji Consults: 10/02/19 Consult to Physician [CONS] Stat Comment: Consulting Provider: Elroy Butler Reason For Exam: Physician to Consult 10/03/19 10:07 Consult to Physician [CONS] Routine Comment: Consulting Provider: Kenn Fonseca Reason For Exam: Physician to Consult Discharge Meds Discharge Medications Home Medications sertraline 100 mg PO HS 04/29/15 [History Confirmed 10/03/19 Last Taken 10/01/19 20:00] simvastatin 20 mg PO HS 04/29/15 [History Confirmed 10/03/19 Last Taken 12/14/16 20:35] bupropion HCl 150 mg PO DAILY 12/15/16 [Rx Confirmed 10/03/19 Last Taken 10/02/19 08:00] Accu-Chek 1 each FS ACHS strip 12/17/16 [Rx Confirmed 10/03/19 Last Taken 10/02/19 08:00] aspirin 81 mg PO ONCE 07/13/18 [History Confirmed 10/03/19 Last Taken 10/02/19 08:00] cyanocobalamin (vitamin B-12) 2,500 mcg PO BID 07/13/18 [History Confirmed 10/03/19 Last Taken 10/02/19 08:00] torsemide 100 mg PO DAILY 07/13/18 [History Confirmed 10/03/19 Last Taken 10/02/19 08:00] insulin aspart U-100 See Protocol SQ ACHS #1 ml 07/17/18 [Rx Confirmed 10/03/19 Last Taken 10/02/19 08:00] ropinirole 3 mg PO HS #5 tab 07/17/18 [Rx Confirmed 10/03/19 Last Taken 10/01/19 20:00] acetaminophen 650 mg PO Q6HP PRN 07/20/18 [History Confirmed 10/03/19 Last Taken 10/01/19 20:00] bisacodyl 10 mg [place] DAILYP PRN 07/20/18 [History Confirmed 10/03/19 Last Taken Unknown] glucagon (human recombinant) 1 mg IJ PRN PRN 07/20/18 [History Confirmed 10/03/19 Last Taken Unknown] loperamide 2 mg PO PRN PRN 07/20/18 [History Confirmed 10/03/19 Last Taken Unknown] fesoterodine 4 mg tablet,extended release 24 hr 4 mg PO QDAY 07/24/18 [History Confirmed 10/03/19 Last Taken 10/02/19 08:00] ascorbic acid (vitamin C) 1,000 mg tablet 1 g PO QDAY tab 07/31/18 [History Confirmed 10/03/19 Last Taken 10/02/19 08:00] cholecalciferol (vitamin D3) 50 mcg (2,000 unit) capsule 2,000 unit PO QDAY 07/31/18 [History Confirmed 10/03/19 Last Taken 10/02/19 08:00] ferrous sulfate 325 mg (65 mg iron) tablet,delayed release 325 mg PO QDAY tab 07/31/18 [History Confirmed 10/03/19 Last Taken 10/02/19 08:00] gabapentin 100 mg capsule 1 - 3 cap PO HS 07/31/18 [History Confirmed 10/03/19 Last Taken 10/02/19 08:00] magnesium 200 mg tablet 400 mg PO QDAY tab 07/31/18 [History Confirmed 10/03/19 Last Taken 10/02/19 08:00] omeprazole 20 mg PO DAILY 08/22/18 [History Confirmed 10/03/19 Last Taken 10/02/19 08:00] insulin glargine 72 unit SQ BID 10/03/19 [History Confirmed 10/03/19 Last Taken 10/02/19 08:00] COURSE Hospital Course Hospital Course: Transfer diagnosis * Acute hypoxic respiratory failure. Multifocal infiltrates. High suspicion for viral pneumonia. Rapid COVID-19 testing pending. Dexamethasone 6 mg administered once. On high flow oxygen. ABG 7.36/40 3/106 at 60% FiO2. * Septic shock with endorgan dysfunction. Source possible UTI/pneumonia. Wean pressors as indicated. Clinically improving on antibiotic coverage * Complicated UTI -de-escalate antibiotics based on cultures. Clinically improving. * Acute on chronic kidney injury creatinine 2.7. Improved creatinine today at 2.4 * History poorly controlled DM type II continue basal prandial insulin. Managed on basal prandial insulin/CC diet * Anxiety disorder continue bupropion/sertraline * Diabetic foot ulcers ongoing wound care by Dr. Fonseca * Diabetic neuropathy continue gabapentin * Hypertension held antihypertensives until sepsis resolves. * Restless leg syndrome continue ropinirole * GERD continue PPI * Hyperlipidemia continue statin Discharge diagnosis: . Time Spent with Patient Time attestation: Total time spent providing and/or coordinating discharge services: Time spent: Greater than 30 minutes EXAM Constitutional Vitals: Temp Pulse Resp BP Pulse Ox 99.6 F H 89 21 114/52 99 10/04/19 08:01 10/04/19 11:39 10/04/19 11:39 10/04/19 11:01 10/04/19 11:39 Discharge Data Data Completed and Pending Labs on day of discharge: Labs from last 24 hours 10/04/19 10/04/19 10/04/19 11:41 11:40 07:58 WBC RBC Hgb Hct MCV MCH MCHC RDW Plt Count MPV Total Counted Seg Neutrophils % Band Neutrophils % Lymphocytes % Monocytes % (Manual) Eosinophils % (Manual) Platelet Estimate RBC Morphology Anisocytosis Sodium Potassium Chloride Carbon Dioxide Anion Gap BUN Creatinine GFR Calculation Glucose Uric Acid Calcium Phosphorus Magnesium Total Bilirubin Direct Bilirubin GGT AST ALT Alkaline Phosphatase Lactate Dehydrogenase Total Protein Albumin Globulin Albumin/Globulin Ratio Triglycerides Vancomycin Trough 13.2 Random Vancomycin Vancomycin Dose Vanco Last Dose Time COVID-19 PCR Pending Nasal/Oral COVID-19 PCR Pending COVID-19 PCR Interp Pending 10/04/19 10/04/19 10/03/19 05:08 05:08 14:10 WBC 9.1 RBC 3.52 L Hgb 10.4 L Hct 34.8 MCV 98.9 MCH 29.5 MCHC 29.9 L RDW 15.5 H Plt Count 151 MPV 9.2 Total Counted 100 Seg Neutrophils % 82 H Band Neutrophils % 5 Lymphocytes % 9 L Monocytes % (Manual) 2 Eosinophils % (Manual) 2 Platelet Estimate Normal RBC Morphology Abnorm A Anisocytosis 1+ A Sodium 138 Potassium 4.0 Chloride 100 Carbon Dioxide 24 Anion Gap 14.0 BUN 53 H Creatinine 2.4 H GFR Calculation 20 Glucose 271 H Uric Acid 8.6 H Calcium 8.3 L Phosphorus 3.1 Magnesium 2.1 Total Bilirubin 0.8 Direct Bilirubin 0.5 H GGT 177 H AST 41 H ALT 32 Alkaline Phosphatase 111 Lactate Dehydrogenase 267 H Total Protein 6.7 Albumin 2.9 L Globulin 3.8 H Albumin/Globulin Ratio 0.8 L Triglycerides 141 Vancomycin Trough Random Vancomycin 8.0 Vancomycin Dose Not Reportable Vanco Last Dose Time Not Reportable COVID-19 PCR Nasal/Oral COVID-19 PCR COVID-19 PCR Interp Preliminary micro results at discharge 10/02/19 22:55 Urine Culture - Preliminary Urine - Clean Void Mid-Stream 10/02/19 21:00 Blood Culture - Preliminary Blood 10/02/19 21:05 Blood Culture - Preliminary Blood Discharge Plan Patient/Caregiver Discharge Instructions Prescriptions: No Action fesoterodine 4 mg tablet extended release 24 hr 4 mg PO QDAY RF: 0 ferrous sulfate 325 mg (65 mg iron) tablet,delayed release 325 mg (65 mg iron) tablet,delayed release (DR/EC) 325 mg PO QDAY RF: 0 magnesium 200 mg tablet 400 mg PO QDAY RF: 0 ascorbic acid (vitamin C) 1,000 mg tablet 1 g PO QDAY RF: 0 cholecalciferol (vitamin D3) 2,000 unit capsule 2,000 unit PO QDAY RF: 0 sertraline 100 MG tablet 100 mg PO HS RF: 0 simvastatin 20 MG tablet 20 mg PO HS RF: 0 bupropion HCl 150 MG tablet extended release 24 hr 150 mg PO DAILY RF: 0 Accu-Chek 1 EACH strip 1 each FS ACHS RF: 0 cyanocobalamin (vitamin B-12) 2,500 MCG tablet 2,500 mcg PO BID RF: 0 aspirin 81 MG tablet,delayed release (DR/EC) 81 mg PO ONCE RF: 0 torsemide 100 MG tablet 100 mg PO DAILY RF: 0 insulin aspart U-100 100 UNIT/ML solution See Protocol unit SQ ACHS Qty: 1 RF: 0 ropinirole 3 MG tablet 3 mg PO HS Qty: 5 RF: 0 gabapentin 100 mg capsule 1 - 3 cap PO HS RF: 0 loperamide 2 MG capsule 2 mg PO PRN PRN (Reason: Diarrhea) RF: 0 bisacodyl 10 MG suppository 10 mg [place] DAILYP PRN (Reason: Constipation) RF: 0 glucagon (human recombinant) 1 MG recon soln 1 mg IJ PRN PRN (Reason: Blood Sugar - Low) RF: 0 acetaminophen 325 MG capsule 650 mg PO Q6HP PRN (Reason: Pain) RF: 0 omeprazole 20 MG capsule 20 mg PO DAILY RF: 0 insulin glargine 1 UNIT/0.01 ML solution 72 unit SQ BID RF: 0 Follow Up Plan Follow up with: Katie Haji ARNP [Primary Care Provider] - Patient Disposition: er Acute [facility] Discharge Orders: Discharge Order (Routine); Ordered 10/04/19 Ordered By: Elroy KASPER VTE Deep Vein Thrombosis/Pulmonary Embolism Present on Admission: No
[2019-10-04] MEDS: 0.9 % SODIUM CHLORIDE 250 ML IV SCH (14:44)
[2019-10-04] MEDS ORDERED: rOPINIRole 1 MG TABLET PO SCH (21:00)
[2019-10-04] MEDS ORDERED: GABAPENTIN 100 MG CAPSULE PO SCH (21:00)
[2019-10-04] MEDS ORDERED: SERTRALINE 100 MG TABLET PO SCH (21:00)
[2019-10-04] MEDS ORDERED: SIMVASTATIN 20 MG TABLET PO SCH (21:00)
[2019-10-04] MEDS ORDERED: INSULIN GLARGINE, HUMAN 1 UNIT/0.01 ML SQ SCH (21:00)
[2019-10-04] MEDS ORDERED: CYANOCOBALAMIN (VITAMIN B-12) 500 MCG TABLET PO SCH (21:00)
[2019-10-05] MEDS ORDERED: FERROUS SULFATE 325 MG TABLET PO SCH (08:00)
[2019-10-05] MEDS ORDERED: ASCORBIC ACID 500 MG TABLET PO SCH (09:00)
[2019-10-05] MEDS ORDERED: MAGNESIUM OXIDE 400 MG TABLET PO SCH (09:00)
[2019-10-05] MEDS ORDERED: ASPIRIN 81 MG TAB.CHEW PO SCH (09:00)
[2019-10-05] MEDS ORDERED: TORSEMIDE 10 MG TABLET PO SCH (09:00)
[2019-10-05] MEDS ORDERED: OMEPRAZOLE 20 MG CAPSULE PO SCH (09:00)
[2019-10-05] MEDS ORDERED: VITAMIN D3 1,000 UNIT TABLET PO SCH (09:00)
[2019-10-05] MEDS ORDERED: buPROPion 150 MG TAB.XL.24H PO SCH (09:00)
== END 2019-10-04 14:15 | disposition short-term general hospital (02) | DRG 871 ==
LOC: ED 20:18 → ICU 10-03 00:34
PROVIDERS: ADMIT Internal Medicine; ATTEND Internal Medicine